=== PATIENT | male | born 1985 | race African-American/Black ===

== ENCOUNTER 2018-03-09 16:08 | Inpatient (IN) ==
--- NOTE | 2018-03-09 18:15 | PROVIDER DOCUMENTATION ---
This chart was entered by Lilliana Che Scribe, acting as scribe for Vamsi Felix MD. HPI-Respiratory General - General Source: patient - History of Present Illness-Resp Quality of Pain: reports: none Severity in ED: reports: mild Onset/Duration: reports: 3 days ago Timing: reports: still present Context: reports: other (hc COPD/CHF) Exposure: reports: unknown cause (hx COPD/CHF) Cough Quality/Degree: reports: dry cough Episode Frequency: chronic episodes (hc COPD/CHF) Current Respiratory Medication Therapy: Initiated see nurses note Modifying Factors: improves with: nothing Associated Symptoms: reports: cough (dry), fever/chills, nasal congestion Similar Symptoms Previously?: No Recently seen or treated by another doctor?: No <Vamsi Felix - Last Filed: 03/09/18 19:16> <Vamsi Villasenor - Last Filed: 03/09/18 22:11> - General Chief Complaint: Cough Stated Complaint: CHF COPD Time Seen by Provider: 03/09/18 17:12 Allergies/Adverse Reactions: Patient Allergies Allergy/AdvReac Type Severity Reaction Status Date / Time No Known Allergies Allergy Verified 03/09/18 16:56 Home Medications: Home Medication List Medication Instructions Recorded Confirmed Last Taken Type Albuterol Sulfate [Proair Hfa] 2 puff IH Q4H PRN PRN #1 hfa.aer.ad 01/22/1301/26/18 Rx Aspirin [Aspirin EC] 81 mg PO DAILY 01/22/13 01/26/18 01/25/18 History Carvedilol [Coreg] 25 mg PO BID 01/22/13 01/26/18 01/25/18 History Mometasone/Formoterol [Dulera 100 2 puff INH BID 02/04/16 01/26/18 01/15/18 07: 00 History Mcg/5 Mcg Inhaler] Psyllium Husk [Daily Fiber] 0.52 gm PO DAILY 02/04/16 01/26/18 01/15/18 07:00 History Hydrocodone/APAP 7.5 mg/325 mg 1 each PO Q6H PRN PRN #20 tablet 02/08/16 Unknown Rx [[place]-7.5] Amlodipine [Norvasc] 5 mg PO DAILY #30 tab 02/02/18 Unknown Rx Guaifenesin E.r. [Mucinex] 600 mg PO BID tablet 02/02/18 Unknown Rx Pantoprazole [Protonix] 40 mg PO DAILY@0700 #30 tab 02/02/18 Unknown Rx Polyethylene Glycol 3350 [Miralax] 17 gm PO DAILY #30 powder, packet 02/02/18 Unknown Rx Sacubitril/Valsartan [Entresto 24 1 ea PO BID #120 tab 02/02/18 Unknown Rx mg-26 mg Tablet] Torsemide [Demadex] 10 mg PO BID #60 tab 02/02/18 Unknown Rx - History of Present Illness-Resp Nature of Presenting Problem: 33 y/o male presents to ED with dry cough, fever, orthopnea, SOB, poor appetite , and congestion onset 3 days ago. Pt reports hx CHF and COPD. O2 sat in the 70s upon arrival on room air. Pt wears nasal cannula at home. Pt is alert and oriented. (Lilliana Che) 33 y/o male presents to ED with dry cough, fever, orthopnea, SOB, poor appetite , and congestion onset 3 days ago. Pt reports hx CHF and COPD. O2 sat in the 70s upon arrival on room air. Pt wears nasal cannula at home. Pt is alert and oriented. (Vamsi Felix) Review of Systems - Adult - REVIEW OF SYSTEMS - ADULT Constitutional: reports: fever. denies: chills Eyes: reports: no symptoms reported Ears, Nose, Mouth & Throat: reports: sinus problem. denies: epistaxis Cardiovascular: reports: orthopnea. denies: chest pain, palpitations Respiratory: reports: cough (dry), shortness of breath Gastrointestinal: reports: poor appetite. denies: abdominal pain, diarrhea, nausea, vomiting Genitourinary: reports: no symptoms reported Musculoskeletal: denies: back pain, joint pain Integumentary: reports: no symptoms reported Neurological: denies: dizziness/vertigo, seizure Psychiatric: reports: no symptoms reported Endocrine: reports: no symptoms reported Hematologic/Lymphatic: reports: no symptoms reported Allergic/Immunologic: reports: no symptoms reported All Other Systems: Reviewed and Negative <Vamsi Felix - Last Filed: 03/09/18 19:16> Past History - Adult - PAST MEDICAL HISTORY-ADULT Review of Records: reports: Old Records Reviewed, Nursing Assessment Review, Medications Reviewed Major Childhood Illnesses: reports: denies history Cardiovascular: reports: CHF, HTN Respiratory: reports: asthma, COPD, pneumonia, sleep apnea Gastrointestinal: reports: GERD, ulcer Obstetrical/Gynecological: reports: denies history Genitourinary: reports: denies history Musculoskeletal: reports: denies history Neurological: reports: denies history Psychiatric: reports: denies history Endocrine/Immune: reports: Diabetes Other Conditions: reports: denies history - PRIOR SURGERIES/PROCEDURES Surgical/Procedure History: reports: EGD, colonoscopy, other (sinus ) - IMMUNIZATION STATUS Childhood Immunizations: See Nurse Assessment Flu Vaccine: See Nurse Assessment - FAMILY HISTORY Family History: reviewed, not pertinent - SOCIAL HISTORY Smoking: non-smoker Substance Use: none/never Alcohol Use Frequency: rarely Living Situation: family <Vamsi Felix - Last Filed: 03/09/18 19:16> Physical Exam-General - PHYSICAL EXAM-ADULT Initial Vital Signs Reviewed: Yes - CONSTITUTIONAL General Appearance: appears well, alert, no apparent distress, obese - EYES Eyes: PERRL/EOMI, pink conjunctivae - HEAD, EARS, NOSE, MOUTH & THROAT HENMT: normocephalic/atraumatic, moist mucous membranes, normal ENT inspection - NECK Neck: non-tender, full range of motion - RESPIRATORY Respiratory: chest non-tender, increased rate, other (difficult to hear breath sounds) - CARDIOVASCULAR Cardiovascular: normal peripheral pulses, regular rate, rhythm, other (distant heart sounds) - GASTROINTESTINAL (ABDOMEN) Abdominal Exam: non tender, soft, other (morbidly obese) - MUSCULOSKELETAL Back Exam: normal inspection, no CVA tenderness Extremity: normal range of motion, non-tender, normal gait - SKIN Integumentary: normal color, warm/dry - NEUROLOGIC Neurologic: grossly normal - PSYCHIATRIC Psych/Mental Status: normal mood/affect, normal thought content, normal thought process <Vamsi Felix - Last Filed: 03/09/18 19:16> Progress - CHANGE OF SHIFT REPORT (ED Provider) Report Given and Care Transferred to:: Dr villasenor Items Pending: Labs, XRAY Results <Vamsi Felix - Last Filed: 03/09/18 19:16> - PLAN OF CARE/RESULTS Result Diagrams: 03/09/18 19:57 03/09/18 19:57 - XRAY 1 XRAY Study: Chest Impression: See EMR Report (EXAM: CHEST-2 VIEWS INDICATION: sob TECHNIQUE: 2 views COMPARISON: 02/02/2018 FINDINGS: There is evidence of pulmonary venous congestion and interstitial edema. There is no large pleural fluid collection identified and no pneumothorax. There is stable cardiomegaly. IMPRESSION: Pulmonary edema and pulmonary venous congestion as described. Electronically signed by Dirk Jasso 03/09/2018 7:27 PM 03/09/181926 Interpreting Physician: Dirk Jasso MD Dictated Date/Time: 03/09/181925 cc: Vamsi Felix MD; Aleks Machado MD) - CONSULTS/PCP/HOSPITALIST Notification #1 *Consult/PCP/Hospitalist*: Dr. Tolentino Time Discussed: 22:05 Reason/Comments: consulted with Dr. Tolentino about patient. Consult Disposition: Admit <Vamsi Villasenor - Last Filed: 03/09/18 22:11> - PLAN OF CARE/RESULTS Progress/Plan/Lab Results: Vital Signs - 8 hr 03/09/18 16:31 03/09/18 16:55 03/09/18 19:00 Temperature 102.9 F H 99.1 F Pulse Rate 103 H 101 H 109 H Respiratory Rate 24 31 H 13 Blood Pressure 141/91 127/102 O2 Sat by Pulse Oximetry 95 89 L 89 L Laboratory Results - last 24 hr 03/09/18 03/09/18 03/09/18 19:57 19:57 19:57 WBC 9.83 RBC 4.89 Hgb 12.6 L Hct 40.5 L MCV 82.8 MCH 25.8 L MCHC 31.1 L RDW Std Deviation 14.9 H Plt Count 177 MPV 11.1 H Immature Gran % (Auto) 0.2 Neut % (Auto) 74.1 Lymph % (Auto) 16.2 L [place] % (Auto) 8.9 Eos % (Auto) 0.4 Baso % (Auto) 0.2 Immature Gran # (Auto) 0.02 Neut # (Auto) 7.29 H Lymph # (Auto) 1.59 [place] # (Auto) 0.87 H Eos # (Auto) 0.04 Baso # (Auto) 0.02 Specimen Type Sample Site pH pCO2 pO2 HCO3 Base Excess Oxyhemoglobin ABG O2 Sat (Calculated) ABG O2 Saturation ABG Carboxyhemoglobin ABG Methemoglobin Larry Test A-a O2 Difference Total Hemoglobin Lactate Liter Flow Blood Gas Modality FiO2 % Sodium 141 Potassium 4.0 Chloride 97 L Carbon Dioxide 30 Anion Gap 14 BUN 15 Creatinine 1.1 Estimated GFR/1.73 m2 > 60 BUN/Creatinine Ratio 14 Glucose 80 Calculated Osmolality 281 Calcium 9.2 Total Bilirubin 2.22 H AST 16 ALT 12 Alkaline Phosphatase 88 Troponin T Zda-A-Bcsvnixtofj Pept 1477 H Total Protein 8.6 H Albumin 3.9 Globulin 4.7 Albumin/Globulin Ratio 0.8 Plasma Lactate 03/09/18 03/09/18 03/09/18 19:57 21:12 21:16 WBC RBC Hgb Hct MCV MCH MCHC RDW Std Deviation Plt Count MPV Immature Gran % (Auto) Neut % (Auto) Lymph % (Auto) [place] % (Auto) Eos % (Auto) Baso % (Auto) Immature Gran # (Auto) Neut # (Auto) Lymph # (Auto) [place] # (Auto) Eos # (Auto) Baso # (Auto) Specimen Type ARTERIAL Sample Site R RADIAL pH 7.46 H pCO2 46 H pO2 58 L HCO3 30.9 H Base Excess 7.8 H Oxyhemoglobin 91.0 L ABG O2 Sat (Calculated) 16.2 ABG O2 Saturation 94.1 L ABG Carboxyhemoglobin 2.40 ABG Methemoglobin 0.9 Larry Test YES A-a O2 Difference 98.0 Total Hemoglobin 12.7 Lactate 1.30 Liter Flow 2.5 Blood Gas Modality CANNULA FiO2 % 30.0 Sodium Potassium Chloride Carbon Dioxide Anion Gap BUN Creatinine Estimated GFR/1.73 m2 BUN/Creatinine Ratio Glucose Calculated Osmolality Calcium Total Bilirubin AST ALT Alkaline Phosphatase Troponin T 0.013 Hyw-B-Ubqlncxvwgm Pept Total Protein Albumin Globulin Albumin/Globulin Ratio Plasma Lactate 1.1 Orders Category Date Time Status Saline Loc NOW Care 03/09/18 20:37 Active CHEST-2 VIEWS [RAD] Stat Exams 03/09/18 17:45 Completed ABG [RESP] Routine Lab 03/09/18 21:12 Completed BC [BLOOD CULTURE] [BLDCUL] Stat Lab 03/09/18 21:16 Received CBC WITH ELECTRONIC DIFF [HEME] Stat Lab 03/09/18 19:57 Completed CMP [COMPREHENSIVE METABOLIC PANEL] [CHEM] Stat Lab 03/09/18 19:57 Completed INFLUENZA SCREEN A/B Stat Lab 03/09/18 20:38 Uncollected LACTATE, PLASMA [CHEM] Stat Lab 03/09/18 21:16 Completed PRO B-NATRIURETIC PEPTIDE Stat Lab 03/09/18 19:57 Completed TROPONIN T Stat Lab 03/09/18 19:57 Completed Albuterol 2.5MG/Ipratrop 0.5MG [Duoneb (A & A)] Med 03/09/18 22:02 Discontinued 3 ml INH NOW ONE Azithromycin 500 mg/Ns [Zithromax 500 mg/Ns] Med 03/09/18 20:38 Discontinued 500 mg in 250 ml IV NOW CefTRIAXONE [Rocephin] 1 gm Med 03/09/18 20:38 Discontinued 0.9% Sodium Chloride Inj [Ns] 50 ml IV NOW Furosemide [Lasix] Med 03/09/18 20:38 Discontinued 40 mg IV NOW ONE Furosemide [Lasix] Med 03/09/18 22:00 Discontinued 60 mg IM NOW ONE Aerosol Treatments Routine Oth 03/09/18 22:02 Active Aerosol Treatments Stat Oth 03/09/18 22:02 Active Departure <Vamsi Felix - Last Filed: 03/09/18 19:16> - Departure Date of Disposition Decision: 03/09/18 Time of Disposition Decision: 22:06 Certified Medical Emergency: Emergent - Critical Care Note This patient required my direct & personal management of CC.: No <Vamsi Villasenor - Last Filed: 03/09/18 22:11> - Departure DIAGNOSIS: SOB (shortness of breath), Cardiomegaly, CHF exacerbation Fluid overload Qualifiers: Hypervolemia type: unspecified Qualified Code(s): E87.70 - Fluid overload, unspecified Fever Qualifiers: Encounter type: initial encounter Disposition: ADMITTED INPATIENT 09 Condition: Fair Referrals and Follow-Ups: Aleks Machado MD [Primary Care Provider] - Attestation - Physician/ KRISTAN Attestation Patient care was provided by Advanced Practice Provider:: No The physician spent face to face time with patient:: Yes Advanced Practice Provider documentation review:: Supervising physician onsite and consulted in the evaluation and care of this patient. The physician did have a face to face encounter with the patient. <Vamsi Felix - Last Filed: 03/09/18 19:16> - Physician/ KRISTAN Attestation Patient care was provided by Advanced Practice Provider:: No The physician spent face to face time with patient:: Yes Advanced Practice Provider documentation review:: Supervising physician onsite and consulted in the evaluation and care of this patient. The physician did have a face to face encounter with the patient. <Vamsi Villasenor - Last Filed: 03/09/18 22:11> This chart was documented by the indicated scribe, (Lilliana Che, Scribe) and accurately reflects the services I performed and decisions made by me, Vamsi Felix MD, as attested by the provider's signature.
--- NOTE | 2018-03-09 19:29 | Diag Imaging Result Doc PS360 ---
EXAM: CHEST-2 VIEWS INDICATION: sob TECHNIQUE: 2 views COMPARISON: 02/02/2018 FINDINGS: There is evidence of pulmonary venous congestion and interstitial edema. There is no large pleural fluid collection identified and no pneumothorax. There is stable cardiomegaly. IMPRESSION: Pulmonary edema and pulmonary venous congestion as described. Electronically signed by Dirk Jasso 03/09/2018 7:27 PM
[2018-03-09 20:25] LABS: BASO# 0.02 X1000 (0.0-0.2); BASO% 0.2 % (0.0-0.8); EOS# 0.04 X1000 (0.0-0.7); EOS% 0.4 % (0.0-10.0); HEMATOCRIT 40.5 % (42.0-52.0); HEMOGLOBIN 12.6 g/dL (14.0-18.0); IMM GRAN# 0.02 X1000 (0.0-0.04); IMM GRAN% 0.2 % (0.0-0.5); LYMPH# 1.59 X1000 (1.2-3.4); LYMPH% 16.2 % (20.5-51.1); MCH 25.8 PG (27-31); MCHC 31.1 g/dL (33-37); MCV 82.8 FL (81-99); MONO# 0.87 X1000 (0.11-0.59); MONO% 8.9 % (1.7-9.3); MPV 11.1 FL (7.4-10.4); NEUT# 7.29 X1000 (1.4-6.5); NEUT% 74.1 % (42.2-75.2); PLT 177 X1000 (130-400); RBC 4.89 XMIL (4.7-6.1); RDW 14.9 % (11.5-14.5); WBC 9.83 X1000 (4.8-10.8)
[2018-03-09 20:35] LABS: AGAP 14; ALB/GLOB RATIO 0.8; ALBUMIN 3.9 g/dL (3.5-5.0); ALKALINE PHOSPHATASE 88 U/L (32-122); BUN 15 mg/dL (8-22); CALCIUM 9.2 mg/dL (8.8-10.2); CHLORIDE 97 mmol/L (98-107); COSMO 281; CREATININE 1.1 mg/dL (0.7-1.2); ESTIMATED GFR > 60; GLUCOSE 80 mg/dL (70-104); GOT 16 U/L (10-34); GPT 12 U/L (10-44); SODIUM 141 mmol/L (136-145); TCO2 30 mmol/L (25-35); TOTAL BILIRUBIN 2.22 mg/dL (0.20-1.00); TOTAL PROTEIN 8.6 g/dL (6.3-8.3)
[2018-03-09] MEDS ORDERED: LASIX IV ONE (20:38)
[2018-03-09] MEDS ORDERED: ROCEPHIN 1 GM in NS 50 ML IV ONE (20:38)
[2018-03-09] MEDS ORDERED: ZITHROMAX 500 MG/NS 500 MG/250 ML IVPB IV ONE (20:38)
[2018-03-09 21:21] LABS: ALLEN TEST YES; BE 7.8 mmoll (-3.0-3.0); BLOOD TYPE ARTERIAL; HCO3-(ACT) 30.9 mmoll (20.0-26.0); METHB 0.9 % (0.0-1.5); O2(CT) 16.2 mL/dL (15.0-23.0); PCO2(98.6) 46 mmHg (35-45); PO2(98.6) 58 mmHg (60-100); SAMPLE BLOOD; SAO2 94.1 % (95.0-100.0); THB 12.7 g/dL (11.5-17.4); pH(98.6) 7.46 (7.35-7.45)
[2018-03-09 21:22] LABS: MODALITY CANNULA
[2018-03-09] MEDS ORDERED: LASIX IM ONE (22:00)
[2018-03-09] MEDS ORDERED: DUONEB (A & A) INH ONE (22:02)
[2018-03-09] MEDS ORDERED: ZOFRAN IV PRN (23:31)
[2018-03-09] MEDS ORDERED: TYLENOL PO PRN (23:33)
[2018-03-10] MEDS: ROCEPHIN 1 GM in NS 50 ML IV SCH (01:25)
[2018-03-10] MEDS: LASIX IV SCH ×2 (01:25→10:45)
[2018-03-10] MEDS: LOVENOX SUBQ SCH (01:25)
--- NOTE | 2018-03-10 01:57 | HISTORY AND PHYSICAL ---
CHIEF COMPLAINT: Shortness of breath. HISTORY OF PRESENT ILLNESS: The patient is a 33-year-old morbidly obese male who has a known history of congestive heart failure, sleeps at night with a BiPAP. She presented to the ER with increased cough, congestion, shortness of breath. He currently is on 4 L of oxygen at home. He notes that for the past 2-1/2 days he has not been able to breathe, he has been much more fatigued and short of breath with any activity. He actually had a fever at 102 earlier today when he arrived to the ER. He states he has not had any fever prior to this. He states that he has had a recent increase in his Demadex over the past 2 weeks to 20 mg twice a day. He does not check his weight on any regular basis as he states he is unable to weigh at home. PAST MEDICAL HISTORY: Congestive heart failure, hypertension, morbid obesity, COPD, recurrent pneumonia, sleep apnea, chronic reflux with history of peptic ulcers, diabetes, chronic edema in his lower extremities with brawny edematous changes. He has had a colonoscopy in the past. ALLERGIES: No known drug allergies. MEDICATIONS: ProAir, aspirin, Coreg 25 twice a day, Dulera 2 puffs twice a day , hydrocodone p.r.n., Norvasc 5 daily, Protonix. He has recently been placed on Entresto approximately 2 weeks ago, he has had an increase to 24/ twice daily and he takes 20 mg of Demadex twice daily. FAMILY HISTORY: Noncontributory. SOCIAL HISTORY: The patient does not smoke or drink. 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 REVIEW OF SYSTEMS: The patient denies any fevers prior to today, denies any production to his cough. States that he has had increased swelling in his lower extremities but has not increased his Lasix at home, he does not check his pressure on any regular basis. He does have orthopnea, he sleeps every night with BiPAP. Denies any headaches, blurred vision, change in vision. Denies any focalized numbness, tingling, weakness in his extremities. Denies any dysuria or urinary hesitancy. Denies any constipation or melena. PHYSICAL EXAMINATION: VITAL SIGNS: Temperature is 102.9 degrees T-max in the ER, T-current 99.1, pulse 109 respiratory 13-24, BP 127/102-141/91, sat 89% on 3 L. Patient is very pleasant, Alert and Oriented x3. Currently in mild respiratory distress. HEENT: Normocephalic, atraumatic. PERRL, EOMI Neck: Supple, no appreciable JVD but he is morbidly obese CV: regular rate, no murmur Chest: Decreased bilateral but very distant due to body habitus. No appreciable wheezing or crackles. Abdomen: soft, obese, non tender Extremities: 3+ edema to above knee with brawny edematous changes. ASSESSMENT: 1. Congestive heart failure, systolic with exacerbation. The patient had an echocardiogram in January with an ejection fraction of approximately 20% with global hypokinesis. 2. Febrile illness. His recent chest x-ray demonstrated pulmonary edema and vascular congestion, but no true infiltrate. 3. Obstructive sleep apnea. 4. Morbid obesity. 5. Hypertension. 6. Diabetes. PLAN: We will admit the patient to the hospital, place him on IV Lasix, restart his BiPAP in the hospital. He was given Rocephin and azithromycin in the ER due to his fever, we will continue this. Continue his home medications when doses are made available and we will follow. cc: Jose Tolentino MD MTDD
[2018-03-10 04:40] LABS: HEMATOCRIT 39.7 % (42.0-52.0); HEMOGLOBIN 12.1 g/dL (14.0-18.0); MCH 25.2 PG (27-31); MCHC 30.5 g/dL (33-37); MCV 82.5 FL (81-99); MPV 10.7 FL (7.4-10.4); RBC 4.81 XMIL (4.7-6.1); RDW 14.9 % (11.5-14.5); WBC 11.07 X1000 (4.8-10.8)
[2018-03-10 05:03] LABS: AGAP 13; ALB/GLOB RATIO 1.1; ALBUMIN 3.8 g/dL (3.5-5.0); ALKALINE PHOSPHATASE 81 U/L (32-122); BUN 15 mg/dL (8-22); CALCIUM 8.8 mg/dL (8.8-10.2); CHLORIDE 98 mmol/L (98-107); COSMO 290; ESTIMATED GFR > 60; GLUCOSE 134 mg/dL (70-104); GOT 14 U/L (10-34); GPT 12 U/L (10-44); POTASSIUM 3.4 mmol/L (3.5-5.1); SODIUM 144 mmol/L (136-145); TCO2 33 mmol/L (25-35); TOTAL BILIRUBIN 2.09 mg/dL (0.20-1.00); TOTAL PROTEIN 7.3 g/dL (6.3-8.3)
[2018-03-10] MEDS: HUMALOG SUBQ SCH ×4 (07:00→21:09)
[2018-03-10] MEDS: ZITHROMAX PO SCH (08:28)
[2018-03-10] MEDS: TYLENOL PO PRN ×2 (12:09→21:07)
--- NOTE | 2018-03-10 13:44 | CARDIOLOGY CONSULTATION ---
DATE: 03/10/2018 CHIEF COMPLAINT ON PRESENTATION: Shortness of breath. HISTORY OF PRESENT ILLNESS: Mr. Lopez is a 33-year-old, morbidly obese, black male with a history of systolic heart failure, who presented for shortness of breath that has been ongoing for the last 2 to 3 days. In addition, he reports a productive cough and fever of up to 102. This was documented on presentation. His temperature on presentation was 102.9. He denies any overt orthopnea. He has not had any increase in his lower extremity edema. He reports compliance with his medications, including his Entresto, carvedilol and torsemide. Patient has not had any sick contacts that he recalls. PAST MEDICAL HISTORY: 1. Significant for systolic heart failure presumed to be nonischemic. The patient is unfortunately too obese to undergo really any cardiac testing modalities. His last echocardiogram was in January of 2018 demonstrating an EF of 25% with global hypokinesis. 2. Pulmonary hypertension. 3. Morbid obesity with obstructive sleep apnea. 4. Reflux disease. 5. Diabetes. 6. Hypertension. 7. COPD. SOCIAL HISTORY: Significant for no current tobacco use or alcohol use. FAMILY HISTORY: Significant for hypertension. REVIEW OF SYSTEMS: A 10 system review of systems is negative, except for those things mentioned in HPI. PHYSICAL EXAMINATION: Vital Signs: The patient's T-max was 102.9 degrees. Heart rates have been in the 80s to low 100s. His blood pressure is 118/83. General: He is in no acute distress. He is a morbidly obese black male, pleasant. HEENT: Oropharynx is moist. Poor dentition. Eye examination has pink conjunctivae, white sclerae. Neck: His neck examination shows no obvious thyromegaly or thyroid tenderness. Cardiovascular: He sounds to be in a regular rate and rhythm. He has very distant heart sounds due to his body habitus. He has 1+ bilateral lower extremity edema, warm and well perfused lower extremities with chronic venous stasis changes to the bilateral lower extremities. Chest: Exam has minimal bilateral expiratory wheezes, but is quite a compromised exam secondary to his weight. Abdomen: Soft, nontender. No obvious organomegaly, but again a compromised exam. Skin Exam: Warm and dry throughout. No obvious rashes. He does have evidence for chronic venous stasis changes. Neuro and psych exams: Unremarkable. He has no lateralizing deficits. He is alert, oriented and pleasant. PERTINENT DATA: His chest x-ray suggests pulmonary venous congestion with edema, marked cardiomegaly. This is a very difficult examination due to the patient's weight. His laboratory data shows white count of 11, hematocrit of 39, platelet count is 197. His sodium is 144, potassium 3.4. His BUN is 15, creatinine is 1. His cardiac enzymes are negative. His proBNP yesterday was 1477 with a lactate of 1.1. ASSESSMENT: Mr. Lopez is a 33-year-old, black male with morbid obesity and nonischemic cardiomyopathy. PLAN: Patient has been afebrile. I will check a CRP, as well as a proBNP in the morning. I agree with trying some light diuresis in among the current Lasix. We will restart his Entresto. He is already on antibiotics. Perhaps his most prominent symptomatology is secondary to his infectious process, which is likely pulmonary in origin. cc: Tex Gong MD
--- NOTE | 2018-03-10 17:37 | PROGRESS NOTE ---
DATE: 03/10/2018 SUBJECTIVE: Patient awake. He is dyspneic. OBJECTIVE: Vital signs: Temperature 98 degrees, pulse 103, respirations [*], blood pressure is 118/83, oxygen is 93%. HEENT: Atraumatic, normocephalic. Cardiovascular: Distant heart sounds. Respiratory: No rales or rhonchi noted. Abdomen: Obese. Extremities: Edema. Central nervous system: No obvious focal deficits noted. LABS: WBC 7.07, hematocrit 39.7, with a platelet count of 197,000. Sodium is 144, potassium 3.4, chloride 98, bicarb 30, BUN is 15, creatinine 1.0. ASSESSMENT AND PLAN: 1. Acute systolic congestive heart failure. Monitor intake and output and daily weights. Continue diuretics. Cardiology following. 2. Acute respiratory failure. Related to volume overload. The patient does have sleep apnea. Maintain patient on BiPAP. Follow up on arterial blood gases. 3. Hypertension. Optimize blood pressure control. 4. Diabetes mellitus. Monitor blood sugar levels and also optimize blood sugar control. 5. Deep vein thrombosis prophylaxis. Lovenox. 6. Gastrointestinal prophylaxis. Proton pump inhibitor. cc: Ramon Coates MD
[2018-03-10 17:40] LABS: AGAP 12; ALBUMIN 3.6 g/dL (3.5-5.0); ALKALINE PHOSPHATASE 79 U/L (32-122); BUN 15 mg/dL (8-22); CALCIUM 8.6 mg/dL (8.8-10.2); CHLORIDE 99 mmol/L (98-107); COSMO 285; ESTIMATED GFR > 60; GLUCOSE 122 mg/dL (70-104); GOT 14 U/L (10-34); GPT 12 U/L (10-44); POTASSIUM 4.1 mmol/L (3.5-5.1); SODIUM 142 mmol/L (136-145); TCO2 31 mmol/L (25-35); TOTAL BILIRUBIN 2.03 mg/dL (0.20-1.00); TOTAL PROTEIN 7.1 g/dL (6.3-8.3)
[2018-03-10 17:40] LABS: ALLEN TEST YES; BE 8.6 mmoll (-3.0-3.0); BLOOD TYPE ARTERIAL; HCO3-(ACT) 31.6 mmoll (20.0-26.0); METHB 0.8 % (0.0-1.5); O2(CT) 16.8 mL/dL (15.0-23.0); O2HB 96.5 % (95.0-99.0); PO2(98.6) 184 mmHg (60-100); SAMPLE BLOOD; SAO2 99.3 % (95.0-100.0); THB 12.1 g/dL (11.5-17.4); pH(98.6) 7.34 (7.35-7.45)
[2018-03-10 17:42] LABS: MODALITY BI PAP; PCO2(98.6) 68 mmHg (35-45)
[2018-03-10] MEDS: ENTRESTO 24 MG-26 MG TABLET PO SCH (21:07)
[2018-03-11] MEDS: LASIX IV SCH ×2 (00:13→16:03)
[2018-03-11] MEDS: LOVENOX SUBQ SCH ×2 (00:14→23:02)
[2018-03-11] MEDS: ROCEPHIN 1 GM in NS 50 ML IV SCH ×2 (00:14→23:02)
[2018-03-11] MEDS: HUMALOG SUBQ SCH ×4 (06:22→20:48)
[2018-03-11 06:49] LABS: BASO# 0.01 X1000 (0.0-0.2); BASO% 0.1 % (0.0-0.8); EOS# 0.09 X1000 (0.0-0.7); HEMATOCRIT 40.2 % (42.0-52.0); HEMOGLOBIN 11.9 g/dL (14.0-18.0); IMM GRAN# 0.05 X1000 (0.0-0.04); IMM GRAN% 0.5 % (0.0-0.5); LYMPH# 1.26 X1000 (1.2-3.4); LYMPH% 13.5 % (20.5-51.1); MCH 25.3 PG (27-31); MCHC 29.6 g/dL (33-37); MCV 85.4 FL (81-99); MONO# 1.21 X1000 (0.11-0.59); MPV 10.6 FL (7.4-10.4); NEUT% 71.9 % (42.2-75.2); PLT 199 X1000 (130-400); RBC 4.71 XMIL (4.7-6.1); RDW 14.9 % (11.5-14.5); WBC 9.32 X1000 (4.8-10.8)
[2018-03-11 07:03] LABS: AGAP 13; BUN 12 mg/dL (8-22); C REACTIVE PROT QUANT 83.37 mg/L (0.00-5.00); CALCIUM 8.4 mg/dL (8.8-10.2); CHLORIDE 97 mmol/L (98-107); COSMO 280; CREATININE 0.9 mg/dL (0.7-1.2); ESTIMATED GFR > 60; GLUCOSE 107 mg/dL (70-104); MAGNESIUM 1.4 mg/dL (1.5-2.7); POTASSIUM 4.3 mmol/L (3.5-5.1); SODIUM 140 mmol/L (136-145); TCO2 30 mmol/L (25-35)
--- NOTE | 2018-03-11 07:26 | Diag Imaging Result Doc PS360 ---
EXAM: CHEST-1 VIEW 03/11/2018 HISTORY: chf TECHNIQUE: AP portable at 0626 COMMENT: There is cardiomegaly. There is interstitial pulmonary edema. The inspiration is less optimal than on 03/09/2018. IMPRESSION: Cardiomegaly and pulmonary edema. Electronically signed by Rob Mccain 03/11/2018 7:24 AM
[2018-03-11] MEDS: TYLENOL PO PRN ×4 (08:06→23:23)
[2018-03-11] MEDS: ENTRESTO 24 MG-26 MG TABLET PO SCH ×2 (10:31→20:47)
[2018-03-11] MEDS: ZITHROMAX PO SCH (10:31)
[2018-03-11] MEDS ORDERED: MAGNESIUM SULFATE 2 GM/S.W.I. 2 GM/50 ML IVPB IV ONE (12:47)
[2018-03-11] MEDS: ALBUTEROL NEB INH PRN ×3 (13:20→23:15)
--- NOTE | 2018-03-11 13:44 | CARDIOLOGY PROGRESS NOTE ---
DATE: 03/11/2018 SUBJECTIVE: Mr. Lopez reports some issues with shortness of breath. He has requested a breathing treatment today. He is having some mild cough. No fevers that he is aware of. PHYSICAL EXAMINATION: He is afebrile. His heart rate is around 103. His blood pressure is 133/72. Generally, he is in no acute distress. Cardiovascular: He sounds to be in a regular rate and rhythm. He has extremely distant heart sounds and really unable to get an accurate or a good auscultation. He has no lower extremity edema. He has warm and well-perfused lower extremities. His chest exam is very distant breath sounds. He has minimal and expiatory wheezes that were auscultated. His abdomen is soft, nontender, nondistended. He has no obvious organomegaly although exam is extremely limited. DATA: His chest x-ray is essentially almost unreadable secondary to under penetration. I am unclear if he actually has any significant pulmonary edema on this examination as it is an extremely difficult study. His laboratory data shows a white count of 9.3, hematocrit of 40. His platelet count is 199,000. His sodium is 140, potassium 4.3. His BUN is 12. Creatinine 0.9. His magnesium level is 1.4. His proBNP is 1012 with a CRP of 83.37. ASSESSMENT: Mr. Lopez is a 33-year-old, morbidly obese male with a history of systolic heart failure. PLAN: The patient is extremely difficult patient for any sort of physical examination or x-rays. It is very difficult to tell if he is volume overloaded. His proBNP elevation is very minimal and, considering his massive obesity and obstructive sleep apnea, he likely runs extremely high PA pressures which would likely drive a proBNP level of 1000 which he currently is running. In addition, he likely has a pulmonic infectious process that could cause this elevation and proBNP as well. In short, I am not sure if the patient is actually in acute heart failure exacerbation. Regardless, it would be reasonable to continue to try to diurese him as long as his renal function allows. I will try to re-add back in a little bit of his carvedilol. I have no further acute recommendations at this time. cc: Tex Gong MD
--- NOTE | 2018-03-11 15:19 | PROGRESS NOTE ---
DATE: 03/11/2018 SUBJECTIVE: The patient is doing much better today. OBJECTIVE: Vital signs are as follows: Temperature is 97.9, pulse [*]respiratory rate 20, blood pressure is 103/69, O2 saturation is 100%. HEENT: Atraumatic, normocephalic. Cardiovascular System: Distant heart sounds. Respiratory System: No rales or rhonchi noted. Abdomen obese. No masses felt. Extremities: Edema present. Central Nervous System: No obvious focal deficits noted. LABORATORY DATA: WBC is 9.8, hematocrit is 40.2 with a platelet count of 199,000. Sodium is 143, potassium 4.2, chloride 97, bicarb 30. BUN is 12, creatinine 0.9. ASSESSMENT AND PLAN: 1. Acute systolic congestive heart failure. Continue diuretics. Monitor intakes and outputs, as well as daily weights. Cardiology following. 2. Acute hypercapnic respiratory failure. Related to volume overload as well as sleep apnea. Continue BiPAP. Follow up on blood gases. 3. Hypertension. Optimize blood pressure control. 4. Diabetes mellitus. Monitor blood sugar levels and optimize her blood sugar control. 5. Deep vein thrombosis prophylaxis; Lovenox. 6. Gastrointestinal prophylaxis; proton pump inhibitor. cc: Ramon Coates MD
[2018-03-11 16:51] LABS: AGAP 8; ALB/GLOB RATIO 0.8; ALBUMIN 3.5 g/dL (3.5-5.0); ALKALINE PHOSPHATASE 69 U/L (32-122); BUN 13 mg/dL (8-22); CALCIUM 8.3 mg/dL (8.8-10.2); CHLORIDE 95 mmol/L (98-107); COSMO 272; ESTIMATED GFR > 60; GLUCOSE 105 mg/dL (70-104); GOT 17 U/L (10-34); GPT 14 U/L (10-44); POTASSIUM 4.3 mmol/L (3.5-5.1); SODIUM 136 mmol/L (136-145); TCO2 33 mmol/L (25-35); TOTAL BILIRUBIN 1.54 mg/dL (0.20-1.00); TOTAL PROTEIN 7.7 g/dL (6.3-8.3)
[2018-03-11] MEDS: COREG PO SCH (20:47)
[2018-03-12] MEDS: LASIX IV SCH ×2 (03:28→14:19)
[2018-03-12] MEDS: ALBUTEROL NEB INH PRN ×5 (03:45→23:07)
[2018-03-12] MEDS: TYLENOL PO PRN ×2 (05:06→18:35)
[2018-03-12] MEDS: HUMALOG SUBQ SCH ×4 (06:47→21:06)
--- NOTE | 2018-03-12 06:51 | Diag Imaging Result Doc PS360 ---
EXAM: CHEST-1 VIEW HISTORY: chf TECHNIQUE: Portable chest, single view COMPARISON: 03/11/2018 FINDINGS: Suboptimal exam due to the patient's body habitus which obscures detail. The heart remains enlarged. There is pulmonary edema. There may be underlying small pleural effusions. IMPRESSION: Cardiomegaly with pulmonary edema. Electronically signed by Jeremy Kim 03/12/2018 6:48 AM
[2018-03-12 06:54] LABS: BASO# 0.01 X1000 (0.0-0.2); BASO% 0.1 % (0.0-0.8); EOS# 0.09 X1000 (0.0-0.7); EOS% 1.1 % (0.0-10.0); HEMOGLOBIN 11.4 g/dL (14.0-18.0); IMM GRAN# 0.04 X1000 (0.0-0.04); IMM GRAN% 0.5 % (0.0-0.5); LYMPH# 1.05 X1000 (1.2-3.4); LYMPH% 12.3 % (20.5-51.1); MCH 25.1 PG (27-31); MCHC 29.2 g/dL (33-37); MCV 85.9 FL (81-99); MONO# 0.92 X1000 (0.11-0.59); MONO% 10.8 % (1.7-9.3); MPV 10.6 FL (7.4-10.4); NEUT# 6.44 X1000 (1.4-6.5); NEUT% 75.2 % (42.2-75.2); PLT 213 X1000 (130-400); RBC 4.54 XMIL (4.7-6.1); RDW 14.8 % (11.5-14.5); WBC 8.55 X1000 (4.8-10.8)
[2018-03-12] MEDS: ENTRESTO 24 MG-26 MG TABLET PO SCH ×2 (09:43→21:06)
[2018-03-12] MEDS: COREG PO SCH ×2 (09:43→21:06)
[2018-03-12] MEDS: ZITHROMAX PO SCH (09:43)
--- NOTE | 2018-03-12 15:08 | PROGRESS NOTE ---
DATE: 03/12/2018 SUBJECTIVE: Patient resting in bed. He is dyspneic, stable, even at rest. OBJECTIVE: Vital Signs: As follows: Temperature 98.2, pulse 82, respiratory rate 16, blood pressure is 127/46, oxygen 96%. HEENT: Atraumatic normocephalic. Cardiovascular: Distant heart sounds. Respiratory: Occasional rhonchi noted. Abdomen: Obese, nontender. No masses felt. Extremities: Patient does have edema in the lower extremities. Central Nervous System: No obvious focal deficits noted. LABS: WBC is 8.5, hematocrit 39.0, with a platelet count of [*]. X-ray of the chest shows evidence of cardiomegaly with pulmonary edema. ASSESSMENT AND PLAN: 1. Acute systolic congestive heart failure. Continue diuretics. Monitor intakes and outputs, as well as daily weights. Cardiology following. 2. Acute hypercapnic respiratory failure. Maintain patient on BiPAP. Continue diuretics to address the issue of volume overload. Follow up on chest x-ray as well as [*] blood gases. 3. Hypertension. Optimize blood pressure control. 4. Diabetes mellitus. Monitor blood sugar level as well as optimize blood sugar control as well. 5. DVT prophylaxis. Lovenox. 6. GI prophylaxis. PPI. cc: Ramon Coates MD
[2018-03-12] MEDS: SOLU-MEDROL IV SCH (15:18)
[2018-03-12] MEDS: MYLICON PO PRN ×3 (15:18→21:19)
--- NOTE | 2018-03-12 22:55 | CARDIOLOGY PROGRESS NOTE ---
DATE: 03/12/2018 SUBJECTIVE: Mr. Lopez continues to complain of some cough. No orthopnea. PHYSICAL EXAMINATION: Vital signs: He is afebrile, heart rate is 92, his blood pressure is 127/46. General: He is in no acute distress. Cardiovascular: He sounds to be in a regular rate and rhythm. He has no obvious murmurs. He has very distant heart sounds. He has 1+ bilateral lower extremity edema and warm and well-perfused lower extremities. Chest: His chest exam sounds relatively clear but extremely distant and difficult examination secondary to his body habitus. He has no increased work of breathing. Abdomen: Soft and nontender. PERTINENT DATA: White count is 8.5, hematocrit is 39, platelet count is 213,000. He has no chemistry data from today. His proBNP yesterday was 1012. ASSESSMENT: Mr. Lopez is a 33-year-old, morbidly obese male who presented with a fever and shortness of breath. PLAN: I do not have any acute recommendations from a cardiovascular standpoint. I have escalated his dose of Coreg. Certainly I think the elevation in his BNP could be secondary to his morbid obesity, obstructive sleep apnea, as well as his likely pulmonary infectious process. He may continue receiving diuretics here while he requires inpatient admission for his pulmonary and infectious process. I do not think he needs acute inpatient care from a heart failure standpoint. Unfortunately, his physical examination and x-rays are not helpful to assess his volume, given his massive morbid obesity. cc: Tex Gong MD
[2018-03-13] MEDS: LOVENOX SUBQ SCH ×2 (01:06→23:04)
[2018-03-13] MEDS: ROCEPHIN 1 GM in NS 50 ML IV SCH ×2 (01:07→23:04)
[2018-03-13] MEDS: ALBUTEROL NEB INH PRN ×4 (03:24→19:30)
[2018-03-13] MEDS: LASIX IV SCH ×2 (03:30→14:11)
[2018-03-13] MEDS: SOLU-MEDROL IV SCH ×2 (03:30→14:11)
[2018-03-13 04:52] LABS: ALLEN TEST YES; BE 11.2 mmoll (-3.0-3.0); BLOOD TYPE ARTERIAL; HCO3-(ACT) 33.5 mmoll (20.0-26.0); O2(CT) 15.7 mL/dL (15.0-23.0); PO2(98.6) 59 mmHg (60-100); SAMPLE BLOOD; SAO2 94.9 % (95.0-100.0); THB 12.1 g/dL (11.5-17.4); pH(98.6) 7.41 (7.35-7.45)
[2018-03-13 04:53] LABS: MODALITY BI PAP
[2018-03-13 04:54] LABS: PCO2(98.6) 60 mmHg (35-45)
--- NOTE | 2018-03-13 05:05 | CONSULTATION ---
DATE OF CONSULTATION: 03/12/2017 REQUESTING PROVIDER: Dr. Ramon Coates REASON FOR CONSULTATION: Respiratory failure. HISTORY OF PRESENT ILLNESS: This is a 33-year-old male with a medical history of congestive heart failure, pulmonary hypertension, hypertension, asthma, COPD, morbid obesity, obstructive sleep apnea, reflux disease, and diabetes. He presented to the ER on 03/09/2018 with a dry cough, fever, orthopnea, shortness of breath, poor appetite and congestion for 3 days. Upon arrival, his oxygen saturation was 70s at room air. Chest x-ray revealed pulmonary edema and pulmonary venous congestion. Labs revealed pCO2 46, PO2 58, and ProBNP 1477. The patient has been admitted with congestive heart failure exacerbation and febrile illness. She was put on BiPAP since 03/10/2018. ABG on that day revealed pCO2 68. At the time of my exam, he is sitting on the bed with his mother at bedside. He reports he is feeling a little bit better. He still has dry cough, congestion and shortness of breath with activities. He reports his pedal edema is getting better, but he feels his abdomen is a little bit tight with bloating and he already took some medicine for gas. He is waiting to see whether he will feel better. He denies fever, chills, nausea, vomiting, constipation, diarrhea, chest pain or palpitations. PAST MEDICAL HISTORY: 1. Congestive heart failure systolic with ejection fraction of 25% on 01/2018. 2. Pulmonary hypertension. 3. Hypertension. 4. Asthma. 5. COPD on home oxygen at 4 L. 6. Morbid obesity. 7. Obstructive sleep apnea. 8. Reflux disease. 9. Diabetes mellitus type 2. PAST SURGICAL HISTORY: Sinus surgery. SOCIAL HISTORY: The patient lives at home with his mother. He reports no history of alcohol, tobacco, or illicit drug use. FAMILY HISTORY: Positive for diabetes and heart disease. ALLERGIES: No known drug allergies. REVIEW OF SYSTEMS: A 10 point review of systems was conducted, and the pertinent is listed within the HPI. Otherwise noncontributory. PHYSICAL EXAMINATION: Vital Signs: Temperature 98.2 degrees, pulse 92, blood pressure 127/46, respiratory rate 16, and oxygen saturation 96% on nasal cannula at 4 L. General : Morbidly obese in mild respiratory distress. HEENT: Atraumatic. Trachea midline. Mucosa pink and moist. Respiratory: Diminished breathing sounds with expiratory wheezing bilaterally. No crackles noted. Cardiovascular: Regular rate and rhythm without murmur or gallop. Gastrointestinal: Soft, nontender, and distended/obese. Normal active bowel sounds in all 4 quadrants. Extremities: Pedal edema 1+. No cyanosis. No clubbing. Bilateral lower extremities severe dryness and discoloration. Neurologic: Alert and oriented x3. Generalized weakness. LABORATORY DATA: White blood cell 8.55, hemoglobin 11.4, hematocrit 39, platelet 21s,000. IMAGING DATA: Chest x-ray reveals cardiomegaly, pulmonary edema and possible underlying small pleural effusion. ASSESSMENT: This is a 33-year-old male with a medical history of congestive heart failure, pulmonary hypertension, hypertension, asthma, COPD, morbid obesity, obstructive sleep apnea, reflux disease, and diabetes. He has been admitted with congestive heart failure exacerbation and febrile illness. 1. Acute hypercapnic respiratory failure. 2. Congestive heart failure exacerbation. 3. Obstructive sleep apnea. PLAN: 1. Continue diuretics, antibiotics, steroid and bronchodilators as prescribed. 2. Continue supplemental oxygen. 3. BiPAP at bedtime and as needed. 4. Routine ABG and chest x-ray if indicated. 5. Dr. Gong the boot trimmer is consulted. 6. Continue GI and DVT prophylaxis. Thank you for the courtesy of this consult. Dictated by ERIK Magallanes for Celsa Tidwell MD cc: ERIK Magallanes MD [facility]
[2018-03-13] MEDS: HUMALOG SUBQ SCH ×4 (06:20→22:13)
--- NOTE | 2018-03-13 06:44 | Diag Imaging Result Doc PS360 ---
EXAM: CHEST-1 VIEW HISTORY: chf TECHNIQUE: Portable chest COMPARISON: 03/12/2018 FINDINGS: Poor inspiratory effort. Heart remains markedly enlarged. There is pulmonary edema. It is difficult to tell if there has been a significant change due to the patient's body is in technique. IMPRESSION: No definite improvement. Electronically signed by Jeremy Kim 03/13/2018 6:41 AM
[2018-03-13 07:18] LABS: BASO# 0.01 X1000 (0.0-0.2); BASO% 0.1 % (0.0-0.8); HEMATOCRIT 40.4 % (42.0-52.0); IMM GRAN# 0.02 X1000 (0.0-0.04); IMM GRAN% 0.2 % (0.0-0.5); LYMPH# 0.68 X1000 (1.2-3.4); LYMPH% 6.3 % (20.5-51.1); MCH 25.1 PG (27-31); MCHC 29.7 g/dL (33-37); MCV 84.5 FL (81-99); MONO# 0.48 X1000 (0.11-0.59); MONO% 4.5 % (1.7-9.3); MPV 10.8 FL (7.4-10.4); NEUT# 9.52 X1000 (1.4-6.5); NEUT% 88.9 % (42.2-75.2); PLT 234 X1000 (130-400); RBC 4.78 XMIL (4.7-6.1); RDW 14.4 % (11.5-14.5); WBC 10.71 X1000 (4.8-10.8)
[2018-03-13 07:41] LABS: BANDS 4 % (0-1); LYMPHS 6 % (21-51); MONO 8 % (1-9); SEGS 82 % (42-75)
[2018-03-13 07:55] LABS: AGAP 12; ALB/GLOB RATIO 0.9; ALBUMIN 3.3 g/dL (3.5-5.0); ALKALINE PHOSPHATASE 81 U/L (32-122); BUN 12 mg/dL (8-22); CALCIUM 9.1 mg/dL (8.8-10.2); CHLORIDE 94 mmol/L (98-107); COSMO 279; CREATININE 0.7 mg/dL (0.7-1.2); ESTIMATED GFR > 60; GLUCOSE 132 mg/dL (70-104); GOT 15 U/L (10-34); GPT 16 U/L (10-44); POTASSIUM 4.6 mmol/L (3.5-5.1); SODIUM 139 mmol/L (136-145); TCO2 33 mmol/L (25-35)
[2018-03-13] MEDS: ZITHROMAX PO SCH (09:00)
[2018-03-13] MEDS: COREG PO SCH ×2 (09:00→22:13)
[2018-03-13] MEDS: MYLICON PO PRN ×2 (09:05→22:18)
[2018-03-13] MEDS: ENTRESTO 24 MG-26 MG TABLET PO SCH ×2 (09:05→22:13)
--- NOTE | 2018-03-13 15:14 | PROGRESS NOTE ---
DATE: 03/13/2018 SUBJECTIVE: Patient awake. Seems to be doing better today. Not dyspneic at rest. OBJECTIVE: Vital Signs: Temperature 97.6, pulse 80, respiratory rate is 20, blood pressure 101/56, oxygen saturation is 100%. HEENT: He is atraumatic, normocephalic. Cardiovascular: The patient does have distant heart sounds. Respiratory System. No rales or rhonchi noted. Abdomen is obese. No masses felt. Extremities: Has edema in the lower extremities. Central nervous system awake, alert, well oriented. No focal deficits noted. LABORATORY DATA: WBC is 10.71, hematocrit is 40.4 with a platelet count of 234,000. ABG 7.41/60/59/94.9. Sodium is 139, potassium 4.6, chloride is 94, bicarb 23. BUN is 12, creatinine 0.7. ASSESSMENT AND PLAN: 1. Acute systolic congestive heart failure. We will continue diuretics and continue to monitor intakes and outputs, as well as daily weights. Cardiology is following. 2. Hypercapnic respiratory failure. Maintain patient on BiPAP. Use diuretics to address the issue of volume overload. Follow up on the patient's chest x-ray as well as lateral blood gas. 3. Hypertension. Optimize blood pressure control. 4. Diabetes mellitus. Monitor blood sugar levels as well as optimize blood sugar control as well. 5. Deep vein thrombosis prophylaxis; Lovenox. 6. Gastrointestinal prophylaxis; proton pump inhibitor. cc: Ramon Coates MD
[2018-03-14] MEDS: SOLU-MEDROL IV SCH ×2 (02:47→17:12)
[2018-03-14] MEDS: LASIX IV SCH ×3 (02:47→23:22)
[2018-03-14 05:28] LABS: ALLEN TEST YES; BE 11.9 mmoll (-3.0-3.0); BLOOD TYPE ARTERIAL; HCO3-(ACT) 34.2 mmoll (20.0-26.0); METHB 0.6 % (0.0-1.5); O2(CT) 16.6 mL/dL (15.0-23.0); O2HB 98.1 % (95.0-99.0); PO2(98.6) 192 mmHg (60-100); SAMPLE BLOOD; SAO2 100.8 % (95.0-100.0); THB 11.7 g/dL (11.5-17.4); pH(98.6) 7.44 (7.35-7.45)
[2018-03-14 05:30] LABS: MODALITY BI PAP
[2018-03-14 05:31] LABS: PCO2(98.6) 56 mmHg (35-45)
[2018-03-14] MEDS: HUMALOG SUBQ SCH ×4 (06:08→22:10)
[2018-03-14] MEDS: ALBUTEROL NEB INH PRN ×3 (07:44→15:26)
[2018-03-14 07:57] LABS: EOS# 0.01 X1000 (0.0-0.7); EOS% 0.1 % (0.0-10.0); HEMATOCRIT 40.2 % (42.0-52.0); HEMOGLOBIN 11.9 g/dL (14.0-18.0); IMM GRAN# 0.03 X1000 (0.0-0.04); IMM GRAN% 0.2 % (0.0-0.5); LYMPH# 0.62 X1000 (1.2-3.4); LYMPH% 4.7 % (20.5-51.1); MCHC 29.6 g/dL (33-37); MCV 84.5 FL (81-99); MONO# 0.79 X1000 (0.11-0.59); MPV 10.4 FL (7.4-10.4); PLT 270 X1000 (130-400); RBC 4.76 XMIL (4.7-6.1); RDW 14.7 % (11.5-14.5); WBC 13.15 X1000 (4.8-10.8)
[2018-03-14 08:18] LABS: BANDS 2 % (0-1); LYMPHS 4 % (21-51); MONO 2 % (1-9); SEGS 92 % (42-75)
[2018-03-14 08:27] LABS: AGAP 10; ALB/GLOB RATIO 0.9; ALBUMIN 3.2 g/dL (3.5-5.0); ALKALINE PHOSPHATASE 74 U/L (32-122); BUN 16 mg/dL (8-22); CALCIUM 9.5 mg/dL (8.8-10.2); CHLORIDE 98 mmol/L (98-107); COSMO 288; CREATININE 0.7 mg/dL (0.7-1.2); ESTIMATED GFR > 60; GLUCOSE 133 mg/dL (70-104); GOT 14 U/L (10-34); GPT 14 U/L (10-44); POTASSIUM 4.5 mmol/L (3.5-5.1); SODIUM 143 mmol/L (136-145); TCO2 35 mmol/L (25-35); TOTAL BILIRUBIN 0.71 mg/dL (0.20-1.00); TOTAL PROTEIN 6.7 g/dL (6.3-8.3)
--- NOTE | 2018-03-14 09:11 | Diag Imaging Result Doc PS360 ---
EXAM: CHEST-2 VIEWS 03/14/2018 HISTORY: respiratory failure TECHNIQUE: AP and lateral chest COMMENT: The cardiomediastinal silhouette is markedly enlarged as it was on 03/13/2018. Visualization of the lung patel is suboptimal due to the patient's large body habitus and the large cardiomediastinal silhouette. There is no apparent pleural fluid. The possibility of pulmonary edema or pneumonia cannot be excluded. IMPRESSION: Cardiomegaly and/or pericardial effusion. Pulmonary edema versus pneumonia. Electronically signed by Rob Mccain 03/14/2018 9:09 AM
[2018-03-14] MEDS: TYLENOL PO PRN (09:21)
[2018-03-14] MEDS: ZITHROMAX PO SCH (09:21)
[2018-03-14] MEDS: COREG PO SCH ×2 (09:21→22:08)
[2018-03-14] MEDS: ENTRESTO 24 MG-26 MG TABLET PO SCH ×2 (09:21→22:08)
--- NOTE | 2018-03-14 14:07 | PROGRESS NOTE ---
DATE: 03/14/2018 SUBJECTIVE: Patient notes he is feeling better. He is breathing better. States that he desperately has to get discharged over the weekend, so he can go to work on Friday. Denies any current chest pains, palpitations. States that he is feeling better than he has in several weeks. OBJECTIVE: Vitals: Temperature 99.9, pulse 79, respiratory 20, BP 94/53. General: Patient is a morbidly obese male who is sitting up on the side of the bed. He is currently in no respiratory distress. Overall he is feeling better. HEENT: Normocephalic. Neck: Supple. CARDIOVASCULAR: Regular rate. Chest: Greatly decreased breath sounds bilaterally, likely secondary to his body habitus. He has no current crackles or wheezing appreciable. Abdomen: Soft, morbidly obese, nontender. Extremities: Moves all extremities. No focal changes. Skin: No rashes. He still has edema in his lower extremities but he has chronic brawny edematous changes and has wrinkles in his skin, which he states has not been there until just recently. ASSESSMENT: 1. Acute systolic congestive heart failure on chronic. Patient is negative approximately 10 L since admission. 2. Morbid obesity. 3. Hypercapnic respiratory failure. 4. Hypertension. 5. Diabetes. PLAN: His hypercapnia has continued to improve. His pCO2 is down to 56. We will continue to follow. Continue Lasix although will decrease him from 60 to 40 IV q. 12 and will follow. cc: Jose Tolentino MD
[2018-03-14] MEDS: MYLICON PO PRN (22:08)
[2018-03-14] MEDS: ROCEPHIN 1 GM in NS 50 ML IV SCH (23:22)
[2018-03-14] MEDS: LOVENOX SUBQ SCH (23:22)
[2018-03-15] MEDS: SOLU-MEDROL IV SCH ×2 (03:03→13:45)
[2018-03-15] MEDS: HUMALOG SUBQ SCH ×2 (06:09→12:14)
[2018-03-15] MEDS: ALBUTEROL NEB INH PRN ×3 (08:16→16:35)
[2018-03-15] MEDS: ZITHROMAX PO SCH (10:46)
[2018-03-15] MEDS: ENTRESTO 24 MG-26 MG TABLET PO SCH (10:46)
[2018-03-15] MEDS: COREG PO SCH (10:47)
[2018-03-15] MEDS: MYLICON PO PRN (10:51)
[2018-03-15] MEDS: LASIX IV SCH (13:34)
[2018-03-15 15:04] VITALS: BP 111/56
--- NOTE | 2018-03-16 14:18 | ECHO REPORT ---
ORDER DATE: 03/15/2018 SUMMARY: 1. Limited 2-dimensional and very limited Doppler study performed. Acoustic windows are very difficult. Intravenous echo contrast agent Definity was utilized to enhance endocardial definition. 2. Aortic valve is without evidence of structural abnormality and appears to open adequately on 2- dimensional images. Mitral valves without gross structural abnormality with mild mitral regurgitation. Aortic root is normal in size. Tricuspid and pulmonic valves are not well demonstrated. 3. [id number] left ventricular enlargement with severe global hypokinesis demonstrated. Estimated left ventricular ejection fraction is approximately 20%. Left atrial enlargement is evident. Right atrium and right ventricle are grossly normal size. 4. No pericardial effusion. 5. Inferior vena cava not well demonstrated. cc: Brandon Miller MD
--- NOTE | 2018-03-16 14:48 | DISCHARGE SUMMARY ---
ADMISSION DATE: 03/09/2018 DISCHARGE DATE: 03/15/2018 CONSULTS: Cardiology. IMAGING: Initial chest x-ray with pulmonary venous congestion, interstitial edema consistent with pulmonary edema and pulmonary venous congestion without effusion. Unchanged cardiomegaly. LABS: White count within normal limits. Hemoglobin and hematocrit minimally decreased and remained stable. Hemoglobin 11.9 on admission and just before discharge. ABG showing compensated hypercapnia with pCO2 of 56 to 16, normal pH. Creatinine 1.0 on admission, 0.7 on discharge. BNP ranged from 1000 to 1500. DISCHARGE DIAGNOSES: 1. Acute on chronic systolic congestive heart failure. 2. Chronic hypercapnic respiratory failure. 3. Acute on chronic hypoxic respiratory failure. 4. Morbid obesity with alveolar hypoventilation/Pickwickian syndrome. 5. Pneumonia. 6. Steroid-induced hyperglycemia. 7. Anemia of chronic disease. HOSPITAL COURSE: The patient is a 34-year-old male with history of systolic congestive heart failure, sleep apnea, morbid obesity and associated Pickwickian syndrome/ chronic hypercapnic respiratory failure. He uses 4 L of oxygen most of the time at home. He presented with increased dyspnea. He reported fever at home and did have one fever on presentation in the ED up to 102.9, but none thereafter. Did not really have any leukocytosis, but did have elevated BNP. Chest x- ray was more consistent with pulmonary edema, but given fever he was also treated for presumed community-acquired pneumonia. He was treated with BiPAP, high-dose Bumex twice a day, IV steroids and breathing treatments. Patient improved slowly back to baseline oxygen requirement of 4 L. He still had significant dyspnea on exertion, but stated this was essentially his baseline. He had been off BiPAP for approximately 2 days at the time of discharge. Cardiology was consulted, but did not think that any major adjustments to his home medicines needed to be done. He did have some mild hyperglycemia, but his last A1c was 6.2, suggesting prediabetes with steroid-induced hyperglycemia. He was discharged home on his own medicines and a short course of doxycycline and a Medrol Dosepak. DISCHARGE VITALS: Temperature 97.7 degrees, pulse 96, respirations 20, blood pressure 111/56, O2 sat 99% on 4 L by nasal cannula. PHYSICAL EXAMINATION: General: A morbidly obese male extremities: chronic venous stasis changes, unchanged. Lungs: Difficult to auscultate given body habitus, but no clear rales, rhonchi or wheezing noted. Heart: Regular rate and rhythm. HEENT: Normocephalic, atraumatic. Moist mucous membranes. DISCHARGE DIET: Low salt, low calorie. DISCHARGE MEDICATIONS: 1. Aspirin 81 mg. p.o. daily. 2. Coreg 25 mg p.o. b.i.d. 3. Mometasone nasal spray 1 spray daily as needed. 4. Singulair 5 mg p.o. daily. 5. Entresto 24-26 mg b.i.d. 6. Torsemide 20 mg p.o. b.i.d. 7. Albuterol inhaler as needed. 8. Doxycycline 100 mg p.o. b.i.d. for an additional 5 days. Medrol Dosepak as directed. FOLLOWUP AND PLAN: Patient discharged home to continue home oxygen. Continue home medications for heart failure. Short course of doxycycline to finish treatment for community-acquired pneumonia. Medrol Dosepak for possible COPD, although we favor morbid obesity related hypoventilation rather than true COPD given patient's lack of smoking history. Follow up with PCP and regular junior technical writer. Patient instructed on daily weights and advised that if his weight seems to be trending up, then he needs to speak with either his PCP or regular junior technical writer about increasing his torsemide. TIME SPENT: Greater than 30 minutes spent during discharge and counseling patient. [facility] SYSTEMJessica
== END 2018-03-15 17:54 | disposition home or self-care (01) | DRG 291 ==
LOC: ED 16:08 → SUATTDRO 16:09 → EDIPHOLD 03-10 00:39 → 3N 03-10 13:39
PROVIDERS: ATTEND Internal Medicine
CPT/HCPCS: 71010; 71020; 71045; 71046; 80048; 80053; 82550; 82805; 82948; 83605; 83735; 83880; 84484; 85025; 85027; 86140; 87040; 87088; 87275; 87276; 87804; 93306; 94640; 94660; 94761; 94762; 96365; 96366; 96367; 96368; 96372; 96375; 96376; 99285; A9270; C8924; J0456; J0696; J1650; J1815; J1940; J2405; J2930; J3475; Q9957; XXXXX

== ENCOUNTER 2018-05-29 15:10 | Inpatient (IN) ==
[2018-05-29] MEDS ORDERED: LASIX IV ONE (15:53)
[2018-05-29] MEDS ORDERED: NITROGLYCERIN TOP ONE (15:54)
--- NOTE | 2018-05-29 16:24 | Diag Imaging Result Doc PS360 ---
EXAM: CHEST-PORTABLE INDICATION: cough TECHNIQUE: 2 views COMPARISON: 03/14/2018 FINDINGS: Lung volumes are very low. Overlying soft tissue attenuation somewhat limits the study. However, the lungs appear to be grossly clear. There is no discrete pleural fluid collection or pneumothorax. There is stable marked cardiomegaly. IMPRESSION: 1.Limited study due to body habitus. 2.Low lung volumes and marked cardiomegaly. No definite acute pathology, otherwise. Electronically signed by Dirk Jasso 05/29/2018 4:22 PM
[2018-05-29 16:28] LABS: ALLEN TEST YES; BE 8.6 mmoll (-3.0-3.0); BLOOD TYPE ARTERIAL; HCO3-(ACT) 31.5 mmoll (20.0-26.0); O2(CT) 18.1 mL/dL (15.0-23.0); O2HB 93.9 % (95.0-99.0); PO2(98.6) 80 mmHg (60-100); SAMPLE BLOOD; SAO2 97.6 % (95.0-100.0); THB 13.7 g/dL (11.5-17.4); pH(98.6) 7.39 (7.35-7.45)
[2018-05-29 16:34] LABS: MODALITY CANNULA
[2018-05-29 16:35] LABS: PCO2(98.6) 59 mmHg (35-45)
--- NOTE | 2018-05-29 16:43 | PROVIDER DOCUMENTATION ---
This chart was entered by Jemima Vásquez Scribe, acting as scribe for Priyank Gore MD. HPI-Respiratory General - General Chief Complaint: Shortness of Breath Stated Complaint: CHF/ SOB/ Time Seen by Provider: 05/29/18 15:49 Source: patient Allergies/Adverse Reactions: Patient Allergies Allergy/AdvReac Type Severity Reaction Status Date / Time No Known Allergies Allergy Verified 05/29/18 19:38 Home Medications: Home Medication List Medication Instructions Recorded Confirmed Last Taken Type Albuterol Sulfate [Proair Hfa] 2 puff IH Q4H PRN PRN #1 [email or web address] 01/22/13 05/29/18 01/26/18 Rx Aspirin [Aspirin EC] 81 mg PO DAILY 01/22/13 05/29/18 01/25/18 History Carvedilol [Coreg] 25 mg PO BID 01/22/13 05/29/18 01/25/18 History Guaifenesin E.r. [Mucinex] 600 mg PO PRN PRN 03/10/18 05/29/18 Unknown History Mometasone Nasal [employer] [Nasonex 1 spray TEZ DAILY 03/10/18 05/29/18 Unknown History Nasal [employer]] Montelukast Chew [Singulair] 5 mg PO DAILY 03/10/18 05/29/18 Unknown History Sacubitril/Valsartan [Entresto 24 56 mg PO BID 03/10/18 05/29/18 Unknown History mg-26 mg Tablet] Torsemide [Demadex] 20 mg PO BID 03/10/18 05/29/18 Unknown History Fluconazole [Diflucan] 1 tab PO BID 05/29/18 05/29/18 Unknown History Fluticasone/Vilanterol [Breo 1 puff INH DAILY 05/29/18 05/29/18 Unknown History Ellipta 200-25 Mcg INH] Omeprazole 40 mg PO DAILY 05/29/18 05/29/18 Unknown History Roflumilast [Daliresp] 1 tab PO DAILY 05/29/18 05/29/18 Unknown History - History of Present Illness-Resp Nature of Presenting Problem: 33 yobm presents to the ed with c/o worsening sob. pt sts he has noted increasing edema to abdomen, groin, BLE. pt has chronic skin changes on exam and is morbidly obese. Quality of Pain: reports: fullness, pressure Severity in ED: reports: moderate Onset/Duration: reports: gradual, other (chronic but worse last 1.5 weeks) Timing: reports: still present, getting worse Exposure: reports: unknown cause Cough Quality/Degree: reports: mild, productive cough (clear thickl sputum) Episode Frequency: chronic episodes Current Respiratory Medication Therapy: Initiated see nurses note Modifying Factors: improves with: oxygen, sitting upright. worse with: exertion, coughing, lying down Associated Symptoms: reports: cough, shortness of breath, other (edema). denies: headache, muscle/bodyaches, wheezing Similar Symptoms Previously?: Yes Recently seen or treated by another doctor?: No Review of Systems - Adult - REVIEW OF SYSTEMS - ADULT Constitutional: reports: see HPI, fatique. denies: chills, fever Eyes: reports: no symptoms reported Ears, Nose, Mouth & Throat: reports: no symptoms reported Cardiovascular: reports: see HPI, edema, orthopnea, poor circulation. denies: chest pain, palpitations, syncope Respiratory: reports: see HPI, chronic cough, dyspnea on exertion, shortness of breath. denies: wheezing Gastrointestinal: denies: abdominal pain, diarrhea, nausea, vomiting Genitourinary: reports: no symptoms reported Musculoskeletal: reports: no symptoms reported Integumentary: reports: no symptoms reported Neurological: denies: dizziness/vertigo, headache/migraines Psychiatric: reports: no symptoms reported Endocrine: reports: no symptoms reported Hematologic/Lymphatic: reports: no symptoms reported Allergic/Immunologic: reports: no symptoms reported All Other Systems: Reviewed and Negative Past History - Adult - PAST MEDICAL HISTORY-ADULT Review of Records: reports: Old Records Reviewed, Nursing Assessment Review, Medications Reviewed, Social history reviewed & non-contributory. Major Childhood Illnesses: reports: denies history Cardiovascular: reports: CHF, HTN Respiratory: reports: asthma, COPD, pneumonia, sleep apnea Gastrointestinal: reports: GERD, ulcer Genitourinary: reports: denies history Musculoskeletal: reports: denies history Neurological: reports: denies history Psychiatric: reports: denies history Endocrine/Immune: reports: Diabetes Diabetes Type: Type 2 Other Conditions: reports: denies history - PRIOR SURGERIES/PROCEDURES Surgical/Procedure History: reports: EGD, colonoscopy, other (sinus ) - IMMUNIZATION STATUS Childhood Immunizations: See Nurse Assessment Flu Vaccine: See Nurse Assessment - FAMILY HISTORY Family History: reviewed, not pertinent - SOCIAL HISTORY Smoking: denies Substance Use: denies Alcohol Use Frequency: never Living Situation: family Physical Exam-General - PHYSICAL EXAM-ADULT Initial Vital Signs Reviewed: Yes - CONSTITUTIONAL General Appearance: appears well, alert, no apparent distress, obese - EYES Eyes: PERRL/EOMI, pink conjunctivae - HEAD, EARS, NOSE, MOUTH & THROAT HENMT: moist mucous membranes, normal ENT inspection - NECK Neck: non-tender, supple, normal inspection - RESPIRATORY Respiratory: chest non-tender, lungs clear, normal breath sounds, other (pt is on o2 at home at 4LPM on exam is on o2 but speaking in complete sentences). negative: crackles, rales, rhonchi, wheezing - CARDIOVASCULAR Cardiovascular: normal peripheral pulses, tachycardia (107) - GASTROINTESTINAL (ABDOMEN) Abdominal Exam: normal bowel sounds, soft, tenderness (in skin folds of lower abdomen and groin area skin fold is red and tender with yeast) - GENITOURINARY Male Genitalia: other (edema noted to groin area and unable to see the penis due to obesity). negative: normal genitalia, normal prostate Rectal Exam: deferred Hemoccult Exam: deferred - LYMPHATIC Lymphatic: no adenopathy - MUSCULOSKELETAL Back Exam: normal inspection Extremity: no pedal edema, no calf tenderness, normal capillary refill, pelvis stable, other (skin changes chronic) - SKIN Integumentary: warm/dry, tenderness (in skin folds with redness and pain) - NEUROLOGIC Neurologic: grossly normal - PSYCHIATRIC Psych/Mental Status: normal mood/affect, normal thought content, normal thought process, oriented x 3 Progress - PLAN OF CARE/RESULTS Result Diagrams: 05/31/18 05:07 05/31/18 05:07 - REASSESSMENT Reassessment #1 Time Reassessed: 16:26 (pt is resting in bed on O2) Status: unchanged - XRAY 1 XRAY: Bilateral XRAY Study: Chest Impression: See EMR Report (EXAM: CHEST-PORTABLE INDICATION: cough TECHNIQUE: 2 views COMPARISON: 03/14/2018 FINDINGS: Lung volumes are very low. Overlying soft tissue attenuation somewhat limits the study. However, the lungs appear to be grossly clear. There is no discrete pleural fluid collection or pneumothorax. There is stable marked cardiomegaly. IMPRESSION: 1.Limited study due to body habitus. 2.Low lung volumes and marked cardiomegaly. No definite acute pathology, otherwise. Electronically signed by Dirk Jasso 05/29/2018 4:22 PM 05/29/18 1622 Interpreting Physician: Dirk Jasso MD Dictated Date/Time: 05/29/18 1620 cc: Priyank Gore MD; Aleks Machado MD) - CONSULTS/PCP/HOSPITALIST Notification #1 *Consult/PCP/Hospitalist*: MAURICIO JACK for hospitalist service Time Discussed: 18:15 Reason/Comments: admit to Dr. Krause Consult Disposition: Admit Departure - Departure Date of Disposition Decision: 05/29/18 Time of Disposition Decision: 20:16 DIAGNOSIS: Intertrigo Respiratory failure with hypoxia and hypercapnia Qualifiers: Chronicity: acute on chronic Qualified Code(s): J96.21 - Acute and chronic respiratory failure with hypoxia CHF exacerbation Qualifiers: Heart failure type: unspecified Qualified Code(s): I50.9 - Heart failure, unspecified Disposition: ADMITTED INPATIENT 09 Certified Medical Emergency: Emergent Condition: Stable - Critical Care Note This patient required my direct & personal management of CC.: No Attestation - Physician/ KRISTAN Attestation Patient care was provided by Advanced Practice Provider:: No The physician spent face to face time with patient:: Yes Advanced Practice Provider documentation review:: Supervising physician onsite and consulted in the evaluation and care of this patient. The physician did have a face to face encounter with the patient. This chart was documented by the indicated scribe, (Jemima Vásquez Scribe) and accurately reflects the services I performed and decisions made by me, Priyank Gore MD, as attested by the provider's signature.
[2018-05-29 17:09] LABS: BASO# 0.02 X1000 (0.0-0.2); BASO% 0.3 % (0.0-0.8); EOS# 0.16 X1000 (0.0-0.7); EOS% 2.8 % (0.0-10.0); HEMATOCRIT 43.9 % (42.0-52.0); IMM GRAN# 0.03 X1000 (0.0-0.04); IMM GRAN% 0.5 % (0.0-0.5); LYMPH# 1.13 X1000 (1.2-3.4); LYMPH% 19.6 % (20.5-51.1); MCH 24.5 PG (27-31); MCHC 29.6 g/dL (33-37); MCV 82.7 FL (81-99); MONO# 0.59 X1000 (0.11-0.59); MONO% 10.2 % (1.7-9.3); MPV 12.2 FL (7.4-10.4); NEUT# 3.84 X1000 (1.4-6.5); NEUT% 66.6 % (42.2-75.2); PLT 236 X1000 (130-400); RBC 5.31 XMIL (4.7-6.1); RDW 16.7 % (11.5-14.5); WBC 5.77 X1000 (4.8-10.8)
[2018-05-29 17:15] LABS: AGAP 13; ALB/GLOB RATIO 0.9; ALBUMIN 3.1 g/dL (3.5-5.0); ALKALINE PHOSPHATASE 89 U/L (32-122); BUN 21 mg/dL (8-22); CALCIUM 8.7 mg/dL (8.8-10.2); CHLORIDE 99 mmol/L (98-107); COSMO 283; CREATININE 1.3 mg/dL (0.7-1.2); ESTIMATED GFR > 60; GLUCOSE 116 mg/dL (70-104); POTASSIUM 4.9 mmol/L (3.5-5.1); SODIUM 140 mmol/L (136-145); TCO2 28 mmol/L (25-35); TOTAL BILIRUBIN 1.35 mg/dL (0.20-1.00); TOTAL PROTEIN 6.5 g/dL (6.3-8.3)
[2018-05-29 17:16] LABS: GOT 24 U/L (10-34); GPT 14 U/L (10-44)
[2018-05-29] MEDS ORDERED: DUONEB (A & A) INH ONE (18:06)
[2018-05-29] MEDS ORDERED: ENTRESTO 24 MG-26 MG TABLET PO SCH (21:00)
[2018-05-29] MEDS ORDERED: FLUCONAZOLE PO SCH (21:00)
[2018-05-29] MEDS: XOPENEX NEB INH SCH (22:00)
[2018-05-29] MEDS: HEPARIN SUBQ SCH (22:21)
[2018-05-29] MEDS: ENTRESTO 24 MG-26 MG TABLET PO SCH (22:21)
[2018-05-29] MEDS: COREG PO SCH (22:21)
--- NOTE | 2018-05-29 22:37 | HISTORY AND PHYSICAL ---
PRIMARY CARE PHYSICIAN: Aleks Machado MD GUEST SERVICES ASSOCIATE: Brandon Miller MD. CHIEF COMPLAINT: Increasing shortness of breath over the last 1-1/2 weeks with poor appetite and a swelling in my abdomen. HISTORY OF PRESENT ILLNESS: Mr. Lopez is a 33-year-old male with a history of morbid obesity, nonischemic cardiomyopathy with an ejection fraction of 20%, hypertension, and obstructive sleep apnea, who presented to the ER today with a chief complaint of increasing shortness of breath and increasing abdominal swelling. The patient reports that over the last 1- 1/2 weeks he has been feeling more short of breath. He also reports that his weight has increased in the last week despite being on diuretic therapy. The patient reports that he has been having some pain underneath his pannus and has currently been using an antifungal cream and Diflucan. The patient reports that he has been coughing, and his appetite has been very poor. The patient reports that he has been seen by Dr. Obrien in consultation for consideration to undergo bariatric surgery. He states that he has not met the weight loss goal yet so he has not had the surgery yet. In the ER, a chest x-ray was done that revealed marked cardiomegaly. Also, the patient was noted to be hypoxic on room air with an O2 saturation of 76%. The patient states that he uses BiPAP at night due to his sleep apnea. PAST MEDICAL HISTORY: 1. Pulmonary hypertension. 2. Morbid obesity. 3. Obstructive sleep apnea. 4. Nonischemic cardiomyopathy with an ejection fraction of 25%. 5. GERD. 6. Hypertension. 7. COPD. 8. Chronic systolic congestive heart failure. PAST SURGICAL HISTORY: None. SOCIAL HISTORY: The patient denies any tobacco, alcohol or illicit drug use. FAMILY HISTORY: Positive for hypertension. ALLERGIES: No known drug allergies. HOME MEDICATIONS: 1. Aspirin 81 mg p.o. daily. 2. Coreg 25 mg p.o. twice a day. 3. Diflucan 50 mg p.o. twice a day. 4. Breo 1 puff inhaled daily. 5. Nasonex 1 spray nasal daily. 6. Singulair 5 mg p.o. daily. 7. Omeprazole 40 mg p.o. daily. 8. Entresto 1 tab oral twice a day. 9. Demadex 20 mg p.o. twice a day. REVIEW OF SYSTEMS: A 12-point review of systems has been performed. Please refer to the history of present illness for pertinent positives and negatives. PHYSICAL EXAMINATION: VITAL SIGNS: Temperature 97.9 degrees, blood pressure 123/100, respiratory rate 28, heart rate 90, O2 saturation 94% on 4 L nasal cannula. GENERAL: This is a morbidly obese male lying in bed in no acute distress. SKIN: The patient has chronic priscila stasis in his lower extremities HEAD: Normocephalic, atraumatic. EYES: PERRLA, EOMI. No scleral icterus HEART: S1, S2 normal, tachycardic. LUNGS: Diminished breath sounds bilaterally. No wheezing. No rales. No rhonchi. ABDOMEN: Positive bowel sounds. Soft, obese. No erythema noted underneath the pannus. EXTREMITIES: 2+ edema with chronic venous stasis. Lymphedema is present. NEUROLOGIC: The patient is alert and oriented x4. No focal neurologic deficits noted. Cranial nerves 2 through 12 intact. LABORATORY DATA: White blood cell count 5.7, hemoglobin 13, hematocrit 43, platelets 239,000. ABG: pH of 7.39, pCO2 59, pO2 80, bicarb 31, sodium 140, potassium 4.9, chloride 99, CO2 23, BUN 29, creatinine 1.3, glucose 116, calcium 8.7, AST 24, ALT 14, alkaline phosphatase 89, proBNP 1594, albumin 3.1. IMAGING: Chest x-ray shows cardiomegaly. ASSESSMENT AND PLAN: 1. Acute on chronic systolic congestive heart failure exacerbation. We will start the patient on IV diuretic therapy. We will monitor the patient's salt and fluid intake closely. We will restart her Entresto and Coreg. We will await further recommendations from the manager produce. 2. Acute kidney injury. This is likely secondary to the patient's congestive heart failure plus diuretic therapy. We will check urine studies. 3. Morbid obesity. Aware. The patient is being followed by Dr. Obrien for possible bariatric surgery. 4. Hypertension. Continue on Coreg and Entresto. The patient may need some adjustment on his antihypertensives. We will defer to the manager produce. 5. Obstructive sleep apnea. Continue with BiPAP at bedtime. 6. Gastroesophageal reflux disease. We will start the patient on Protonix. 7. Deep vein thrombosis prophylaxis. We will start the patient on heparin. cc: Maryjane Krause MD [facility]
[2018-05-29 23:29] LABS: URINE SOURCE CLEAN CATCH
[2018-05-29 23:37] LABS: BILIRUBIN URINE NEGATIVE (NEGATIVE); BLOOD URINE NEGATIVE (NEGATIVE); COLOR YELLOW; GLUCOSE URINE NEGATIVE (NEGATIVE); KETONE URINE NEGATIVE (NEGATIVE); LEUKOCYTES URINE NEGATIVE (NEGATIVE); NITRITE URINE NEGATIVE (NEGATIVE); PROTEIN URINE 200 mg/dL (NEGATIVE); SP GRAVITY URINE < 1.001; TURBIDITY URINE CLEAR (CLEAR); UR EPITHELIAL CELLS <10 /HPF (<10); URINE BACTERIA NEGATIVE /HPF; URINE RBC <10 /HPF (<10); URINE WBC <10 /HPF (<10); UROBILINOGEN URINE NORMAL (NORMAL)
[2018-05-29 23:47] LABS: UR CREAT RANDOM 64.6 mg/dL (14-26); UR PROT RANDOM 185.2 mg/dL
[2018-05-30] MEDS: XOPENEX NEB INH SCH ×4 (03:55→21:36)
[2018-05-30 04:46] LABS: BASO# 0.02 X1000 (0.0-0.2); BASO% 0.3 % (0.0-0.8); EOS# 0.15 X1000 (0.0-0.7); EOS% 2.4 % (0.0-10.0); HEMATOCRIT 44.1 % (42.0-52.0); LYMPH# 1.37 X1000 (1.2-3.4); LYMPH% 22.2 % (20.5-51.1); MCH 24.5 PG (27-31); MCHC 29.5 g/dL (33-37); MCV 83.1 FL (81-99); MONO# 0.66 X1000 (0.11-0.59); MONO% 10.7 % (1.7-9.3); MPV 11.1 FL (7.4-10.4); NEUT# 3.98 X1000 (1.4-6.5); NEUT% 64.4 % (42.2-75.2); PLT 231 X1000 (130-400); RBC 5.31 XMIL (4.7-6.1); RDW 16.6 % (11.5-14.5); WBC 6.18 X1000 (4.8-10.8)
[2018-05-30 04:52] LABS: HEMOGLOBIN A1C 5.5 % (4.8-6.0)
[2018-05-30 04:59] LABS: AGAP 10; ALBUMIN 3.1 g/dL (3.5-5.0); ALKALINE PHOSPHATASE 92 U/L (32-122); BUN 20 mg/dL (8-22); CALCIUM 9.1 mg/dL (8.8-10.2); CHLORIDE 99 mmol/L (98-107); COSMO 286; CREATININE 1.4 mg/dL (0.7-1.2); ESTIMATED GFR > 60; GLUCOSE 107 mg/dL (70-104); GOT 14 U/L (10-34); GPT 12 U/L (10-44); MAGNESIUM 1.5 mg/dL (1.5-2.7); POTASSIUM 3.9 mmol/L (3.5-5.1); SODIUM 142 mmol/L (136-145); TCO2 33 mmol/L (25-35); TOTAL PROTEIN 6.3 g/dL (6.3-8.3)
[2018-05-30] MEDS: PROTONIX PO SCH (06:38)
[2018-05-30] MEDS: BREO ELLIPTA 200/25 MCG INH INH SCH (07:41)
--- NOTE | 2018-05-30 08:26 | Diag Imaging Result Doc PS360 ---
EXAM: CHEST-PORTABLE INDICATION: pulmonary edema TECHNIQUE: One view COMPARISON: 05/29/2018 FINDINGS: There is a better inspiratory effort on the current study. The lungs are better expanded. The lungs appear to be grossly clear. There is no discrete pleural fluid collection or pneumothorax. There is stable marked cardiomegaly. Central vasculature is grossly unremarkable. IMPRESSION: Better inspiration as compared to the previous study. Stable chest, otherwise. Electronically signed by Dirk Jasso 05/30/2018 8:24 AM
[2018-05-30] MEDS: MYCOSTATIN POWDER TOP SCH (09:38)
[2018-05-30] MEDS: LOTRIMIN 1% CREAM TOP SCH (09:38)
[2018-05-30] MEDS: DIFLUCAN PO SCH (09:39)
[2018-05-30] MEDS: COREG PO SCH ×2 (09:39→22:09)
[2018-05-30] MEDS: LASIX IV SCH ×2 (09:40→22:09)
[2018-05-30] MEDS: HEPARIN SUBQ SCH ×2 (09:40→22:09)
[2018-05-30] MEDS: ASPIRIN EC PO SCH (09:40)
[2018-05-30] MEDS: ENTRESTO 24 MG-26 MG TABLET PO SCH ×2 (09:40→22:09)
[2018-05-30] MEDS: SINGULAIR PO SCH (09:40)
[2018-05-30 11:54] LABS: ALLEN TEST YES; BE 8.3 mmoll (-3.0-3.0); BLOOD TYPE ARTERIAL; HCO3-(ACT) 31.4 mmoll (20.0-26.0); METHB 0.4 % (0.0-1.5); O2(CT) 17.5 mL/dL (15.0-23.0); O2HB 95.4 % (95.0-99.0); PO2(98.6) 86 mmHg (60-100); SAMPLE BLOOD; SAO2 100.1 % (95.0-100.0); pH(98.6) 7.38 (7.35-7.45)
[2018-05-30 11:56] LABS: MODALITY CANNULA; PCO2(98.6) 60 mmHg (35-45)
[2018-05-30] MEDS ORDERED: MAGNESIUM SULFATE 2 GM/S.W.I. 2 GM/50 ML IVPB IV ONE (12:37)
--- NOTE | 2018-05-30 13:46 | PROGRESS NOTE ---
DATE: 05/30/2018 SUBJECTIVE: The patient is sitting at the edge of the bed eating breakfast. He states that he has been having a lot of pain underneath his pannus. Otherwise he states that his breathing has improved since yesterday. OBJECTIVE: Vital Signs: Temperature 98.2 degrees, blood pressure 123/77, heart rate 87, respirations 18, O2 saturation is 100% on 4 L nasal cannula. Urine output 1 L. General: This is a morbidly obese male sitting in bed in no acute distress. Head: Normocephalic, atraumatic. Heart: S1, S2 normal. Regular rate and rhythm. Lungs: Equal air entry bilaterally. Mild expiratory wheezes. No crackles. Abdomen: Obese, nontender, mildly distended. Extremities: The patient has lymphedema with chronic venous stasis. Neuro: The patient is alert and oriented x4. LABS: White blood cell count 6.1, hemoglobin 13, hematocrit 44, platelets 231,000. ABG pH 7.38, pCO2 60, PO2 86, bicarb 31. Sodium 142, potassium 3.9, chloride 99, CO2 33, BUN 20, creatinine 1.4, glucose 107, magnesium 1.5. Chest x-ray unchanged. ASSESSMENT AND PLAN: 1. Acute hypoxemic and hypercapnic respiratory failure. Multifactorial. The patient has Pickwickian syndrome plus element of volume overload. Will continue to monitor for improvement. 2. Acute on chronic systolic congestive heart failure exacerbation. Continue with diuretic therapy and the current cardiac medications. We will await further recommendations from the atv mechanic. 3. Morbid obesity. Aware. The patient states that he is trying to lose weight and he is being followed by Dr. Obrien in [place]. 4. Hypomagnesemia. Will replace the patient's magnesium. 5. Acute kidney injury. This is likely secondary to diuretic therapy. Will monitor the patient's renal function closely and avoid nephrotoxic agents. 6. Deep vein thrombosis prophylaxis. Continue on heparin. cc: MD МАРИЯ Rbuin
--- NOTE | 2018-05-30 15:03 | CARDIOLOGY CONSULTATION ---
DATE: 05/30/2018 CONSULTATION REQUESTED BY: Hospitalist Service reason is congestive heart failure. CHIEF COMPLAINT: Dyspnea swelling. HISTORY: Mr. Lopez is extremely pleasant 33-year-old, black gentleman, who presents to the emergency room after seeing his primary physician Dr. Machado at his office yesterday and reported having increasing dyspnea and increasing swelling of his abdomen especially abdominal wall and the groin area. Upon presentation to the emergency room. They did a chest x-ray that shows marked cardiomegaly low lung volumes. They did BUN creatinine they were slightly elevated. Creatinine 1.3. Troponins have been checked. They are 0.03 8.04 7.36. ProBNP was elevated at 1590 4 mcg/mL. His blood gases showed on 4 L of nasal cannula. PO2 was 80 pCO2 59, pH 7.39. The patient has been given Lasix oxygen a BiPAP system. Overnight and this morning. He is sitting upright. He is feeling somewhat better. The patient has been in the hospital several times since. January 2018. He was admitted between January 15 through January 19 with "asthma exacerbation." Then between January 26 and February 02 with CHF and possible pneumonia. Then between March 09 on March 15 with CHF and possible pneumonia. He has seen Dr. Brandon Miller at the office about 6 weeks ago and he appeared to be stable at that time. Apparently he was switch over from Lasix to torsemide however he does not feel like torsemide acts as briskly or as effectively as Lasix. Denies having any chest pain. He is just concerned about the swelling of his abdomen. PAST HISTORY: Positive for a diagnosis of congestive heart failure was made way back in 2012. At that time. An echocardiogram revealed enlarged left ventricle with significantly decreased ejection fraction. He was seen then by Dr. Amrita Carlisle and subsequently his care was transferred to Dr. Brandon Miller. The patient has been obese for many years. He says that when he finished high school, his weight was 240 pounds and then he gradually increased. The patient continues to work and he is still active. He has gained weight progressively over the years. His weight has reached 554 pounds. He has been evaluated for possible bariatric surgery by Dr. Kyaw Obrien; however there is a requirement that his weight needs to be below 500 pounds before he is considered a candidate for the surgery. He has a history of hypertension. There is a definite diagnosis of sleep apnea syndrome and he has been followed with Dr. Tidwell. Over the course of the past 6 months, there is an echocardiogram that showed that his ejection fraction was anywhere from 25 to 33 percent. SURGICAL HISTORY: Negative. SOCIAL HISTORY: He lives with his mother and sister. 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 He is not a smoker or drinker. Does not use any drugs. HOME MEDICATION: Listed, included: 1. Coreg 25 twice a day. 2. Albuterol as needed. 3. Aspirin 81 daily. 4. Diflucan 1 tablet twice a day. 5. Guaifenesin 600 mg as needed. 6. Montelukast. 7. Omeprazole. 8. Daliresp. 9. Entresto 24-26 twice a day. 10. Torsemide 20 mg twice a day. FAMILY HISTORY: Father of a heart attack and had congestive heart failure in his 50s. REVIEW OF SYSTEMS: Basically revolves around the fluctuation in weight , exertional dyspnea,recurrent swelling. No other major system involvement. PHYSICAL EXAMINATION: Vital signs: Blood pressure 137/86, temperature 97.6 degrees, pulse 75, respirations 18. General: Patient is awake, alert, sitting upright, morbidly obese. Skin: Shows evidence of acanthosis nigricans in the chest, especially on the back. Chest: Expands with some limitation. His chest is basically clear to auscultation and percussion. Heart: Sounds are regular rhythmic. I cannot tell for sure if there is a gallop. I do not hear any murmur. Abdomen: Quite obese. Tremendous amount of pannus. There is abdominal wall edema. Extremities: Showed dryness of the skin of the legs with some diffuse brawny edema. Neurological: He is alert oriented x3. Speech is fluent. Mentation is normal. Moves 4 extremities. IMPRESSION: 1. Patient presenting with what appears to be exacerbation of congestive heart failure. The patient has dilated nonischemic cardiomyopathy. 2. Morbid obesity. He is super obese, body mass index is 86. 3. Chronic CO2 retention/sleep apnea syndrome, chronic hypercarbic respiratory failure. 4. History of hypertension. 5. Insulin resistance. RECOMMENDATION: At this point in time, we will continue with current management. I will suggest to weigh him daily to make sure that we are moving in the right direction with fluid removal. I had a lengthy conversation with Mr. Lopez and from my specialty viewpoint, I believe that he has an increased risk for perioperative complications. However, if he does not accomplish any meaningful weight loss, he will be more than likely to succumb to his morbid obesity. I am afraid that he may reach the point where he will end up developing cardiac arrhythmias due to the extreme cardiomegaly ,like atrial fibrillation, and that will probably further complicate his course and make his situation essentially unmanageable. He is going to discuss with all of the physicians that are familiar with his case to make a decision. We will follow him. cc: Sander Johnson MD MTDD
--- NOTE | 2018-05-30 19:25 | PULMONOLOGY CONSULTATION ---
DATE: 05/30/2018 REASON FOR CONSULTATION: Respiratory failure. HISTORY OF PRESENT ILLNESS: Mr. Lopez is a 33-year-old black male with super morbid obesity and a BMI greater than 86; nonischemic cardiomyopathy with an ejection fraction of 30%; severe sleep apnea with recent recommendations to increase his BiPAP to as high as 29. He reports he was in his physician's office and was having increasing shortness of breath and a low oxygen saturation. The patient presented to the emergency room and his oxygen saturation was 76% upon arrival. He has had some improvement since admission. PAST MEDICAL HISTORY: Problem list: 1. Morbid obesity as outlined above. The patient has been evaluated by Dr. Obrien for possible bariatric surgery. He last saw him in 09/2017 and has a monthly followup with Dr. Aleks Machado. By his report, he has to get his weight below 500 pounds. He continues to make poor dietary choices, including frequent fast-food restaurant stops. 2. Chronic hypoxemic respiratory failure, on chronic oxygen therapy. 3. Obstructive sleep apnea. 4. Nonischemic cardiomyopathy. 5. Hypertension. 6. Gastroesophageal reflux disease. 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 No tobacco use. No alcohol use. FAMILY HISTORY: Notable for hypertension. PHYSICAL EXAMINATION: A morbidly obese white male who is resting comfortably on the side of his bed. He has no increased work of breathing. Blood pressure 123/77, heart rate 87, respiratory rate 18, oxygen saturation 100% on 4 L per nasal cannula. HEENT: Pupils are equal and reactive. Oropharynx is clear. Neck is supple. Chest reveals shallow breath sounds bilaterally. Cardiac exam: S1, S2. Distant heart sounds. Abdomen is obese and soft. Extremities reveal chronic edema. DIAGNOSTIC DATA: Chest x-ray reveals massive cardiomegaly. LABORATORY DATA: White blood count 6.18, hemoglobin 13.0, platelet count 231,000. Sodium 142, potassium 3.9, chloride 99, bicarbonate 33, BUN 20, creatinine 1.4. Arterial blood gas reveals a pH of 7.38, pCO2 of 60, pO2 of 86. IMPRESSION: A 33-year-old with super morbid obesity, pickwickian syndrome, chronic hypoxemic respiratory failure, chronic hypercapnic respiratory failure. The patient's current arterial blood gases suggest that this is his baseline. The patient has obstructive sleep apnea. RECOMMENDATIONS: 1. Encourage patient to pursue weight loss and bypass surgery. He is unlikely to make it to the age of 39 with his continued increase in weight and decline in performance status. 2. Continue BiPAP as ordered by Dr. Tidwell. 3. Continue oxygen for hypoxemic respiratory failure. No additional recommendations. cc: Ta Hawthorne MD
[2018-05-31] MEDS: LOTRIMIN 1% CREAM TOP SCH ×3 (00:01→22:39)
[2018-05-31] MEDS: MYCOSTATIN POWDER TOP SCH ×3 (00:01→22:39)
[2018-05-31] MEDS: XOPENEX NEB INH SCH ×4 (03:20→21:55)
[2018-05-31 05:12] LABS: ALLEN TEST YES; BE 8.8 mmoll (-3.0-3.0); BLOOD TYPE ARTERIAL; HCO3-(ACT) 31.7 mmoll (20.0-26.0); METHB 0.9 % (0.0-1.5); O2(CT) 17.5 mL/dL (15.0-23.0); O2HB 95.5 % (95.0-99.0); PO2(98.6) 107 mmHg (60-100); SAMPLE BLOOD; SAO2 99.1 % (95.0-100.0); THB 12.9 g/dL (11.5-17.4); pH(98.6) 7.38 (7.35-7.45)
[2018-05-31 05:13] LABS: PCO2(98.6) 61 mmHg (35-45)
[2018-05-31 05:14] LABS: MODALITY BI PAP
[2018-05-31 05:59] LABS: BASO# 0.01 X1000 (0.0-0.2); BASO% 0.2 % (0.0-0.8); EOS# 0.13 X1000 (0.0-0.7); EOS% 2.3 % (0.0-10.0); HEMATOCRIT 41.7 % (42.0-52.0); HEMOGLOBIN 12.2 g/dL (14.0-18.0); IMM GRAN# 0.02 X1000 (0.0-0.04); IMM GRAN% 0.4 % (0.0-0.5); LYMPH# 1.02 X1000 (1.2-3.4); LYMPH% 18.1 % (20.5-51.1); MCH 24.5 PG (27-31); MCHC 29.3 g/dL (33-37); MCV 83.9 FL (81-99); MONO# 0.66 X1000 (0.11-0.59); MONO% 11.7 % (1.7-9.3); MPV 11.5 FL (7.4-10.4); NEUT# 3.78 X1000 (1.4-6.5); NEUT% 67.3 % (42.2-75.2); PLT 228 X1000 (130-400); RBC 4.97 XMIL (4.7-6.1); RDW 16.6 % (11.5-14.5); WBC 5.62 X1000 (4.8-10.8)
[2018-05-31] MEDS: PROTONIX PO SCH (06:06)
[2018-05-31 06:30] LABS: AGAP 7; ALB/GLOB RATIO 0.9; ALBUMIN 2.8 g/dL (3.5-5.0); ALKALINE PHOSPHATASE 87 U/L (32-122); BUN 19 mg/dL (8-22); CALCIUM 8.9 mg/dL (8.8-10.2); CHLORIDE 99 mmol/L (98-107); COSMO 282; CREATININE 1.4 mg/dL (0.7-1.2); ESTIMATED GFR > 60; GLUCOSE 100 mg/dL (70-104); GOT 14 U/L (10-34); GPT 10 U/L (10-44); MAGNESIUM 1.6 mg/dL (1.5-2.7); POTASSIUM 4.1 mmol/L (3.5-5.1); SODIUM 140 mmol/L (136-145); TCO2 34 mmol/L (25-35); TOTAL BILIRUBIN 1.67 mg/dL (0.20-1.00); TOTAL PROTEIN 5.9 g/dL (6.3-8.3)
[2018-05-31] MEDS: HEPARIN SUBQ SCH ×2 (09:44→21:07)
[2018-05-31] MEDS: ENTRESTO 24 MG-26 MG TABLET PO SCH ×2 (09:45→21:07)
[2018-05-31] MEDS: DIFLUCAN PO SCH ×2 (09:45→15:59)
[2018-05-31] MEDS: COREG PO SCH ×2 (09:45→21:07)
[2018-05-31] MEDS: SINGULAIR PO SCH (09:45)
[2018-05-31] MEDS: LASIX IV SCH ×2 (09:45→21:07)
[2018-05-31] MEDS: ASPIRIN EC PO SCH (09:45)
--- NOTE | 2018-05-31 09:52 | CARDIOLOGY PROGRESS NOTE ---
DATE: 05/31/2018 CHIEF COMPLAINT: Dyspnea, swelling. SUBJECTIVE: Mr. Lopez is still feeling dyspneic. He heard himself wheezing this morning. He said that whenever he eats, he feels like he cannot breathe, and he actually can breathe better after having a bowel movement. His weight has gone up from 554 to 560 this morning. They are using the same scale. Body mass index is 87.7. His telemetry shows sinus rhythm. OBJECTIVE: Blood pressure is 100/64. They are checking blood pressure in the left forearm. Temperature is 97.6, pulse 89, respirations 20. He is awake, in no distress, lying on his right side. Chest shows symmetrical breath sounds without wheezes. Heart sounds are very distant, regular. No gallop or murmur. His abdomen shows tremendous pannus with some skin edema. I cannot palpate any hepatomegaly on him. Extremities showed some lymphedema in the legs. Neurologic: Follows commands. Moves all extremities. DIAGNOSTIC DATA: Blood work today showed blood gases with pH of 7.38, pCO2 is 61, pO2 is 107 on a BiPAP system. Sodium is 140, potassium 4.1, BUN is 19, creatinine 1.4. Albumin is 2.8. His white cell count is 5620, hemoglobin 12.2. IMPRESSION: 1. The patient is with congestive heart failure, systolic, chronic. Nonischemic cardiomyopathy. 2. Morbid obesity, super obese. 3. Sleep apnea syndrome, chronic hypercarbic respiratory failure related to massive obesity. 4. Hypoalbuminemia. 5. Probably some degree of renal dysfunction. RECOMMENDATIONS: At this point in time, I will proceed to double up on his furosemide to 80 mg twice a day. We will see how he does with that change. His prognosis is still quite guarded. I believe the patient should pursue bariatric surgery probably at a place where they can handle the challenge that would be operating on him. cc: Sander Johnson MD
[2018-05-31] MEDS: NS NEB INH SCH ×2 (10:17→16:20)
[2018-05-31] MEDS: BREO ELLIPTA 200/25 MCG INH INH SCH (10:21)
--- NOTE | 2018-05-31 10:21 | INFECTIOUS DISEASE CONSULT REP ---
DATE: 05/31/2018 DISCUSSION: The patient has morbid obesity. He has an infection in his pannus that has been present now for 2 to 3 months. He has not been having any fever or chills. RECOMMENDATION: I obtained a culture from the pannus and groin. I increased the dose of fluconazole to 400mg daily. IMAGING AND LABORATORY DATA: Laboratory studies thus far show a CBC with a white count of 5620, hemoglobin 12.2, and platelet count 228,000. Blood gases show a pH of 7.38, a PO2 of 107, and a pCO2 of 61. Creatinine is 1.4. GFR is greater than 60. Liver function studies are normal, except for a bilirubin of 1.67. Blood cultures are negative. Chest x-ray shows cardiomegaly with clear lung patel. PAST MEDICAL HISTORY/REVIEW OF SYSTEMS: Eyes and Ears: He does not have any problem seeing or hearing. Neck: No stiffness. Respiratory: The patient has dyspnea, especially on exertion. Cardiac: No chest pain or palpitations. GI: No nausea, vomiting, or diarrhea. : No dysuria or flank pain. Neurologic: The patient does not have seizures. He has not lost any motor or sensory function recently. Integument: The patient has, because of his obesity, pannus', and they appear to be infected now. They are painful, as well as the groin area infection. PREVIOUS HOSPITALIZATIONS AND OPERATIONS: He has had admissions for sinus surgery, congestive heart failure, pneumonia. MEDICAL DISEASES: Positive for morbid obesity, hypertension, congestive heart failure, gastroesophageal reflux disease, cardiomyopathy, and obstructive sleep apnea. INFECTIOUS DISEASE HISTORY: Positive for pneumonia and UTI. FAMILY HISTORY: Positive for diabetes mellitus, hypertension, myocardial infarction, stroke, and cancer. SOCIAL HISTORY: [place] He is single. He lives with his mother. He does not have any drug allergies. He does not smoke cigarettes or use illicit drugs. He did tell me that rarely, he will have an alcoholic drink. 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 ALLERGIES: The patient does not have any drug allergies. MEDICATIONS: The patient is taking albuterol inhaler, aspirin, Coreg, Diflucan, fluticasone, Mucinex, Nasonex, montelukast, which is Singulair, omeprazole, Daliresp, Entresto, and Demadex. PHYSICAL EXAMINATION: Vital Signs: Temperature is 97.6 degrees, pulse 89, respirations 20, blood pressure 100/64. The patient weighs 560 pounds. General: This is a morbidly obese, young male. He is in no acute distress, just sitting up in his bed. HEENT: He can hear my spoken words and see near objects. He does not have any white patches in his mouth. Neck: No pain with movement. Lungs: Breath sounds were distant because of the patient's morbid obesity. They also too were very difficult to hear because of the patient's morbid obesity. Abdomen: Soft. The areas of the pannus did show some reddish tinge, and there were some white powders from where Lotrimin has been entered there. Neurologic: The patient is awake. He can move his extremities. There is no tremor. His sensation is intact to touch. His memory, as regarding his medical history, was intact. CONCLUSION: Dr. Krause has asked me to manage the patient's pannus infection. The patient has a similar infection in both groin areas also. RECOMMENDATIONS: I agree with treating the patient with fluconazole. I have increased the dose of fluconazole to 400 mg daily. Also, I have taken a culture from the pannus. Thank you for the consult. cc: MD МАРИЯ Burnette
--- NOTE | 2018-05-31 14:33 | PULMONOLOGY PROGRESS NOTE ---
DATE: 05/31/2018 SUBJECTIVE: The patient is awake, alert, and conversant. The patient reports his dyspnea has diminished. He did wear the BiPAP last evening. OBJECTIVE: Fluid balance was negative overnight. BP 122/81, heart rate 87, respiratory rate 18, oxygen saturation 932% on nasal cannula.HEENT: Pupils are equal and reactive. Oropharynx is clear. Neck: Supple. Chest: Reveals diminished breath sounds bilaterally. Cardiac: S1, S2. Abdomen: Obese and soft. Extremities: Reveal chronic lower extremity edema. LABORATORIES: Arterial blood gas on BiPAP revealed pH of 7.38, pCO2 of 61, PO2 of 107. IMPRESSION: 33-year-old with super morbid obesity, Pickwickian syndrome, chronic hypoxemic respiratory failure, chronic hypercapnic respiratory failure with nonischemic cardiomyopathy. Clinically he appears to be stable to improved. RECOMMENDATION: 1. Continue oxygen and BiPAP. 2. Diuretics as tolerated under the direction of Cardiology. 3. Continue to pursue weight loss and gastric bypass surgery. If the patient does not lose weight, his prognosis is extremely poor. cc: Ta Hawthorne MD
[2018-05-31] MEDS ORDERED: MAGNESIUM SULFATE 2 GM/S.W.I. 2 GM/50 ML IVPB IV ONE (15:30)
--- NOTE | 2018-05-31 16:27 | PROGRESS NOTE ---
DATE: 05/31/2018 SUBJECTIVE: The patient is sitting up at the edge of the bed. He states that he feels a little bit better today. No acute events noted overnight. OBJECTIVE: Vital Signs: Temperature 97.8 degrees, blood pressure 122/81, heart rate 87, respirations 18, O2 saturations 92% on 4 L nasal cannula. General: This is a morbidly obese male sitting at the edge of the bed in no acute distress. Heart: S1, S2 normal. Regular rate and rhythm. Lungs: Clear to auscultation bilaterally. No wheezing. No rales. No rhonchi. Abdomen: Positive bowel sounds. Soft, obese, nontender, nondistended. Extremities: There is 3+ edema. Neurologic: The patient is alert and oriented x4. Labs: White blood cell count 5.6, hemoglobin 12, hematocrit 41, platelets 228,000. ABG: PH of 7.38, pCO2 61, PO2 107. Sodium 140, potassium 4.1, BUN 19, creatinine 1.4, glucose 100, magnesium 1.6. ASSESSMENT AND PLAN: 1. Acute on chronic systolic congestive heart failure exacerbation. The patient's Lasix dose has been adjusted by the faro dealer. Continue on a low-sodium diet. 2. Chronic hypoxemic respiratory failure with pickwickian syndrome. Continue with BiPAP usage at bedtime. 3. Morbid obesity. Will consult the dietitian. The patient is followed by Dr. Obrien as an outpatient. 4. Hypomagnesemia. We will replace the patient's magnesium. 5. Acute kidney injury. This is likely diuretic-induced. Continue to monitor closely while on diuretic therapy. 6. Deep vein thrombosis prophylaxis. Continue on heparin. cc: Maryjane Krause MD [facility]
[2018-06-01] MEDS: XOPENEX NEB INH SCH ×4 (03:25→19:36)
[2018-06-01 03:59] LABS: ALLEN TEST YES; BE 11.4 mmoll (-3.0-3.0); BLOOD TYPE ARTERIAL; HCO3-(ACT) 33.8 mmoll (20.0-26.0); METHB 0.7 % (0.0-1.5); O2(CT) 16.5 mL/dL (15.0-23.0); O2HB 95.1 % (95.0-99.0); PO2(98.6) 91 mmHg (60-100); SAMPLE BLOOD; SAO2 98.8 % (95.0-100.0); SRATE 12 BPM; THB 12.3 g/dL (11.5-17.4); pH(98.6) 7.37 (7.35-7.45)
[2018-06-01 04:02] LABS: MODALITY BI PAP; PCO2(98.6) 68 mmHg (35-45)
[2018-06-01 05:43] LABS: BASO# 0.01 X1000 (0.0-0.2); BASO% 0.2 % (0.0-0.8); EOS# 0.14 X1000 (0.0-0.7); EOS% 2.5 % (0.0-10.0); HEMATOCRIT 42.2 % (42.0-52.0); HEMOGLOBIN 12.2 g/dL (14.0-18.0); LYMPH# 1.07 X1000 (1.2-3.4); LYMPH% 19.2 % (20.5-51.1); MCH 24.2 PG (27-31); MCHC 28.9 g/dL (33-37); MCV 83.7 FL (81-99); MONO# 0.68 X1000 (0.11-0.59); MONO% 12.2 % (1.7-9.3); MPV 11.1 FL (7.4-10.4); NEUT# 3.67 X1000 (1.4-6.5); NEUT% 65.9 % (42.2-75.2); PLT 210 X1000 (130-400); RBC 5.04 XMIL (4.7-6.1); RDW 16.6 % (11.5-14.5); WBC 5.57 X1000 (4.8-10.8)
[2018-06-01 05:50] LABS: AGAP 9; ALKALINE PHOSPHATASE 90 U/L (32-122); BUN 17 mg/dL (8-22); CHLORIDE 98 mmol/L (98-107); COSMO 283; CREATININE 1.4 mg/dL (0.7-1.2); ESTIMATED GFR > 60; GLUCOSE 95 mg/dL (70-104); GOT 13 U/L (10-34); GPT 11 U/L (10-44); MAGNESIUM 1.8 mg/dL (1.5-2.7); SODIUM 141 mmol/L (136-145); TCO2 34 mmol/L (25-35); TOTAL BILIRUBIN 1.77 mg/dL (0.20-1.00); TOTAL PROTEIN 6.1 g/dL (6.3-8.3)
[2018-06-01] MEDS: PROTONIX PO SCH (06:31)
[2018-06-01] MEDS: BREO ELLIPTA 200/25 MCG INH INH SCH (07:51)
--- NOTE | 2018-06-01 08:10 | EKG Report ---
Test Performed on : 05/30/2018 06:43:46 AM Test Reason : tachycardia Blood Pressure : / mmHG Vent. Rate : 079 BPM Atrial Rate : 079 BPM P-R Int : 176 ms QRS Dur : 088 ms QT Int : 414 ms P-R-T Axes : 069 006 086 degrees QTc Int : 474 ms Normal sinus rhythm. Low voltage QRS Nonspecific T wave abnormality Abnormal ECG When compared with ECG of 29-MAY-2018 22:19, (Unconfirmed) No significant change was found Unconfirmed Result
--- NOTE | 2018-06-01 08:45 | EKG Report ---
Test Performed on : 05/29/2018 10:19:04 PM Test Reason : pain Blood Pressure : / mmHG Vent. Rate : 088 BPM Atrial Rate : 088 BPM P-R Int : 118 ms QRS Dur : 098 ms QT Int : 390 ms P-R-T Axes : 059 -21 088 degrees QTc Int : 471 ms Normal sinus rhythm. Normal ECG When compared with ECG of 16-JAN-2018 13:07, No significant change was found Unconfirmed Result
--- NOTE | 2018-06-01 08:53 | INFECTIOUS DISEASE PROGRESS NO ---
DATE: 06/01/2018 PRESENT ILLNESS: I am seeing the patient for infection in his pannus and also in the groin area. MEDICATIONS: The patient is on fluconazole orally and topically, has clotrimazole ointment and nystatin powder. PHYSICAL EXAMINATION: Vital Signs: Temperature is 98.6 degrees, pulse 71, respirations 21, blood pressure 104/60. General: This is a morbidly obese young male. He is somewhat lethargic. Head/eyes/ears/nose/throat: No drainage noted from the nose or the ears. Neck: No pain with movement of his head. Lungs: Diminished breath sounds. Cardiovascular: Heart tones were diminished but appeared regular. Abdomen: It is very difficult for me to see all the way to the pannus and likewise in the groin area. I did not see any skin that had purulent drainage and I did not see any areas that were erythematous. Neurologic: The patient is lethargic. He did move his extremities to request. There was no tremor. LAB AND X-RAY: There is no new radiographic study today. CBC shows a white count of 5570, hemoglobin 12.2, and platelet count 210,000. Blood gases show a pH of 7.37, a PO2 of 91, a pCO2 68 creatinine is 1.4. GFR is greater than 60. Bilirubin is 1.77. Urinalysis showed no white cells or bacteria. Blood cultures are negative. Skin cultures are pending. ASSESSMENT AND PLAN: Patient has infection in the pannus and also has it in the groin. My plan is to continue with the current antimicrobial regimen, pending culture results. COMORBIDITIES: The patient is morbidly obese. He also has congestive heart failure, gastroesophageal reflux disease, and obstructive sleep apnea. cc: Chris Gomez MD
[2018-06-01] MEDS: LASIX IV SCH ×2 (09:53→20:14)
[2018-06-01] MEDS: ENTRESTO 24 MG-26 MG TABLET PO SCH ×2 (09:53→20:15)
[2018-06-01] MEDS: ASPIRIN EC PO SCH (09:53)
[2018-06-01] MEDS: DIFLUCAN PO SCH (09:53)
[2018-06-01] MEDS: LOTRIMIN 1% CREAM TOP SCH ×2 (09:54→20:15)
[2018-06-01] MEDS: SINGULAIR PO SCH (09:54)
[2018-06-01] MEDS: MYCOSTATIN POWDER TOP SCH ×2 (09:54→20:15)
[2018-06-01] MEDS: COREG PO SCH ×2 (09:54→20:15)
[2018-06-01] MEDS: HEPARIN SUBQ SCH ×2 (09:54→20:15)
--- NOTE | 2018-06-01 15:50 | CARDIOLOGY PROGRESS NOTE ---
DATE: 06/01/2018 CHIEF COMPLAINT: Swelling, shortness of breath. SUBJECTIVE: Mr. Lopez is somewhat better today, sitting upright. He has lost 6 pounds. He is thirsty. He has no pains. OBJECTIVE: Blood pressure is 120/73, temperature 98.3, pulse 86, respirations 19. Awake, alert, obese, in no distress. HEENT is unremarkable. Chest is clear to auscultation and percussion. Heart sounds are regular and rhythmic. No gallop or murmur. Extremities showed 1 to 2+ edema, unchanged. Abdomen is massively enlarged due to huge pannus. Neurologic: Awake, alert and oriented x3. Speech is clear. Moves all 4 extremities. DIAGNOSTIC DATA: Sodium is 141, potassium 4.0, BUN is 17, creatinine 1.4. Blood gases show pCO2 of 68, pO2 of 91, pH of 7.37. Hemoglobin is 12.2, hematocrit 42.2. IMPRESSION: 1. The patient has congestive heart failure, systolic, chronic with exacerbation due to nonischemic dilated cardiomyopathy. 2. Morbid obesity. 3. Hypercarbic respiratory failure. 4. Sleep apnea syndrome. RECOMMENDATIONS: At this time, I would suggest to continue present course of action. I do not believe that we need to do anything different other than keeping him on current doses of Lasix at 80 mg twice a day, and he may be converted to the same dose by mouth 80 twice a day when he is ready to go home. At this time, we will observe his course. Again, I am suggesting to him to seek evaluation in [place] for bariatric surgery even though he is high risk. cc: Sander Johnson MD [facility]
[2018-06-01] MEDS: NS NEB INH SCH (16:07)
--- NOTE | 2018-06-01 19:03 | PROGRESS NOTE ---
DATE: 06/01/2018 SUBJECTIVE: The patient is sitting at the edge of the bed. He states that he feels better today. His shortness of breath has improved. OBJECTIVE: Vital Signs: Temperature 98.3 degrees, blood pressure 107/92, heart rate 88, respirations 19, O2 saturation 96% on 6 L nasal cannula. Urine output 4.2 L. General: This is a morbidly obese male sitting at the edge of the bed in no acute distress. Head: Normocephalic, atraumatic. Heart: S1, S2 normal. Regular rate and rhythm. Lungs: Equal air entry bilaterally. No wheezing. No rales. No rhonchi. Abdomen: Positive bowel sounds. Soft, obese, nontender, nondistended. Extremities: 2+ edema bilaterally. Neurologic: The patient is alert and oriented x4. LABORATORY DATA: White blood cell count 5.5, hemoglobin 12, hematocrit 42, platelets 210,000. ABG: pH 7.37, pCO2 68, pO2 91, bicarb 33 sodium 141, potassium 4, chloride 98, CO2 34, BUN 17, creatinine 1.4, glucose 95, magnesium 1.8, total bilirubin 1.7. ASSESSMENT AND PLAN: 1. Acute on chronic hypoxemic and hypercapnic respiratory failure. Multifactorial. Continue on supplemental oxygen. 2. Acute on chronic systolic congestive heart failure exacerbation. Continue on the current diuretic dosage. The patient is also on salt and fluid restriction. 3. Morbid obesity. The patient has been seen by the dietitian. He is being followed by Dr. Obrien in [place]. 4. Acute kidney injury. Stable. Continue to monitor closely while on diuretic therapy. 5. Obstructive sleep apnea. Continue with BiPAP at night. 6. Hypertension. Continue on Coreg. 7. Deep vein thrombosis prophylaxis. Continue on heparin. cc: Maryjane Krause MD [facility]
[2018-06-02] MEDS: XOPENEX NEB INH SCH ×4 (04:42→21:16)
[2018-06-02 04:44] LABS: ALLEN TEST YES; BE 12.3 mmoll (-3.0-3.0); BLOOD TYPE ARTERIAL; HCO3-(ACT) 34.5 mmoll (20.0-26.0); O2(CT) 16.7 mL/dL (15.0-23.0); O2HB 94.3 % (95.0-99.0); PO2(98.6) 85 mmHg (60-100); SAMPLE BLOOD; SRATE 12 BPM; THB 12.5 g/dL (11.5-17.4); pH(98.6) 7.38 (7.35-7.45)
[2018-06-02 04:45] LABS: MODALITY BI PAP
[2018-06-02 04:47] LABS: PCO2(98.6) 68 mmHg (35-45)
[2018-06-02] MEDS: PROTONIX PO SCH (06:04)
[2018-06-02 06:09] LABS: HEMATOCRIT 42.4 % (42.0-52.0); HEMOGLOBIN 12.4 g/dL (14.0-18.0); MCH 24.9 PG (27-31); MCHC 29.2 g/dL (33-37); MCV 85.1 FL (81-99); MPV 11.1 FL (7.4-10.4); RBC 4.98 XMIL (4.7-6.1); WBC 5.36 X1000 (4.8-10.8)
[2018-06-02 06:26] LABS: AGAP 10; BUN 18 mg/dL (8-22); CALCIUM 9.5 mg/dL (8.8-10.2); CHLORIDE 99 mmol/L (98-107); COSMO 286; CREATININE 1.3 mg/dL (0.7-1.2); ESTIMATED GFR > 60; GLUCOSE 86 mg/dL (70-104); POTASSIUM 3.5 mmol/L (3.5-5.1); SODIUM 143 mmol/L (136-145); TCO2 34 mmol/L (25-35)
--- NOTE | 2018-06-02 06:41 | Diag Imaging Result Doc PS360 ---
EXAM: CHEST-PORTABLE HISTORY: pulmonary edema TECHNIQUE: Portable chest single view COMPARISON: 05/30/2018 FINDINGS: Poor inspiratory effort. The heart remains markedly enlarged. There is slight vascular distention on the current study and there may be small pleural effusions. IMPRESSION: Interval worsening. Electronically signed by Jeremy Kim 06/02/2018 6:39 AM
[2018-06-02] MEDS: HEPARIN SUBQ SCH ×2 (09:27→20:46)
[2018-06-02] MEDS: SINGULAIR PO SCH (09:27)
[2018-06-02] MEDS: DIFLUCAN PO SCH (09:27)
[2018-06-02] MEDS: ENTRESTO 24 MG-26 MG TABLET PO SCH ×2 (09:27→20:46)
[2018-06-02] MEDS: COREG PO SCH ×2 (09:27→20:46)
[2018-06-02] MEDS: ASPIRIN EC PO SCH (09:27)
[2018-06-02] MEDS: LASIX IV SCH ×2 (09:27→20:46)
[2018-06-02] MEDS: LOTRIMIN 1% CREAM TOP SCH ×2 (09:28→20:48)
[2018-06-02] MEDS: MYCOSTATIN POWDER TOP SCH ×2 (09:28→20:48)
--- NOTE | 2018-06-02 09:29 | PROGRESS NOTE ---
DATE: 06/02/2018 SUBJECTIVE: Mr. Lopez was admitted on 05/29/[address] Aleks Machado. A 33-year-old male with history of morbid obesity, nonischemic cardiomyopathy, ejection fraction 20%, hypertension, and obstructive sleep apnea presented to the emergency room with a chief complaint of increasing shortness of breath and increasing abdominal swelling. Patient reports that over the last 1-1/2 weeks he has been feeling more short of breath. Also, he reports the weight has increased for the last week despite diuretic therapy. The patient reports that he has been having some pain underneath his abdominal pannus and currently using antifungal cream and Diflucan. He has been having more coughing. Appetite has been poor. Reports he has seen Dr. Obrien in consultation for undergoing bariatric surgery. He has not met the weight goal yet. He has not had any surgery yet. PAST MEDICAL HISTORY: 1. Pulmonary hypertension. 2. Morbid obesity. 3. Obstructive sleep apnea. 4. Nonischemic cardiomyopathy with ejection fraction 25%. 5. Gastroesophageal reflux. 6. Hypertension. 7. COPD. 8. Chronic systolic congestive heart failure. They are apparently trying to work on trilogy. He does have BiPAP at home by his report. His breathing is maybe a little better. OBJECTIVE: Temperature is 97.7 degrees, pulse 76, respirations 20, and blood pressure 117/71. Pupils are equal and round. No distended neck veins. Lungs are clear anterolateral. Abdomen is soft and nontender. His skin folds with some irritation. He has some packing and some powder in there underneath his pannus. His urine output was 7 L. ASSESSMENT AND PLAN: 1. Acute on chronic hypoxemic hypercapnic respiratory failure, multifactorial, hypoventilation syndrome, and morbid obesity. 2. Acute on chronic systolic congestive heart failure. Continue to diurese. He is also on salt and fluid restriction. 3. Morbid obesity. Seeing a dietitian. Followed by Dr. Obrien in [place]. 4. Acute kidney injury. His creatinine is down to 1.3. It has hovered between 1.3 and 1.4. 5. Hypertension. Blood pressures appear to be well controlled. REVIEW OF CURRENT ORDERS: He is getting heparin 5000 units subcu q.12 hours for DVT prophylaxis, aspirin 81 mg a day, Coreg 25 mg b.i.d., using clotrimazole cream underneath his skin folds. He is on fluconazole 400 mg a day. Fluticasone inhaler 1 puff daily, Lasix 80 mg IV q.12h, Xopenex inhaler q.6 hours. He is on Singulair 5 mg a day. Nystatin Powder also using underneath his skin folds. Protonix 40 mg a day. He is on valsartan twice a day. He is taking 24-26. cc: Larry Magallanes MD [facility]
[2018-06-02] MEDS: BREO ELLIPTA 200/25 MCG INH INH SCH (10:02)
--- NOTE | 2018-06-02 15:14 | INFECTIOUS DISEASE PROGRESS NO ---
DATE: 06/02/2018 PRESENT ILLNESS: The patient has panniculitis and also cellulitis in the groin areas where his skin rubs together. The culture from the panniculitis grew Proteus, but no fungal agent was isolated. MEDICATIONS: Currently, he is on clotrimazole cream, fluconazole p.o., and nystatin powder. PHYSICAL EXAMINATION: Vital Signs: Temperature is 98.1 degrees, pulse 86, respirations 18, blood pressure 109/75. General: This is a morbidly obese, young male. He is in no acute distress. He did tell me that the areas where his skin rubs against each other is feeling better. Head, eyes, ears, nose, throat: He can hear my spoken words and see near objects. There is no white coating to his tongue. Neck: No pain with movement. Lungs: Distant breath sounds there were bibasilar rales. Cardiovascular: Heart rate is regular. Abdomen: Soft. It is not tender. It is very difficult for me to get all the way deep into the patient's skin folds, but what I did see was that there was a lot of white powder in all the folds and also in the groin area. Neurologic: The patient is awake. He can move his extremities. There is no tremor. LAB AND X-RAY: CBC shows a white count of 5,360, hemoglobin 12.4, platelet count 202,000. Creatinine is 1.3. GFR is greater than 60. The patient's culture from his infected pannus grew Proteus mirabilis. Chest x-ray shows cardiomegaly and vascular distention, as well as small pleural effusions. ASSESSMENT AND PLAN: The plan is I am going to start the patient on p.o. amoxicillin. Hopefully tomorrow we will be able to send him home on that and also nystatin powder. The nystatin powder is to be placed in intertriginous areas every 12 hours and the amoxicillin will be given every 8 hours for 14 days. I have requested a follow-up appointment for the patient in my office in 2 weeks. However, I told him that if he is doing really well, he can cancel the appointment. COMORBIDITIES: His main one is that he is morbidly obese. He does have congestive heart failure, gastroesophageal reflux disease, and obstructive sleep apnea also. cc: Chris Gomez MD
[2018-06-02] MEDS: NS NEB INH SCH (15:40)
[2018-06-02] MEDS: ALDACTONE PO SCH (16:35)
[2018-06-02] MEDS: AMOXIL PO SCH (20:47)
--- NOTE | 2018-06-02 21:20 | PULMONOLOGY PROGRESS NOTE ---
DATE: 06/02/2018 SUBJECTIVE: The patient is awake, alert, and conversant. He continues to diurese. He reports his breathing has improved. OBJECTIVE: Vital Signs: The patient's weight today is 547 pounds, down from 561 pounds on admission. BP 106/69, heart rate 77, respiratory rate 14, oxygen saturation 100%. HEENT: Pupils are equal and reactive. Oropharynx is clear. Neck: Supple. Chest: Reveals diminished breath sounds bilaterally. Cardiac exam: Distant heart sounds. Normal S1, normal S2. Abdomen: Obese and soft. Extremities: Reveal generalized edema. LABORATORIES: Chest x-ray reveals marked cardiomegaly with small effusions and vascular congestion. Arterial blood gas on BiPAP reveals a pH of 7.38, pCO2 of 68, pO2 of 85. Sodium 143, potassium 3.5, chloride 99, bicarbonate 34, BUN 18, creatinine 1.3. IMPRESSION: A 33-year-old with: 1. Super morbid obesity. 2. Nonischemic cardiomyopathy. 3. Pickwickian syndrome with chronic hypoxemic and chronic hypercapnic respiratory failure. The patient continues to improve. RECOMMENDATIONS: 1. Continue diuretics as recommended by Cardiology in their note, with plans for 80 mg b.i.d. at the time of discharge. 2. Continue oxygen and BiPAP. 3. I agree with Dr. Johnson's recommendation that the patient be referred to [facility] for gastric bypass surgery, even if it is high risk, given the patient's ongoing clinical decline. 4. Overall prognosis is guarded to poor. cc: Ta Hawthorne MD
[2018-06-03] MEDS: XOPENEX NEB INH SCH ×2 (03:08→10:44)
[2018-06-03] MEDS: AMOXIL PO SCH (06:07)
[2018-06-03] MEDS: PROTONIX PO SCH (06:07)
[2018-06-03 07:43] VITALS: BP 97/54
[2018-06-03] MEDS: ENTRESTO 24 MG-26 MG TABLET PO SCH (09:04)
[2018-06-03] MEDS: HEPARIN SUBQ SCH (09:04)
[2018-06-03] MEDS: COREG PO SCH (09:04)
[2018-06-03] MEDS: LASIX IV SCH (09:04)
[2018-06-03] MEDS: SINGULAIR PO SCH (09:04)
[2018-06-03] MEDS: ALDACTONE PO SCH (09:04)
[2018-06-03] MEDS: LOTRIMIN 1% CREAM TOP SCH (09:05)
[2018-06-03] MEDS: DIFLUCAN PO SCH (09:05)
[2018-06-03] MEDS: MYCOSTATIN POWDER TOP SCH (09:05)
[2018-06-03] MEDS: ASPIRIN EC PO SCH (09:05)
--- NOTE | 2018-06-03 09:32 | DISCHARGE SUMMARY ---
ADMISSION DATE: 05/29/2018 DISCHARGE DATE: 06/03/2018 This is a patient of Dr. Aleks Machado presented on 05/29/2018 with increased shortness of breath over 1 to 1-1/2 week time period, poor appetite, swelling in his abdomen. Mr. Lopez is a 33-year- old male with history of morbid obesity and nonischemic cardiomyopathy with ejection fraction of 20%, hypertension, and obstructive sleep apnea presented to the emergency room complaining of increased shortness of breath, increased abdominal swelling. Patient reports that over the last 1-1/2 weeks he has been feeling more short of breath. He also reports that his weight has increased in the last week despite diuretic therapy. The patient had been experiencing some pain underneath his pannus and currently has been using antifungal cream and Diflucan. He has been coughing, appetite has been poor. The patient reports he saw Dr. Obrien in consultation for consideration to undergo bariatric surgery. He has not met any of the weight loss goals yet, though and has not had any surgery. In the emergency room, chest x-ray was done and revealed marked cardiomegaly. Also patient was noted to be hypoxic on room air, O2 saturation 76%. The patient uses a BiPAP at night, has that at home. PAST MEDICAL HISTORY: 1. Pulmonary hypertension. 2. Morbid obesity. 3. Obstructive sleep apnea. 4. Nonischemic cardiomyopathy with ejection fraction of less than 25%. 5. Gastroesophageal reflux disease. 6. Hypertension. 7. COPD. 8. Chronic systolic heart failure. MEDICATIONS AT HOME: He is on aspirin 81 mg a day, Coreg 25 mg twice a day, Diflucan 50 mg p.o. twice a day, Breo inhaler 1 puff a day, Nasonex 1 spray daily, Singulair 5 mg a day, omeprazole 40 mg a day, Entresto he was taking 1 twice a day and Demadex 20 mg twice a day. ASSESSMENT AND PLAN: 1. So admission diagnosis was acute chronic systolic congestive heart failure with exacerbation. The patient was put on IV Lasix and diuresed and seemed to make some improvement. They restarted the Entresto and the Coreg. Cardiology was following along. 2. Acute kidney injury, probably felt this was secondary to his systolic congestive heart failure decompensation. So, follow his electrolytes and renal function. 3. Morbid obesity. Continue his pursuit of bariatric surgery, and following under Dr. Kyaw Obrien' direction. 4. Hypertension. Continue his Coreg and Entresto. 5. Obstructive sleep apnea. He has BiPAP. We continued that. He is to use BiPAP as needed and especially through the night. 6. Gastroesophageal reflux disease. Note because of morbid obesity he has hypoventilation syndrome and he understands that the main emphasis is to try and get significant weight reduction. Chest x-ray on 05/30 better inspiration compared to previous study, stable chest. Cardiology involved. Dr. Johnson evaluated. So felt to continue to keep controlled his afterload, keep him on Entresto so felt to be moving in the right direction with fluid diuresis. It was emphasized that if he cannot get some weight reduction prognosis is poor. Pulmonary was also involved and Dr. Hawthorne encouraged patient to pursue weight loss bypass surgery and continue his weight decline. Infectious Disease was asked to see especially about the infection. 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 He was put on a powder and it has been present for 2-3 months and felt he was making progress. I encouraged him to put some cotton absorbent material in between the folds and use nystatin powder. The patient had a panniculitis and also cellulitis in the groin area where his skin rubs together. Culture from the panniculitis grew Proteus, but no fungal agent was isolated. So, continue to the clotrimazole cream, fluconazole and nystatin powder and felt like he was ready to be discharged on 06/03/2017. DISCHARGE MEDICATIONS: 1. Aspirin 81 mg a day. 2. Coreg 25 mg b.i.d. 3. Clotrimazole cream to apply b.i.d. and underneath his pannus and skin folds. 4. Diflucan 400 mg a day for a couple weeks. 5. Breo Ellipta 200/25 one puff daily. 6. Lasix we will change to 80 mg by mouth twice a day. 7. Singulair 5 mg p.o. daily. 8. Nystatin powder to apply twice a day in between the pannus. 9. Protonix 40 mg a day. 10. Entresto , 1 tablet b.i.d. 11. Aldactone 25 mg daily. Continue his BiPAP. Follow up with his primary care, Pulmonology and Cardiology. cc: Larry Magallanes MD
[2018-06-03] MEDS: NS NEB INH SCH (10:44)
[2018-06-03] MEDS: BREO ELLIPTA 200/25 MCG INH INH SCH (10:45)
== END 2018-06-03 12:00 | disposition home health service (06) | DRG 291 ==
LOC: ED 15:10 → 3S 15:11 → SUATTDRO 15:11 → 3S 05-30 11:39
PROVIDERS: ATTEND Emergency Medicine
CPT/HCPCS: 71010; 71045; 80048; 80053; 81001; 82550; 82570; 82805; 83036; 83735; 83880; 83935; 84156; 84300; 84484; 84540; 85025; 85027; 87040; 87070; 87077; 87186; 87205; 93005; 93010; 94640; 94660; 94761; 94799; 96374; 99285; A9270; J1644; J1940; J3475

== ENCOUNTER 2018-06-12 17:16 | Inpatient (IN) ==
[2018-06-12] MEDS ORDERED: NITROGLYCERIN TOP ONE (18:17)
[2018-06-12] MEDS ORDERED: LASIX IV ONE (18:20)
[2018-06-12] MEDS ORDERED: ZAROXOLYN PO ONE (18:20)
--- NOTE | 2018-06-12 18:30 | PROVIDER DOCUMENTATION ---
HPI-Respiratory General - General Chief Complaint: Shortness of Breath Stated Complaint: HEART FAILURE/FLUID OVER LOAD PER PT..... Time Seen by Provider: 06/12/18 17:53 Source: patient Allergies/Adverse Reactions: Patient Allergies Allergy/AdvReac Type Severity Reaction Status Date / Time No Known Allergies Allergy Verified 06/12/18 17:50 Home Medications: Home Medication List Medication Instructions Recorded Confirmed Last Taken Type Albuterol Sulfate [Proair Hfa] 2 puff IH Q4H PRN PRN #1 hfa.aer.ad 01/22/13 05/29/18 01/26/18 Rx Aspirin [Aspirin EC] 81 mg PO DAILY 01/22/13 05/29/18 01/25/18 History Carvedilol [Coreg] 25 mg PO BID 01/22/13 05/29/18 01/25/18 History Guaifenesin E.r. [Mucinex] 600 mg PO PRN PRN 03/10/18 05/29/18 Unknown History Mometasone Nasal [place] [Nasonex 1 spray TEZ DAILY 03/10/18 05/29/18 Unknown History Nasal [place]] Montelukast Chew [Singulair] 5 mg PO DAILY 03/10/18 05/29/18 Unknown History Sacubitril/Valsartan [Entresto 24 56 mg PO BID 03/10/18 05/29/18 Unknown History mg-26 mg Tablet] Torsemide [Demadex] 20 mg PO BID 03/10/18 05/29/18 Unknown History Fluticasone/Vilanterol [Breo 1 puff INH DAILY 05/29/18 05/29/18 Unknown History Ellipta 200-25 Mcg INH] Omeprazole 40 mg PO DAILY 05/29/18 05/29/18 Unknown History Roflumilast [Daliresp] 1 tab PO DAILY 05/29/18 05/29/18 Unknown History Amoxicillin 500 mg PO Q8H 14 Days #40 cap 06/02/18 Unknown Rx Nystatin Powder [Mycostatin Powder] 1 applicatn TOP BID 14 Days #1 06/02/18 Unknown Rx bottle Amoxicillin [Amoxil] 500 mg PO Q8HR cap 06/03/18 Unknown Rx Furosemide [Lasix] 80 mg PO BID 30 Days #60 tab 06/03/18 Unknown Rx - History of Present Illness-Resp Nature of Presenting Problem: He presents with increasing SOB, MCCOY, LE swelling, retaining fluid for 2 days. He admits to chest tighness, but only with cough. No PND or orthopnea. He has a hx of CHF, cardiomegaly, COPD, morbid obesity. Electronic Plotting System Operator is Dr Pepe. He was admitted 05/29-06/03, was seen by Dr Johnson @ that time. LAsix was increased, was placed on fluid restriction. He admits to trying extra lasix, to no avail. Was hypoxic on arrival, but he is on home O2 @ 4 L, was not on that @ time Timing: reports: constant, getting worse Similar Symptoms Previously?: Yes Recently seen or treated by another doctor?: Yes Review of Systems - Adult - REVIEW OF SYSTEMS - ADULT Constitutional: reports: no symptoms reported Eyes: reports: no symptoms reported Ears, Nose, Mouth & Throat: reports: no symptoms reported Cardiovascular: reports: see HPI Respiratory: reports: see HPI Gastrointestinal: reports: no symptoms reported Genitourinary: reports: no symptoms reported Musculoskeletal: reports: no symptoms reported Integumentary: reports: no symptoms reported Neurological: reports: no symptoms reported Psychiatric: reports: no symptoms reported Endocrine: reports: no symptoms reported Hematologic/Lymphatic: reports: no symptoms reported Allergic/Immunologic: reports: no symptoms reported Past History - Adult - PAST MEDICAL HISTORY-ADULT Review of Records: reports: Old Records Reviewed, Nursing Assessment Review, Medications Reviewed, Social history reviewed & non-contributory. Major Childhood Illnesses: reports: denies history Cardiovascular: reports: CHF, HTN Respiratory: reports: asthma, COPD, pneumonia, sleep apnea Gastrointestinal: reports: GERD, ulcer Obstetrical/Gynecological: reports: denies history Genitourinary: reports: denies history Musculoskeletal: reports: denies history Neurological: reports: denies history Psychiatric: reports: denies history Endocrine/Immune: reports: Diabetes Other Conditions: reports: denies history - PRIOR SURGERIES/PROCEDURES Surgical/Procedure History: reports: EGD, colonoscopy, other (sinus ) - IMMUNIZATION STATUS Childhood Immunizations: See Nurse Assessment Flu Vaccine: See Nurse Assessment - FAMILY HISTORY Family History: reviewed, not pertinent Physical Exam-General - PHYSICAL EXAM-ADULT Initial Vital Signs Reviewed: Yes - CONSTITUTIONAL General Appearance: appears well, alert, mild distress - EYES Eyes: PERRL/EOMI, pink conjunctivae - HEAD, EARS, NOSE, MOUTH & THROAT HENMT: normocephalic/atraumatic, moist mucous membranes, normal ENT inspection, pharynx normal - NECK Neck: full range of motion, supple, normal inspection - RESPIRATORY Respiratory: lungs clear, normal breath sounds, no respiratory distress, no accessory muscle use - CARDIOVASCULAR Cardiovascular: regular rate, rhythm, no gallop - GASTROINTESTINAL (ABDOMEN) Abdominal Exam: non tender, soft - MUSCULOSKELETAL Back Exam: normal inspection, no CVA tenderness, no vertebral tenderness Extremity: normal range of motion, non-tender, pedal edema (chronic) - SKIN Integumentary: normal color, normal turgor, warm/dry - NEUROLOGIC Neurologic: leather case finisher II-XII nml as tested, grossly normal, no motor/sensory deficits - PSYCHIATRIC Psych/Mental Status: normal mood/affect, normal thought content, normal thought process, oriented x 3 - HEART Score HEART Score: History: Slightly Suspicious HEART Score: ECG: Non-Specific Repolarization Disturbance/LBBB/PM HEART Score: Age: < or = 45 Years HEART Score: Risk Factors for Atherosclerotic Disease: > or = 3 Risk Factors or History of Atherosclerotic Disease Progress - PLAN OF CARE/RESULTS Progress/Plan/Lab Results: Vital Signs - 8 hr 06/12/18 17:29 06/12/18 17:30 06/12/18 17:33 Temperature Pulse Rate 91 H 95 H 97 H Respiratory Rate 16 20 23 Blood Pressure 137/89 137/89 O2 Sat by Pulse Oximetry 90 L 79 L 89 L 06/12/18 17:34 06/12/18 17:40 06/12/18 17:50 Temperature 97.9 F Pulse Rate 97 H 90 87 Respiratory Rate 16 29 H 43 H Blood Pressure 137/89 O2 Sat by Pulse Oximetry 79 L 93 L 92 L Laboratory Results - last 24 hr 06/12/18 06/12/18 06/12/18 17:48 17:48 17:48 WBC 6.54 RBC 5.17 Hgb 12.7 L Hct 42.5 MCV 82.2 MCH 24.6 L MCHC 29.9 L RDW Std Deviation 17.4 H Plt Count 217 MPV 11.2 H Immature Gran % (Auto) 0.3 Neut % (Auto) 70.7 Lymph % (Auto) 16.8 L [place] % (Auto) 6.6 Eos % (Auto) 5.4 Baso % (Auto) 0.2 Immature Gran # (Auto) 0.02 Neut # (Auto) 4.63 Lymph # (Auto) 1.10 L [place] # (Auto) 0.43 Eos # (Auto) 0.35 Baso # (Auto) 0.01 Sodium 142 Potassium 4.1 Chloride 98 Carbon Dioxide 30 Anion Gap 14 BUN 26 H Creatinine 1.7 H Estimated GFR/1.73 m2 56 BUN/Creatinine Ratio 15 Glucose 150 H Calculated Osmolality 291 Calcium 8.9 Total Bilirubin 0.94 AST 20 ALT 13 Alkaline Phosphatase 102 Brb-L-Pdnrghtqgau Pept 2166 H Total Protein 6.8 Albumin 3.3 L Globulin 3.5 Albumin/Globulin Ratio 0.9 Orders Category Date Time Status CHEST-2 VIEWS [RAD] Stat Exams 06/12/18 18:20 Taken CBC WITH DIFF [HEME] Stat Lab 06/12/18 17:48 Completed COMPREHENSIVE METABOLIC PANEL [CHEM] Stat Lab 06/12/18 17:48 Completed PRO B-NATRIURETIC PEPTIDE Stat Lab 06/12/18 17:48 Completed Furosemide [Lasix] Med 06/12/18 18:20 Discontinued 100 mg IV NOW ONE Metolazone [Zaroxolyn] Med 06/12/18 18:20 Discontinued 5 mg PO NOW ONE Nitroglycerin Med 06/12/18 18:17 Discontinued 1 inch TOP NOW ONE EKG [EKG] Stat Ther 06/12/18 18:20 Ordered Result Diagrams: 06/12/18 17:48 06/12/18 17:48 - CHANGE OF SHIFT REPORT (ED Provider) 1 Report Given and Care Transferred to:: [facility] Time of Transfer: 19:12 Items Pending: Physician Consult/Arrival Departure - Departure Date of Disposition Decision: 06/12/18 Time of Disposition Decision: 20:27 DIAGNOSIS: CHF exacerbation Qualifiers: Heart failure type: unspecified Qualified Code(s): I50.9 - Heart failure, unspecified Disposition: ADMITTED INPATIENT 09 Certified Medical Emergency: Emergent Condition: Stable Referrals and Follow-Ups: Aleks Machado MD [Primary Care Provider] - - Critical Care Note This patient required my direct & personal management of CC.: No Attestation - Physician/ KRISTAN Attestation Patient care was provided by Advanced Practice Provider:: No The physician spent face to face time with patient:: Yes Advanced Practice Provider documentation review:: Supervising physician onsite and consulted in the evaluation and care of this patient. The physician did have a face to face encounter with the patient.
[2018-06-12 18:36] LABS: BASO# 0.01 X1000 (0.0-0.2); BASO% 0.2 % (0.0-0.8); EOS# 0.35 X1000 (0.0-0.7); EOS% 5.4 % (0.0-10.0); HEMATOCRIT 42.5 % (42.0-52.0); HEMOGLOBIN 12.7 g/dL (14.0-18.0); IMM GRAN# 0.02 X1000 (0.0-0.04); IMM GRAN% 0.3 % (0.0-0.5); LYMPH% 16.8 % (20.5-51.1); MCH 24.6 PG (27-31); MCHC 29.9 g/dL (33-37); MCV 82.2 FL (81-99); MONO# 0.43 X1000 (0.11-0.59); MONO% 6.6 % (1.7-9.3); MPV 11.2 FL (7.4-10.4); NEUT# 4.63 X1000 (1.4-6.5); NEUT% 70.7 % (42.2-75.2); PLT 217 X1000 (130-400); RBC 5.17 XMIL (4.7-6.1); RDW 17.4 % (11.5-14.5); WBC 6.54 X1000 (4.8-10.8)
--- NOTE | 2018-06-12 18:39 | ED EKG INTERP ---
This chart was entered by Bernadette Jasso Scribe, acting as scribe for Kenneth Arceo MD. EKG Interpretation - EKG Time of EKG reading by physician:: 17:35 EKG Read and Signed by:: Kenneth Arceo EKG Interpretation (*Must complete 3 of following elements*): Abnormal Rate: 95 (Anterolateral infarct, age undetermined ) Rhythm: NSR [place]: normal MA Interval: normal Attestation - Physician/ KRISTAN Attestation Patient care was provided by Advanced Practice Provider:: No The physician spent face to face time with patient:: Yes Advanced Practice Provider documentation review:: Supervising physician onsite and consulted in the evaluation and care of this patient. The physician did have a face to face encounter with the patient. This chart was documented by the indicated scribe, (Bernadette Jasso Scribe) and accurately reflects the services I performed and decisions made by me, Kenneth Arceo MD, as attested by the provider's signature.
[2018-06-12 18:48] LABS: ALB/GLOB RATIO 0.9; ALBUMIN 3.3 g/dL (3.5-5.0); CALCIUM 8.9 mg/dL (8.8-10.2); CREATININE 1.7 mg/dL (0.7-1.2); POTASSIUM 4.1 mmol/L (3.5-5.1); TOTAL BILIRUBIN 0.94 mg/dL (0.20-1.00); TOTAL PROTEIN 6.8 g/dL (6.3-8.3)
--- NOTE | 2018-06-12 19:16 | Diag Imaging Result Doc PS360 ---
EXAM: CHEST-2 VIEWS - 06/12/2018 HISTORY: SOB, hx CHF TECHNIQUE: Chest two views COMPARISON: 06/02/2018 portable chest FINDINGS: There is substantial cardiomegaly similar to prior. The lungs appear grossly clear. There is no pleural effusion or pneumothorax identified. IMPRESSION: Cardiomegaly. No other discrete evidence of acute disease. Electronically signed by Flakito Rodriguez 06/12/2018 7:14 PM
[2018-06-12] MEDS ORDERED: DUONEB (A & A) INH ONE (23:02)
[2018-06-12 23:52] LABS: URINE SOURCE CLEAN CATCH
[2018-06-12 23:56] LABS: BILIRUBIN URINE NEGATIVE (NEGATIVE); BLOOD URINE NEGATIVE (NEGATIVE); COLOR YELLOW; GLUCOSE URINE NEGATIVE (NEGATIVE); KETONE URINE NEGATIVE (NEGATIVE); LEUKOCYTES URINE NEGATIVE (NEGATIVE); NITRITE URINE NEGATIVE (NEGATIVE); PROTEIN URINE 200 mg/dL (NEGATIVE); SP GRAVITY URINE < 1.001; TURBIDITY URINE CLEAR (CLEAR); UR EPITHELIAL CELLS <10 /HPF (<10); URINE BACTERIA NEGATIVE /HPF; URINE RBC <10 /HPF (<10); URINE WBC <10 /HPF (<10); UROBILINOGEN URINE NORMAL (NORMAL)
[2018-06-12] MEDS: LASIX IV SCH (23:58)
[2018-06-13] MEDS: HEPARIN SUBQ SCH ×3 (00:01→23:35)
--- NOTE | 2018-06-13 00:33 | HISTORY AND PHYSICAL ---
PRIMARY CARE PHYSICIAN: Dr. Aleks Machado. CHIEF COMPLAINT: Shortness of breath x3 days. HISTORY OF PRESENTING ILLNESS: A 33-year-old super morbidly obese male with a history of CHF with EF of 30 to 40 percent, hypertension, sleep apnea, chronic hypoxemic respiratory failure on home O2, who had presented to emergency department with 3 days history of worsening shortness of breath. The patient states that even with his oxygen he was having trouble breathing. He states that his lower extremities were getting more edema despite taking his diuretic. He states that he was not feeling well and subsequently had come to the emergency department. In the ED, he was evaluated. He was dyspneic. He was put on supplemental oxygen and due to his overall presenting symptoms it was thought that he would need admission for further management. At the time of my examination, he denied any headache, fever, chills, nausea, vomiting, diarrhea, chest pain, hemoptysis, but complained of shortness of breath and not feeling well. PAST MEDICAL HISTORY: Includes CHF, EF of 30 to 40 percent, hypertension, sleep apnea, chronic hypoxemic respiratory failure on home O2. PAST SURGICAL HISTORY: None. ALLERGIES: No known drug allergies. CURRENT MEDICATIONS: Include ProAir 2 puffs inhalation q.4 hours, aspirin 81 mg p.o. daily, Coreg 25 mg p.o. b.i.d., Lasix 80 mg p.o. b.i.d., omeprazole 40 mg p.o. daily, Demadex 20 mg p.o. b.i.d. SOCIAL HISTORY: No history of smoking, alcohol or illicit drug use. FAMILY HISTORY: No history of coronary disease. REVIEW OF SYSTEMS: Fourteen point review of systems as listed as in HPI. Other systems all negative. PHYSICAL EXAMINATION: GENERAL: A super morbidly obese male. He is in mild to moderate respiratory distress. On supplemental oxygen. VITAL SIGNS: Temperature 97.9 degrees, pulse 97, respirations 16, O2 saturation 79% on room air. HEENT: Atraumatic, normocephalic. Extraocular movements intact. PERRLA. NECK: No masses. CHEST: Bibasilar rales. CARDIOVASCULAR: Regular rate and rhythm. ABDOMEN: Soft, obese. Positive bowel sounds. EXTREMITIES: +4 edema. NEUROLOGIC: He is awake, alert, oriented x3. GENITOURINARY: No bladder distention. SKIN: Warm. LABORATORIES AND STUDIES: WBC 6.54, hemoglobin 12.7, hematocrit 42.5, platelets 217,000. Sodium 142, potassium 4.1, chloride 98, CO2 is 30, BUN is 26, creatinine is 1.7, glucose 150. ProBNP 2166. ASSESSMENT: This is a 33-year-old super morbidly obese male with a history of congestive heart failure, hypertension, sleep apnea, chronic hypoxemic respiratory failure, who had presented to emergency department with 3 days history of worsening shortness of breath. He was evaluated in the emergency department. He was found to be in heart failure and due to his presenting symptoms he will need admission for further management. 1. Acute on chronic congestive heart failure. 2. Super morbid obesity. 3. Chronic hypoxemic respiratory failure. 4. Hypertension. 5. Hyperglycemia. PLAN: 1. We will admit patient to [facility]. 2. Continue with gentle diuresis with Lasix. 3. We will consult Cardiology. 4. We will consult Social Service to assist with finding a physician who can monitor his diet. 5. Continue with supplemental oxygen. 6. Monitor blood pressure closely. 7. Monitor Blood glucose- check HBA1c 8. We will put patient on DVT prophylaxis with heparin. 9. We will continue to follow, and reassess and make further recommendation based on patient's clinical course. cc: Scooter Chappell MD MTDJessica
[2018-06-13 10:19] LABS: BASO# 0.02 X1000 (0.0-0.2); BASO% 0.3 % (0.0-0.8); EOS# 0.43 X1000 (0.0-0.7); EOS% 5.7 % (0.0-10.0); HEMATOCRIT 44.6 % (42.0-52.0); HEMOGLOBIN 13.2 g/dL (14.0-18.0); LYMPH# 1.12 X1000 (1.2-3.4); LYMPH% 14.8 % (20.5-51.1); MCH 24.6 PG (27-31); MCHC 29.6 g/dL (33-37); MCV 83.1 FL (81-99); MONO% 9.2 % (1.7-9.3); MPV 11.1 FL (7.4-10.4); NEUT# 5.31 X1000 (1.4-6.5); PLT 213 X1000 (130-400); RBC 5.37 XMIL (4.7-6.1); RDW 17.4 % (11.5-14.5); WBC 7.58 X1000 (4.8-10.8)
[2018-06-13 10:33] LABS: HEMOGLOBIN A1C 5.7 % (4.8-6.0)
[2018-06-13 10:39] LABS: CALCIUM 9.3 mg/dL (8.8-10.2); CREATININE 1.6 mg/dL (0.7-1.2)
[2018-06-13] MEDS: LASIX IV SCH ×2 (11:58→23:35)
--- NOTE | 2018-06-13 13:56 | CARDIOLOGY CONSULTATION ---
DATE: 06/13/2018 REASON FOR CONSULTATION: Cardiology was consulted for heart failure. HISTORY OF PRESENT ILLNESS: A 33-year-old Af[place] gentleman with morbid obesity, history of congestive heart failure with reduced systolic function, has history of hypertension, sleep apnea, comes in with complaints of worsening shortness of breath and increasing pedal edema. He says he has not been feeling well. Denies chest pain suggestive of angina. Patient became more orthopneic, came to the emergency room and was admitted. Chest x-ray revealed cardiomegaly. There is no evidence of acute disease. The patient states that he has been taking his home medications as prescribed regularly. REVIEW OF SYSTEM: General: A 14-point review of systems was done GI system: There is no history of nausea, vomiting, diarrhea. There is no history of hematemesis or melena. Central nervous system: No focal weakness to suggest a CVA or TIA. Genitourinary: There is no dysuria or hematuria. PAST MEDICAL HISTORY: 1. Systolic heart failure. 2. Hypertension. 3. Sleep apnea. 4. Chronic hypoxemic respiratory failure on home oxygen. 5. Morbid obesity. 6. LV dysfunction. Last echocardiogram revealed ejection fraction of 25%. Severe global hypokinesis. Ejection fraction of 25% with pulmonary artery systolic pressure of 70 to 75 mmHg. HOME MEDICATIONS: Coreg 25 mg p.o. b.i.d., aspirin 81 mg a day, Nasonex spray, Singulair 5, Guaifenesin, Entresto / one tablet p.o. b.i.d., torsemide 20 b.i.d., omeprazole 40, amoxicillin he had been taking, and he has also been on Lasix. On questioning him, he says that he has not been taking torsemide, he takes Lasix. SURGICAL HISTORY: Negative. SOCIAL HISTORY: He lives with his family. 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 Does not smoke. Does not drink. PHYSICAL EXAMINATION: Vital Signs: Blood pressure 109/75. Cardiovascular System: Jugular venous pressure could not be assessed. First and second heart sounds were heard. There was no S3 gallop. Respiratory System: Distant breath sounds. Inspiratory crepitations were noted. ABDOMEN: Obese, soft, nontender. There was no guarding or rigidity. Bowel sounds were heard.Extremities: Examination of his extremities revealed pitting edema. LABORATORY EXAMINATION: Revealed sodium 143, potassium 4.0. BUN 27, creatinine 1.6. ProBNP abnormal at 2166. A1c 5.7. ASSESSMENT AND PLAN: 1. Mr. Jorgito Lopez is a 33-year-old Afro[place] gentleman with history of chronic respiratory failure, morbid obesity, pickwickian syndrome. 2. Systolic heart failure. Left ventricular dysfunction. Ejection fraction of 25%. 3. Has history of hypertension, is admitted with increasing shortness of breath. He is currently on Lasix intravenously; a dosage of metolazone was given. The patient symptomatically is slightly better. RECOMMENDATIONS: 1. Restart his home medications of Sacubitril and Coreg for severe nonischemic cardiomyopathy. 2. Continue with Lasix currently. 3. Gastroesophageal reflux disease. Continue with omeprazole. 4. He also has sleep apnea and respiratory failure. He is on inhalers p.r.n. Would recommend continue same. 5. He is on aspirin 81 mg a day. I have not made any changes. 6. He has renal insufficiency, which is stable. I have not made any other changes to his medications. cc: Jesse Nichole MD
--- NOTE | 2018-06-13 15:58 | PROGRESS NOTE ---
DATE: 06/13/2018 SUBJECTIVE: The moment of my physical exam, this patient was sitting up on the bed. He is still complaining of some shortness of breath, cardiology department already evaluated this patient. He has a history of dilated nonischemic cardiomyopathy with a recent echocardiogram from 01/16/2018 that showed a pulmonary arterial pressure around 70 to 75 percent suggesting pulmonary hypertension, and ejection fraction of 25% in the setting of global hypokinesis. He is morbidly obese, he sleeps with a BiPAP machine but he is working on finding a Trilogy machine at this moment. OBJECTIVE: Vital Signs: Temperature 98.3 degrees, pulse 82, respiratory rate 14, blood pressure 109/75, oxygen saturation 95% on the BiPAP machine. HEENT: Head normocephalic. No trauma. PERRLA. Neck: Supple. I cannot see JVD because of his neck size. Central trachea. Chest: Decreased breath sounds globally. He does have a lot of fat tissue, not quite sure if he has some rales or crackles Cardiovascular: Regular rate and rhythm. Abdomen: Soft, obese, protuberant. Extremities: 3+ lower extremity edema. Dry skin. No clubbing, no cyanosis. Neurological: The patient is alert and oriented x3. No focal deficits. LABORATORY DATA: WBC 7.5, hemoglobin 13.2, hematocrit 44.6, platelets 213,000. Sodium 143, potassium 4, chloride 97, bicarbonate 33, BUN 27, creatinine 1.6, glucose 111, calcium 9.3. ASSESSMENT AND PLAN: 1. Acute on chronic congestive heart failure, systolic. This patient has a history of dilated nonischemic cardiomyopathy with an ejection fraction of 25% and also severe pulmonary hypertension. We will continue with the same management. Cardiology Department following this patient. Continue with diuresis. 2. Morbid obesity with a body mass index of 83.3. 3. Hypertension. Continue with same management. 4. Hyperglycemia. This patient has a hemoglobin A1c 5.7. He does not have a history of diabetes. 5. Chronic hypoxemic respiratory failure and obstructive sleep apnea. This patient uses a BiPAP machine during the night but he is working on finding a Trilogy machine since he is getting worse. 6. Cardiology Department already evaluated this patient. I have placed this patient back on his home medications as suggested by Cardiology. cc: Velasquez Joe MD
[2018-06-13] MEDS: MIRALAX PO SCH (21:00)
[2018-06-13] MEDS ORDERED: ENTRESTO 24 MG-26 MG TABLET PO SCH (21:00)
[2018-06-13] MEDS: COREG PO SCH (21:06)
[2018-06-14] MEDS: PRILOSEC PO SCH (07:35)
[2018-06-14 07:52] LABS: BASO# 0.04 X1000 (0.0-0.2); BASO% 0.7 % (0.0-0.8); EOS# 0.35 X1000 (0.0-0.7); EOS% 5.9 % (0.0-10.0); HEMATOCRIT 46.3 % (42.0-52.0); HEMOGLOBIN 13.8 g/dL (14.0-18.0); LYMPH# 1.06 X1000 (1.2-3.4); LYMPH% 17.8 % (20.5-51.1); MCH 24.8 PG (27-31); MCHC 29.8 g/dL (33-37); MCV 83.3 FL (81-99); MONO# 0.49 X1000 (0.11-0.59); MONO% 8.2 % (1.7-9.3); MPV 10.8 FL (7.4-10.4); NEUT% 67.4 % (42.2-75.2); PLT 205 X1000 (130-400); RBC 5.56 XMIL (4.7-6.1); WBC 5.94 X1000 (4.8-10.8)
[2018-06-14 08:17] LABS: ALB/GLOB RATIO 1.1; ALBUMIN 3.5 g/dL (3.5-5.0); CALCIUM 9.4 mg/dL (8.8-10.2); CREATININE 1.6 mg/dL (0.7-1.2); MAGNESIUM 1.7 mg/dL (1.5-2.7); POTASSIUM 4.6 mmol/L (3.5-5.1); TOTAL BILIRUBIN 1.43 mg/dL (0.20-1.00); TOTAL PROTEIN 6.7 g/dL (6.3-8.3)
[2018-06-14] MEDS: ASPIRIN EC PO SCH (12:05)
[2018-06-14] MEDS: COREG PO SCH ×2 (12:05→22:31)
[2018-06-14] MEDS: BREO ELLIPTA 200/25 MCG INH INH SCH (12:05)
[2018-06-14] MEDS: HEPARIN SUBQ SCH ×2 (12:06→22:31)
[2018-06-14] MEDS: LASIX IV SCH ×2 (12:08→22:31)
[2018-06-14] MEDS: MIRALAX PO SCH ×2 (12:09→22:31)
[2018-06-14] MEDS: DALIRESP PO SCH (12:40)
--- NOTE | 2018-06-14 17:31 | PROGRESS NOTE ---
DATE: 06/14/2018 SUBJECTIVE: No acute events overnight, this patient seems to be breathing a little bit better, so far we have a negative balance of 2.4 L. Will continue with the same management for now, I will increase the frequency of the stool softener. OBJECTIVE: Vital Signs: Temperature 97.6 degrees, pulse 82, respiratory rate 18, blood pressure 136/94, oxygen saturation 93 on 5 L of nasal cannula. HEENT: Head normocephalic. No trauma. PERRLA. Neck: Supple. I cannot see JVD because of his neck size. Central trachea. Chest: Decreased breath sounds globally. Some crackles at the bases. Cardiovascular: RRR. Abdomen: Soft, obese, protuberant. Extremities: 3+ lower extremity edema. His skin is dry. No clubbing, no cyanosis. Neurological: The patient is alert and oriented x3. No focal deficits. LABORATORY: WBC 5.9, hemoglobin 13.8, hematocrit 46.3, platelets 205,000. Sodium 141, potassium 4.6, chloride 97, bicarbonate 33, BUN 28, creatinine 1.6, glucose 96, calcium 9.4, albumin 3.5. ASSESSMENT AND PLAN: 1. Acute on chronic congestive heart failure, systolic. This patient has a history of dilated nonischemic cardiomyopathy with an ejection fraction of 25%. Also severe pulmonary hypertension. Cardiology Department on board. Continue with diuresis. He feels a little bit better but still short of breath. 2. Morbid obesity with a body mass index of 83.3. 3. Hypertension. Continue with same management. 4. Hyperglycemia. This patient has a hemoglobin A1c 5.7 and he does not have a history of diabetes. 5. Chronic hypoxemic respiratory failure and obstructive sleep apnea. It looks like this patient is using a BiPAP machine during the night but he is working on finding a Trilogy machine since he is getting worse apparently. 6. Constipation, I have increased the frequency of the MiraLAX from once a day to twice a day. cc: Velasquez Joe MD
[2018-06-14] MEDS: DUONEB (A & A) INH PRN ×2 (20:00→23:28)
[2018-06-15] MEDS: DUONEB (A & A) INH PRN ×5 (03:20→23:10)
[2018-06-15 06:27] LABS: CALCIUM 9.2 mg/dL (8.8-10.2); CREATININE 1.6 mg/dL (0.7-1.2); POTASSIUM 3.9 mmol/L (3.5-5.1)
[2018-06-15] MEDS: PRILOSEC PO SCH (06:36)
--- NOTE | 2018-06-15 07:43 | EKG Report ---
Test Performed on : 06/12/2018 5:30:41 PM Test Reason : chf Blood Pressure : / mmHG Vent. Rate : 095 BPM Atrial Rate : 095 BPM P-R Int : 176 ms QRS Dur : 082 ms QT Int : 336 ms P-R-T Axes : 066 -11 084 degrees QTc Int : 422 ms Normal sinus rhythm. Anterolateral infarct , age undetermined Abnormal ECG When compared with ECG of 30-MAY-2018 06:43, QT has shortened Unconfirmed Result
[2018-06-15] MEDS: BREO ELLIPTA 200/25 MCG INH INH SCH (07:44)
--- NOTE | 2018-06-15 08:12 | PROGRESS NOTE ---
DATE: 06/15/2018 SUBJECTIVE: No acute events overnight. This patient, at this moment, is sleepy but arousable and using the BiPAP machine which he has been using also at home. We have, so far, a negative balance of around 4 L. The kidney function has been stable. No big changes compared with admission but compared with his previous hospitalization, it is a little bit elevated. I will continue with the same management. I will follow the recommendations of cardiology department. I believe this patient can be discharged in the next 24 to 48 hours. I requested physical therapy and occupational therapy to evaluate this patient. OBJECTIVE: Vital Signs: Temperature 98 degrees, pulse 87, respiratory rate 11, blood pressure 91/52, oxygen saturation 100% on the BiPAP machine. HEENT: Head normocephalic. No trauma. PERRLA. Neck: Supple. I cannot see JVD because of his neck size. Central trachea. Chest: Decreased breath sounds globally with some crackles at the bases. Cardiovascular: RRR. Abdomen: Soft, obese, protuberant. Extremities: There is 2+ to 3+ lower extremity edema. His skin is dry. No clubbing. No cyanosis. Neurological Examination: This patient is sleepy but arousable. He is following commands. No focal deficits. Laboratory: Sodium 139, potassium 3.9, chloride 95, bicarbonate 36, BUN 27, creatinine 1.6, glucose 97, calcium 9.2. ASSESSMENT AND PLAN: 1. Acute on chronic congestive heart failure, systolic. This patient has a history of dilated cardiomyopathy with an ejection fraction of 25%. Also, he has severe pulmonary hypertension. Cardiology department is following this patient. We will continue with diuresis. I think he is feeling a little bit better. So far, we have removed around 4 L of fluid and the kidney function is about the same compared with admission. 2. Morbid obesity with a body mass index of 33.3. Aware. Diet and exercise have been discussed. 3. Hypertension. Continue with the same management. 4. Hyperglycemia. This patient's hemoglobin A1c is 5.7. He does not have a history of diabetes. We will just monitor. 5. Chronic hypoxemic respiratory failure with obstructive sleep apnea. He has been using the BiPAP machine during the night but it looks like he is working on finding a Trilogy machine. 6. Constipation. I had increased the frequency of the MiraLAX from once a day to twice a day yesterday. We will see how he does. 7. I believe this patient is doing better. We will follow cardiology recommendations. I believe this patient can be discharged in the next 24 to 48 hours. cc: Velasquez Joe MD
[2018-06-15] MEDS: LASIX IV SCH ×2 (09:18→21:21)
[2018-06-15] MEDS: DALIRESP PO SCH (09:18)
[2018-06-15] MEDS: ASPIRIN EC PO SCH (09:18)
[2018-06-15] MEDS: COREG PO SCH ×2 (09:18→21:19)
[2018-06-15] MEDS: MIRALAX PO SCH ×2 (09:18→21:21)
[2018-06-15] MEDS: HEPARIN SUBQ SCH ×2 (09:18→21:21)
[2018-06-15] MEDS: ENTRESTO 24 MG-26 MG TABLET PO SCH (21:21)
[2018-06-16] MEDS: DUONEB (A & A) INH PRN ×6 (03:13→23:15)
[2018-06-16 06:04] LABS: CALCIUM 8.9 mg/dL (8.8-10.2); CREATININE 1.6 mg/dL (0.7-1.2); POTASSIUM 3.9 mmol/L (3.5-5.1)
[2018-06-16] MEDS: PRILOSEC PO SCH (06:08)
[2018-06-16] MEDS: BREO ELLIPTA 200/25 MCG INH INH SCH (07:53)
--- NOTE | 2018-06-16 08:11 | PROGRESS NOTE ---
DATE: 06/16/2018 SUBJECTIVE: Patient is sleepy but easily arousable upon my examination this morning. Denies any shortness of breath at this time. Denies any other complaints. As per nursing staff, the patient has been stable and no acute issues noted. OBJECTIVE: Vital Signs: Temperature 97.9 degrees, heart rate 80, respiratory rate 23, blood pressure 140/81 and O2 saturation 100% on 4 L nasal cannula. The patient has been using BiPAP last night. General: This is an extremely morbidly obese 33-year-old male lying in bed in no acute distress. Cardiovascular: S1, S2 heard. Heart tones at this time most likely because of his body habitus. Respiratory: Decreased breath sounds globally with minimal crackles noted in both pulmonary bases. Patient is not using any accessory muscles or having work of breathing. Abdomen: Soft. Obese. Protuberant. Nondistended and nontender to palpation. Bowel sounds present. No organomegaly. Extremities: 2+ pitting edema in both lower extremities. Peripheral pulses present in both legs. Neurological: Patient is sleepy to my examination but easily arousable. I respond to verbal stimuli. Patient moves 4 extremities. No focal deficits noted. LABORATORY DATA: Remarkable for creatinine 1.6, chloride 95 ASSESSMENT AND PLAN: 1. Acute on chronic systolic congestive heart failure. The patient has known history of dilated cardiomyopathy with ejection fraction noted of 25%. At this point, patient is on Lasix oral. In this case, it is 80 mg p.o. b.i.d. We will continue with the same management. So far, during the last 24 hours, he has made 2 L of urine. Cardiology is following this patient for recommendations. 2. Chronic kidney disease stage 1. His renal function is stable with GFR almost close to normal. At this point, we will continue monitoring BMP. 3. Chronic hypoxemic respiratory failure with obstructive sleep apnea. The patient has been using BiPAP machine last night and during the previous night while in the hospital. As per previous note, we are working on finding a trilogy machine that will be more beneficial for him. 4. Extreme morbid obesity with body mass index of 83.3. With all of his comorbidities, the patient may be a candidate for bariatric surgery but that can be done as an outpatient. 5. Hypertension. Blood pressure is under control. We will continue with same management. 6. Hyperglycemia. Hemoglobin is okay in the last 3 days and hemoglobin A1c is 5.7. 7. Constipation. Patient is on MiraLAX. We will continue with same management. 8. Disposition. At this point, I think patient is stable. We are going to transfer this patient out to the [facility] unit today, and will check an ABG today. We have not checked it yet. If for tomorrow, we can get a trilogy machine for him and CO2 are in an acceptable range, the patient can be discharged tomorrow. cc: Adams Willard MD MTDD
[2018-06-16] MEDS: HEPARIN SUBQ SCH ×2 (09:08→20:17)
[2018-06-16] MEDS: MIRALAX PO SCH ×2 (09:08→20:18)
[2018-06-16] MEDS: DALIRESP PO SCH (09:08)
[2018-06-16] MEDS: TYLENOL PO PRN ×2 (09:08→20:42)
[2018-06-16] MEDS: SINGULAIR PO SCH (09:08)
[2018-06-16] MEDS: COREG PO SCH ×2 (09:09→20:18)
[2018-06-16] MEDS: ENTRESTO 24 MG-26 MG TABLET PO SCH ×2 (09:09→20:18)
[2018-06-16] MEDS: LASIX PO SCH ×2 (09:09→20:18)
[2018-06-16] MEDS: ASPIRIN EC PO SCH (09:09)
[2018-06-16] MEDS: NASONEX NASAL SPRAY NAS SCH (09:09)
[2018-06-16 09:10] LABS: ALLEN TEST YES; BE 13.1 mmoll (-3.0-3.0); BLOOD TYPE ARTERIAL; HCO3-(ACT) 34.8 mmoll (20.0-26.0); METHB 1.2 % (0.0-1.5); O2(CT) 15.9 mL/dL (15.0-23.0); PO2(98.6) 54 mmHg (60-100); SAMPLE BLOOD; SAO2 89.3 % (95.0-100.0); THB 13.2 g/dL (11.5-17.4)
[2018-06-16 09:12] LABS: MODALITY CANNULA; O2HB 85.8 % (95.0-99.0); PCO2(98.6) 66 mmHg (35-45)
[2018-06-17] MEDS: DUONEB (A & A) INH PRN ×5 (03:20→23:35)
[2018-06-17 06:28] LABS: ALLEN TEST YES; BE 14.3 mmoll (-3.0-3.0); BLOOD TYPE ARTERIAL; HCO3-(ACT) 36.1 mmoll (20.0-26.0); METHB 0.9 % (0.0-1.5); O2(CT) 17.4 mL/dL (15.0-23.0); O2HB 97.1 % (95.0-99.0); PO2(98.6) 213 mmHg (60-100); SAMPLE BLOOD; SAO2 100.2 % (95.0-100.0); THB 12.4 g/dL (11.5-17.4); pH(98.6) 7.39 (7.35-7.45)
[2018-06-17 06:29] LABS: MODALITY BI PAP; PCO2(98.6) 70 mmHg (35-45)
[2018-06-17 06:47] LABS: BASO# 0.01 X1000 (0.0-0.2); BASO% 0.2 % (0.0-0.8); EOS# 0.27 X1000 (0.0-0.7); EOS% 5.1 % (0.0-10.0); HEMATOCRIT 41.7 % (42.0-52.0); HEMOGLOBIN 12.2 g/dL (14.0-18.0); LYMPH# 0.98 X1000 (1.2-3.4); LYMPH% 18.4 % (20.5-51.1); MCH 24.5 PG (27-31); MCHC 29.3 g/dL (33-37); MCV 83.7 FL (81-99); MONO# 0.51 X1000 (0.11-0.59); MONO% 9.6 % (1.7-9.3); MPV 10.8 FL (7.4-10.4); NEUT# 3.56 X1000 (1.4-6.5); NEUT% 66.7 % (42.2-75.2); PLT 232 X1000 (130-400); RBC 4.98 XMIL (4.7-6.1); RDW 17.4 % (11.5-14.5); WBC 5.33 X1000 (4.8-10.8)
[2018-06-17] MEDS: PRILOSEC PO SCH (07:02)
--- NOTE | 2018-06-17 07:24 | EKG Report ---
Test Performed on : 06/17/2018 06:42:23 AM Test Reason : Run of Torsades per telemetry Blood Pressure : / mmHG Vent. Rate : 082 BPM Atrial Rate : 082 BPM P-R Int : 178 ms QRS Dur : 092 ms QT Int : 390 ms P-R-T Axes : 065 014 094 degrees QTc Int : 455 ms Normal sinus rhythm. Low voltage QRS Cannot rule out Anterior infarct (cited on or before 12-JUN-2018) Abnormal ECG When compared with ECG of 12-JUN-2018 17:30, (Unconfirmed) T wave inversion now evident in Anterior leads Confirmed by Summer VELÁZQUEZ, Jac ([id number]) on 06/17/2018 8:58:47 AM
[2018-06-17 08:52] LABS: ALB/GLOB RATIO 1.1; ALBUMIN 3.2 g/dL (3.5-5.0); CALCIUM 9.2 mg/dL (8.8-10.2); CREATININE 1.6 mg/dL (0.7-1.2); MAGNESIUM 1.7 mg/dL (1.5-2.7); POTASSIUM 4.5 mmol/L (3.5-5.1); TOTAL BILIRUBIN 1.08 mg/dL (0.20-1.00); TOTAL PROTEIN 6.2 g/dL (6.3-8.3)
[2018-06-17] MEDS: DALIRESP PO SCH (09:46)
[2018-06-17] MEDS: MIRALAX PO SCH ×2 (09:46→22:22)
[2018-06-17] MEDS: NASONEX NASAL SPRAY NAS SCH (09:46)
[2018-06-17] MEDS: COREG PO SCH ×3 (09:48→22:23)
[2018-06-17] MEDS: ASPIRIN EC PO SCH (09:48)
[2018-06-17] MEDS: LASIX PO SCH ×2 (09:48→22:23)
[2018-06-17] MEDS: ENTRESTO 24 MG-26 MG TABLET PO SCH ×2 (09:48→22:23)
[2018-06-17] MEDS: SINGULAIR PO SCH (09:48)
[2018-06-17] MEDS: HEPARIN SUBQ SCH ×2 (09:49→22:23)
[2018-06-17] MEDS: BREO ELLIPTA 200/25 MCG INH INH SCH (16:10)
--- NOTE | 2018-06-17 17:51 | PROGRESS NOTE ---
DATE: 06/17/2018 INTERVAL HISTORY: The patient is still with some dyspnea on exertion, but comfortable at rest. Questionable episode of torsades on telemetry earlier this morning, but patient was asymptomatic and stable. This was repeated and was not shown on EKG performed to attempt to clarify. Suspect this was artifactual. Afebrile overnight. No other acute events overnight. No new complaints. REVIEW OF SYSTEMS: Twelve-point review of systems negative except as per clinical history. LABORATORY DATA: WBC 5.3, hemoglobin 12.2, hematocrit 41.7, platelets 232,000. ABG with pH 7.39, pCO2 of 70, PO2 of 213, O2 saturations 97% on BiPAP with 50% FiO2. Sodium 137, potassium 4.5, chloride 93, BUN 24, creatinine 1.6, glucose 111, and total bilirubin 1.08. BNP 1907. Albumin 3.2, total protein 6.2. PHYSICAL EXAMINATION: Vitals: T-max 98.8 degrees, pulse 82, respirations 24, blood pressure 113/77, O2 saturations 100% on 50% BiPAP. General: No acute distress. Morbidly obese. HEENT: Normocephalic, atraumatic. Moist mucous membranes. Neck: No cervical adenopathy. Cardiovascular: Regular rate and rhythm. No murmurs noted within the limits of body habitus. Pulmonary: Moderately decreased breath sounds globally, but largely clear to auscultation bilaterally within the limits of body habitus. No increased work of breathing or accessory muscle use. Abdomen: Soft, nontender. Bowel sounds positive. Extremities: Peripheral pulses decreased but intact. Trace to 1+ edema of bilateral lower extremities. Neurologic: Cranial nerves grossly intact. No focal deficits identified. Psychiatric: Normal mood and affect. Awake, alert, and oriented x3. Skin: No new rashes or lesions identified. ASSESSMENT AND PLAN: 1. Hbdkr-bu-jkuiuml systolic congestive heart failure. Last known EF 25%. Patient with dilated cardiomyopathy. Continuing high-dose oral Lasix. It does appear to be improving somewhat. Continue to monitor. 2. Wtojd-ek-dyrppor hypoxemic respiratory failure, multifactorial with xreid-lq-lyzzfxw heart failure as above. 3. Pickwickian syndrome, chronic obstructive pulmonary disease. Has been using BiPAP at night and intermittently during the day. Will likely need some ventilator support indefinitely. Attempting to arrange home Trilogy for patient. May be approaching maximum benefit of hospitalization, but will continue to diurese as above and monitor. 4. Chronic kidney disease 3. Renal function stable and likely at baseline. 5. Super morbid obesity. BMI 83.3. Importance of weight loss stressed to patient. 6. Hypertension, reasonable control with current regimen. Continue to monitor. 7. Constipation. Continue bowel regimen. 8. Pickwickian syndrome. Patient with chronic hypercapnic respiratory failure related to his morbid obesity. Hypercapnia appears to be at or near baseline at this point. Continue to monitor. 9. Questionable torsades. Patient appears to be possible torsades on telemetry earlier this morning, but the patient was stable and asymptomatic. Has not been repeated. An EKG showed no issues. Suspect this was artifactual, but will see what Cardiology says they are following. 10. Disposition. Continue diuresis but once home Trilogy is arranged if no other acute events occur, then can likely be discharged home. МАРИЯ
[2018-06-18] MEDS: DUONEB (A & A) INH PRN ×6 (03:50→23:45)
[2018-06-18] MEDS: TYLENOL PO PRN (05:23)
[2018-06-18] MEDS: PRILOSEC PO SCH ×2 (05:24→06:00)
[2018-06-18 07:38] LABS: BASO# 0.02 X1000 (0.0-0.2); BASO% 0.4 % (0.0-0.8); EOS# 0.25 X1000 (0.0-0.7); EOS% 4.8 % (0.0-10.0); HEMATOCRIT 40.6 % (42.0-52.0); LYMPH# 0.93 X1000 (1.2-3.4); MCH 24.8 PG (27-31); MCHC 29.6 g/dL (33-37); MCV 83.9 FL (81-99); MONO# 0.55 X1000 (0.11-0.59); MONO% 10.6 % (1.7-9.3); MPV 11.2 FL (7.4-10.4); NEUT# 3.42 X1000 (1.4-6.5); NEUT% 66.2 % (42.2-75.2); PLT 226 X1000 (130-400); RBC 4.84 XMIL (4.7-6.1); RDW 17.3 % (11.5-14.5); WBC 5.17 X1000 (4.8-10.8)
[2018-06-18] MEDS: BREO ELLIPTA 200/25 MCG INH INH SCH (08:05)
[2018-06-18] MEDS: LASIX PO SCH ×2 (10:34→22:16)
[2018-06-18] MEDS: NASONEX NASAL SPRAY NAS SCH (10:35)
[2018-06-18] MEDS: COREG PO SCH ×2 (10:36→22:17)
[2018-06-18] MEDS: ENTRESTO 24 MG-26 MG TABLET PO SCH ×2 (10:36→22:16)
[2018-06-18] MEDS: DALIRESP PO SCH (10:36)
[2018-06-18] MEDS: ASPIRIN EC PO SCH (10:36)
[2018-06-18] MEDS: SINGULAIR PO SCH (10:36)
[2018-06-18] MEDS: HEPARIN SUBQ SCH ×2 (10:37→22:17)
[2018-06-18] MEDS: MIRALAX PO SCH ×2 (10:39→22:17)
--- NOTE | 2018-06-18 16:07 | PROGRESS NOTE ---
DATE: 06/18/2018 INTERVAL HISTORY: Patient's dyspnea remains largely baseline. No further arrhythmias. Discussed with Cardiology and they both believe his previous episode of possible torsade is likely artifactual. Afebrile overnight. No other acute events. Respiratory walked the patient and despite 6 L of oxygen, he desatted down into the low 80s. No new complaints. REVIEW OF SYSTEMS: Twelve point review of systems negative except as per interval history. LABS: CBC stable. VITAL SIGNS: T-max 98.8 degrees, pulse 78, respirations 18, blood pressure 113/69, O2 saturation 92% on 6 L by nasal cannula at rest, 80% on 6 L by nasal cannula with exertion. PHYSICAL EXAMINATION: General: No acute distress. Vital signs: As above. HEENT: Normocephalic, atraumatic. Moist mucous membranes. No cervical adenopathy. Cardiovascular: Regular rate and rhythm. No murmurs noted. Pulmonary: Moderately decreased breath sounds throughout remain but otherwise, clear to auscultation bilaterally within the limits of body habitus. No increased work of breathing or accessory muscle use, but does become dyspneic with minimal exertion. Abdomen: Soft, nontender. Bowel sounds positive. Extremities: Peripheral pulses decreased but intact. Trace bilateral lower extremity edema, unchanged. Neurologic: Cranial nerves grossly intact. No focal deficits identified. Psychiatric: Normal mood and affect. Awake, alert, oriented x3. Skin: No new rashes or lesions identified. ASSESSMENT AND PLAN: 1. Acute on chronic systolic congestive heart failure. Last known EF 25%. Patient with dilated cardiomyopathy. Continuing high-dose Lasix. Appears to be tolerating well. Likely approaching baseline. 2. Acute on chronic hypoxemic and hypercapnic respiratory failure. Multifactorial with acute on chronic heart failure, Pickwickian syndrome, COPD. Good saturations off BiPAP at rest, but desatted significantly with minimal exertion. Efforts to get patient set up with a trilogy machine that he can use outside of the hospital ongoing. Continue diuresis, DuoNeb as needed. 3. Chronic kidney disease 3. Renal function stable and likely baseline. 4. Super morbid obesity, body mass index 83.3. Importance of weight loss stressed to the patient. Discussed possible bariatric surgery with the patient, although he is quite high risk for any surgical procedure. 5. Hypertension. Reasonable control on current regimen. Continue to monitor. 6. Constipation. Continue bowel regimen. 7. Pickwickian syndrome. Patient with chronic hypercapnic respiratory failure related to his morbid obesity and possibly COPD. Hypercapnia appears to be at or near baseline at this point. 8. Disposition. Continuing diuresis but likely approaching maximum benefit of hospitalization. Once home trilogy is arranged, we will plan on discharge. It likely needs to be arranged prior to discharge given his significant desaturation on maximum outpatient O2 with minimal exertion.
[2018-06-19] MEDS: DUONEB (A & A) INH PRN ×5 (03:55→20:03)
[2018-06-19] MEDS: TYLENOL PO PRN (06:04)
[2018-06-19] MEDS: PRILOSEC PO SCH (06:04)
[2018-06-19] MEDS: BREO ELLIPTA 200/25 MCG INH INH SCH (08:25)
[2018-06-19] MEDS: DALIRESP PO SCH (09:02)
[2018-06-19] MEDS: SINGULAIR PO SCH (09:03)
[2018-06-19] MEDS: MIRALAX PO SCH ×2 (09:03→20:44)
[2018-06-19] MEDS: HEPARIN SUBQ SCH ×2 (09:04→20:44)
[2018-06-19] MEDS: COREG PO SCH ×2 (09:04→20:43)
[2018-06-19] MEDS: ENTRESTO 24 MG-26 MG TABLET PO SCH ×2 (09:04→20:44)
[2018-06-19] MEDS: LASIX PO SCH ×2 (09:04→20:44)
[2018-06-19] MEDS: ASPIRIN EC PO SCH (09:04)
[2018-06-19] MEDS: NASONEX NASAL SPRAY NAS SCH (09:05)
--- NOTE | 2018-06-19 17:29 | PROGRESS NOTE ---
DATE: 06/19/2018 INTERVAL HISTORY: The patient with continued dyspnea on exertion but pretty stable at this point. No acute events overnight. No new complaints. REVIEW OF SYSTEMS: A 12-point review of systems negative except as per interval history. VITAL SIGNS: T-max 98.9 degrees, pulse 73, respirations 18, blood pressure 127/74, O2 saturation 94% on 6 L by nasal cannula. PHYSICAL EXAMINATION: General: No acute distress. Morbidly obese. Vital Signs: As above. HEENT: Normocephalic, atraumatic. Moist mucous membranes. No cervical adenopathy. Cardiovascular: Regular rate and rhythm. No murmurs noted. Pulmonary: Moderately decreased breath sounds throughout, unchanged, but otherwise clear to auscultation within the limits of body habitus. No increased work of breathing or accessory muscle use at the time of my exam. Abdomen: Soft, nontender. Bowel sounds positive. Extremities: Peripheral pulses decreased but intact. Trace bilateral lower extremity edema, stable. Neurologic: Cranial nerves grossly intact. No focal deficits identified. Psychiatric: Normal mood and affect. Awake, alert, oriented x3. Skin: No new rashes or lesions identified. ASSESSMENT AND PLAN: 1. Acute on chronic systolic congestive heart failure. Last known ejection fraction 25%. The patient with dilated cardiomyopathy. Continue high-dose Lasix which his kidneys appear to be tolerating well. Likely at or near baseline at this point. waiting on him being set up with a Trilogy machine at home for discharge. As patient desaturated down into the low 80s with ambulation despite 6 L of oxygen. 2. Acute on chronic hypoxemic and hypercapnic respiratory failure. Multifactorial with acute on chronic heart failure as above, Pickwickian syndrome, chronic obstructive pulmonary disease. Good saturations off BiPAP at rest but desaturated significantly with minimal exertion. Efforts to set up Trilogy for home on going. Hopeful for tomorrow. Continue diuresis and nebulizers as needed. 3. Chronic kidney disease stage III. Renal function stable and likely baseline at this point. 4. Super morbid obesity, body mass index 83.3. Bariatric surgery has been discussed, although he is quite high risk for any procedure. 5. Hypertension. Reasonable control on current regimen. Continue to monitor. 6. Constipation. Continue bowel regimen. 7. Pickwickian syndrome. The patient with chronic hypercapnic respiratory failure related to morbid obesity and possibly chronic obstructive pulmonary disease. Hypercapnia appears to be at or near baseline at this point. 8. Disposition. Continue diuresis, but unlikely to improve further in the near future. Arranging home Trilogy. Once this is arranged, we will plan on discharge. Overall outlook guarded. МАРИЯ
[2018-06-20] MEDS: PRILOSEC PO SCH (06:26)
[2018-06-20] MEDS: BREO ELLIPTA 200/25 MCG INH INH SCH (08:06)
[2018-06-20] MEDS: DUONEB (A & A) INH PRN ×2 (08:06→11:34)
[2018-06-20] MEDS: LASIX PO SCH (11:40)
[2018-06-20] MEDS: ENTRESTO 24 MG-26 MG TABLET PO SCH (11:40)
[2018-06-20] MEDS: ASPIRIN EC PO SCH (11:40)
[2018-06-20] MEDS: SINGULAIR PO SCH (11:40)
[2018-06-20] MEDS: COREG PO SCH (11:41)
[2018-06-20] MEDS: DALIRESP PO SCH (11:41)
[2018-06-20] MEDS: NASONEX NASAL SPRAY NAS SCH (11:42)
[2018-06-20] MEDS: HEPARIN SUBQ SCH (11:42)
[2018-06-20] MEDS: MIRALAX PO SCH (11:42)
[2018-06-20 12:27] VITALS: BP 128/95
--- NOTE | 2018-06-20 21:10 | DISCHARGE SUMMARY ---
ADMISSION DATE: 06/12/2018 DISCHARGE DATE: 06/20/2018 CONSULTS: Cardiology, Dr. Nichole. DISCHARGE DIAGNOSES: 1. Oowfj-jm-jrqzcmk systolic congestive heart failure. 2. Egqgj-oj-dbeppmw hypoxemic and hypercapnic respiratory failure. 3. Chronic kidney disease stage 3. 4. Super morbid obesity. 5. Pickwickian syndrome. 6. Hypertension. 7. Constipation. HOSPITAL COURSE: The patient is a 33-year-old male with history of super morbid obesity, systolic congestive heart failure with EF approximately 25%, sleep apnea, pickwickian syndrome and chronic hypoxemic respiratory failure, on home O2. He presented to the ER with worsening shortness of breath. He was found to have exacerbation of his congestive heart failure. He underwent aggressive diuresis with improvement in his dyspnea and oxygen requirements, but never got back to what was thought to be his previous baseline. Eventually it was decided that he likely had worsening of his underlying disease and that he was likely to continue to require high oxygen for the foreseeable future. Eventually a Trilogy machine was arranged. This was set up prior to discharge, and on overnight trial he appeared to do very well on it with saturations up to 100% on 6 L of oxygen. Just prior to setup of the Trilogy machine when the patient was ambulated, he had saturations decrease down into the 80s despite 6 L of oxygen. His kidney disease and blood pressure were stable. He did have significant hypercapnia on ABG. This was largely stable and thought to be related to his baseline pickwickian syndrome. He was discharged on continued high-dose Lasix with chronic oxygen and Trilogy machine. He was strongly counseled on weight loss and the possibility of bariatric surgery was discussed, although the patient is quite high risk for any procedure. DISCHARGE VITAL SIGNS: Temperature 98 degrees, pulse 93, respirations 20, blood pressure 120/95, O2 saturation 93% on 6 L by nasal cannula. DISCHARGE DIET: Cardiac. DISCHARGE MEDICATIONS: Aspirin 81 mg p.o. daily; Breo Ellipta inhaler 1 puff inhaled daily; Coreg 25 mg p.o. b.i.d.; Daliresp 250 mcg 1 tablet daily; Entresto 24/26 one tablet p.o. b.i.d.; Mucinex 600 mg as needed; omeprazole 40 mg p.o. daily; Singulair 5 mg p.o. daily; Lasix 80 mg p.o. b.i.d.; albuterol inhaler q.4 hours as needed. FOLLOWUP AND PLAN: The patient is discharging home on home oxygen and Trilogy machine. Continue high-dose Lasix. I strongly recommended weight loss including possible bariatric surgery. Overall prognosis is guarded. Greater than 30 minutes spent arranging discharge and counseling the patient.
== END 2018-06-20 15:12 | disposition home or self-care (01) | DRG 291 ==
LOC: ED 17:16 → SUATTDRO 17:17 → EDIPHOLD 17:17 → 3S 06-14 14:10 → 4N 06-16 14:03
PROVIDERS: ATTEND Internal Medicine
CPT/HCPCS: 71020; 71046; 80048; 80053; 81001; 82550; 82805; 83036; 83735; 83880; 84484; 85025; 93005; 93010; 94640; 94660; 94760; 94761; 96374; 96376; 97116; 97162; 97530; 99285; A9270; J1644; J1940

== ENCOUNTER 2018-10-01 15:52 | Inpatient (IN) ==
[2018-10-01] MEDS ORDERED: ASPIRIN PR ONE (16:15)
[2018-10-01] MEDS ORDERED: ASPIRIN PO ONE (16:15)
--- NOTE | 2018-10-01 16:21 | EKG Report ---
Test Performed on : 10/01/2018 4:05:48 PM Test Reason : SOB Blood Pressure : / mmHG Vent. Rate : 101 BPM Atrial Rate : 101 BPM P-R Int : 138 ms QRS Dur : 086 ms QT Int : 358 ms P-R-T Axes : 063 -58 061 degrees QTc Int : 464 ms Sinus tachycardia. with occasional premature ventricular complexes. Low voltage QRS Left anterior fascicular block Possible Lateral infarct , age undetermined Abnormal ECG When compared with ECG of 23-AUG-2018 09:18, (Unconfirmed) premature ventricular complexes. are now present premature atrial complexes. are no longer present Non-specific change in ST segment in Inferior leads Unconfirmed Result
[2018-10-01 16:48] LABS: BASO# 0.02 X1000 (0.0-0.2); BASO% 0.2 % (0.0-0.8); HEMOGLOBIN 13.9 g/dL (14.0-18.0); IMM GRAN# 0.03 X1000 (0.0-0.04); IMM GRAN% 0.3 % (0.0-0.5); LYMPH# 1.51 X1000 (1.2-3.4); LYMPH% 14.8 % (20.5-51.1); MCH 24.1 PG (27-31); MCHC 30.9 g/dL (33-37); MONO# 1.02 X1000 (0.11-0.59); MPV 10.6 FL (7.4-10.4); NEUT# 7.49 X1000 (1.4-6.5); NEUT% 73.7 % (42.2-75.2); PLT 291 X1000 (130-400); RBC 5.77 XMIL (4.7-6.1); RDW 18.6 % (11.5-14.5); WBC 10.17 X1000 (4.8-10.8)
--- NOTE | 2018-10-01 16:53 | Diag Imaging Result Doc PS360 ---
EXAM: CHEST-2 VIEWS INDICATION: SOB TECHNIQUE: 3 views COMPARISON: 08/23/2018 FINDINGS: The lungs are grossly clear. There is no discrete pleural fluid collection or pneumothorax. There is stable marked cardiomegaly. The central vasculature is grossly unremarkable. IMPRESSION: Stable marked cardiomegaly. No definite acute pathology by plain radiograph. Electronically signed by Dirk Jasso 10/01/2018 4:50 PM
[2018-10-01 17:08] LABS: INR 1.05; PROTIME 14.6 Seconds (11.0-16.0)
[2018-10-01 17:10] LABS: PTT 30.4 Seconds (22.3-41.8)
[2018-10-01 17:13] LABS: ALB/GLOB RATIO 1.2; ALBUMIN 3.6 g/dL (3.5-5.0); CALCIUM 9.3 mg/dL (8.8-10.2); CREATININE 1.7 mg/dL (0.7-1.2); POTASSIUM 4.8 mmol/L (3.5-5.1); TOTAL BILIRUBIN 1.11 mg/dL (0.20-1.00); TOTAL PROTEIN 6.6 g/dL (6.3-8.3)
[2018-10-01] MEDS ORDERED: NS 1,000 ML IV ONE (17:15)
[2018-10-01] MEDS ORDERED: LASIX IV ONE (17:37)
[2018-10-01] MEDS ORDERED: DUONEB (A & A) INH ONE (17:38)
--- NOTE | 2018-10-01 17:56 | PROVIDER DOCUMENTATION ---
This chart was entered by Lucia Buitrago Scribe, acting as scribe for Allie Hutchison MD. HPI-Respiratory General - General Chief Complaint: Chest Pain Stated Complaint: CHEST TIGHTNESS,SOB,COUGHING X 2 WKS Time Seen by Provider: 10/01/18 17:14 Source: patient Allergies/Adverse Reactions: Patient Allergies Allergy/AdvReac Type Severity Reaction Status Date / Time No Known Allergies Allergy Verified 06/12/18 17:50 Home Medications: Home Medication List Medication Instructions Recorded Confirmed Last Taken Type Albuterol Sulfate [Proair Hfa] 2 puff IH Q4H PRN PRN #1 hfa.aer.[email or web address] 01/22/13 06/13/18 01/26/18 Rx Aspirin [Aspirin EC] 81 mg PO DAILY 01/22/13 06/13/18 01/25/18 History Carvedilol [Coreg] 25 mg PO BID 01/22/13 06/13/18 01/25/18 History Guaifenesin E.r. [Mucinex] 600 mg PO PRN PRN 03/10/18 06/13/18 Unknown History Mometasone Nasal [place] [Nasonex 1 spray TEZ DAILY 03/10/18 06/13/18 Unknown History Nasal [place]] Montelukast Chew [Singulair] 5 mg PO DAILY 03/10/18 06/13/18 Unknown History Sacubitril/Valsartan [Entresto 24 1 each PO BID 03/10/18 06/15/18 Unknown History mg-26 mg Tablet] Fluticasone/Vilanterol [Breo 1 puff INH DAILY 05/29/18 06/13/18 Unknown History Ellipta 200-25 Mcg INH] Omeprazole 40 mg PO DAILY 05/29/18 06/13/18 Unknown History Roflumilast [Daliresp] 1 tab PO DAILY 05/29/18 06/13/18 Unknown History Furosemide [Lasix] 80 mg PO BID #60 tab 06/20/18 Unknown Rx - History of Present Illness-Resp Nature of Presenting Problem: Patient is a 33 year old male who presents with shortness of breath, cough and chest tightness. States symptoms have been present for 2 weeks. Reports recently taking a round of antibiotics. Denies fever and chills. History of CHF. Quality of Pain: reports: tightness Severity in ED: reports: mild Onset/Duration: reports: other (2 weeks) Timing: reports: still present Cough Quality/Degree: reports: moderate Current Respiratory Medication Therapy: Initiated see nurses note Modifying Factors: improves with: nothing Associated Symptoms: reports: chest pain/soreness, cough, shortness of breath Similar Symptoms Previously?: Yes Recently seen or treated by another doctor?: Yes Review of Systems - Adult - REVIEW OF SYSTEMS - ADULT Constitutional: reports: no symptoms reported. denies: chills, fever, fatique Eyes: reports: no symptoms reported Ears, Nose, Mouth & Throat: reports: no symptoms reported Cardiovascular: reports: see HPI, chest pain. denies: irregular heart rate, palpitations Respiratory: reports: see HPI, cough, shortness of breath. denies: wheezing Gastrointestinal: reports: no symptoms reported Genitourinary: reports: no symptoms reported Musculoskeletal: reports: no symptoms reported Integumentary: reports: no symptoms reported Neurological: reports: no symptoms reported Psychiatric: reports: no symptoms reported Endocrine: reports: no symptoms reported Hematologic/Lymphatic: reports: no symptoms reported Allergic/Immunologic: reports: no symptoms reported All Other Systems: Reviewed and Negative Past History - Adult - PAST MEDICAL HISTORY-ADULT Review of Records: reports: Old Records Reviewed, Nursing Assessment Review, Medications Reviewed, Social history reviewed & non-contributory. Major Childhood Illnesses: reports: denies history Cardiovascular: reports: CHF, HTN Respiratory: reports: asthma, COPD, pneumonia, sleep apnea Gastrointestinal: reports: GERD, ulcer Obstetrical/Gynecological: reports: denies history Genitourinary: reports: denies history Musculoskeletal: reports: denies history Neurological: reports: denies history Psychiatric: reports: denies history Endocrine/Immune: reports: Diabetes Other Conditions: reports: denies history - PRIOR SURGERIES/PROCEDURES Surgical/Procedure History: reports: EGD, colonoscopy, other (sinus ) - IMMUNIZATION STATUS Childhood Immunizations: See Nurse Assessment Flu Vaccine: See Nurse Assessment - FAMILY HISTORY Family History: reviewed, not pertinent - SOCIAL HISTORY Smoking: denies Substance Use: alcohol Alcohol Use Frequency: rarely Physical Exam-General - PHYSICAL EXAM-ADULT Initial Vital Signs Reviewed: Yes - CONSTITUTIONAL General Appearance: alert, mild distress, obese. negative: lethargic - HEAD, EARS, NOSE, MOUTH & THROAT HENMT: normocephalic/atraumatic, moist mucous membranes. negative: angioedema - RESPIRATORY Respiratory: chest non-tender, crackles (bilateral). negative: respiratory distress - CARDIOVASCULAR Cardiovascular: normal peripheral pulses, regular rate, rhythm. negative: tachycardia - GASTROINTESTINAL (ABDOMEN) Abdominal Exam: normal bowel sounds, non tender, soft. negative: guarding - MUSCULOSKELETAL Extremity: non-tender, normal inspection. negative: deformity - SKIN Integumentary: normal color, normal turgor, warm/dry. negative: cyanosis, jaundice, rash - NEUROLOGIC Neurologic: grossly normal. negative: aphasia, facial droop - PSYCHIATRIC Psych/Mental Status: normal mood/affect, oriented x 3. negative: anxious Progress - PLAN OF CARE/RESULTS Progress/Plan/Lab Results: Vital Signs - 8 hr 10/01/18 15:55 10/01/18 18:06 Temperature 98.7 F Pulse Rate 107 H 93 H Respiratory Rate 20 22 Blood Pressure 127/87 O2 Sat by Pulse Oximetry 83 L 92 L Laboratory Results - last 24 hr 10/01/18 10/01/18 10/01/18 16:24 16:24 16:24 WBC 10.17 RBC 5.77 Hgb 13.9 L Hct 45.0 MCV 78.0 L MCH 24.1 L MCHC 30.9 L RDW Std Deviation 18.6 H Plt Count 291 MPV 10.6 H Immature Gran % (Auto) 0.3 Neut % (Auto) 73.7 Lymph % (Auto) 14.8 L [place] % (Auto) 10.0 H Eos % (Auto) 1.0 Baso % (Auto) 0.2 Immature Gran # (Auto) 0.03 Neut # (Auto) 7.49 H Lymph # (Auto) 1.51 [place] # (Auto) 1.02 H Eos # (Auto) 0.10 Baso # (Auto) 0.02 PT INR PTT (Actin FS) D-Dimer, Quantitative Specimen Type Sample Site pH pCO2 pO2 HCO3 Base Excess Oxyhemoglobin ABG O2 Sat (Calculated) ABG O2 Saturation ABG Carboxyhemoglobin ABG Methemoglobin Larry Test A-a O2 Difference Total Hemoglobin Lactate Liter Flow Blood Gas Modality FiO2 % Sodium 135 L Potassium 4.8 Chloride 99 Carbon Dioxide 26 Anion Gap 10 BUN 35 H Creatinine 1.7 H Estimated GFR/1.73 m2 56 BUN/Creatinine Ratio 21 Glucose 100 Calculated Osmolality 278 Calcium 9.3 Total Bilirubin 1.11 H AST 14 ALT 14 Alkaline Phosphatase 107 Creatine Kinase 49 Troponin T Sxf-C-[id number] Pept 2229 H Total Protein 6.6 Albumin 3.6 Globulin 3.0 Albumin/Globulin Ratio 1.2 TSH 10/01/18 10/01/18 10/01/18 16:24 16:24 16:24 WBC RBC Hgb Hct MCV MCH MCHC RDW Std Deviation Plt Count MPV Immature Gran % (Auto) Neut % (Auto) Lymph % (Auto) [place] % (Auto) Eos % (Auto) Baso % (Auto) Immature Gran # (Auto) Neut # (Auto) Lymph # (Auto) [place] # (Auto) Eos # (Auto) Baso # (Auto) PT 14.6 INR 1.05 PTT (Actin FS) 30.4 D-Dimer, Quantitative Specimen Type Sample Site pH pCO2 pO2 HCO3 Base Excess Oxyhemoglobin ABG O2 Sat (Calculated) ABG O2 Saturation ABG Carboxyhemoglobin ABG Methemoglobin Larry Test A-a O2 Difference Total Hemoglobin Lactate Liter Flow Blood Gas Modality FiO2 % Sodium Potassium Chloride Carbon Dioxide Anion Gap BUN Creatinine Estimated GFR/1.73 m2 BUN/Creatinine Ratio Glucose Calculated Osmolality Calcium Total Bilirubin AST ALT Alkaline Phosphatase Creatine Kinase Troponin T < 0.010 Qfy-I-Oynxnijzdvj Pept Total Protein Albumin Globulin Albumin/Globulin Ratio TSH 1.83 10/01/18 10/01/18 16:24 19:08 WBC RBC Hgb Hct MCV MCH MCHC RDW Std Deviation Plt Count MPV Immature Gran % (Auto) Neut % (Auto) Lymph % (Auto) [place] % (Auto) Eos % (Auto) Baso % (Auto) Immature Gran # (Auto) Neut # (Auto) Lymph # (Auto) [place] # (Auto) Eos # (Auto) Baso # (Auto) PT INR PTT (Actin FS) D-Dimer, Quantitative 0.45 Specimen Type ARTERIAL Sample Site R RADIAL pH 7.37 pCO2 50 H pO2 100 HCO3 26.9 H Base Excess 2.6 Oxyhemoglobin 95.5 ABG O2 Sat (Calculated) 19.4 ABG O2 Saturation 98.9 ABG Carboxyhemoglobin 2.20 ABG Methemoglobin 1.1 Larry Test YES A-a O2 Difference 94.0 Total Hemoglobin 14.4 Lactate 1.10 Liter Flow 4.0 Blood Gas Modality CANNULA FiO2 % 36.0 Sodium Potassium Chloride Carbon Dioxide Anion Gap BUN Creatinine Estimated GFR/1.73 m2 BUN/Creatinine Ratio Glucose Calculated Osmolality Calcium Total Bilirubin AST ALT Alkaline Phosphatase Creatine Kinase Troponin T Qsl-W-Dvqwvkkumnk Pept Total Protein Albumin Globulin Albumin/Globulin Ratio TSH Orders Category Date Time Status Cardiac Monitoring DIRECTED Care 10/01/18 16:16 Active Oxygen Therapy- ED Nursing DIRECTED Care 10/01/18 16:16 Active Saline Loc NOW Care 10/01/18 16:16 Active CHEST-2 VIEWS [RAD] Stat Exams 10/01/18 16:16 Completed CTA [CT ANGIOGRAM THORAX] [CT] Stat Exams 10/01/18 17:39 Ordered ABG [RESP] Routine Lab 10/01/18 19:08 Completed CBC WITH ELECTRONIC DIFF [HEME] Stat Lab 10/01/18 16:24 Completed CK PROFILE [SP CHEM] Stat Lab 10/01/18 16:24 Completed CK PROFILE [SP CHEM] Stat Lab 10/01/18 20:17 Received COMPREHENSIVE METABOLIC PANEL [CHEM] Stat Lab 10/01/18 16:24 Completed D-DIMER [COAG] Stat Lab 10/01/18 16:24 Completed PRO B-NATRIURETIC PEPTIDE Stat Lab 10/01/18 16:24 Completed PROTIME WITH INR [COAG] Stat Lab 10/01/18 16:24 Completed PTT [COAG] Stat Lab 10/01/18 16:24 Completed TROPONIN T Stat Lab 10/01/18 16:24 Completed TROPONIN T Stat Lab 10/01/18 20:17 Received TSH Stat Lab 10/01/18 16:24 Completed 0.9% Sodium Chloride Inj [Ns] 1,000 ml Med 10/01/18 17:15 Discontinued IV 999 mls/hr Albuterol 2.5MG/Ipratrop 0.5MG [Duoneb (A & A)] Med 10/01/18 17:38 Discontinued 3 ml INH NOW ONE Aspirin Med 10/01/18 16:15 Discontinued 300 mg KS NOW ONE Aspirin Med 10/01/18 16:15 Discontinued 325 mg PO NOW ONE Furosemide [Lasix] Med 10/01/18 17:37 Discontinued 80 mg IV NOW ONE Aerosol Treatments Routine Oth 10/01/18 17:38 Completed Aerosol Treatments Stat Oth 10/01/18 17:38 Completed CP/SOB/Palp >45 yrs of Age Stat Oth 10/01/18 16:15 Ordered EKG [EKG] Stat Ther 10/01/18 16:16 Draft EKG [EKG] Stat Ther 10/01/18 18:28 Ordered Result Diagrams: 10/01/18 16:24 10/01/18 16:24 - EKG 1 Time of EKG reading by physician:: 16:05 EKG Read and Signed by:: Eliana Matthews EKG Interpretation (*Must complete 3 of following elements*): Abnormal Rate: 101 Rhythm: sinus tachycardia with occasional premature ventricular complexes Holly: normal QRS: other (low voltage) [place] Interval: normal Comments: left anterior fascicular block; possible lateral infarct, age undetermined - XRAY 1 XRAY Study: Chest Impression: See EMR Report (EXAM: CHEST-2 VIEWS INDICATION: SOB TECHNIQUE: 3 views COMPARISON: 08/23/2018 FINDINGS: The lungs are grossly clear. There is no discrete pleural fluid collection or pneumothorax. There is stable marked cardiomegaly. The central vasculature is grossly unremarkable. IMPRESSION: Stable marked cardiomegaly. No definite acute pathology by plain radiograph. Electronically signed by Dirk Jasso 10/01/2018 4:50 PM 10/01/18 1650 Interpreting Physician: Dirk Jasso MD Dictated Date/Time: 10/01/18 1647 cc: Eliana Matthews MD; Aleks Machado MD) - CONSULTS/PCP/HOSPITALIST Notification #1 *Consult/PCP/Hospitalist*: Dr. Chappell Time Discussed: 20:22 Consult Disposition: Admit (CHF exac, bronchitis) Departure - Departure Date of Disposition Decision: 10/01/18 Time of Disposition Decision: 20:23 DIAGNOSIS: CHF exacerbation, Bronchitis Disposition: ADMITTED INPATIENT 09 Certified Medical Emergency: Emergent Condition: Stable Referrals and Follow-Ups: Aleks Machado MD [Primary Care Provider] - - Critical Care Note This patient required my direct & personal management of CC.: No Attestation - Physician/ KRISTAN Attestation The physician spent face to face time with patient:: Yes Advanced Practice Provider documentation review:: Supervising physician onsite and consulted in the evaluation and care of this patient. The physician did have a face to face encounter with the patient. This chart was documented by the indicated scribe, (Lucia Buitrago Scribe) and accurately reflects the services I performed and decisions made by me, Allie Hutchison MD, as attested by the provider's signature.
[2018-10-01 19:19] LABS: ALLEN TEST YES; BE 2.6 mmoll (-3.0-3.0); BLOOD TYPE ARTERIAL; HCO3-(ACT) 26.9 mmoll (20.0-26.0); METHB 1.1 % (0.0-1.5); MODALITY CANNULA; O2(CT) 19.4 mL/dL (15.0-23.0); O2HB 95.5 % (95.0-99.0); PCO2(98.6) 50 mmHg (35-45); PO2(98.6) 100 mmHg (60-100); SAMPLE BLOOD; SAO2 98.9 % (95.0-100.0); THB 14.4 g/dL (11.5-17.4); pH(98.6) 7.37 (7.35-7.45)
--- NOTE | 2018-10-01 21:55 | HISTORY AND PHYSICAL ---
PRIMARY CARE PHYSICIAN: Dr. Aleks Machado. CHIEF COMPLAINT: Shortness of breath and chest discomfort x2 weeks. HISTORY OF PRESENTING ILLNESS: This is a 33-year-old, super morbidly obese male, with a history of CHF, systolic dysfunction with EF of 25%, hypertension, chronic hypoxemic respiratory failure, sleep apnea, who had presented to emergency department with 2 week's history of progressively worsening shortness of breath. The patient states that he was having difficulty breathing despite having his home oxygen. He states that he was also doing nebulizer treatment, but he did not have any improvement. The patient had seen his outpatient physician twice and was given antibiotics. However, he had no improvement. He was seen in the ER and clinically it seemed he was in heart failure, and due to his presenting symptoms, it was thought that he would need admission for further management. At the time of my examination, patient had denied any headache, fever, chills, hemoptysis, or any weight changes, but complained of cough, shortness of breath, and chest discomfort. PAST MEDICAL HISTORY: Includes CHF, systolic dysfunction, hypertension, sleep apnea, chronic hypoxemic respiratory failure. PAST SURGICAL HISTORY: None. ALLERGIES: No known drug allergies. CURRENT MEDICATIONS: Albuterol nebulizer q.4 hours, aspirin 81 mg p.o. daily, Coreg 25 mg p.o. b.i.d., Lasix 80 mg p.o. b.i.d., Singulair 5 mg p.o. daily, omeprazole 40 mg p.o. daily, Daliresp 1 tablet p.o. daily, Entresto 24/26 mg 1 p.o. b.i.d. SOCIAL HISTORY: No history of smoking, alcohol, or illicit drug use. FAMILY HISTORY: No history of coronary disease. REVIEW OF SYSTEMS: A 14-point review of systems is as in HPI. Otherwise, systems negative. PHYSICAL EXAMINATION: GENERAL: Cooperative, friendly, super obese male. He is resting more comfortably now. VITAL SIGNS: Temperature 98.7, pulse 107, respirations 20, blood pressure 127/87. HEENT: Atraumatic, normocephalic. Extraocular movements intact. PERRLA. NECK: No masses. CHEST: Bibasilar rales. CARDIOVASCULAR: Regular rate and rhythm. ABDOMEN: Soft, obese. Positive bowel sounds. EXTREMITIES: Edema 2+. NEUROLOGIC: He is awake, alert, oriented x3. GENITOURINARY: No bladder distention. SKIN: Warm. LABORATORIES AND STUDIES: WBCs 10.17, hemoglobin 13.9, hematocrit 45.0, platelets 291,000. ProBNP is 2229. Troponin 0.010. Sodium 135, potassium 4.8, chloride 99, CO2 is 26, BUN is 35, creatinine is 1.7, glucose 100. Chest x-ray shows cardiomegaly. ASSESSMENT: A 33-year-old, super morbidly obese male with a history of congestive heart failure, hypertension, sleep apnea, chronic hypoxemic respiratory failure, who presented to the emergency department with 2 week's history of progressively worsening shortness of breath. He was evaluated in the emergency department and he was found to be in heart failure. Subsequently, he will require admission for further management. 1. Acute congestive heart failure exacerbation, systolic dysfunction. 2. Chronic obstructive pulmonary disease with acute bronchitis. 3. Chronic hypoxemic respiratory failure, on home oxygen. 4. Hypertension. 5. Sleep apnea, on Trilogy machine. PLAN: 1. We will admit patient to medical floor with telemetry. 2. Continue with gentle diuresis with Lasix. 3. We will consult Cardiology. 4. Continue with DuoNeb. 5. Will have patient on his home O2. 6. We will continue with his Trilogy machine for sleep apnea. 7. We will monitor blood pressure closely. 8. We will put patient on DVT prophylaxis with SCDs. 9. Continue to follow, reassess, and make further recommendations based on patient's clinical course. cc: Scooter Chappell MD
[2018-10-02] MEDS ORDERED: LASIX IV SCH (01:18)
[2018-10-02] MEDS: DUONEB (A & A) INH PRN ×6 (02:25→23:08)
[2018-10-02 05:30] LABS: AGAP 10; BUN 34 mg/dL (8-22); CALCIUM 9.1 mg/dL (8.8-10.2); CHLORIDE 100 mmol/L (98-107); COSMO 286; CREATININE 1.4 mg/dL (0.7-1.2); ESTIMATED GFR > 60; GLUCOSE 108 mg/dL (70-104); SODIUM 139 mmol/L (136-145); TCO2 29 mmol/L (25-35)
--- NOTE | 2018-10-02 12:05 | CARDIOLOGY CONSULTATION ---
DATE: 10/02/2018 CHIEF COMPLAINT: Shortness of breath. HISTORY OF PRESENT ILLNESS: Mr. Lopez is a 33-year-old, black male with morbid obesity. BMI is in the 75 to 80 range. He presents with shortness of breath, cough that has been persisting for around 2 weeks. He took some antibiotics in the initial course of this thinking that he had some sort respiratory infection, and really was not improving. Subsequently presented to the ER last night with steady worsening of this cough. He feels congested in the chest and cannot get this up. He has not had any fevers. He denies any overt orthopnea. He does use a Trilogy System at home. He reports compliance with all his medications. PAST MEDICAL HISTORY: 1. Significant for systolic heart failure. It was felt to be nonischemic; however, the patient has not been able to have any sort of ischemic testing performed secondary to his weight which exceeds the capacity of the testing tables. His ejection fractions have been consistently in the 20 to 30 percent range. 2. Pulmonary hypertension secondary to morbid obesity, COPD, obstructive sleep apnea. 3. Morbid obesity. 4. Reflux disease. 5. Diabetes. 6. Hypertension. SOCIAL HISTORY: No current alcohol or tobacco use. FAMILY HISTORY: Significant for hypertension. REVIEW OF SYSTEMS: A 10 system review of systems is negative, except for those things mentioned in the HPI. PHYSICAL EXAM: Vital Signs: He is afebrile. His heart rate most recently is 90 with a blood pressure of 108/65. Generally: No acute distress. HEENT: Oropharynx is moist. Poor dentition. Eye examination is pink conjunctivae, white sclerae. Neck: Examination shows no obvious thyromegaly or thyroid tenderness. Cardiovascular: He sounds to be in a regular rate and rhythm. Very distant heart sounds. No obvious murmurs. He has no S3. Extremities: He has trace bilateral lower extremity edema. His legs are slightly cool to the touch, as are his arms. Chest: Exam sounds relatively clear, but again distant breath sounds. He has no increased work of breathing. Abdomen: Soft, nontender. No obvious organomegaly, but a very compromised exam. Skin: Exam is warm and dry throughout. He has skin thickening consistent with chronic edema in his bilateral lower extremities. Neurological: He seems to be moving all extremities well. He is alert and oriented. PERTINENT DATA: His EKG demonstrates sinus tach rate of 101. PVC identified, low voltage, poor R- wave progression. He had a chest x-ray showing marked cardiomegaly, otherwise unremarkable. His lab data shows a white count of 10.1 yesterday, hematocrit of 45, platelet count 291. His sodium is 139, potassium 4, BUN 34, creatinine 1.4 which is relatively stable. His proBNP is 20 to 29, negative cardiac enzymes. ASSESSMENT: Mr. Lopez is a 33-year-old gentleman with a history of morbid obesity, systolic heart failure. PLAN: I agree with diuresis for the time being. We will resume his medications in the form of Coreg and Entresto that he had been taking up until admission. No further acute recommendations. I would not recommend repeating an echocardiogram during this stay for the time being, as I do not think will alter his clinical care. cc: Tex Gong MD
[2018-10-02] MEDS: LASIX IV SCH (13:50)
[2018-10-02] MEDS: ENTRESTO 24 MG-26 MG TABLET PO SCH (20:16)
[2018-10-02] MEDS ORDERED: COREG PO SCH (21:00)
[2018-10-02] MEDS ORDERED: ZYRTEC PO SCH (21:00)
[2018-10-02] MEDS: MIRALAX PO SCH (21:40)
--- NOTE | 2018-10-02 22:16 | CONSULTATION ---
DATE OF CONSULTATION: 10/02/2018 REQUESTING PROVIDER: Dr. Adams Loya. REASON FOR CONSULTATION: Acute on chronic hypoxic respiratory failure. HISTORY OF PRESENT ILLNESS: This is a 33-year-old male with a medical history of systolic congestive heart failure, pulmonary hypertension, hypertension, asthma, COPD, morbid obesity, obstructive sleep apnea, gastroesophageal reflux disease, and diabetes. He presented to the ER yesterday afternoon with worsening shortness of breath, cough, and chest tightness for 2 weeks. Initial workup in the ER revealed acute congestive heart failure exacerbation and COPD with acute bronchitis. He has been admitted to the medical floor for further evaluation and management. The patient currently is sitting on the on the edge of the bed. He is breathing through a BiPAP facial mask. He reports he has a dry cough at the beginning and later he coughs up with some dark yellow phlegm. He reports a sore throat, chest congestion, and runny nose with profound postnasal drip. He has been on home oxygen and nebulizer treatments daily. He also has been taking a round of antibiotic from his outpatient physician. Apparently, all these are not working. He still have worsening shortness of breath. He can't lie flat. He is not sure about his weight change. He had been taking diuretics at home per his manager staffing. He reports no fever, chills, hemoptysis, palpitations, chest pain, or bowel habit change. PAST MEDICAL HISTORY: 1. Systolic congestive heart failure with ejection fraction in the 20% to 30% range. 2. Pulmonary hypertension secondary to morbid obesity, COPD, obstructive sleep apnea. 3. Hypertension. 4. Asthma. 5. Chronic obstructive pulmonary disease with chronic hypoxic respiratory failure on home oxygen at 2 L/min most of the time. 6. Morbid obesity. Current BMI is 78.9. He has been evaluated for possible bariatric surgery. 7. Obstructive sleep apnea with chronic hypercapnic respiratory failure. He uses a Trilogy system at home. 8. Gastroesophageal reflux disease. 9. Diabetes mellitus type 2. PAST SURGICAL HISTORY: Sinus surgery. SOCIAL HISTORY: The patient lives at home with his mother. He has no history of alcohol, tobacco, or illicit drug use. FAMILY HISTORY: Positive for diabetes and heart disease. ALLERGIES: No known drug allergies. REVIEW OF SYSTEMS: A 10-point review of systems was conducted and the pertinent is listed within the HPI, otherwise noncontributory. PHYSICAL EXAMINATION: Vital Signs: Temperature 97.4 degrees, blood pressure 108/65, pulse 90, respiratory rate 25, oxygen saturation 92% on nasal cannula at 4. General: Significantly morbidly obese, very cooperative, sitting on the age of the bed with no acute distress noted. HEENT: Atraumatic. Trachea midline. Mucosa pink and moist. Respiratory: Breathing even and unlabored with no increased work of breathing. Auscultation reveals diminished breathing sounds bilaterally. Otherwise clear. Cardiovascular: Regular rate and rhythm. Distant heart sounds. Gastrointestinal: Soft, nontender, obese. Normoactive bowel sounds in all 4 quadrants. Extremities: Pitting edema 2+. No cyanosis. No cyanosis. No clubbing. Bilateral lower extremities severely dry and with discoloration. Neurologic: Alert oriented x3. Generalized weakness. Speech fluent. Follows commands. LAB DATA: Sodium 139, potassium 4.0, chloride 100, carbon dioxide 29, BUN 34, creatinine 1.4, glucose 108. ABG: pH of 7.37, pCO2 of 50, PO2 of 100, HC03 of 26.9, base excess 2.6, and oxyhemoglobin 95.5. IMAGING DATA: Chest x-ray on 10/01/2018 showed the lungs are grossly clear. No discrete pleural fluid collection or pneumothorax. Stable marked cardiomegaly. ASSESSMENT: This is a 33-year-old, male with a medical history of systolic congestive heart failure, pulmonary hypertension, hypertension, asthma, COPD with chronic hypoxic respiratory failure, morbid obesity, obstructive sleep apnea with chronic hypercapnic respiratory failure, gastroesophageal reflux disease, and diabetes. He has been admitted to the medical floor with acute congestive heart failure exacerbation and chronic obstructive pulmonary disease with acute bronchitis. 1. Acute on chronic hypoxic and hypercapnic respiratory failure. 2. Congestive heart failure exacerbation. 3. COPD. No exacerbation at this time. 4. Morbid obesity. 5. Obstructive sleep apnea. PLAN: 1. Continue supplemental oxygen and BiPAP at bedtime as needed., 2. Continue diuretics and bronchodilators. Resume Singulair and deliresp; start antihistamine. 3. Follow up with BMP. Check ABG and chest x-ray if indicated. 4. Dr. Gong is on board. Thank you for the courtesy of this consult. Dictated by ERIK Magallanes for Celsa Tidwell MD cc: ERIK Magallanes MD [facility]
[2018-10-03] MEDS: SINGULAIR PO SCH ×2 (01:00→21:59)
[2018-10-03] MEDS: LASIX IV SCH ×2 (02:12→13:09)
[2018-10-03 07:28] LABS: AGAP 9; BUN 33 mg/dL (8-22); CHLORIDE 99 mmol/L (98-107); GLUCOSE 99 mg/dL (70-104); POTASSIUM 4.1 mmol/L (3.5-5.1); SODIUM 139 mmol/L (136-145); TCO2 31 mmol/L (25-35)
[2018-10-03 07:29] LABS: CALCIUM 8.8 mg/dL (8.8-10.2); COSMO 285; CREATININE 1.4 mg/dL (0.7-1.2); ESTIMATED GFR > 60; MAGNESIUM 1.5 mg/dL (1.5-2.7)
[2018-10-03] MEDS: DUONEB (A & A) INH PRN ×2 (08:06→11:37)
[2018-10-03] MEDS: MIRALAX PO SCH ×2 (09:25→21:59)
[2018-10-03] MEDS: DALIRESP PO SCH (09:26)
[2018-10-03] MEDS: PRILOSEC PO SCH (09:27)
[2018-10-03] MEDS: ZYRTEC PO SCH (11:19)
[2018-10-03] MEDS: MUCINEX PO SCH ×2 (11:19→21:59)
[2018-10-03] MEDS: ENTRESTO 24 MG-26 MG TABLET PO SCH ×2 (15:43→22:46)
--- NOTE | 2018-10-03 15:44 | PROGRESS NOTE ---
DATE: 10/03/2018 SUBJECTIVE: Patient has no major complaints. OBJECTIVE: Blood pressure is 101/64, heart rate of 87, respiratory rate 22, temperature 97.7 degrees, 99% on room air.Cardiovascular: Regular rate and rhythm. Pulmonary: Bilateral breath sounds clear to auscultation. GI: Was soft, nontender, nondistended. Bowel sounds are positive. Extremities: No clubbing or cyanosis. Lymphatic: Trace pulmonary edema. LAB: Creatinine is 1.4. PROBLEM LIST: 1. Acute congestive heart failure exacerbation. Clinically seems to be doing okay. We will continue his current medications and follow. 2. Chronic obstructive pulmonary disease with bronchitis. We will continue nebulizer treatments, Trelegy and follow closely. He does have some aspect of bronchitis but we do not have him on any other treatments so we will continue to follow closely. I have downgraded his Coreg and he is on a fairly high dose of Lasix which I think I am going to decrease a little bit too. He is a very large gentleman 555 pounds so I am not entirely sure how accurate his blood pressure readings are but he is on the hypotensive side so we will need to follow accordingly. His breathing treatments should also probably be scheduled so we are going to continue that. 3. Morbid obesity. This is distinctly an issue contributing to his other multiple issues but we will continue to follow closely. cc: Juan Carlos Cruz MD
[2018-10-03] MEDS ORDERED: LACTULOSE PO ONE (16:30)
[2018-10-03] MEDS: DUONEB (A & A) INH SCH ×3 (17:35→23:39)
[2018-10-03] MEDS: BREO ELLIPTA 200/25 MCG INH INH SCH ×2 (19:39→23:39)
[2018-10-03] MEDS: LACTULOSE PO SCH (22:00)
[2018-10-03] MEDS: COREG PO SCH (22:00)
[2018-10-04] MEDS: LASIX IV SCH ×2 (05:22→18:00)
--- NOTE | 2018-10-04 07:13 | Diag Imaging Result Doc PS360 ---
EXAM: CHEST-PORTABLE 10/04/2018 HISTORY: CHF TECHNIQUE: AP portable at 0546 COMMENT: There is marked enlargement of the cardiomediastinal silhouette. Given the difference in projection compared to the previous PA radiograph, this has probably not changed significantly. The inspiration is also slightly less optimal than on 10/01/2018. IMPRESSION: Cardiomegaly and/or pericardial effusion. Electronically signed by Rob Mccain 10/04/2018 7:11 AM
[2018-10-04 07:41] LABS: BASO# 0.01 X1000 (0.0-0.2); BASO% 0.2 % (0.0-0.8); EOS# 0.15 X1000 (0.0-0.7); EOS% 2.3 % (0.0-10.0); HEMATOCRIT 42.7 % (42.0-52.0); HEMOGLOBIN 13.2 g/dL (14.0-18.0); IMM GRAN# 0.02 X1000 (0.0-0.04); IMM GRAN% 0.3 % (0.0-0.5); LYMPH# 1.09 X1000 (1.2-3.4); LYMPH% 16.7 % (20.5-51.1); MCH 24.4 PG (27-31); MCHC 30.9 g/dL (33-37); MCV 78.8 FL (81-99); MONO# 0.65 X1000 (0.11-0.59); MPV 11.2 FL (7.4-10.4); NEUT% 70.5 % (42.2-75.2); PLT 205 X1000 (130-400); RBC 5.42 XMIL (4.7-6.1); RDW 18.6 % (11.5-14.5); WBC 6.52 X1000 (4.8-10.8)
[2018-10-04 08:13] LABS: AGAP 15; BUN 28 mg/dL (8-22); CHLORIDE 96 mmol/L (98-107); COSMO 278; CREATININE 1.4 mg/dL (0.7-1.2); ESTIMATED GFR > 60; GLUCOSE 83 mg/dL (70-104); MAGNESIUM 1.7 mg/dL (1.5-2.7); POTASSIUM 4.1 mmol/L (3.5-5.1); SODIUM 137 mmol/L (136-145); TCO2 26 mmol/L (25-35)
[2018-10-04] MEDS: DUONEB (A & A) INH SCH ×5 (08:40→23:36)
[2018-10-04] MEDS: DALIRESP PO SCH (09:50)
[2018-10-04] MEDS: LACTULOSE PO SCH ×2 (09:50→21:57)
[2018-10-04] MEDS: MIRALAX PO SCH ×2 (09:50→21:57)
[2018-10-04] MEDS: MUCINEX PO SCH ×2 (09:51→21:57)
[2018-10-04] MEDS: ZYRTEC PO SCH (09:51)
[2018-10-04] MEDS: ASPIRIN EC PO SCH (09:51)
[2018-10-04] MEDS: COREG PO SCH ×2 (09:52→21:57)
[2018-10-04] MEDS: ENTRESTO 24 MG-26 MG TABLET PO SCH ×2 (09:52→21:57)
[2018-10-04] MEDS: PRILOSEC PO SCH (09:54)
[2018-10-04] MEDS: BREO ELLIPTA 200/25 MCG INH INH SCH (11:03)
--- NOTE | 2018-10-04 19:32 | PROGRESS NOTE ---
DATE: 10/04/2018 SUBJECTIVE: Patient has no major complaints except for cough. He has coughing when he is drinking sometimes or eating. OBJECTIVE: Blood pressure 98/52, heart rate of 87, respiratory rate of 20, temperature was 97.6 degrees. His blood pressure has improved since yesterday. We did adjust his medicines a bit. White count 6, hemoglobin and hematocrit 13 and 42, platelets 205,000. Creatinine 1.4 which is steady. PROBLEM LIST: 1. Congestive heart failure exacerbation. Seems to be doing okay. We will continue diuresis and monitor his kidney function. 2. Question of pericardial effusion so I have ordered a repeat echocardiogram just to evaluate his effusion. I do not have the information back yet today. We will continue to follow closely. 3. Acute on chronic renal failure. He seems to be stable. We will continue diuretics and follow. cc: Juan Carlos Cruz MD
[2018-10-04] MEDS: SINGULAIR PO SCH (21:57)
[2018-10-05 05:05] LABS: BLOOD TYPE ARTERIAL; SAMPLE BLOOD
[2018-10-05 05:06] LABS: ALLEN TEST YES; BE 6.7 mmoll (-3.0-3.0); HCO3-(ACT) 30.1 mmoll (20.0-26.0); METHB 0.9 % (0.0-1.5); O2(CT) 17.6 mL/dL (15.0-23.0); PO2(98.6) 145 mmHg (60-100); SAO2 99.9 % (95.0-100.0); THB 12.7 g/dL (11.5-17.4); pH(98.6) 7.35 (7.35-7.45)
[2018-10-05 05:07] LABS: MODALITY BI PAP
[2018-10-05 05:12] LABS: PCO2(98.6) 62 mmHg (35-45)
[2018-10-05] MEDS: LASIX IV SCH ×2 (06:05→18:00)
[2018-10-05 07:25] LABS: BASO# 0.01 X1000 (0.0-0.2); BASO% 0.2 % (0.0-0.8); EOS# 0.12 X1000 (0.0-0.7); EOS% 1.8 % (0.0-10.0); HEMATOCRIT 41.8 % (42.0-52.0); HEMOGLOBIN 12.7 g/dL (14.0-18.0); LYMPH% 16.8 % (20.5-51.1); MCH 24.4 PG (27-31); MCHC 30.4 g/dL (33-37); MCV 80.2 FL (81-99); MONO% 10.7 % (1.7-9.3); MPV 10.5 FL (7.4-10.4); NEUT# 4.62 X1000 (1.4-6.5); NEUT% 70.5 % (42.2-75.2); PLT 220 X1000 (130-400); RBC 5.21 XMIL (4.7-6.1); RDW 18.1 % (11.5-14.5); WBC 6.55 X1000 (4.8-10.8)
[2018-10-05 07:38] LABS: AGAP 8; BUN 22 mg/dL (8-22); CALCIUM 8.8 mg/dL (8.8-10.2); CHLORIDE 99 mmol/L (98-107); COSMO 285; CREATININE 1.1 mg/dL (0.7-1.2); ESTIMATED GFR > 60; GLUCOSE 98 mg/dL (70-104); MAGNESIUM 1.7 mg/dL (1.5-2.7); PHOSPHORUS 3.4 mg/dL (2.7-4.5); SODIUM 141 mmol/L (136-145); TCO2 34 mmol/L (25-35)
--- NOTE | 2018-10-05 08:47 | ECHO REPORT ---
ORDER DATE: 10/04/2018 INTERPRETING PHYSICIAN: Dr. Jesse Nichole. ECHOCARDIOGRAPHIC MEASUREMENTS: 1. Interventricular septum: 1.1 cm. 2. Left ventricular posterior wall: 1.0 cm. 3. Left ventricular diastolic diameter: 9.0 cm. 4. Aorta: 3.5 cm. SUMMARY OF THE 2-DIMENSIONAL IMAGIN. Pulmonic valve was normal. 2. Aortic valve leaflets were trileaflet. 3. Tricuspid valve was normal. 4. There is mild mitral regurgitation. 5. Peak velocity across the aortic valve less than 2 m/sec. There is no aortic stenosis or regurgitation. 6. There is mild tricuspid regurgitation. Peak velocity across the tricuspid valve was 3 m/sec. 7. Pulmonary artery systolic pressure of 50 mmHg. 8. Left ventricle is severely dilated. Estimated ejection fraction of 15 to 20 percent. There is trace anterior echo-free space suggestive of pericardial fat pad. 9. There is no pericardial effusion or obvious intracardiac mass or thrombus seen. This is a limited echocardiogram. cc: MD Juan Carlos De León MD
[2018-10-05] MEDS: DUONEB (A & A) INH SCH ×5 (08:51→23:15)
[2018-10-05] MEDS: BREO ELLIPTA 200/25 MCG INH INH SCH (08:51)
[2018-10-05] MEDS: PRILOSEC PO SCH (10:27)
[2018-10-05] MEDS: DALIRESP PO SCH (10:27)
[2018-10-05] MEDS: LACTULOSE PO SCH ×2 (10:28→21:18)
[2018-10-05] MEDS: MIRALAX PO SCH ×2 (10:28→21:18)
[2018-10-05] MEDS: ZYRTEC PO SCH (10:28)
[2018-10-05] MEDS: MUCINEX PO SCH ×2 (10:28→21:18)
[2018-10-05] MEDS: COREG PO SCH ×2 (10:28→21:17)
[2018-10-05] MEDS: ENTRESTO 24 MG-26 MG TABLET PO SCH ×2 (10:28→21:16)
[2018-10-05] MEDS: ASPIRIN EC PO SCH (10:28)
--- NOTE | 2018-10-05 10:32 | Diag Imaging Result Doc PS360 ---
EXAM: CHEST-PORTABLE INDICATION: dyspnea TECHNIQUE: One view COMPARISON: 10/04/2018 FINDINGS: Inspiration is suboptimal. The lungs remain grossly clear. No new consolidation is identified. There is stable marked cardiomegaly. IMPRESSION: Stable chest. Electronically signed by Dirk Jasso 10/05/2018 10:30 AM
[2018-10-05] MEDS ORDERED: MUCOMYST 20% INH ONE (15:58)
--- NOTE | 2018-10-05 17:56 | PROGRESS NOTE ---
DATE: 10/05/2018 SUBJECTIVE: Patient has no major complaints except he still has some cough and congestion. OBJECTIVE: Vital Signs: Blood pressure is 117/80, heart rate 99, respiratory rate 19, temperature 98.8 degrees, 97% on 5 L. Cardiovascular: Regular rate and rhythm. Pulmonary: Bilateral breath sounds clear to auscultation. GI: Soft, nontender, nondistended. Bowel sounds are positive. Extremities: No clubbing or cyanosis. Lymphatic: No peripheral edema. Neurological: Nonfocal. PROBLEM LIST: 1. Congestive heart failure exacerbation, acute, systolic. He seems to be improving. We have decreased his diuretics. I am going to continue them for another 24 hours. He has put out about close to 9 L in urine output. His weight has come down a little bit. His weights are very erratic to the point of I am not entirely sure how accurate because he has gone from 450 to 504 to 555, back down to 508. Creatinine is better at 1.1. Chest x-ray is negative. 2. Bronchitis. We will add doxycycline and continue to follow. 3. Pericardial effusion. There is no effusion per his echo. 4. Dysphagia. We will get a speech therapy consult and upper GI series. If things look good, then I anticipate discharge tomorrow. cc: Juan Carlos Cruz MD
[2018-10-05] MEDS: MUCOMYST 20% INH SCH (19:24)
[2018-10-05] MEDS: SINGULAIR PO SCH (21:18)
[2018-10-05] MEDS: DOXYCYCLINE PO SCH (21:18)
[2018-10-06] MEDS: LASIX IV SCH (06:00)
[2018-10-06 07:04] LABS: BASO# 0.01 X1000 (0.0-0.2); BASO% 0.2 % (0.0-0.8); EOS# 0.13 X1000 (0.0-0.7); HEMATOCRIT 43.4 % (42.0-52.0); LYMPH# 1.06 X1000 (1.2-3.4); LYMPH% 16.1 % (20.5-51.1); MCH 24.2 PG (27-31); MCV 80.8 FL (81-99); MONO# 0.66 X1000 (0.11-0.59); MPV 10.6 FL (7.4-10.4); NEUT# 4.74 X1000 (1.4-6.5); NEUT% 71.7 % (42.2-75.2); PLT 236 X1000 (130-400); RBC 5.37 XMIL (4.7-6.1); RDW 18.3 % (11.5-14.5)
[2018-10-06 07:16] LABS: AGAP 9; BUN 22 mg/dL (8-22); CALCIUM 9.1 mg/dL (8.8-10.2); CHLORIDE 96 mmol/L (98-107); COSMO 281; CREATININE 1.3 mg/dL (0.7-1.2); ESTIMATED GFR > 60; GLUCOSE 104 mg/dL (70-104); POTASSIUM 4.2 mmol/L (3.5-5.1); SODIUM 139 mmol/L (136-145); TCO2 34 mmol/L (25-35)
[2018-10-06] MEDS: MUCOMYST 20% INH SCH (07:41)
[2018-10-06] MEDS: DUONEB (A & A) INH SCH (07:41)
[2018-10-06] MEDS: BREO ELLIPTA 200/25 MCG INH INH SCH (07:42)
--- NOTE | 2018-10-06 09:06 | Diag Imaging Result Doc PS360 ---
GI SERIES WITH BA SWALLOW - 10/06/2018 INDICATION: Coughing after swallowing TECHNIQUE: Upper GI exam with air contrast. Total fluoroscopy time was one minute 12 seconds. 52 images were obtained. COMPARISON: None FINDINGS: There is a normal primary swallowing mechanism. No aspiration or penetration. There is moderate tertiary wave formation throughout the esophagus with some delay in clearance of some of the liquid material. This indicates moderate presbyesophagus. The stomach appears normal. Gastroesophageal junction is normal. No visible reflux. IMPRESSION: Moderate presbyesophagus causing mild delay in clearance of the esophagus. Electronically signed by Richard Serrato 10/06/2018 9:03 AM
[2018-10-06 09:37] VITALS: BP 122/71
[2018-10-06] MEDS: LACTULOSE PO SCH (09:38)
[2018-10-06] MEDS: MIRALAX PO SCH (09:39)
[2018-10-06] MEDS: ENTRESTO 24 MG-26 MG TABLET PO SCH (09:41)
[2018-10-06] MEDS: PRILOSEC PO SCH (09:41)
[2018-10-06] MEDS: COREG PO SCH (09:41)
[2018-10-06] MEDS: MUCINEX PO SCH (09:41)
[2018-10-06] MEDS: DOXYCYCLINE PO SCH (09:41)
[2018-10-06] MEDS: ZYRTEC PO SCH (09:41)
[2018-10-06] MEDS: DALIRESP PO SCH (09:41)
[2018-10-06] MEDS: ASPIRIN EC PO SCH (09:41)
--- NOTE | 2018-10-06 23:51 | DISCHARGE SUMMARY ---
ADMISSION DATE: 10/01/2018 DISCHARGE DATE: 10/06/2018 DISCHARGE DIAGNOSES: 1. Acute systolic heart failure exacerbation. 2. Dysphagia. 3. Bronchitis. 4. Morbid obesity. CONSULTATIONS: Cardiology, Dr. Tex Gong. PROCEDURES: None. HOSPITAL COURSE: Briefly, this is a 33-year-old male with history of systolic heart failure and obstructive sleep apnea, presenting with shortness of breath. He was admitted for treatment and placed on IV diuretics. He is already on a Trilogy machine at home, so he was maintained on that. Cardiology was consulted and he had been placed on Coreg and Entresto. Did not feel he needed a repeat echocardiogram. Dr. Tidwell was also consulted, Pulmonary, who recommended treatment. He was felt to have some degree of bronchitis, although his chest x-ray did not show any infiltrates. There was a question of a pericardial effusion, so I did repeat a limited echocardiogram. EF 15% to 20%, but there was no pericardial effusion noted. The patient stabilized, discharged at 1.3. His proBNP was still elevated at 2125, but it was down from 2200, and he was breathing at baseline. He kept on complaining of difficulty swallowing, cough and things of that nature, but he was found to be stabilized. I did an upper GI series, which showed some moderate presbyesophagus even though he is 33 years old, with a mild delay in the clearance of the esophagus. Recommended GI followup and increasing his Prilosec to twice a day, and we will go from there. DISCHARGE MEDICATIONS: As follows: Aspirin 81 daily; Breo Ellipta daily; Daliresp 250 mcg daily; Entresto 1 b.i.d.; Prilosec 40 daily and then b.i.d.; Coreg was decreased to 6.25 q.12; Lasix 80 b.i.d.; Prilosec 40 b.i.d.; albuterol q.4; Reglan 10 b.i.d., which is a new medication; Z-Kai; Zyrtec 10 daily. DISCHARGE CONDITION: Stable. FOLLOWUP: Follow up with PCP, Aleks Machado, in 1-[address] Rolle in 1-2 weeks for outpatient evaluation for possible endoscopy and other issues to do with his presbyesophagus. cc: Juan Carlos Cruz MD
== END 2018-10-06 14:51 | disposition home or self-care (01) | DRG 291 ==
LOC: ED 15:52 → 3N 10-02 00:03 → SUATTDRO 10-02 00:03
PROVIDERS: ATTEND Internal Medicine
CPT/HCPCS: 71010; 71020; 71045; 71046; 74246; 80048; 80053; 82550; 82805; 83735; 83880; 84100; 84443; 84484; 85025; 85379; 85610; 85730; 93005; 93308; 94640; 94660; 94761; 94762; 96374; 99285; A9270; J1940; J7030

== ENCOUNTER 2018-11-08 01:28 | Inpatient (IN) ==
--- NOTE | 2018-11-08 02:05 | EKG Report ---
Test Performed on : 11/08/2018 01:44:32 AM Test Reason : chest tightness Blood Pressure : / mmHG Vent. Rate : 102 BPM Atrial Rate : 102 BPM P-R Int : 160 ms QRS Dur : 090 ms QT Int : 356 ms P-R-T Axes : 074 -50 056 degrees QTc Int : 463 ms Sinus tachycardia. with fusion complexes Left axis deviation Possible Anterolateral infarct , age undetermined Abnormal ECG When compared with ECG of 08-NOV-2018 01:44, (Unconfirmed) Previous ECG has undetermined rhythm, needs review Unconfirmed Result
[2018-11-08 03:08] LABS: BASO# 0.02 X1000 (0.0-0.2); BASO% 0.2 % (0.0-0.8); EOS# 0.06 X1000 (0.0-0.7); EOS% 0.6 % (0.0-10.0); HEMATOCRIT 42.1 % (42.0-52.0); HEMOGLOBIN 13.4 g/dL (14.0-18.0); IMM GRAN# 0.02 X1000 (0.0-0.04); IMM GRAN% 0.2 % (0.0-0.5); LYMPH# 1.44 X1000 (1.2-3.4); LYMPH% 15.1 % (20.5-51.1); MCH 25.1 PG (27-31); MCHC 31.8 g/dL (33-37); MCV 78.8 FL (81-99); MONO# 0.92 X1000 (0.11-0.59); MONO% 9.7 % (1.7-9.3); MPV 10.2 FL (7.4-10.4); NEUT# 7.06 X1000 (1.4-6.5); NEUT% 74.2 % (42.2-75.2); PLT 234 X1000 (130-400); RBC 5.34 XMIL (4.7-6.1); WBC 9.52 X1000 (4.8-10.8)
[2018-11-08 03:09] LABS: URINE SOURCE CLEAN CATCH
[2018-11-08 03:28] LABS: UR AMPHETAMINES QUAL NONE DETECTED (NONE DETECT); UR BARBITUATES QUAL NONE DETECTED (NONE DETECT); UR BENZODIAZEPIN QUAL NONE DETECTED (NONE DETECT); UR CANNABINOIDS QUAL NONE DETECTED (NONE DETECT); UR COCAINE QUAL NONE DETECTED (NONE DETECT); UR METHADONE QUAL NONE DETECTED (NONE DETECT); UR OPIATES QUAL NONE DETECTED (NONE DETECT); UR OXYCODONE QUAL NONE DETECTED (NONE DETECT); UR PCP QUAL NONE DETECTED (NONE DETECT)
[2018-11-08 03:33] LABS: BILIRUBIN URINE NEGATIVE (NEGATIVE); BLOOD URINE NEGATIVE (NEGATIVE); COLOR YELLOW; GLUCOSE URINE NEGATIVE (NEGATIVE); KETONE URINE NEGATIVE (NEGATIVE); LEUKOCYTES URINE NEGATIVE (NEGATIVE); NITRITE URINE NEGATIVE (NEGATIVE); PROTEIN URINE 200 mg/dL (NEGATIVE); SP GRAVITY URINE 1.009; TURBIDITY URINE CLEAR (CLEAR); UROBILINOGEN URINE NORMAL (NORMAL)
[2018-11-08 03:35] LABS: UR EPITHELIAL CELLS <10 /HPF (<10); URINE BACTERIA NEGATIVE /HPF; URINE RBC <10 /HPF (<10); URINE WBC <10 /HPF (<10)
[2018-11-08] MEDS ORDERED: LASIX IV ONE (03:37)
[2018-11-08] MEDS ORDERED: SOLU-MEDROL IV ONE (03:37)
[2018-11-08] MEDS ORDERED: DUONEB (A & A) INH ONE (03:37)
--- NOTE | 2018-11-08 03:39 | PROVIDER DOCUMENTATION ---
HPI-Chest Pain - General Chief Complaint: Shortness of Breath Stated Complaint: TIGHTNESS IN CHEST, CHF Time Seen by Provider: 11/08/18 01:56 Source: patient Allergies/Adverse Reactions: Patient Allergies Allergy/AdvReac Type Severity Reaction Status Date / Time No Known Allergies Allergy Verified 11/08/18 02:14 Home Medications: Home Medication List Medication Instructions Recorded Confirmed Last Taken Type Albuterol Sulfate [Proair Hfa] 2 puff IH Q4H PRN PRN #1 hfa.[email or web address].[email or web address] 01/22/13 11/08/18 01/26/18 Rx Aspirin [Aspirin EC] 81 mg PO DAILY 01/22/13 11/08/18 01/25/18 History Mometasone Nasal [place] [Nasonex 1 spray TEZ DAILY 03/10/18 11/08/18 Unknown History Nasal Tippo] Montelukast Chew [Singulair] 5 mg PO DAILY 03/10/18 11/08/18 Unknown History Fluticasone/Vilanterol [Breo 1 puff INH DAILY 05/29/18 11/08/18 Unknown History Ellipta 200-25 Mcg INH] Roflumilast [Daliresp] 1 tab PO DAILY 05/29/18 11/08/18 Unknown History Furosemide [Lasix] 80 mg PO BID #60 tab 06/20/18 11/08/18 Unknown Rx Carvedilol [Coreg] 6.25 mg PO Q12HR #60 tab 10/06/18 11/08/18 Unknown Rx Metoclopramide [Reglan] 10 mg PO BID #60 tab 10/06/18 11/08/18 Unknown Rx Omeprazole [Prilosec] 40 mg PO BID #60 cap 10/06/18 11/08/18 Unknown Rx Albuterol 2.5MG/Ipratrop 0.5MG 1 dose PO TID 11/08/18 11/08/18 Unknown History [Duoneb (A & A)] Dicyclomine HCl 20 mg PO Q6H PRN PRN 11/08/18 11/08/18 Unknown History Sacubitril/Valsartan [Entresto 49 1 tab PO QAM 11/08/18 11/08/18 Unknown History mg-51 mg Tablet] - History of Present Illness-CP Nature of Presenting Problem: Presents to the with complaints of chest tightness and CHF exacerbation. He states that he has an EF of 31% and that he is supposed to be taking 80mg of Lasix BID but he has not been taking it BID since he goes to work in the morning and does not want to be urinating that much at work. He states that he has been told by his Dr to add metolazone and an extra Lasix when this happens and he feels like his fluid is building up and he tried doing that but it did not help. He states that he has been kept up at night and has not been able to sleep due to dyspnea. He normally take NC @5L all the time but cannot do that at work because he cannot walk around with a tank that will give him 5 L and he has to be mobile. He does use a trilogy machine at night which he endorses compliance with. He endorses a cough with clear sputum. He is supposed to have bariatric surgery in Feb. He states that he cannot complete any of his ADLs any more without difficulty. Review of Systems - Adult - REVIEW OF SYSTEMS - ADULT Constitutional: reports: see HPI Eyes: reports: no symptoms reported Ears, Nose, Mouth & Throat: reports: no symptoms reported Cardiovascular: reports: see HPI, chest pain Respiratory: reports: see HPI, chronic cough, cough, dyspnea on exertion, shortness of breath Gastrointestinal: reports: see HPI, nausea Genitourinary: reports: no symptoms reported Musculoskeletal: reports: no symptoms reported Integumentary: reports: no symptoms reported Neurological: reports: no symptoms reported Psychiatric: reports: no symptoms reported Endocrine: reports: no symptoms reported Hematologic/Lymphatic: reports: no symptoms reported Allergic/Immunologic: reports: no symptoms reported All Other Systems: Reviewed and Negative Past History - Adult - PAST MEDICAL HISTORY-ADULT Review of Records: reports: Old Records Reviewed Major Childhood Illnesses: reports: denies history Cardiovascular: reports: CHF, HTN Respiratory: reports: asthma, COPD, pneumonia, sleep apnea Gastrointestinal: reports: GERD, ulcer Obstetrical/Gynecological: reports: denies history Genitourinary: reports: denies history Musculoskeletal: reports: denies history Neurological: reports: denies history Psychiatric: reports: denies history Endocrine/Immune: reports: Diabetes Other Conditions: reports: denies history - PRIOR SURGERIES/PROCEDURES Surgical/Procedure History: reports: EGD, colonoscopy, other (sinus ) - IMMUNIZATION STATUS Childhood Immunizations: See Nurse Assessment Flu Vaccine: See Nurse Assessment - FAMILY HISTORY Family History: reviewed, not pertinent Physical Exam-General - PHYSICAL EXAM-ADULT Exam Limited by: body habitus Initial Vital Signs Reviewed: Yes - CONSTITUTIONAL General Appearance: alert, mild distress, obese - EYES Eyes: PERRL/EOMI - HEAD, EARS, NOSE, MOUTH & THROAT HENMT: normocephalic/atraumatic - NECK Neck: non-tender, full range of motion, supple, normal inspection - RESPIRATORY Respiratory: chest non-tender, decreased breath sounds (diffusely), accessory muscle use, increased rate - CARDIOVASCULAR Cardiovascular: normal peripheral pulses, regular rate, rhythm, no murmur - GASTROINTESTINAL (ABDOMEN) Abdominal Exam: normal bowel sounds, non tender, soft - MUSCULOSKELETAL Back Exam: normal inspection Extremity: normal range of motion, non-tender, normal gait, pedal edema - SKIN Integumentary: normal color, normal turgor, warm/dry - NEUROLOGIC Neurologic: grossly normal - PSYCHIATRIC Psych/Mental Status: normal mood/affect, oriented x 3 - HEART Score HEART Score: History: Slightly Suspicious HEART Score: ECG: Normal HEART Score: Age: < or = 45 Years HEART Score: Risk Factors for Atherosclerotic Disease: > or = 3 Risk Factors or History of Atherosclerotic Disease HEART Score: Troponin: < or = Normal Limit Total HEART Score:: 2 Progress - PLAN OF CARE/RESULTS Progress/Plan/Lab Results: Patient with BNP to 2400 and frequent admission for CHF exacberation. Spoke to patient about DC with Lasix and he stated because he cannot complete his ADLs this concerns him. Spoke to Dr Chappell who is well known to him and he accepted patient for admission. Further orders to be placed by their team. Result Diagrams: 11/08/18 02:57 11/08/18 02:57 - EKG 1 Time of EKG reading by physician:: 01:48 EKG Read and Signed by:: Kym Palmer EKG Interpretation (*Must complete 3 of following elements*): Abnormal Rate: 102 Rhythm: Tachycardia [place]: left QRS: normal NH Interval: normal ST Wave: non-specific ST changes - XRAY 1 XRAY Study: Chest XRAY Interpretation: interstitial pulm edema - CONSULTS/PCP/HOSPITALIST Notification #1 *Consult/PCP/Hospitalist*: Dr Chappell Time Discussed: 04:30 Consult Disposition: Admit Departure - Departure Date of Disposition Decision: 11/08/18 Time of Disposition Decision: 04:30 DIAGNOSIS: CHF exacerbation, Chronic kidney disease, Morbid obesity, Chronic respiratory failure Disposition: ADMITTED INPATIENT 09 Certified Medical Emergency: Emergent Condition: Fair - Critical Care Note This patient required my direct & personal management of CC.: No Attestation - Physician/ KRISTAN Attestation Patient care was provided by Advanced Practice Provider:: No The physician spent face to face time with patient:: Yes Advanced Practice Provider documentation review:: Supervising physician onsite and consulted in the evaluation and care of this patient. The physician did have a face to face encounter with the patient.
[2018-11-08 03:44] LABS: ALB/GLOB RATIO 1.4; ALBUMIN 3.8 g/dL (3.5-5.0); CALCIUM 9.4 mg/dL (8.8-10.2); CREATININE 1.8 mg/dL (0.7-1.2); POTASSIUM 4.4 mmol/L (3.5-5.1); TOTAL BILIRUBIN 1.14 mg/dL (0.20-1.00); TOTAL PROTEIN 6.5 g/dL (6.3-8.3)
[2018-11-08] MEDS ORDERED: ZOFRAN IV ONE (04:09)
[2018-11-08 04:32] LABS: INR 1.11; PROTIME 14.5 Seconds (11.0-16.0); PTT 31.4 Seconds (22.3-41.8)
--- NOTE | 2018-11-08 06:54 | HISTORY AND PHYSICAL ---
PRIMARY CARE PHYSICIAN: Dr. Aleks Machado. CHIEF COMPLAINT: Shortness of breath. HISTORY OF PRESENTING ILLNESS: A 33-year-old male with a history of CHF with EF of 30 to 40 percent, COPD, sleep apnea, hypertension, chronic hypoxic respiratory failure, who had presented to emergency department with a several days history of having progressive worsening shortness of breath. The patient states that he was coughing, was having difficulty breathing, and subsequently had come to the emergency department. In the ED, he was evaluated and he was found to be in heart failure and due to his presenting symptoms, he will require admission for further management. The patient, apparently, has been admitted multiple times throughout the course of this year for similar complaints. At time of my examination, patient denied any headache, fever, chills, chest pain, hemoptysis, but complained of shortness of breath and cough. PAST MEDICAL HISTORY: Includes CHF with EF of 30 to 40 percent, COPD, sleep apnea, chronic hypoxemic respiratory failure, GERD. PAST SURGICAL HISTORY: Sinus surgery. ALLERGIES: No known drug allergies. CURRENT MEDICATIONS: Include albuterol inhaler q.4 hours, aspirin 81 mg p.o. daily, carvedilol 6.25 mg p.o. q.12 hours, Ellipta 1 puff ventilation daily, Lasix 80 mg p.o. b.i.d., omeprazole 40 mg p.o. daily, Entresto 24 mg-26 mg, 1 p.o. b.i.d. SOCIAL HISTORY: No history of smoking, alcohol, or illicit drug use. FAMILY HISTORY: No history of coronary disease. REVIEW OF SYSTEMS: Fourteen-point review of system as listed in HPI. Other systems negative. PHYSICAL EXAMINATION: GENERAL: Cooperative, friendly, obese male. He is resting more comfortably now. VITAL SIGNS: Temperature 98.1 degrees, pulse 100, respirations 25, blood pressure 128/80. HEENT: Atraumatic, normocephalic. Extraocular movements intact. PERRLA. NECK: No masses. CHEST: Bibasilar rales. CARDIOVASCULAR: Regular rate and rhythm. ABDOMEN: Soft, obese. Positive bowel sounds. EXTREMITIES: +2 edema. NEUROLOGIC: He is awake, alert, oriented x3. GENITOURINARY: No bladder distention. SKIN: Warm. LABORATORIES AND STUDIES: WBCs 9.52, hemoglobin 13.4, hematocrit 42.1, platelets 234,000. Sodium 137, potassium 4.4, chloride 97, CO2 is 25, BUN is 47, creatinine is 1.8. Glucose is 108. ProBNP is 2393, troponin 0.074. ASSESSMENT: This is a 33-year-old super morbidly obese male with a history of congestive heart failure, chronic obstructive pulmonary disease, sleep apnea, chronic hypoxic respiratory failure, who had presented to the emergency department with several days history of having progressive worsening shortness of breath. He was evaluated in the emergency department, it was suspected he was in heart failure, again; subsequently, he will require admission for further management. 1. Acute on chronic congestive heart failure. 2. Chronic respiratory hypoxemic failure. 3. Chronic obstructive pulmonary disease. 4. Sleep apnea. 5. Super morbid obesity. PLAN: 1. We will admit patient to medical floor with telemetry. 2. We will continue with gentle diuresis. 3. Consult his telemetry monitor. 4. Continue on supplemental oxygen. 5. We will continue with duo nebs. 6. We will obtain CPAP machine for patient. 7. Will monitor blood pressure closely. Resume antihypertensive agent. 8. We will put patient on DVT prophylaxis with heparin. 9. We will continue to follow and reassess, make further recommendation based on patient's clinical course. cc: Scooter Chappell MD
[2018-11-08] MEDS ORDERED: ZOFRAN IV PRN (07:05)
[2018-11-08] MEDS: HEPARIN SUBQ SCH ×2 (08:16→19:45)
[2018-11-08] MEDS: LASIX IV SCH ×2 (08:16→19:45)
[2018-11-08] MEDS: DUONEB (A & A) INH SCH ×5 (08:25→22:44)
--- NOTE | 2018-11-08 08:26 | Diag Imaging Result Doc PS360 ---
EXAM: CHEST-PORTABLE INDICATION: sob, chf TECHNIQUE: One view COMPARISON: 10/05/2018 FINDINGS: The lungs remain grossly clear. There appears to be mild pulmonary venous congestion. It is very similar to the previous study. No discrete pleural fluid collection or pneumothorax is identified by plain radiograph. There is stable marked cardiomegaly. IMPRESSION: Stable marked cardiomegaly and suggestion of at least mild pulmonary venous congestion. Electronically signed by Dirk Jasso 11/08/2018 8:23 AM
[2018-11-08] MEDS: ENTRESTO 49 MG-51 MG TABLET PO SCH (11:36)
[2018-11-08] MEDS: DALIRESP PO SCH (11:36)
[2018-11-08] MEDS: ASPIRIN EC PO SCH (11:36)
[2018-11-08] MEDS: MIRALAX PO SCH (11:36)
[2018-11-08] MEDS: BREO ELLIPTA 200/25 MCG INH INH SCH (11:45)
[2018-11-08] MEDS: METAMUCIL POWDER PACKET PO SCH (11:48)
--- NOTE | 2018-11-08 14:15 | CARDIOLOGY CONSULTATION ---
DATE: 11/08/2018 CHIEF COMPLAINT ON PRESENTATION: Shortness of breath. HISTORY OF PRESENT ILLNESS: Mr. Lopez is a 33-year-old, excessively obese, black male, who presents with complaints of shortness of breath that have been ongoing for the last several days. He reports compliance with his medications. However, it seems like he has frequent issues with noncompliance with sodium. He reports occasional bouts of fast food in the interim. He reports increasing cough, dyspnea with his usual daily activities. He attempted metolazone at home, but apparently had no increase in his urine output with those medications. He subsequently presented for further evaluation. PAST MEDICAL HISTORY: Significant for: 1. Systolic heart failure. Most recent ejection fraction was in the 15% to 20% range by echocardiogram in September. 2. Extreme morbid obesity. 3. Pulmonary hypertension, likely secondary to obesity hypoventilation, COPD, obstructive sleep apnea. 4. Morbid obesity. 5. Reflux. 6. Diabetes. 7. Hypertension. SOCIAL HISTORY: No current alcohol or tobacco use. FAMILY HISTORY: Significant for hypertension. REVIEW OF SYSTEMS: A 10-system review of systems is negative, except for those things mentioned in the HPI. PHYSICAL EXAMINATION: Vital Signs: He is afebrile, heart rate 89, his blood pressure most recently is 82/56. During this hospitalization, his blood pressures have been anywhere from predominantly the 100s to 120s. General: He is in no acute distress. HEENT: Oropharynx is moist. Poor dentition. His eye examination shows pink conjunctivae. White sclerae. Neck: No obvious thyromegaly or thyroid tenderness. Cardiovascular: He sounds to be in a regular rate and rhythm. He has no obvious murmurs. He has extremely distant heart sounds. He has warm and well- perfused extremities. He has no obvious edema on examination. Chest: Sounds clear. However, it is extremely difficult to auscultate his breath sounds. He has no increased work of breathing. Abdomen: Soft, nontender. Unable to assess for organomegaly given his extreme morbid obesity. Neurological: He is moving all extremities well. He has no lateralizing deficits. Psychiatric: He is alert, oriented, pleasant. Normal mood and affect. PERTINENT DATA: His I's and O's have been negative this hospitalization. His lab data shows a white count of 9.5, hematocrit of 42, his platelet count is 234,000. Sodium is 137, potassium 4.4, BUN 47, creatinine is 1.8. His proBNP is 2393. His urine drug screen was negative. ASSESSMENT: Mr. Lopez is a 33-year-old gentleman who presents with complaints of shortness of breath. PLAN: At this point, I would continue with the current medications. Unfortunately, secondary to this patient's extreme morbid obesity, he is very likely to continue to have recurrent bouts of heart failure. In addition, the patient does not comply with his dietary restrictions. I would continue him on the Entresto, the carvedilol, and the IV Lasix. cc: Tex Gong MD
[2018-11-08] MEDS: REGLAN PO SCH (20:49)
[2018-11-08] MEDS: COREG PO SCH (20:49)
[2018-11-08] MEDS: PRILOSEC PO SCH (20:50)
[2018-11-09] MEDS: DUONEB (A & A) INH SCH ×6 (03:31→22:46)
[2018-11-09 08:09] LABS: HEMATOCRIT 41.5 % (42.0-52.0); HEMOGLOBIN 12.7 g/dL (14.0-18.0); IMM GRAN# 0.03 X1000 (0.0-0.04); IMM GRAN% 0.3 % (0.0-0.5); LYMPH# 0.73 X1000 (1.2-3.4); LYMPH% 6.8 % (20.5-51.1); MCHC 30.6 g/dL (33-37); MCV 81.5 FL (81-99); MONO# 0.69 X1000 (0.11-0.59); MONO% 6.4 % (1.7-9.3); MPV 10.4 FL (7.4-10.4); NEUT# 9.31 X1000 (1.4-6.5); NEUT% 86.5 % (42.2-75.2); PLT 209 X1000 (130-400); RBC 5.09 XMIL (4.7-6.1); WBC 10.76 X1000 (4.8-10.8)
[2018-11-09 08:23] LABS: LYMPHS 10 % (21-51); MONO 6 % (1-9); SEGS 82 % (42-75)
[2018-11-09 08:41] LABS: CALCIUM 8.8 mg/dL (8.8-10.2); CREATININE 2.1 mg/dL (0.7-1.2); POTASSIUM 5.2 mmol/L (3.5-5.1)
--- NOTE | 2018-11-09 09:54 | PROGRESS NOTE ---
DATE: 11/09/2018 SUBJECTIVE: This patient is lying comfortably in bed. He is using the BiPAP machine. So far we have removed around 2.5 L. His BUN and creatinine are increasing, so I will hold the Lasix today and I will restart the Lasix tomorrow. He feels a little bit better. OBJECTIVE: Vital Signs: Temperature 95.6 degrees, pulse 83, respiratory rate 19, blood pressure 101/66, oxygen saturation 97% on the BiPAP machine. HEENT: Head normocephalic. No trauma. PERRLA. Neck: Supple. No JVD. No masses. Central trachea. Chest: Decreased breath sounds globally with some crepitus at the bases and rales. Abdomen: Soft, obese, protuberant. Extremities: I do not see too much edema, no clubbing, no cyanosis. Neurological: The patient is sleepy, but arousable oriented x3. LABORATORY: WBC 10.7, hemoglobin 12.7, hematocrit 41.5, platelets 209,000. Sodium 131, potassium 5.2, chloride 93, bicarbonate 28, BUN 53, creatinine 2.1, glucose 123, calcium 8.8. ASSESSMENT AND PLAN: 1. Congestive heart failure exacerbation with his most recent ejection fraction around 15 to 20 percent range by echocardiogram in September 2018, I will hold the diuretics today due to acute on chronic kidney disease. I will monitor this patient closely. So far, we have a negative balance of 2.5 L. Cardiology department on board. I will continue with the rest of the rest of the medications. 2. Morbid obesity with a body mass index of 75.2. We will monitor for now. Diet and exercise has been discussed. 3. Pulmonary hypertension secondary to a sleep apnea, severe obesity, chronic hypoxemia, chronic obstructive pulmonary disease. Continue any continue with same management. He has been getting diuretics which I have stopped. 4. Chronic kidney disease, will monitor, actually he has an acute on chronic kidney disease. I will hold the diuretics today and I will restart diuresing this patient tomorrow. 5. Gastroesophageal reflux disease. 6. Diabetes, controlled. Continue with the same management. 7. Sleep apnea, this patient has been using the BiPAP machine. 8. Chronic obstructive pulmonary disease, not in exacerbation. 9. Chronic respiratory failure, hypoxemic, aware. Continue with same treatment. cc: Velasquez Joe MD
[2018-11-09] MEDS: METAMUCIL POWDER PACKET PO SCH (10:08)
[2018-11-09] MEDS: MIRALAX PO SCH (10:09)
[2018-11-09] MEDS: SINGULAIR PO SCH (10:10)
[2018-11-09] MEDS: ENTRESTO 49 MG-51 MG TABLET PO SCH (10:10)
[2018-11-09] MEDS: DALIRESP PO SCH (10:10)
[2018-11-09] MEDS: REGLAN PO SCH ×2 (10:11→21:15)
[2018-11-09] MEDS: HEPARIN SUBQ SCH ×2 (10:11→21:15)
[2018-11-09] MEDS: COREG PO SCH ×2 (10:11→21:14)
[2018-11-09] MEDS: ASPIRIN EC PO SCH (10:11)
[2018-11-09] MEDS: PRILOSEC PO SCH ×2 (10:11→21:15)
[2018-11-09] MEDS: BREO ELLIPTA 200/25 MCG INH INH SCH (11:37)
--- NOTE | 2018-11-09 14:17 | CARDIOLOGY PROGRESS NOTE ---
DATE: 11/09/2018 SUBJECTIVE: The patient reports he feels a little bit better. He still reports some edema. OBJECTIVE: Vital Signs: Febrile. Heart rate 89, blood pressure 92/46. I Os negative on the order of 2600 mL. Generally: No acute distress. Cardiovascular: He is in a regular rate and rhythm. He has no obvious murmurs. No S3. He has 1+ bilateral lower extremity edema. Warm and well-perfused extremities. Chest: Clear to auscultation. Very distant breath sounds. PERTINENT DATA: White count 10, hematocrit 41, platelet count is 209,000. Sodium 131, potassium 5.2, BUN 53, creatinine 2.1 which is an escalation for him. ASSESSMENT: Mr. Lopez is a 33-year-old gentleman with nonischemic cardiomyopathy, obesity hypoventilation, pulmonary hypertension. PLAN: At this point, I believe the patient has been dried out. His BUN and creatinine are rising. He has had a negative fluid balance. Unfortunately, due to this patient's weight and lung disease, he likely has a significant degree of right heart failure which I suspect is the primary issue at this point. Drying him out further would likely result in hypotension and worsening renal function. His Lasix has been decreased accordingly. At this point, I do not have any further recommendations. He needs to pursue whatever weight loss reducing strategies he can as this seems to be the primary issue with his heart at this point. Please contact us if we can be of further assistance. cc: Tex Gong MD
[2018-11-10] MEDS: DUONEB (A & A) INH SCH ×7 (03:42→23:35)
--- NOTE | 2018-11-10 08:18 | PROGRESS NOTE ---
DATE: 11/10/2018 SUBJECTIVE: This patient is lying comfortably in bed. He is using the BiPAP machine. He started having diarrhea since yesterday. As per the patient, he has spent most of the night in the bathroom, at least 6 episodes. I will hold his Lasix today. I do not have the new BMP results. Cardiology on board. OBJECTIVE: Vital Signs: Temperature 97.8 degrees, pulse 91, respiratory rate 16, blood pressure 94/56, oxygen saturation 100% on the BiPAP machine. HEENT: Head normocephalic, no trauma. PERRLA. Neck: Supple. No JVD. No masses. Central trachea. Chest: Decreased breath sounds globally with some crepitus at the bases and rales. Abdomen: Soft, obese, protuberant. Extremities: I do not see too much edema. No clubbing, no cyanosis. Neurological examination: The patient is still sleepy, but arousable. Oriented x3. LABORATORY: Pending lab work at this moment. ASSESSMENT AND PLAN: 1. Congestive heart failure exacerbation with his most recent ejection fraction around 15% to 20% range by echocardiogram in September 2018. I am holding his diuretics because of diarrhea and acute on chronic kidney disease. I will monitor this patient closely. So far we have a negative balance of 2.3 L. Cardiology on board. 2. Acute diarrhea. Apparently he has been having at least 6 bowel movements during the night, watery. Like I mentioned before, I will hold the Lasix to avoid dehydration. He is not eating too much either. I will wait for the new lab work. 3. Pulmonary hypertension secondary to sleep apnea, severe obesity, chronic obstructive pulmonary disease. Continue with same management. He has been using the BiPAP machine. 4. Acute on chronic kidney disease. I have been holding the Lasix a little bit. I will need to see the new lab work resolved. I will monitor this closely. 5. Gastroesophageal reflux disease. 6. Diabetes, controlled. Continue with same management. 7. Sleep apnea. This patient has been using the BiPAP machine. 8. Chronic obstructive pulmonary disease, not in exacerbation. 9. Chronic hypoxemic respiratory failure. Continue with same management. 10. Morbid obesity with a body mass index of 75.2. Diet and exercise has been discussed. cc: Velasquez Joe MD
[2018-11-10] MEDS ORDERED: LASIX IV SCH (09:00)
[2018-11-10] MEDS: COREG PO SCH ×3 (09:29→21:01)
[2018-11-10] MEDS: SINGULAIR PO SCH (09:29)
[2018-11-10] MEDS: ENTRESTO 49 MG-51 MG TABLET PO SCH (09:29)
[2018-11-10] MEDS: DALIRESP PO SCH (09:29)
[2018-11-10] MEDS: PRILOSEC PO SCH ×2 (09:29→21:04)
[2018-11-10] MEDS: REGLAN PO SCH ×2 (09:29→21:05)
[2018-11-10] MEDS: HEPARIN SUBQ SCH ×2 (09:30→21:02)
[2018-11-10] MEDS: IMODIUM PO PRN (09:30)
[2018-11-10] MEDS: ASPIRIN EC PO SCH (09:33)
[2018-11-10] MEDS: METAMUCIL POWDER PACKET PO SCH (09:34)
[2018-11-10] MEDS: MIRALAX PO SCH (09:34)
[2018-11-10] MEDS: BREO ELLIPTA 200/25 MCG INH INH SCH ×2 (09:47→16:05)
[2018-11-10 09:56] LABS: CALCIUM 9.4 mg/dL (8.8-10.2); CREATININE 2.3 mg/dL (0.7-1.2); POTASSIUM 4.5 mmol/L (3.5-5.1)
[2018-11-10] MEDS: PREPARATION H OINT TOP SCH ×2 (10:49→21:05)
[2018-11-11] MEDS: IMODIUM PO PRN (02:35)
[2018-11-11] MEDS: DUONEB (A & A) INH SCH ×6 (03:22→22:53)
[2018-11-11 07:06] LABS: CALCIUM 8.6 mg/dL (8.8-10.2); CREATININE 1.9 mg/dL (0.7-1.2)
[2018-11-11] MEDS: DALIRESP PO SCH (09:08)
[2018-11-11] MEDS: HEPARIN SUBQ SCH ×2 (09:08→20:17)
[2018-11-11] MEDS: ASPIRIN EC PO SCH (09:08)
[2018-11-11] MEDS: PRILOSEC PO SCH ×2 (09:08→20:17)
[2018-11-11] MEDS: ENTRESTO 49 MG-51 MG TABLET PO SCH (09:09)
[2018-11-11] MEDS: REGLAN PO SCH ×2 (09:09→20:17)
[2018-11-11] MEDS: COREG PO SCH ×3 (09:09→20:24)
[2018-11-11] MEDS: SINGULAIR PO SCH (09:09)
[2018-11-11] MEDS: PREPARATION H OINT TOP SCH (09:09)
[2018-11-11] MEDS ORDERED: MAGNESIUM SULFATE 2 GM/S.W.I. 2 GM/50 ML IVPB IV ONE (10:25)
[2018-11-11] MEDS: MIRALAX PO SCH (10:58)
[2018-11-11] MEDS: METAMUCIL POWDER PACKET PO SCH (10:58)
[2018-11-11] MEDS: BREO ELLIPTA 200/25 MCG INH INH SCH (11:44)
[2018-11-11] MEDS ORDERED: NS 500 ML IV ONE (13:11)
[2018-11-11] MEDS ORDERED: IMODIUM PO PRN (13:13)
--- NOTE | 2018-11-11 13:54 | PROGRESS NOTE ---
DATE: 11/11/2018 SUBJECTIVE: This patient is feeling generalized weakness today. He is still having diarrhea. Yesterday, he had more than 10 bowel movements, and today as per the patient, at least a couple which are completely watery. His kidney function is getting better, I have been holding his Lasix. He has electrolyte abnormality including hyponatremia, hypochloremia, and hypomagnesemia. As he is having too much diarrhea, probably I will need to give him a little bit of fluids at least between 250 to 500 mL x1 to avoid dehydration. I will replace the magnesium. OBJECTIVE: Vital Signs: Temperature 97.7 degrees, pulse 104, respiratory rate 21, blood pressure 88/61. Oxygen saturation 95% on the BiPAP machine 5 L of oxygen flow. HEENT: Head normocephalic. No trauma. PERRLA. Neck: Supple. No JVD. No masses. Central trachea. Chest: Decreased breath sounds globally with some crepitus at the bases. Abdomen: Soft. Obese. Protuberant. Extremities: I do not see too much edema. No clubbing and no cyanosis. Neurological: The patient is awake and alert. He is following commands. LABORATORY: Sodium 132, potassium 4, chloride 95, bicarbonate 25, BUN 66, creatinine 1.9, glucose 107, calcium 8.6, and magnesium 1.4. ASSESSMENT AND PLAN: 1. Congestive heart failure exacerbation. It looks like he is better. He has had a recent ejection fraction of around 15 to 20 percent range by echocardiogram in September of 2018. I am still holding his diuretics. He has a significant diarrhea and acute on chronic kidney disease. Kidney function is getting better. So far, we have a negative balance of 2.9 L. His blood pressure has been dropping a little bit, probably because of mild dehydration so I will give him 500 mL of fluid. 2. Acute diarrhea as above. He is still having multiple bowel movements per day, yesterday at least more than 10 times. Stool studies did not show any pathogen so far or white blood cells. I will give him a little bit of fluids. 3. Pulmonary hypertension secondary to sleep apnea, obesity, and COPD, aware. 4. Acute on chronic kidney disease. This is getting better. I will continue holding his Lasix. 5. Gastroesophageal reflux disease. Continue with proton pump inhibitors. 6. Diabetes, controlled. Continue with same management. 7. Sleep apnea. This patient has been using the BiPAP machine. 8. Chronic obstructive pulmonary disease, not in exacerbation. 9. Chronic hypoxemic respiratory failure. Continue with same management. 10. Morbid obesity with a body mass index of 75.2. Diet and exercise has been discussed. Apparently, this patient has been evaluated by bariatric surgery and hopefully he will have an intervention in February. 11. Electrolyte imbalance especially hyponatremia, hypochloremia, and hypomagnesemia. I will give him some fluids, and I will replace the magnesium. cc: Velasquez Joe MD
[2018-11-12] MEDS: DUONEB (A & A) INH SCH ×6 (03:50→23:07)
[2018-11-12] MEDS: PREPARATION H OINT TOP SCH ×3 (04:15→21:00)
[2018-11-12 07:06] LABS: HEMATOCRIT 40.6 % (42.0-52.0); HEMOGLOBIN 12.4 g/dL (14.0-18.0); MCH 25.4 PG (27-31); MCHC 30.5 g/dL (33-37); MPV 11.3 FL (7.4-10.4); RBC 4.89 XMIL (4.7-6.1); RDW 18.3 % (11.5-14.5); WBC 5.43 X1000 (4.8-10.8)
[2018-11-12 07:44] LABS: CALCIUM 8.5 mg/dL (8.8-10.2); CREATININE 2.2 mg/dL (0.7-1.2); POTASSIUM 4.3 mmol/L (3.5-5.1)
[2018-11-12] MEDS: COREG PO SCH ×2 (09:33→21:00)
[2018-11-12] MEDS: ASPIRIN EC PO SCH (09:33)
[2018-11-12] MEDS: HEPARIN SUBQ SCH ×2 (09:33→21:01)
[2018-11-12] MEDS: REGLAN PO SCH ×2 (09:33→20:59)
[2018-11-12] MEDS: PRILOSEC PO SCH ×2 (09:33→21:00)
[2018-11-12] MEDS: DALIRESP PO SCH (09:33)
[2018-11-12] MEDS: ENTRESTO 49 MG-51 MG TABLET PO SCH (09:33)
[2018-11-12] MEDS: SINGULAIR PO SCH (09:33)
[2018-11-12] MEDS: BREO ELLIPTA 200/25 MCG INH INH SCH (11:25)
[2018-11-12] MEDS ORDERED: NS 500 ML IV SCH ×2 (13:30→16:00)
--- NOTE | 2018-11-12 18:53 | PROGRESS NOTE ---
DATE: 11/12/2018 SUBJECTIVE: I believe this patient is doing a little bit better today. Creatinine increased from 1.9 to 2.2. He seems to be a little bit dry today, again. He received a bolus yesterday of normal saline but for the past 2 days he had more than 11 large, watery bowel movements. I will give him an extra bolus of 500 mL of normal saline today. He is eating a little bit better, so probably his kidney function also will recover or at least the creatinine will decrease a little bit. I do not want to be aggressive because of his low ejection fraction between 15 to 20%. Today so far it looks like he had just 1 bowel movement that was loose, not that watery. I believe it is improving. Depending on how he does today, probably I will discharge this patient home in the afternoon if he is feeling better or tomorrow morning. Like I said, I will bolus him with 500 more of normal saline because his blood pressure also has been dropping. In the morning it was 83/40. As per the patient, normally it is around 110 to 130s at home. OBJECTIVE: Vital Signs: Temperature 97.6 degrees, pulse 81, respiratory rate 25, blood pressure 83/40, oxygen saturation 100% on the BiPAP machine. HEENT: Head normocephalic. No trauma. PERRLA. Neck: Supple. No JVD. No masses. Central trachea. Chest: Decreased breath sounds globally with some crepitus at the bases. Abdomen: Soft, obese, protuberant. Extremities: I do not see too much edema but he is a little bit edematous on the left lower extremity. No clubbing. No cyanosis. Neurological: This patient is awake, alert. He is following commands. LABORATORY: WBC 5.4, hemoglobin 12.4, hematocrit 40.6, and platelets 160,000. Sodium 135, potassium 4.3, chloride 98, bicarbonate 25, BUN 64, creatinine 2.2, glucose 85, calcium 8.5. ASSESSMENT AND PLAN: 1. Congestive heart failure exacerbation. This is better. He has an ejection fraction of 15 to 20% by echocardiogram on September 2018. I am still holding his diuretics due to his significant diarrhea that he had for the past couple of days. He has an acute on chronic kidney disease. I will bolus him again with 500 mL of fluid. He seems to be a little bit dry today again and his blood pressure has been low. 2. Acute diarrhea. As above, he had at least more than 11 large, watery bowel movements for the past couple days. Only 1 today so far and it has been loose, but not that watery. 3. Pulmonary hypertension secondary to sleep apnea, obesity, and chronic obstructive pulmonary disease. Aware. Continue with the BiPAP machine and we will restart his Lasix soon. 4. Acute on chronic kidney disease. This increased a little bit compared with yesterday. BUN is trending down a little bit and creatinine up from 1.9 to 2.1. 5. Gastroesophageal reflux disease. Continue with PPIs. 6. Diabetes, controlled. Continue with the same management. 7. Sleep apnea. This patient has been using the BiPAP machine. 8. Chronic obstructive pulmonary disease, not in exacerbation. 9. Chronic hypoxemic respiratory failure. Continue with the same management. This is multifactorial. 10. Morbid obesity with a body mass index of 75.2. Diet and exercise has been discussed. Apparently this patient has been evaluated by bariatric surgery and hopefully he will have a procedure done this year. 11. Electrolyte imbalance, especially hyponatremia, hypochloremia, and hypomagnesemia. This looks better but I will re-evaluate the magnesium level tomorrow again. Sodium and chloride are better. cc: Velasquez Joe MD
[2018-11-12] MEDS ORDERED: MYLICON PO ONE (20:02)
[2018-11-13] MEDS: DUONEB (A & A) INH SCH ×4 (03:25→15:49)
[2018-11-13 07:26] LABS: CALCIUM 9.3 mg/dL (8.8-10.2)
[2018-11-13] MEDS: BREO ELLIPTA 200/25 MCG INH INH SCH (07:57)
[2018-11-13] MEDS: REGLAN PO SCH (09:14)
[2018-11-13] MEDS: SINGULAIR PO SCH (09:14)
[2018-11-13] MEDS: HEPARIN SUBQ SCH (09:14)
[2018-11-13] MEDS: PRILOSEC PO SCH (09:14)
[2018-11-13] MEDS: DALIRESP PO SCH (09:15)
[2018-11-13] MEDS: ENTRESTO 49 MG-51 MG TABLET PO SCH (09:15)
[2018-11-13] MEDS: COREG PO SCH (09:15)
[2018-11-13] MEDS: ASPIRIN EC PO SCH (09:15)
--- NOTE | 2018-11-13 13:18 | Diag Imaging Result Doc PS360 ---
ABDOMEN FLAT/UPRIGHT - 11/13/2018 INDICATION: Abdominal pain/distention COMPARISON: 03/14/2013 FINDINGS: There is a nonobstructive bowel gas pattern. No free air or abdominal calcifications. IMPRESSION: No acute disease. Electronically signed by Richard Serrato 11/13/2018 1:16 PM
[2018-11-13 13:55] VITALS: BP 105/69
--- NOTE | 2018-11-14 14:24 | DISCHARGE SUMMARY ---
ADMISSION DATE: 11/08/2018 DISCHARGE DATE: 11/13/2018 DISCHARGE DIAGNOSES: 1. Congestive heart failure exacerbation, ejection fraction around 15 to 20 percent by echocardiogram on September 2018. 2. Diarrhea, better. 3. Pulmonary hypertension secondary to sleep apnea, obesity, chronic obstructive pulmonary disease. 4. Acute on chronic kidney disease. 5. Gastroesophageal reflux disease. 6. Diabetes. 7. Sleep apnea. 8. Chronic obstructive pulmonary disease, not in exacerbation. 9. Chronic hypoxemic respiratory failure. 10. Morbid obesity with a body mass index of 75.2. 11. Electrolyte imbalance. PROCEDURES PERFORMED: Chest x-ray dated 11/08/2018, impression: Stable marked cardiomegaly and suggestion of at least mild pulmonary venous congestion. Abdomen x-ray dated 11/10/2018, impression: There is a nonobstructive bowel gas pattern, no free air or abdominal calcifications. CONSULT: Cardiology Department, Dr. Tex Gong. HOSPITAL COURSE: 33-year-old male with a past medical history of congestive heart failure with an ejection fraction of 15 to 20 percent, COPD, sleep apnea, hypertension, chronic hypoxemic respiratory failure, presented to the emergency department and was admitted on 11/08/2018 with several days history of having progressive worsening shortness of breath. In the emergency department he was evaluated and he was found to be in heart failure and due to his persistent symptoms, he required admission for further management. The patient has been admitted multiple times throughout the course of this year for similar complaints and it looks like his ejection fraction has been dropping. At the time of the examination in the emergency department by the admitting doctor, the patient denied headache, fever, chills, chest pain, hemoptysis, he was only complaining of shortness of breath and cough. He was admitted to the medical floor with telemetry and he received some doses of Lasix IV. His creatinine increased so the Lasix has been held to protect the kidneys. Also he started having diarrhea during the course of his hospitalization at least more than 15 times of watery bowel movements he had to the point that he received some IV fluids, normal saline, due to intravascular fluid depletion. Also he was complaining of some abdominal discomfort and he was worried about some kind of a bowel obstruction but we did an x-ray that ruled it out. He was taking MiraLAX before coming to the hospital, which I have stopped and I will not continue. I will recommended though to continue with Metamucil, physical activity and home medications. Today, he is feeling a bit better. He will be discharged home and follow up with Dr. Miller, his message broker developer on 11/27/2018 at 9:15 a.m. During the course of his hospitalization he was evaluated by Cardiology Department. His BMI is really high at 75.2, and it looks like he is working with a bariatric surgery team. PHYSICAL EXAMINATION: Temperature 99.1 degrees, pulse 93, respiratory rate 18, blood pressure 105/69, oxygen saturation 99 on nasal cannula 5 L. HEENT: Head normocephalic, no trauma. PERRLA. Neck: Supple. No JVD. No masses. Central trachea. Chest: Decreased breath sounds globally with some crepitus at the bases. Abdomen: Soft, obese, protuberant, mild tenderness to palpation at the level of the right upper quadrant. Extremities: I do not see too much edema, but he is a bit edematous on the left lower extremity. No clubbing. No cyanosis. Neurological: Patient is awake. He is alert. He is following commands. LABORATORY: Sodium 134, potassium 4, chloride 99, bicarbonate 27, BUN 56, creatinine 2, glucose 88, calcium 9.3, magnesium 1.8. DISCHARGE MEDICATIONS: 1. Albuterol/ipratropium 1 dose p.o. t.i.d. 2. Albuterol sulfate 2 puff inhaler q.4 hours as needed. 3. Aspirin 81 mg p.o. daily. 4. Coreg 6.25 mg p.o. q.12 hours. 5. Dicyclomine 20 mg p.o. q.6 hours as needed. 6. Breo Ellipta 200/25 mcg inhaler 1 puff inhaler inhaled daily. 7. Furosemide 40 mg p.o. b.i.d. 8. Imodium 2 mg p.o. q.4 hours as needed for diarrhea. 9. Metoclopramide 10 mg p.o. b.i.d. 10. Nasonex 1 spray nasal daily. 11. Montelukast 5 mg p.o. daily. 12. Omeprazole 40 mg p.o. b.i.d. 13. Preparation H ointment 1 g on top twice a day. 14. Metamucil packet 1 dose p.o. daily. 15. Daliresp 1 tablet p.o. daily. 16. Entresto 49/51 mg tablet 1 tablet p.o. q.a.m. Time discharging this patient 35 minutes. cc: Velasquez Joe MD
== END 2018-11-13 16:27 | disposition home or self-care (01) | DRG 291 ==
LOC: ED 01:28 → SUATTDRO 01:29 → 3N 01:29
PROVIDERS: ATTEND Internal Medicine

== ENCOUNTER 2018-12-05 15:13 | Inpatient (IN) ==
--- NOTE | 2018-12-05 15:34 | ED EKG INTERP ---
This chart was entered by Lilliana Che Scribe, acting as scribe for Dickson Real MD. EKG Interpretation - EKG Time of EKG reading by physician:: 15:18 EKG Read and Signed by:: Dickson Real EKG Interpretation (*Must complete 3 of following elements*): Abnormal Rate: 106 Rhythm: Sinus tach with occasional/consecutive PVCs & fusion complexes Keller: left QRS: PVC's, other (possible L atrial enlargement; cannot rule out anterior infarct) OK Interval: normal ST Wave: normal Attestation - Physician/ KRISTAN Attestation Patient care was provided by Advanced Practice Provider:: No The physician spent face to face time with patient:: Yes Advanced Practice Provider documentation review:: Supervising physician onsite and consulted in the evaluation and care of this patient. The physician did have a face to face encounter with the patient. This chart was documented by the indicated scribe, (Lilliana Che Scribe) and accurately reflects the services I performed and decisions made by me, Dickson Real MD, as attested by the provider's signature.
--- NOTE | 2018-12-05 15:34 | PROVIDER DOCUMENTATION ---
HPI-Respiratory General - General Chief Complaint: Shortness of Breath Stated Complaint: SOB,CHF Time Seen by Provider: 12/05/18 15:24 Source: patient Allergies/Adverse Reactions: Patient Allergies Allergy/AdvReac Type Severity Reaction Status Date / Time No Known Allergies Allergy Verified 12/05/18 18:15 Home Medications: Home Medication List Medication Instructions Recorded Confirmed Last Taken Type Aspirin [Aspirin EC] 81 mg PO DAILY 01/22/13 12/05/18 1 Day Ago History ~12/04/18 Montelukast Chew [Singulair] 5 mg PO DAILY 03/10/18 12/05/18 12/04/18 History Roflumilast [Daliresp] 250 mcg PO DAILY 05/29/18 12/05/18 1 Day Ago History ~12/04/18 Carvedilol [Coreg] 6.25 mg PO Q12HR #60 tab 10/06/18 12/05/18 12/04/18 Rx Omeprazole [Prilosec] 40 mg PO BID #60 cap 10/06/18 12/05/18 1 Day Ago Rx ~12/04/18 Albuterol 2.5MG/Ipratrop 0.5MG 1 dose NEB PRN PRN 11/08/18 12/05/18 1 Day Ago History [Duoneb (A & A)] ~12/04/18 Sacubitril/Valsartan [Entresto 49 1 tab PO BID 11/08/18 12/05/18 1 Day Ago History mg-51 mg Tablet] ~12/04/18 Albuterol Sulfate [Proair Hfa] 1 puff INH PRN PRN 12/03/18 12/05/18 2 Days Ago History ~12/03/18 Dicyclomine [Bentyl] 20 mg PO QAM 12/05/18 12/05/18 1 Day Ago History ~12/04/18 Fluticasone/Vilanterol [Breo 1 ea INHALATION QAM 12/05/18 12/05/18 1 Day Ago History Ellipta 200-25 Mcg INH] ~12/04/18 Metoclopramide [Reglan] 10 mg PO BID 12/05/18 12/05/18 1 Day Ago History ~12/04/18 Metolazone 5 mg PO QAM 12/05/18 12/05/18 1 Day Ago History ~12/04/18 Torsemide 100 mg PO QAM 12/05/18 12/05/18 1 Day Ago History ~12/04/18 - History of Present Illness-Resp Nature of Presenting Problem: 33 yr old M, hx of obesity, HF, presents with complaints of worsening SOB, and lower extremity edema, left greater than right. The pt reports being diagnosed with gout a few weeks ago. He also reports being told he had an elevated Bun/Cr. He notes that shortly after that, he began to notice that he was having more retained fluid than normal. He was seen by his banker mason on Friday, and advised to discontinue his Lasix 40 mg BID, and go on Torsemide 100 mg with metazolone 5 mg instead. Despite that medication change, he has not had any improvement in his fluid status. He also notes that he has begun to smell ammonia when he coughs, and per his research, thinks his kidney function could be worsening because of that. He denies chest pain, only notes worsening SOB and lower extremity edema, left vs right - he reports that when he initially presented to the ED a few weeks ago and was diagnosed with gout, it was because his left ankle had begun to pain him. Review of Systems - Adult - REVIEW OF SYSTEMS - ADULT Constitutional: reports: no symptoms reported Eyes: reports: no symptoms reported Ears, Nose, Mouth & Throat: reports: no symptoms reported Cardiovascular: reports: no symptoms reported Respiratory: reports: cough, dyspnea on exertion, shortness of breath, wheezing Gastrointestinal: reports: no symptoms reported Genitourinary: reports: no symptoms reported Musculoskeletal: reports: no symptoms reported Integumentary: reports: skin thickening Neurological: reports: no symptoms reported Psychiatric: reports: no symptoms reported Past History - Adult - PAST MEDICAL HISTORY-ADULT Review of Records: reports: Old Records Reviewed, Nursing Assessment Review Major Childhood Illnesses: reports: denies history Cardiovascular: reports: CHF, HTN Respiratory: reports: asthma, COPD, pneumonia, sleep apnea Gastrointestinal: reports: GERD, ulcer Obstetrical/Gynecological: reports: denies history Genitourinary: reports: denies history Musculoskeletal: reports: denies history Neurological: reports: denies history Psychiatric: reports: denies history Endocrine/Immune: reports: Diabetes Other Conditions: reports: denies history - PRIOR SURGERIES/PROCEDURES Surgical/Procedure History: reports: EGD, colonoscopy, other (sinus ) - IMMUNIZATION STATUS Childhood Immunizations: See Nurse Assessment Flu Vaccine: See Nurse Assessment - FAMILY HISTORY Family History: reviewed, not pertinent Physical Exam-General - PHYSICAL EXAM-ADULT Initial Vital Signs Reviewed: Yes - CONSTITUTIONAL General Appearance: alert, no apparent distress - EYES Eyes: PERRL/EOMI - HEAD, EARS, NOSE, MOUTH & THROAT HENMT: normocephalic/atraumatic, moist mucous membranes - RESPIRATORY Respiratory: wheezing (mild wheezing in the upper lobes). negative: pain on inspiration - CARDIOVASCULAR Cardiovascular: tachycardia - GASTROINTESTINAL (ABDOMEN) Abdominal Exam: normal bowel sounds - MUSCULOSKELETAL Extremity: pedal edema Progress - PLAN OF CARE/RESULTS Progress/Plan/Lab Results: Vital Signs - 8 hr 12/05/18 15:23 12/05/18 15:28 12/05/18 15:30 Temperature 98.2 F Pulse Rate 105 H 102 H 100 H Respiratory Rate 18 27 H 15 Blood Pressure 117/79 134/93 O2 Sat by Pulse Oximetry 86 L 92 L 94 L 12/05/18 15:33 12/05/18 15:45 12/05/18 16:30 Temperature Pulse Rate 98 H 105 H 97 H Respiratory Rate 17 17 20 Blood Pressure 129/79 O2 Sat by Pulse Oximetry 98 98 98 12/05/18 16:45 12/05/18 17:00 12/05/18 17:10 Temperature Pulse Rate 94 H 90 96 H Respiratory Rate 14 32 H 15 Blood Pressure 113/75 O2 Sat by Pulse Oximetry 98 97 98 12/05/18 17:15 12/05/18 17:30 Temperature Pulse Rate 99 H 80 Respiratory Rate 15 17 Blood Pressure O2 Sat by Pulse Oximetry 100 98 Laboratory Results - last 24 hr 12/05/18 12/05/18 12/05/18 15:58 15:58 15:58 WBC 8.23 RBC 5.33 Hgb 13.2 L Hct 42.4 MCV 79.5 L MCH 24.8 L MCHC 31.1 L RDW Std Deviation 18.0 H Plt Count 223 MPV 10.5 H Immature Gran % (Auto) 0.2 Neut % (Auto) 70.2 Lymph % (Auto) 18.5 L [place] % (Auto) 9.4 H Eos % (Auto) 1.6 Baso % (Auto) 0.1 Immature Gran # (Auto) 0.02 Neut # (Auto) 5.78 Lymph # (Auto) 1.52 [place] # (Auto) 0.77 H Eos # (Auto) 0.13 Baso # (Auto) 0.01 Sodium 136 Potassium 4.2 Chloride 95 L Carbon Dioxide 27 Anion Gap 14 BUN 54 H Creatinine 2.0 H Estimated GFR/1.73 m2 47 BUN/Creatinine Ratio 27 Glucose 104 Calculated Osmolality 287 Calcium 8.4 L Total Bilirubin 0.93 AST 15 ALT 15 Alkaline Phosphatase 104 [id number]-Klfyzigcxzu Pept 4588 H Total Protein 6.5 Albumin 4.0 Globulin 2.5 Albumin/Globulin Ratio 1.6 Orders Category Date Time Status Daily Weights 0500 Care 12/05/18 18:28 Active I&O [Intake and Output-Strict] ORDERED Care 12/05/18 18:28 Active CHEST-2 VIEWS [RAD] Stat Exams 12/05/18 15:32 Completed BMP [BASIC METABOLIC PANEL] [CHEM] Lab 12/06/18 06:00 Uncollected BMP [BASIC METABOLIC PANEL] [CHEM] Lab 12/07/18 06:00 Uncollected BMP [BASIC METABOLIC PANEL] [CHEM] Lab 12/08/18 06:00 Uncollected CBC WITH DIFF [HEME] Lab 12/07/18 06:00 Uncollected CBC WITH DIFF [HEME] Lab 12/09/18 06:00 Uncollected CBC WITH DIFF [HEME] Lab 12/11/18 06:00 Uncollected CBC WITH ELECTRONIC DIFF [HEME] Stat Lab 12/05/18 15:58 Completed COMPREHENSIVE METABOLIC PANEL [CHEM] Stat Lab 12/05/18 15:58 Completed MAGNESIUM [CHEM] Lab 12/06/18 06:00 Uncollected MAGNESIUM [CHEM] Lab 12/08/18 06:00 Uncollected MAGNESIUM [CHEM] Lab 12/10/18 06:00 Uncollected PRO B-NATRIURETIC PEPTIDE Routine Lab 12/08/18 06:00 Ordered PRO B-NATRIURETIC PEPTIDE Stat Lab 12/05/18 15:58 Completed Albuterol 2.5MG/Ipratrop 0.5MG [Duoneb (A & A)] Med 12/05/18 18:24 Active 3 ml INH Q6H PRN PRN Aspirin EC Med 12/06/18 09:00 Active 81 mg PO DAILY Carvedilol [Coreg] Med 12/05/18 21:00 Active 6.25 mg PO Q12HR Dicyclomine [Bentyl] Med 12/06/18 09:00 Active 20 mg PO QAM Fluticasone/Vilant 200/25 INH [Breo Ellipta 200/25 Mcg Med 12/06/18 09:00 Active INH] 1 puff INH QAM Furosemide [Lasix] Med 12/05/18 16:51 Discontinued 40 mg IV NOW ONE Furosemide [Lasix] Med 12/05/18 22:00 Active 60 mg IV Q6H Metoclopramide [Reglan] Med 12/05/18 18:24 Active 10 mg PO BID PRN PRN Metolazone [Zaroxolyn] Med 12/06/18 09:00 Pending 5 mg PO QAM Montelukast [Singulair] Med 12/06/18 09:00 Active 5 mg PO DAILY Omeprazole [Prilosec] Med 12/05/18 21:00 Active 40 mg PO BID Roflumilast [Daliresp] Med 12/06/18 09:00 Active 250 microgm PO DAILY Sacubitril/Valsartan [Entresto 49 mg-51 mg Tablet] Med 12/05/18 21:00 Active 1 each PO BID Aerosol Treatments Routine Oth 12/05/18 18:26 Active Aerosol Treatments Stat Oth 12/05/18 18:26 Active EKG [EKG] Stat Ther 12/05/18 16:22 Draft EKG [EKG] Stat Ther 12/05/18 18:29 Ordered SOB has only marginally improved; will speak to hospitalist. Pt made aware of findings and current plan. Result Diagrams: 12/05/18 15:58 12/05/18 15:58 - EKG 1 Time of EKG reading by physician:: 15:18 EKG Read and Signed by:: Dickson Real EKG Interpretation (*Must complete 3 of following elements*): Abnormal Rate: 106 Rhythm: sinus tachycardia with PBCs [place]: left DE Interval: normal - XRAY 1 XRAY Study: Chest Impression: See EMR Report XRAY Interpretation: cardiomegaly, no acute processes - CONSULTS/PCP/HOSPITALIST Notification #1 *Consult/PCP/Hospitalist*: Dr. Ramirez Time Discussed: 18:20 Consult Disposition: Admit Departure - Departure Date of Disposition Decision: 12/05/18 Time of Disposition Decision: 18:25 DIAGNOSIS: SOB (shortness of breath) Disposition: ADMITTED INPATIENT 09 Certified Medical Emergency: Emergent Condition: Fair Referrals and Follow-Ups: Aleks Machado MD [Primary Care Provider] - - Critical Care Note This patient required my direct & personal management of CC.: No Attestation - Physician/ KRISTAN Attestation Patient care was provided by Advanced Practice Provider:: No The physician spent face to face time with patient:: Yes Advanced Practice Provider documentation review:: Supervising physician onsite and consulted in the evaluation and care of this patient. The physician did have a face to face encounter with the patient.
[2018-12-05 16:14] LABS: BASO# 0.01 X1000 (0.0-0.2); BASO% 0.1 % (0.0-0.8); EOS# 0.13 X1000 (0.0-0.7); EOS% 1.6 % (0.0-10.0); HEMATOCRIT 42.4 % (42.0-52.0); HEMOGLOBIN 13.2 g/dL (14.0-18.0); IMM GRAN# 0.02 X1000 (0.0-0.04); IMM GRAN% 0.2 % (0.0-0.5); LYMPH# 1.52 X1000 (1.2-3.4); LYMPH% 18.5 % (20.5-51.1); MCH 24.8 PG (27-31); MCHC 31.1 g/dL (33-37); MCV 79.5 FL (81-99); MONO# 0.77 X1000 (0.11-0.59); MONO% 9.4 % (1.7-9.3); MPV 10.5 FL (7.4-10.4); NEUT# 5.78 X1000 (1.4-6.5); NEUT% 70.2 % (42.2-75.2); PLT 223 X1000 (130-400); RBC 5.33 XMIL (4.7-6.1); WBC 8.23 X1000 (4.8-10.8)
--- NOTE | 2018-12-05 16:42 | Diag Imaging Result Doc PS360 ---
EXAM: CHEST-2 VIEWS 12/05/2018 HISTORY: SOB TECHNIQUE: AP and lateral chest COMMENT: There is cardiomegaly. The appearance the chest has not changed significantly since 11/08/2018. IMPRESSION: Cardiomegaly. Electronically signed by Rob Mccain 12/05/2018 4:39 PM
[2018-12-05 16:45] LABS: ALB/GLOB RATIO 1.6; CALCIUM 8.4 mg/dL (8.8-10.2); POTASSIUM 4.2 mmol/L (3.5-5.1); TOTAL BILIRUBIN 0.93 mg/dL (0.20-1.00); TOTAL PROTEIN 6.5 g/dL (6.3-8.3)
[2018-12-05] MEDS ORDERED: LASIX IV ONE (16:51)
--- NOTE | 2018-12-05 17:28 | EKG Report ---
Test Performed on : 12/05/2018 3:18:16 PM Test Reason : SOB Blood Pressure : / mmHG Vent. Rate : 106 BPM Atrial Rate : 106 BPM P-R Int : 134 ms QRS Dur : 092 ms QT Int : 326 ms P-R-T Axes : 059 -48 043 degrees QTc Int : 433 ms Sinus tachycardia. with occasional and consecutive premature ventricular complexes. and fusion comple xes Possible Left atrial enlargement Left axis deviation Cannot rule out Anterior infarct (cited on or before 01-OCT-2018) Abnormal ECG When compared with ECG of 08-NOV-2018 01:44, (Unconfirmed) premature ventricular complexes. are now present Nonspecific T wave abnormality, improved in Lateral leads Unconfirmed Result
[2018-12-05] MEDS ORDERED: REGLAN PO PRN (18:24)
--- NOTE | 2018-12-05 20:12 | HISTORY AND PHYSICAL ---
CHIEF COMPLAINT: Generalized body edema, shortness of breath, worsening fatigue and ammonia odor in sputum . HISTORY OF PRESENT ILLNESS: Mr. Lopez is 33-year-old man with history of morbid obesity with BMI of 70, nonischemic cardiomyopathy and chronic systolic congestive heart failure with ejection fraction of 20% in 2015, obstructive sleep apnea and pulmonary hypertension among other who comes in with chief complaint of worsening generalized anasarca, worsening fatigue, increasing weight, not being able to make enough urine. Patient has history of chronic heart failure and he has been in the hospital multiple times in year 2019 latest in November 2018 for heart failure exacerbation symptoms. He was recently discharged on 11/13/2018 when he was admitted for heart failure exacerbation on oral Lasix however he had noticed worsening shortness of breath and worsening edema so he had contacted his community director Dr. Miller and his Lasix 40 mg b.i.d. was changed to torsemide 100 mg daily and metolazone 5 mg daily about 2 days prior to current presentation which did not help so he decided come to the emergency room. In emergency room he was found to have significantly elevated proBNP which is double than his previous proBNP and he is in mild shortness of breath so hospitalist team was consulted further management. The patient states that he has been compliant with his diet though he ate some biscuit and potato chips in the morning time and had a little bit of water. He denies any chest pain. He is complaining of shortness of breath. He denies any fever but he on and off making sputum which has ammonia taste to it. He is wondering if his chronic kidney disease contributing to it. He denies known history of heart attack. He states he is working hard on weight reduction and has an appointment scheduled with Dr. Rolle 5 days from now for EGD in preparation for weight reduction surgery in February . REVIEW OF SYSTEMS: Positive for mild shortness of breath, positive for generalized anasarca, positive for left foot pain, positive for poor appetite, positive for fatigue and negative for chest pain, negative for nausea, vomiting, negative for abdominal pain, negative for diarrhea or constipation or urinary symptoms . PAST MEDICAL HISTORY: 1. Nonischemic cardiomyopathy and chronic systolic congestive heart failure with ejection fraction of 20% in September 2018 . 2. Pulmonary hypertension with pulmonary artery systolic pressure of 50 mmHg. 3. Chronic GERD. 4. Obstructive sleep apnea . 5. Chronic hypoxic respiratory failure on home oxygen and home Trilogy machine. 6. Morbid obesity. PAST SURGICAL HISTORY: None . MEDICATION ALLERGY: No known allergy. FAMILY HISTORY: Positive for congestive heart failure in father and uncles. PAST SURGICAL HISTORY: Sinus surgery . SOCIAL HISTORY: No smoking, no drinking alcohol, no illicit drug use. He lives with his mother. HOME MEDICATION LIST: He is listed to be taking aspirin 81 mg daily, dicyclomine 20 mg in the morning time, Breo Ellipta 225 mcg 1 inhalation in the morning time, Roflumilast 250 mcg daily, albuterol ipratropium 3 mL nebulization as needed for shortness of breath, Entresto 49/51 one tab b.i.d., metolazone 5 mg in the morning time, albuterol sulfate 1 puff inhaled as needed shortness of breath, metoclopramide 10 mg b.i.d., montelukast 5 mg daily, torsemide 100 mg in the morning time, carvedilol 6.25 mg every 12 hours, omeprazole 40 mg b.i.d. VITALS: Temperature of 98.2 degrees, pulse 93, respiratory rate 14, blood pressure 110/75 saturating 98% 2 L nasal cannula. PHYSICAL EXAMINATION: Morbidly obese in mild distress because of shortness of breath. Oral cavity is moist. Air entry bilateral equal. No wheeze or rhonchi. Inspiratory crackles bilateral infrascapular region. S1, S2 normal, no S3 gallop is present, no murmur, rub . ABDOMEN: Obese, distended, soft, nontender. Bilateral lower extremity edema. He has generalized anasarca and morbid obesity. He is alert and oriented x3. LABS: Suggestive of normocytic anemia, normal platelet count, kidney dysfunction which now appears to be progressing from chronic kidney disease stage 2 to chronic kidney disease stage 3A, microbiology no data. IMAGING: Chest x-ray performed had cardiomegaly. ASSESSMENT AND PLAN: 1. Acute exacerbation of chronic systolic congestive heart failure likely due to dietary noncompliance, morbid obesity, progression of congestive heart failure and inadequate diuretic dosing with history of nonischemic dilated cardiomyopathy and ejection fraction of 20%. 2. Postnasal drip with ammonical odor to it without any fever or leukocytosis symptoms. 3. Morbid obesity, awaiting outpatient EGD next week and possibly bariatric surgery in February 2019. 4. Obstructive sleep apnea and chronic hypoxic respiratory failure on home oxygen and home Trilogy machine. 5. Chronic gastroesophageal reflux disease . PLAN: I will resume patient's home medication including carvedilol, aspirin, Entresto and the metolazone and I will start him on Lasix 60 mg IV every 6 hours. I extensively counseled him about importance of weight reduction, connection of kidney disease and heart disease, need for dietary and medication compliance. I will also keep him on nighttime BiPAP for his obstructive sleep apnea, in future will consult Cardiology team. I will admit patient in telemetry unit in medical floor. Plan of care discussed with him, all of his questions have been answered. I will keep strict input and output and follow up with repeat electrolytes and proBNP in future. cc: Rodo Ramirez MD MTDD
[2018-12-05] MEDS: ENTRESTO 49 MG-51 MG TABLET PO SCH (21:42)
[2018-12-05] MEDS: LASIX IV SCH (21:42)
[2018-12-05] MEDS: PRILOSEC PO SCH (21:42)
[2018-12-05] MEDS: COREG PO SCH (21:42)
[2018-12-05] MEDS: DUONEB (A & A) INH PRN (22:46)
[2018-12-06] MEDS: DUONEB (A & A) INH PRN ×2 (03:20→23:32)
[2018-12-06] MEDS: LASIX IV SCH ×4 (04:59→21:05)
[2018-12-06 07:21] LABS: CALCIUM 8.8 mg/dL (8.8-10.2); MAGNESIUM 1.4 mg/dL (1.5-2.7); POTASSIUM 3.9 mmol/L (3.5-5.1)
[2018-12-06] MEDS: DALIRESP PO SCH (08:25)
[2018-12-06] MEDS: ENTRESTO 49 MG-51 MG TABLET PO SCH ×2 (08:26→21:13)
[2018-12-06] MEDS: SINGULAIR PO SCH (08:26)
[2018-12-06] MEDS: BENTYL PO SCH (08:26)
[2018-12-06] MEDS: COREG PO SCH ×2 (08:26→21:14)
[2018-12-06] MEDS: ASPIRIN EC PO SCH (08:26)
[2018-12-06] MEDS: PRILOSEC PO SCH ×2 (08:26→21:18)
[2018-12-06] MEDS ORDERED: ZAROXOLYN PO SCH ×2 (09:00)
[2018-12-06] MEDS ORDERED: BENADRYL CREAM TOP PRN (09:26)
[2018-12-06] MEDS ORDERED: KLOR-CON PO ONE (09:30)
[2018-12-06] MEDS: BREO ELLIPTA 200/25 MCG INH INH SCH (11:01)
[2018-12-06] MEDS: MAGNESIUM SULFATE 2 GM/S.W.I. 2 GM/50 ML IVPB IV SCH ×2 (11:08→13:36)
--- NOTE | 2018-12-06 11:43 | PROGRESS NOTE ---
DATE: 12/06/2018 INTERVAL HISTORY: No acute events overnight. He has been started on intravenous Lasix. He has been wearing his BiPAP overnight. He was complaining of itching at the chest tube placement site for which Benadryl cream has been provided to him. His magnesium is low and he is getting intravenous magnesium. SUBJECTIVE: He is feeling fine. Denies any new complaints. He is sleeping at the moment. He still had complaints of feeling congested and having edema. VITALS: Temperature 97.5 degrees, pulse 79, respiratory rate 16, blood pressure 110/77, he is saturating 100% on BiPAP. His weight has not been measured today. Input and output suggests he had 1.5 L urine yesterday and today. LABS: No CBC today. BMP suggestive of what appears to be chronic kidney disease and hypomagnesemia which is currently being repleted. MICROBIOLOGY: No data. IMAGING: No new imaging. Cardiovascular, EKG yesterday had sinus tachycardia with occasional and consecutive premature ventricular complexes and fusion complexes, possible left atrial enlargement and left axis deviation. ASSESSMENT AND PLAN: 1. Nonischemic cardiomyopathy and chronic systolic congestive heart failure with acute exacerbation with ejection fraction of 20% in September 2018. His acute exacerbation is due to his morbid obesity, progression of his heart failure, as well as dietary indiscretion. Continue intravenous Lasix at 60 mg intravenous every 6 hours dose. Continue his home aspirin, Entresto, carvedilol, and metolazone. Continue close input and output monitoring, and daily weight. In the future, I may consider cardiology evaluation at the time of changing his intravenous to oral diuretics. 2. Pulmonary hypertension with pulmonary artery systolic pressure of 50 mmHg and obstructive sleep apnea. Continue nighttime BiPAP. I had extensively counseled him about weight reduction for his morbid obesity which could be a contributing factor. At home, he uses a Trilogy machine and he is in the process of outpatient evaluation for bariatric surgery in February 2019. 3. Others. Continue albuterol-ipratropium nebulization for asthma, metoclopramide for nausea and vomiting as needed, omeprazole for chronic gastroesophageal reflux disease, Roflumilast for asthma. 4. Disposition. I will continue to monitor patient inside the hospital for need for intravenous diuresis and in future, we will get followup proBNP. He has not been coughing to suggest any pneumonia at the moment. Sputum culture is not collected. Plan of care discussed with him. His questions have been answered. cc: Rodo Ramirez MD MTDD
[2018-12-07] MEDS: LASIX IV SCH ×2 (05:13→10:31)
[2018-12-07 07:19] LABS: BASO# 0.01 X1000 (0.0-0.2); BASO% 0.2 % (0.0-0.8); EOS# 0.15 X1000 (0.0-0.7); EOS% 2.3 % (0.0-10.0); HEMATOCRIT 40.3 % (42.0-52.0); HEMOGLOBIN 12.3 g/dL (14.0-18.0); LYMPH# 1.25 X1000 (1.2-3.4); LYMPH% 19.2 % (20.5-51.1); MCH 24.7 PG (27-31); MCHC 30.5 g/dL (33-37); MCV 80.9 FL (81-99); MONO# 0.62 X1000 (0.11-0.59); MONO% 9.5 % (1.7-9.3); MPV 10.8 FL (7.4-10.4); NEUT# 4.48 X1000 (1.4-6.5); NEUT% 68.8 % (42.2-75.2); PLT 160 X1000 (130-400); RBC 4.98 XMIL (4.7-6.1); RDW 17.7 % (11.5-14.5); WBC 6.51 X1000 (4.8-10.8)
[2018-12-07 07:34] LABS: CALCIUM 8.5 mg/dL (8.8-10.2); CREATININE 2.4 mg/dL (0.7-1.2); POTASSIUM 4.2 mmol/L (3.5-5.1)
[2018-12-07] MEDS: DUONEB (A & A) INH PRN ×3 (10:14→22:59)
[2018-12-07] MEDS: BREO ELLIPTA 200/25 MCG INH INH SCH (10:14)
[2018-12-07] MEDS: DALIRESP PO SCH (10:32)
[2018-12-07] MEDS: BENTYL PO SCH (10:33)
[2018-12-07] MEDS: ENTRESTO 49 MG-51 MG TABLET PO SCH (10:33)
[2018-12-07] MEDS: SINGULAIR PO SCH (10:33)
[2018-12-07] MEDS: COREG PO SCH ×2 (10:33→22:02)
[2018-12-07] MEDS: ASPIRIN EC PO SCH (10:33)
[2018-12-07] MEDS: PRILOSEC PO SCH ×2 (10:33→21:00)
--- NOTE | 2018-12-07 19:56 | PROGRESS NOTE ---
DATE: 12/07/2018 INTERVAL HISTORY: No acute events overnight. Unfortunately, he has not had much urine output considering his body weight and his kidney function started getting worse. We discussed about stopping his Lasix dose for tonight, stopping his antihypertensive medication dose and repeating kidney function tomorrow and probably consulting Cardiology team tomorrow. Currently vitals temperature 97.7 degrees, pulse 80, respiratory rate 18, blood pressure in 111/57. He does have episode of low blood pressure occasionally, but I assume that is related to inappropriate measurement. He is alert and oriented. Denies any new complaints. PHYSICAL EXAMINATION: General: Morbidly obese not in acute distress. Mouth: Oral cavity is moist. Lungs: Air entry bilaterally equal. No wheeze, rhonchi or crackles. Cardiovascular: S1, S2 normal. No murmur or gallop. Abdomen: Obese. Examination is significantly limited because of massive obesity. Extremities: He does appear to have bilateral lower extremity edema extending up to thigh level. However, obesity and fat deposition makes clinical examination difficult. He does complain of extreme swelling especially affecting left lower extremity. LABS: Suggestive of microcytic anemia normal platelet count, increasing BUN and increasing creatinine. His hypomagnesemia has resolved. No new microbiological data. No new imaging. EKG is pending. ASSESSMENT AND PLAN: 1. Nonischemic cardiomyopathy and chronic systolic congestive heart failure with acute exacerbation due to dietary indiscretion and probably inadequate Lasix dosing. His ejection fraction was 20% in September 2018. This exacerbation could also be due to his morbid obesity, progression of his heart failure. Continue home aspirin. I am holding his nighttime Entresto, carvedilol and diuretics. I will repeat his kidney function tomorrow. At home, he was supposed to take 100 mg of torsemide and 5 mg of metolazone, which I will resume tomorrow if his kidney function is stable. 2. Pulmonary hypertension with pulmonary artery systolic pressure of 50 mmHg and obstructive sleep apnea. Continue BiPAP whenever he is asleep. Extensively counseled him about weight reduction. At home he uses a Trilogy machine and he is in the process of outpatient evaluation for bariatric surgery in February 2019. 3. Others. Continue albuterol and ipratropium for asthma, metoclopramide as needed for nausea and vomiting. Omeprazole for chronic gastroesophageal reflux disease. Roflumilast for chronic shortness of breath. DISPOSITION: I will continue to monitor the patient inside the hospital for need for closer monitoring of his kidney function as well as his heart failure. I will also consult Cardiology team. If his kidney function worsens, he may need inotrope support. Plan of care discussed with him. His questions have been answered. cc: Rodo Ramirez MD
--- NOTE | 2018-12-07 20:20 | EKG Report ---
Test Performed on : 12/07/2018 6:52:32 PM Test Reason : Eval for heart rhuthm Blood Pressure : / mmHG Vent. Rate : 093 BPM Atrial Rate : 093 BPM P-R Int : 162 ms QRS Dur : 092 ms QT Int : 358 ms P-R-T Axes : 071 036 083 degrees QTc Int : 445 ms Normal sinus rhythm. Cannot rule out Anterior infarct (cited on or before 01-OCT-2018) Abnormal ECG When compared with ECG of 05-DEC-2018 15:18, (Unconfirmed) fusion complexes are no longer present premature ventricular complexes. are no longer present QRS axis shifted right Nonspecific T wave abnormality now evident in Inferior leads Nonspecific T wave abnormality, worse in Lateral leads Confirmed by César VELÁZQUEZ, Jb Magana ([id number]) on 12/08/2018 1:21:05 PM
[2018-12-08 04:41] LABS: ALLEN TEST YES; BE 2.9 mmoll (-3.0-3.0); BLOOD TYPE ARTERIAL; HCO3-(ACT) 27.2 mmoll (20.0-26.0); METHB 1.1 % (0.0-1.5); O2(CT) 17.2 mL/dL (15.0-23.0); O2HB 96.2 % (95.0-99.0); PO2(98.6) 113 mmHg (60-100); SAMPLE BLOOD; SAO2 99.1 % (95.0-100.0); THB 12.6 g/dL (11.5-17.4); pH(98.6) 7.32 (7.35-7.45)
[2018-12-08 04:43] LABS: MODALITY BI PAP
[2018-12-08 04:45] LABS: PCO2(98.6) 59 mmHg (35-45)
--- NOTE | 2018-12-08 07:07 | Diag Imaging Result Doc PS360 ---
EXAM: CHEST-PORTABLE 12/08/2018 HISTORY: pulmonary edema TECHNIQUE: AP portable at 0638 COMMENT: There is cardiomegaly. There is increased pulmonary vascularity. The possibility of mild pulmonary edema cannot be excluded. IMPRESSION: Cardiomegaly and pulmonary edema. Electronically signed by Rob Mccain 12/08/2018 7:04 AM
[2018-12-08 07:24] LABS: HEMATOCRIT 39.6 % (42.0-52.0); HEMOGLOBIN 12.1 g/dL (14.0-18.0); MCH 25.1 PG (27-31); MCHC 30.6 g/dL (33-37); RBC 4.83 XMIL (4.7-6.1); RDW 17.6 % (11.5-14.5); WBC 7.39 X1000 (4.8-10.8)
[2018-12-08 07:49] LABS: CALCIUM 8.2 mg/dL (8.8-10.2); CREATININE 2.3 mg/dL (0.7-1.2); POTASSIUM 4.4 mmol/L (3.5-5.1)
[2018-12-08] MEDS: DUONEB (A & A) INH PRN ×2 (09:21→21:30)
[2018-12-08] MEDS: BREO ELLIPTA 200/25 MCG INH INH SCH (09:21)
[2018-12-08] MEDS: ASPIRIN EC PO SCH (10:08)
[2018-12-08] MEDS: BENTYL PO SCH (10:08)
[2018-12-08] MEDS: PRILOSEC PO SCH ×2 (10:08→20:44)
[2018-12-08] MEDS: SINGULAIR PO SCH (10:09)
[2018-12-08] MEDS: DALIRESP PO SCH (10:10)
[2018-12-08] MEDS: COREG PO SCH (10:17)
[2018-12-08] MEDS: ZAROXOLYN PO SCH (10:18)
[2018-12-08] MEDS: DEMADEX PO SCH (10:18)
[2018-12-08] MEDS: NORCO-5 PO PRN (13:02)
--- NOTE | 2018-12-08 20:39 | PROGRESS NOTE ---
DATE: 12/08/2018 SUBJECTIVE: The patient complains of shortness of breath. He states that his legs do not feel as swollen as they did upon admission. OBJECTIVE: Vital signs: Temperature 98.5 degrees, blood pressure 131/59, heart rate 78, respirations 25, O2 saturation is 99% on 5 L nasal cannula. Urine output 1.2 L.General: This is a morbidly obese male lying in bed in no acute distress. Head normocephalic, atraumatic. Heart: S1, S2 normal. Regular rate rhythm. Lungs: Diminished breath sounds bilaterally. No wheezing. No rales. Abdomen: Positive bowel sounds. Soft, obese. Extremities: Edema 2+ in the lower extremities. Neurologic: The patient is alert and oriented x4. LABORATORY DATA: White blood cell count 7.3, hemoglobin 12, hematocrit 39, platelets 167,000. ABG pH of 7.32, pCO2 is 59, pO2 is 113. Sodium 134, potassium 4.4, chloride 94, CO2 is 28, BUN 63, creatinine 2.3, glucose 111, calcium 8.2. DIAGNOSTIC DATA: Chest x-ray shows pulmonary edema and cardiomegaly. ASSESSMENT AND PLAN: 1. Acute on chronic systolic congestive heart failure exacerbation. The patient is on diuretic therapy. Cardiology has been consulted for further treatment recommendations. We will monitor the patient's volume status closely. 2. Nonischemic cardiomyopathy. Aware. 3. Acute kidney injury on chronic kidney disease. This is likely secondary to diuretic therapy. We will monitor the patient's renal function and urine output closely. We will avoid nephrotoxic agents. 4. Morbid obesity. The patient reports that he is followed by Dr. Obrien and he is undergoing the evaluation for possible bariatric surgery. 5. Pulmonary hypertension. Aware. 6. Obstructive sleep apnea. Continue with bilevel positive airway pressure. Uses trilogy at home. 7. Deep vein thrombosis prophylaxis. We will start the patient on heparin. cc: Maryjane Krause MD [facility]
[2018-12-08] MEDS: HEPARIN SUBQ SCH (20:43)
[2018-12-09] MEDS: COREG PO SCH ×3 (04:49→21:16)
[2018-12-09] MEDS: HEPARIN SUBQ SCH ×3 (05:01→21:16)
[2018-12-09 06:25] LABS: HEMATOCRIT 39.4 % (42.0-52.0); MCH 25.1 PG (27-31); MCHC 30.5 g/dL (33-37); MCV 82.3 FL (81-99); MPV 10.8 FL (7.4-10.4); RBC 4.79 XMIL (4.7-6.1); RDW 17.6 % (11.5-14.5); WBC 5.57 X1000 (4.8-10.8)
[2018-12-09 07:15] LABS: CALCIUM 8.8 mg/dL (8.8-10.2); CREATININE 2.1 mg/dL (0.7-1.2); POTASSIUM 4.3 mmol/L (3.5-5.1)
[2018-12-09] MEDS: NORCO-5 PO PRN ×3 (07:26→23:40)
[2018-12-09] MEDS: BREO ELLIPTA 200/25 MCG INH INH SCH ×2 (07:50→08:56)
[2018-12-09] MEDS: PRILOSEC PO SCH ×2 (08:54→21:16)
[2018-12-09] MEDS: DALIRESP PO SCH (08:54)
[2018-12-09] MEDS: BENTYL PO SCH (08:54)
[2018-12-09] MEDS: ZAROXOLYN PO SCH (08:54)
[2018-12-09] MEDS: DEMADEX PO SCH (08:54)
[2018-12-09] MEDS: ASPIRIN EC PO SCH (08:55)
[2018-12-09] MEDS: SINGULAIR PO SCH (08:55)
[2018-12-09 14:03] LABS: UR CREAT RANDOM 54.6 mg/dL (14-26); UR PROT RANDOM 90.4 mg/dL
[2018-12-09] MEDS ORDERED: MILRINONE IV ONE (15:04)
[2018-12-09] MEDS: PRIMACOR 20 MG/D5W 100 ML 20 MG/100 ML IVPB IV SCH ×3 (15:46→23:43)
[2018-12-09] MEDS: LASIX IV SCH (17:19)
[2018-12-09] MEDS: DUONEB (A & A) INH PRN (21:27)
--- NOTE | 2018-12-09 21:55 | NEPHROLOGY CONSULTATION ---
DATE: 12/09/2018 REASON FOR ADMISSION: Generalized body edema/anasarca, shortness of breath, worsening fatigue. REASON FOR CONSULT: Acute kidney injury on CKD. CONSULTING PHYSICIAN: Dr. Maryjane Krause. HISTORY OF PRESENT ILLNESS: Mr. Jorgito Lopez is a 33-year-old white male who has a history of morbid obesity with a BMI greater than 70. He has known nonischemic cardiomyopathy with chronic systolic congestive heart failure, with an ejection fraction of 20% noted in 2014. He had a repeat echocardiogram on 10/01/2018 that continued to show an ejection fraction of 15 to 20 percent with mild tricuspid regurgitation, mild mitral regurgitation, and a low pulmonary artery systolic pressure. The patient states that he uses Trilogy at home for sleep apnea, pulmonary hypertension, among other complications, known chronic kidney disease. Baseline creatinine 1.1 to 1.3 earlier in 2019. The patient stated that he had worsening swelling, increased fatigue, increased work of breathing, felt like his urine output had decreased. His last hospitalization was November 2018 with heart failure with exacerbation. He was discharged on 11/13/2018. He was placed on oral Lasix. He felt that this had not improved after discharge. His jacquard loom carpet weaver is Dr. Miller, with whom he follows on a routine basis. The patient is normally on Lasix 40 mg b.i.d., which had been changed to torsemide 100 mg daily and metolazone 5 mg daily. The patient felt that this did not help. He does deny chest pain. Positive for increased work of breathing. Unable to get up and walk about without any shortness of breath with exertion. He denies nausea, vomiting, no diarrhea. Complains that his sputum smells like ammonia. The patient states that he is working on weight reduction. Had an appointment with Dr. Rolle in 5 days for EGD in preparation for bariatric surgery with Dr. Obrien in February. The patient had an admission creatinine of 2. It had elevated to 2.4 and 2.3 on consecutive days prior to consult, secondary to IV Lasix infusion. This has currently been held, now down to 2.1. The patient currently continues on torsemide 100 mg daily with metolazone 5 mg daily. IV Lasix has been held. The patient has been on Entresto from home. This is also currently held. Poor appetite. No nausea, vomiting, or diarrhea. PAST MEDICAL HISTORY: 1. Chronic kidney disease, stage 3A. Baseline creatinine 1.1 to 1.3 earlier in 2019. 2. Pulmonary hypertension, with pulmonary artery systolic pressure of 50 on his last echocardiogram. 3. Nonischemic cardiomyopathy, with chronic systolic congestive heart failure. Ejection fraction noted at 20% on 09/11/2018. 4. GERD. 5. Sleep apnea, currently using Trilogy. 6. Chronic hypoxic respiratory failure, on home oxygen. 7. Morbid obesity. PAST SURGICAL HISTORY: Sinus surgery. FAMILY HISTORY: Positive for heart failure, father and uncles. ALLERGIES: Listed as no known drug allergies. HOME MEDICATIONS: 1. Enteric-coated low dose aspirin. 2. Singulair. 3. Daliresp. 4. Prilosec. 5. Coreg. 6. DuoNeb. 7. Entresto. 8. ProAir. 9. Bentyl. 10. Breo Ellipta. 11. Reglan. 12. Torsemide. 13. Metolazone. SOCIAL HISTORY: He lives with his mother. Denies tobacco, alcohol or illicit drug use. REVIEW OF SYSTEMS: Times 10 with pertinent positives listed above in the HPI. MOST RECENT VITAL SIGNS: Temperature 98.1 degrees, blood pressure 104/63, heart rate 88, respirations He has had 250 in; he has had 3800 out to void. He is currently on 4 L nasal cannula. Otherwise, when he is resting, he is on 40% BiPAP.. LABS: Sodium 138, potassium 4.3, chloride 97, CO2 29, BUN 57, creatinine 2.1, glucose 90. His anion gap is 12. His calcium is 8.8. White count 5.57, hemoglobin 12, hematocrit 39.4, with a platelet count of 153,000. PHYSICAL EXAMINATION: General: This is a 33-year-old, morbidly obese male. He is currently resting in bed. He is on his side. Skin: Warm and dry. HEENT: Normocephalic, atraumatic. Conjunctiva is pale pink. Mucous membranes are dry. Neck: Supple. Trachea midline. Unable to determine JVD due to body habitus. Cardiovascular: Regular rate and rhythm. Unable to determine further heart sounds. S1, S2 noted. Diminished secondary to body habitus. Lungs: Clear anteriorly. Unable to determine any further lung sounds secondary to body habitus. Remains on O2 support. Abdomen: Large, obese, distended. Hypoactive bowel sounds. Genitourinary: Not inspected. Patient states he has been voiding. Extremities: The patient has 1+ edema to his ankles. Otherwise, just generalized edema up into the hip region, nonpitting. Neurological: Alert and oriented x3. ASSESSMENT: 1. Acute kidney injury on chronic kidney disease, stage 3. Baseline creatinine 1.1 to 1.3. In this context, it looks like patient may be hypovolemic secondary to intravenous Lasix along with torsemide and metolazone. His intravenous Lasix has currently been held. His Demadex has been decreased to 100 mg daily, followed by metolazone 5 mg. Adequate urine output is documented. Urine electrolytes are currently pending. We will evaluate to see if we can even do a renal ultrasound secondary to body mass. No indications for any acute intervention. 2. Electrolytes and acid-base balance. These are acceptable. 3. Anemia. This is in target. 4. Obstructive sleep apnea with chronic hypoxic respiratory failure. The patient does use home oxygen with a Trilogy machine. 5. Exacerbation of chronic systolic congestive heart failure. The patient has been on an outpatient regimen of a fluid restriction along with his diuretic therapy. Followed by Cardiology. Noted ejection fraction of 15 to 20 percent in September 2018. PLAN: Will continue to hold nephrotoxic medications. He is currently off his intravenous Lasix. He has had his Entresto held. He does continue with metolazone and Demadex. We are awaiting his urine electrolytes to determine if he needs a small light fluid bolus. He continues to use his BiPAP throughout the day and night. I would like to thank you for allowing us to follow with this patient. Dictated by ERIK Brewer for Jonas Tavares MD Face to face encounter, data reviewed, discussed with Aryan Smith on 12/09/18. I agree with the above assessment and plan of care. cc: ERIK Brewer MD [facility]
--- NOTE | 2018-12-09 23:42 | PROGRESS NOTE ---
DATE: 12/09/2018 SUBJECTIVE: The patient is resting comfortably in bed. He has no complaints at this time. OBJECTIVE: Vital Signs: Temperature 98.4 degrees, blood pressure 124/85, heart rate 108, respirations 11. O2 saturation 93% on CPAP. Intake 250, output 3.8 L. General: This is a morbidly obese male lying in bed, in no acute distress. Heart: S1, S2 normal. Regular rate and rhythm. Lungs: Equal air entry bilaterally. Diminished breath sounds bilaterally. Abdomen: Positive bowel sounds. Soft, nontender, nondistended. Extremities: 1+ edema bilaterally with chronic venous stasis and elephantiasis. Neurologic: The patient is alert and oriented x4. LABS: White blood cell count 5.5, hemoglobin 12, hematocrit 39, platelets 153,000. Sodium 138, potassium 4.3, chloride 97, CO2 of 29, BUN 57, creatinine 2.1. Glucose 90. ASSESSMENT AND PLAN: 1. Acute on chronic systolic congestive heart failure exacerbation. The patient is on Milrinone. Further management as per the carpet measurer. 2. Nonischemic cardiomyopathy. Aware. 3. Acute kidney injury on chronic kidney disease. The patient's BUN and creatinine are above his usual baseline. Nephrology has been consulted for further assistance. 4. Morbid obesity. Aware. The patient is being followed by Dr. Obrien in [place] for possible bariatric surgery. 5. Pulmonary hypertension. Aware. 6. Obstructive sleep apnea. Continue with CPAP at bedtime. 7. Deep venous thrombosis prophylaxis. Continue on heparin. cc: Maryjane Krause MD [facility]
--- NOTE | 2018-12-10 01:04 | CONSULTATION ---
DATE OF CONSULTATION: 12/09/2018 IMPRESSION: 1. Acute on chronic systolic heart failure, predominantly right-sided. 2. Severe cardiomyopathy with severely reduced left ventricular systolic function. 3. Morbid obesity. 4. Obstructive sleep apnea. 5. Hypertension. 6. Diabetes mellitus type 2. RECOMMENDATIONS: 1. Diurese with IV Lasix. 2. Add milrinone for inotropic support. 3. Continue to monitor renal function. He appears to have cardiorenal syndrome at present. HISTORY: This 33-year-old, massively obese, male with past history of chronic systolic heart failure, severe cardiomyopathy, hypertension, type 2 diabetes mellitus, and poor compliance with dietary restrictions was admitted with increasing swelling as well as exertional shortness of breath. He has had multiple hospitalizations for exacerbations of congestive heart failure. He is admittedly not very compliant with dietary restrictions with respect to calories and sodium intake. He was hospitalized early November this year with exacerbation of congestive heart failure. He improved with diuresis. Last week he reported to the office that he was having tendency for increased swelling. Diuretic therapy was augmented with switch to torsemide 100 mg daily, in addition to metolazone 5 mg p.o. several times a week. He relates he did have diuretic effect, but his swelling seemed to be progressing and prompted him to come to the hospital, after which he was admitted. He denies any orthopnea. He admits he is not completely compliant with respect to his dietary restrictions. He repeatedly expresses preference not to pursue disability application. In the past, he was felt to be a poor candidate for implantable defibrillator due to his massive obesity. PAST MEDICAL HISTORY: 1. Systolic heart failure. 2. Severe cardiomyopathy with left ventricular ejection fraction of 15 to 20 percent. 3. Massive/morbid obesity. 4. Pulmonary hypertension. 5. Obstructive sleep apnea. 6. Hypertension. 7. Type 2 diabetes mellitus. 8. Gastroesophageal reflux disease. 9. Inconsistent compliance with dietary restrictions repeatedly in the past. ALLERGIES: He has no known drug allergies. MEDICATIONS PRIOR TO ADMISSION: As listed. SOCIAL HISTORY: He works for [employer] the [employer] in [place]. He does not smoke nor use alcohol. FAMILY HISTORY: Negative for premature coronary artery disease. REVIEW OF SYSTEMS: Pulmonary: Noteworthy for exertional dyspnea. Gastrointestinal: Noncontributory. Constitutional: Noncontributory. Remainder of review of systems negative/noncontributory beyond history of present illness with 14 total systems reviewed. PHYSICAL EXAMINATION: General: This is a morbidly obese, male in no distress. Vital signs: Blood pressure 104/63, heart rate 88, oxygen saturation 100%. HEENT: Extraocular movements appear intact. Mucous membranes are moist. Neck: Supple. Jugular venous distention cannot be appreciated due to obese neck. There are no carotid bruits. Chest: Clear to auscultation bilaterally. Cardiac: Reveals a regular rate and rhythm without appreciable murmur, rub, or gallop. Abdomen: Soft. Bowel sounds are normal. Extremities: Demonstrate moderate edema with chronic stasis changes. Neurologic: Reveals him to be alert and fully oriented. Speech is fluent. Moves all 4 extremities equally well. Skin: Warm and dry. Psychiatric: Reveals his mood to be appropriate. ELECTROCARDIOGRAM: A 12-lead EKG demonstrates normal sinus rhythm, delayed precordial R-wave progression, and low voltage QRS. LABORATORY DATA: Include white blood cell count of 5.57, hematocrit 39.4, hemoglobin 12.0, platelet count 153,000. Sodium 138, potassium 4.3, chloride 97, carbon dioxide 29, BUN 57, creatinine 2.1. Glucose 90. cc: Brandon Miller MD
[2018-12-10] MEDS: DUONEB (A & A) INH PRN ×2 (03:55→21:44)
[2018-12-10] MEDS: PRIMACOR 20 MG/D5W 100 ML 20 MG/100 ML IVPB IV SCH ×5 (04:19→23:00)
[2018-12-10] MEDS: LASIX IV SCH ×2 (04:20→15:53)
[2018-12-10] MEDS: HEPARIN SUBQ SCH ×3 (04:20→20:26)
[2018-12-10 07:19] LABS: HEMATOCRIT 39.4 % (42.0-52.0); HEMOGLOBIN 12.6 g/dL (14.0-18.0); MCH 26.4 PG (27-31); MCV 82.6 FL (81-99); MPV 11.6 FL (7.4-10.4); RBC 4.77 XMIL (4.7-6.1); RDW 17.2 % (11.5-14.5); WBC 7.05 X1000 (4.8-10.8)
[2018-12-10 07:40] LABS: ALBUMIN 3.4 g/dL (3.5-5.0); CALCIUM 9.4 mg/dL (8.8-10.2); CREATININE 1.9 mg/dL (0.7-1.2); PHOSPHORUS 2.7 mg/dL (2.7-4.5)
[2018-12-10] MEDS: BENTYL PO SCH (08:59)
[2018-12-10] MEDS: DALIRESP PO SCH (08:59)
[2018-12-10] MEDS: PRILOSEC PO SCH ×2 (08:59→20:26)
[2018-12-10] MEDS: ASPIRIN EC PO SCH (09:00)
[2018-12-10] MEDS: SINGULAIR PO SCH (09:00)
[2018-12-10] MEDS: ZAROXOLYN PO SCH (09:00)
[2018-12-10] MEDS: COREG PO SCH ×2 (09:18→20:25)
[2018-12-10] MEDS: NORCO-7.5 PO PRN (10:26)
[2018-12-10] MEDS: BREO ELLIPTA 200/25 MCG INH INH SCH (11:01)
[2018-12-10 11:17] LABS: HEMOGLOBIN A1C 6.2 % (4.8-6.0)
--- NOTE | 2018-12-10 14:34 | Diag Imaging Result Doc PS360 ---
EXAM: US RENAL 2 (RETROPER) COMPLETE 12/09/2018 HISTORY: decreased renal function TECHNIQUE: Renal ultrasound COMMENT: The study is somewhat suboptimal due to the patient's body habitus. The urinary bladder is not distended. Both kidneys are somewhat enlarged but apparently normal in echogenicity. The right kidney measures 13.1 x 6.5 x 5.9 cm the left is 14.9 x 7.6 x 6.8 cm. There is a cyst measuring 1.7 cm in the upper central renal echocomplex of the left kidney. There is no evidence of hydronephrosis or solid masses and no definite stones are identified. IMPRESSION: No evidence of obstructive uropathy. Electronically signed by Rob Mccain 12/10/2018 2:31 PM
--- NOTE | 2018-12-10 14:37 | NEPHROLOGY PROGRESS NOTE ---
DATE: 12/10/2018 TIME SEEN: 0625. SUBJECTIVE: Mr. Lopez is resting quietly in bed. He is currently having his blood drawn for the a.m. OBJECTIVE: Vital Signs: Temperature 98.4 degrees, blood pressure 109/47, heart rate 101, respirations 20. He remains on his CPAP. His last recorded saturation is 95%. He has had 1082 in, 2800 out. LAB: Completed this morning: Sodium 141, potassium 4, chloride 97, CO2 33, BUN 52, creatinine is 1.9, glucose of 103, anion gap of 11, calcium 9.4, phosphorus 2.7, albumin 3.4. White count 7.05, hemoglobin 12.6, hematocrit 39.4 with a platelet count of 153,000. PHYSICAL EXAMINATION: General: This is a 33-year-old white male. He is resting quietly in bed. He appears chronically ill. He is in no acute distress. Continues with his BiPAP in place. HEENT: Normocephalic, atraumatic. Conjunctivae pink. Mucous membranes are dry. Neck: Supple. Trachea midline. Unable to determine JVD due to body habitus. Cardiovascular: Regular rate and rhythm. S1, S2 noted. Unable to detect any further heart sounds secondary to body habitus. Lungs: Clear anterior upper bronchovesicular area. Remains on BiPAP with O2 support. Unable to detect any lung sounds posterior. Abdomen: Large, obese, soft. Hypoactive bowel sounds. Genitourinary: Not inspected. Patient has been voiding. Extremities: Continues with 1+ lower extremity edema to the ankles up into the mid hip region. Neurological: Alert and oriented x3. ASSESSMENT AND PLAN: 1. Acute kidney injury on chronic kidney disease stage 3. Patient's baseline creatinine is 1.1 to 1.3. Continues to improve over the last 24 to 48 hours. He has had adequate urine output documented. He continues on Milrinone with his torsemide and metolazone. We will continue to monitor and follow. 2. Electrolytes and acid-base balance. These are acceptable. 3. Anemia. This is in target. 4. Obstructive sleep apnea with chronic hypoxic respiratory failure. Patient remains on CPAP. 5. Exacerbation of his chronic systolic congestive heart failure. Continues on Milrinone and continues on his diuretic therapy of torsemide and metolazone. This is followed by the primary care. 6. I would like to thank you for allowing us to follow with this patient. Dictated by ERIK Brewer for Jonas Tavares MD Face to face encounter, data reviewed, discussed with Aryan Smith on 12/10/18. I agree with the above assessment and plan of care. cc: ERIK Brewer MD [facility]
[2018-12-10] MEDS: ULTRAM PO PRN ×2 (15:51→23:00)
--- NOTE | 2018-12-10 18:31 | PROGRESS NOTE ---
DATE: 12/10/2018 SUBJECTIVE: Patient denies shortness of breath or chest discomfort on room air. He has some cough which is nonproductive. Fatigue symptoms seem to be gradually improving. OBJECTIVE: Vital Signs: Blood pressure 90/30, heart rate 97, oxygen saturation 94%. Neck: Jugular venous distention is difficult to appreciate. Chest: Clear to auscultation. Cardiac: Reveals a regular rate and rhythm without appreciable murmur or gallop. Extremities: Demonstrate moderate edema with chronic stasis changes. LABORATORY DATA: White blood cell count 7.05, hematocrit 39.4, hemoglobin 12.6, and platelet count 153,000. Sodium 141, potassium 4.2, chloride 97, carbon dioxide 33, BUN 52 creatinine 1.9, glucose 103, hemoglobin able A1c 6.2 and albumin 3.4. IMPRESSION: 1. Acute on chronic systolic heart failure predominantly right-sided. 2. Severe cardiomyopathy with severe reduced left ventricular systolic function. 3. Cardiorenal syndrome, likely etiology of acute renal dysfunction. 4. Morbid obesity. 5. Obstructive sleep apnea. 6. Hypertension. 7. Type 2 diabetes mellitus. 8. Inconsistent compliance with dietary restrictions. RECOMMENDATIONS: 1. Continue diuresis with IV Lasix. 2. Continue milrinone as inotrope. 3. Anticipate trying to diurese further over the next 72 hours with plans to possibly discharge on Friday as patient very much wishes to return to work by Friday. It is desired to afford him the most benefit from his hospital stay. Ultimately, he needs to establish follow-up in congestive heart failure clinic in [place], and this was discussed. cc: Brandon Miller MD
--- NOTE | 2018-12-10 21:02 | PROGRESS NOTE ---
DATE: 12/10/2018 SUBJECTIVE: The patient complains of a dry, hacking cough as well as generalized aches and pains. He denies having any chest pain. OBJECTIVE: Vital signs: Temperature 97.8 degrees, blood pressure 88/30, heart rate 97, respirations 28, O2 saturation 94% on 5 L nasal cannula. Intake 1 L, output 2.8 L.General: This is a morbidly obese male lying in bed, in no acute distress. Head normocephalic, atraumatic. Heart: S1, S2 normal. Tachycardic. Lungs: Equal air entry bilaterally. Diminished breath sounds at the bases. Abdomen: Positive bowel sounds. Soft, obese, nontender, nondistended. Extremities: Edema 1+ bilaterally with chronic lymphedema. Neurologic: The patient is alert and oriented x4. LABORATORY DATA: White blood cell count 7, hemoglobin 12, hematocrit 39, platelets 153,000. Sodium 141, potassium 4, chloride 97, CO2 is 33, BUN 52, creatinine 1.9, glucose 103. ASSESSMENT AND PLAN: 1. Acute on chronic systolic congestive heart failure exacerbation. The patient is on milrinone and diuretic therapy. Further management as per the sightseeing guide. 2. Nonischemic cardiomyopathy. Aware. 3. Acute kidney injury on chronic kidney disease. Slowly improving. Further management as per the vice president underwriting. 4. Morbid obesity. Aware. The patient is followed by Dr. Obrien as outpatient. 5. Obstructive sleep apnea. Continue with continuous positive airway pressure at bedtime. 6. Pulmonary hypertension. Aware. 7. Deep venous thrombosis prophylaxis. Continue on heparin. cc: Maryjane Krause MD [facility]
[2018-12-11] MEDS: PRIMACOR 20 MG/D5W 100 ML 20 MG/100 ML IVPB IV SCH ×5 (03:38→23:31)
[2018-12-11] MEDS: LASIX IV SCH (04:28)
[2018-12-11] MEDS: HEPARIN SUBQ SCH ×3 (04:28→20:46)
[2018-12-11] MEDS: NORCO-7.5 PO PRN ×2 (04:41→18:03)
[2018-12-11 06:28] LABS: HEMATOCRIT 37.6 % (42.0-52.0); HEMOGLOBIN 11.8 g/dL (14.0-18.0); MCH 25.7 PG (27-31); MCHC 31.4 g/dL (33-37); MCV 81.7 FL (81-99); MPV 10.6 FL (7.4-10.4); RBC 4.6 XMIL (4.7-6.1); RDW 17.1 % (11.5-14.5); WBC 7.82 X1000 (4.8-10.8)
[2018-12-11 07:26] LABS: AGAP 14; ALBUMIN 3.3 g/dL (3.5-5.0); BUN 46 mg/dL (8-22); CALCIUM 9.4 mg/dL (8.8-10.2); CHLORIDE 91 mmol/L (98-107); COSMO 286; CREATININE 1.4 mg/dL (0.7-1.2); ESTIMATED GFR > 60; GLUCOSE 106 mg/dL (70-104); PHOSPHORUS 2.9 mg/dL (2.7-4.5); POTASSIUM 4.1 mmol/L (3.5-5.1); SODIUM 137 mmol/L (136-145); TCO2 32 mmol/L (25-35)
[2018-12-11] MEDS: SINGULAIR PO SCH (08:42)
[2018-12-11] MEDS: COLACE PO SCH ×2 (08:42→20:46)
[2018-12-11] MEDS: MIRALAX PO SCH (08:42)
[2018-12-11] MEDS: ASPIRIN EC PO SCH (08:42)
[2018-12-11] MEDS: COREG PO SCH ×2 (08:43→20:46)
[2018-12-11] MEDS: BENTYL PO SCH (08:43)
[2018-12-11] MEDS: DALIRESP PO SCH (08:43)
[2018-12-11] MEDS: ZAROXOLYN PO SCH (08:43)
[2018-12-11] MEDS: PRILOSEC PO SCH ×2 (08:43→20:46)
--- NOTE | 2018-12-11 09:30 | Diag Imaging Result Doc PS360 ---
EXAM: FLAT/UPRIGHT ABD/1 VIEW CHEST HISTORY: constipation/cough TECHNIQUE: Flat and upright with chest, five views COMPARISON: Chest compared to 03/29/2018 FINDINGS: The heart remains massively enlarged. Mild vascular distention. No consolidation. No bowel obstruction although there is stool throughout the colon. No organomegaly. No abnormal abdominal calcifications. No foreign body. IMPRESSION: 1.Marked cardiomegaly 2.Moderate constipation Electronically signed by Jeremy Kim 12/11/2018 9:28 AM
[2018-12-11] MEDS ORDERED: PHENERGAN IV ONE (10:43)
[2018-12-11] MEDS ORDERED: SODIUM CHLORIDE 0.9% INJ ONE (10:43)
[2018-12-11] MEDS: BREO ELLIPTA 200/25 MCG INH INH SCH (11:46)
[2018-12-11] MEDS: SENOKOT PO SCH (13:31)
--- NOTE | 2018-12-11 15:10 | NEPHROLOGY PROGRESS NOTE ---
DATE: 12/11/2018 SUBJECTIVE: He had a significant diuresis over the last day. " I delivered my baby". OBJECTIVE: Vital Signs: Blood pressure 103/52, heart rate 103 respirations 17 afebrile intake 1.8 L. Output 7.8 L PHYSICAL EXAMINATION: No acute distress.Skin: Warm and dry. HEENT: Conjunctivae are pink.Heart: Regular. Abdomen: Soft. Bowel sounds are present. Minimal edema. IMPRESSION: 1. Acute kidney injury. 2. Cardiorenal syndrome. Progressive improvement with nice diuretic response. 3. BUN and creatinine are falling. 4. Continue current care for 1 more day. cc: Jonas Tavares MD [facility]
--- NOTE | 2018-12-11 18:36 | PROGRESS NOTE ---
DATE: 12/11/2018 SUBJECTIVE: Patient denies shortness of breath or chest discomfort. He was diuresed vigorously over the last 24 hours. OBJECTIVE: Blood pressure 88/35, heart rate 103, oxygen saturation 97% on BiPAP. Jugular venous distention cannot be appreciated.Chest: Clear to auscultation bilaterally. Cardiac Exam: Reveals a regular rate and rhythm without appreciable murmur or gallop. Extremities: Demonstrate mild edema. LABORATORY DATA: Includes a white blood cell count of 7.82, hematocrit 37.6, hemoglobin 11.8, platelet count 144,000. Sodium 137, potassium 4.1, chloride 91, carbon dioxide 32, BUN 46, creatinine 1.4. Glucose 106, albumin 3.3. IMPRESSION: 1. Acute on chronic systolic heart failure predominantly right-sided. 2. Severe cardiomyopathy with severely reduced left ventricular systolic function. 3. Cardiorenal syndrome. Renal function improving with diuresis. 4. Morbid obesity. 5. Obstructive sleep apnea. 6. Hypertension. 7. Type 2 diabetes mellitus. 8. Inconsistent compliance with dietary restrictions. RECOMMENDATIONS: 1. Stop metolazone at this point. 2. Reduce IV Lasix to once daily, anticipating diuretic effect of metolazone will continue through tomorrow. 3. Continue intravenous milrinone for ionotropic support. 4. Hopefully, the patient can be discharged in 48 hours on Friday to have close followup as an outpatient. He also needs to establish followup in congestive heart failure clinic in [place]. Dietary restrictions discussed. cc: Brandon Miller MD
--- NOTE | 2018-12-11 19:25 | PROGRESS NOTE ---
DATE: 12/11/2018 SUBJECTIVE: The patient is resting comfortably in bed. He has no complaints at this time. He is currently on a Primacor drip. OBJECTIVE: Vital Signs: Temperature 98.3 degrees, blood pressure 88/35, heart rate 103, respirations 29, O2 saturation is 97% on BiPAP. General: This is a young male lying in bed in no acute distress. Heart: S1, S2 normal. Tachycardic. Lungs: Diminished breath sounds bilaterally. No crackles. No rales. Abdomen: Positive bowel sounds. Soft, obese, nontender, nondistended. Extremities: Trace edema with chronic lymphedema present. Neurologic: The patient is alert and oriented x4. LABORATORY DATA: White blood cell count 7.8, hemoglobin 11, hematocrit 37, platelets 144,000. Sodium 137, potassium 4.1, chloride 91, CO2 is 32, BUN 46, creatinine 1.4, glucose 106. DIAGNOSTIC DATA: Abdominal x-ray shows moderate constipation and marked cardiomegaly. ASSESSMENT AND PLAN: 1. Fjcpy-no-varyahp systolic congestive heart failure exacerbation. The patient remains on milrinone and diuretic therapy. The patient is diuresing well with the current medication regimen. Further management as per the document management analyst. 2. Nonischemic cardiomyopathy. Aware. 3. Acute kidney injury on chronic kidney disease. Slowly improving. 4. Morbid obesity. Aware. 5. Pulmonary hypertension. Aware. 6. Obstructive sleep apnea. Continue with continuous positive airway pressure at bedtime. 7. Deep vein thrombosis prophylaxis. Continue on heparin. 8. Constipation. We will start the patient on scheduled laxative therapy. cc: Maryjane Krause MD
[2018-12-11] MEDS: ULTRAM PO PRN (20:46)
[2018-12-11] MEDS: DUONEB (A & A) INH PRN (22:02)
[2018-12-12] MEDS: PRIMACOR 20 MG/D5W 100 ML 20 MG/100 ML IVPB IV SCH ×8 (02:30→21:31)
[2018-12-12] MEDS: HEPARIN SUBQ SCH ×3 (06:04→20:05)
[2018-12-12 06:34] LABS: HEMATOCRIT 38.2 % (42.0-52.0); HEMOGLOBIN 11.5 g/dL (14.0-18.0); MCH 24.6 PG (27-31); MCHC 30.1 g/dL (33-37); MCV 81.6 FL (81-99); MPV 10.3 FL (7.4-10.4); RBC 4.68 XMIL (4.7-6.1); RDW 16.7 % (11.5-14.5); WBC 7.44 X1000 (4.8-10.8)
[2018-12-12 07:01] LABS: AGAP 11; ALBUMIN 3.2 g/dL (3.5-5.0); BUN 39 mg/dL (8-22); CALCIUM 9.5 mg/dL (8.8-10.2); CHLORIDE 91 mmol/L (98-107); COSMO 282; CREATININE 1.4 mg/dL (0.7-1.2); ESTIMATED GFR > 60; GLUCOSE 105 mg/dL (70-104); PHOSPHORUS 2.8 mg/dL (2.7-4.5); POTASSIUM 4.2 mmol/L (3.5-5.1); SODIUM 136 mmol/L (136-145); TCO2 34 mmol/L (25-35)
[2018-12-12] MEDS: SINGULAIR PO SCH (08:10)
[2018-12-12] MEDS: NORCO-7.5 PO PRN ×2 (08:11→21:34)
[2018-12-12] MEDS: COLACE PO SCH ×2 (08:12→20:04)
[2018-12-12] MEDS: DALIRESP PO SCH (08:12)
[2018-12-12] MEDS: SENOKOT PO SCH (08:12)
[2018-12-12] MEDS: ASPIRIN EC PO SCH (08:12)
[2018-12-12] MEDS: COREG PO SCH ×2 (08:12→20:05)
[2018-12-12] MEDS: BENTYL PO SCH (08:12)
[2018-12-12] MEDS: PRILOSEC PO SCH ×2 (08:13→20:04)
[2018-12-12] MEDS: LASIX IV SCH (08:13)
[2018-12-12] MEDS: MIRALAX PO SCH (08:17)
[2018-12-12] MEDS: DUONEB (A & A) INH PRN ×2 (09:25→21:22)
[2018-12-12] MEDS: BREO ELLIPTA 200/25 MCG INH INH SCH (09:26)
--- NOTE | 2018-12-12 14:32 | CARDIOLOGY PROGRESS NOTE ---
DATE: 12/12/2018 CHIEF COMPLAINT: Shortness of breath, swelling. SUBJECTIVE: Mr. Lopez is doing better today. He feels that he is breathing more comfortably. He also feels like his legs are smaller. He is not having any pain. He is wishing to be discharged tomorrow morning. OBJECTIVE: Vital signs: Blood pressure is 101/63, pulse 107, respirations 21, temperature 98 degrees. Last weight on the chart from today is 449 pounds. He is still on IV milrinone. He is awake, alert, in no distress, obese. Chest: Symmetrical breath sounds. No rales noted. Heart: He has a gallop rhythm with a summation gallop pattern. Abdomen is markedly obese. Extremities showed some diffuse edema. It is difficult to separate out what is fat than from swelling. Neurologic: He is awake, alert, oriented, follows commands, moves all 4 extremities. DIAGNOSTIC DATA: Sodium is 136, potassium 4.2, BUN is 39. BUN has come down from 63 to 39. Creatinine also has stabilized at 1.4. Albumin is 3.2. IMPRESSION: 1. The patient is with advanced congestive heart failure, [place] Heart Association class 3 to 4. 2. He is stage D of heart failure. 3. Idiopathic dilated cardiomyopathy. 4. Morbid obesity. 5. Obstructive sleep apnea. 6. Type 2 diabetes mellitus. 7. Renal dysfunction in connection with advanced heart failure, that would be cardiorenal syndrome. RECOMMENDATIONS: At this time, we will continue present course of action. Per discussion with Dr. Miller, the patient may be okay to go home tomorrow and follow strict regimen. He will follow up with Dr. Miller at the office. cc: Sander Johnson MD
--- NOTE | 2018-12-12 17:39 | PROGRESS NOTE ---
DATE: 12/12/2018 SUBJECTIVE: The patient is resting comfortably in bed. He is currently on Milrinone. He is diuresing well. OBJECTIVE: Vital Signs: Temperature 97.9 degrees, blood pressure 95/68, heart rate 108, respirations 18, O2 saturation is 100% on BiPAP. General: This is a morbidly obese male lying in bed in no acute distress. Heart: S1, S2 normal. Tachycardic. Lungs: Equal air entry bilaterally. No wheezing. No rales. No crackles. Abdomen: Positive bowel sounds. Soft, obese, nontender, nondistended. Extremities: Trace pedal edema. Neurologic: The patient is alert and oriented x4. LABORATORY DATA: White blood cell count 7.4, hemoglobin 11, hematocrit 38, platelets 158,000. Sodium 136, potassium 4.2, chloride 91, CO2 of 34, BUN 39, creatinine 1.4, glucose 105, phosphorus 2.8. ASSESSMENT AND PLAN: 1. Acute on chronic systolic congestive heart failure exacerbation. The patient is currently on Milrinone and diuretic therapy. The plan is for the patient to be discharged tomorrow. Further management as per the clinical quality assurance associate. 2. Nonischemic cardiomyopathy. Aware. 3. Acute kidney injury on chronic kidney disease. Improved. 4. Pulmonary hypertension. Aware. 5. Morbid obesity. The patient is being followed by Dr. Obrien as outpatient for possible bariatric surgery. 6. Obstructive sleep apnea. Continue with CPAP at bedtime. 7. Deep vein thrombosis prophylaxis. Continue on heparin. 8. Constipation. Continue with scheduled laxative therapy. cc: Maryjane Krause MD
[2018-12-13] MEDS: PRIMACOR 20 MG/D5W 100 ML 20 MG/100 ML IVPB IV SCH ×4 (00:51→07:41)
[2018-12-13] MEDS: HEPARIN SUBQ SCH ×3 (04:50→20:05)
[2018-12-13] MEDS: NORCO-7.5 PO PRN ×2 (06:40→18:56)
[2018-12-13 06:50] LABS: AGAP 6; BUN 31 mg/dL (8-22); CALCIUM 9.7 mg/dL (8.8-10.2); CHLORIDE 90 mmol/L (98-107); COSMO 278; CREATININE 1.4 mg/dL (0.7-1.2); ESTIMATED GFR > 60; GLUCOSE 98 mg/dL (70-104); PHOSPHORUS 3.3 mg/dL (2.7-4.5); POTASSIUM 4.1 mmol/L (3.5-5.1); SODIUM 136 mmol/L (136-145); TCO2 40 mmol/L (25-35)
[2018-12-13] MEDS ORDERED: VITAMIN D PO SCH (09:00)
[2018-12-13] MEDS: ASPIRIN EC PO SCH (09:36)
[2018-12-13] MEDS: LASIX IV SCH (09:36)
[2018-12-13] MEDS: SINGULAIR PO SCH (09:37)
[2018-12-13] MEDS: BENTYL PO SCH (09:37)
[2018-12-13] MEDS: PRILOSEC PO SCH ×2 (09:37→20:05)
[2018-12-13] MEDS: SENOKOT PO SCH ×2 (09:37→09:44)
[2018-12-13] MEDS: DALIRESP PO SCH (09:37)
[2018-12-13] MEDS: COLACE PO SCH ×2 (09:38→20:05)
[2018-12-13] MEDS: MIRALAX PO SCH (09:38)
[2018-12-13] MEDS: COREG PO SCH ×2 (09:38→20:05)
--- NOTE | 2018-12-13 10:51 | CARDIOLOGY PROGRESS NOTE ---
DATE: 12/13/2018 CHIEF COMPLAINT: Swelling, shortness of breath. SUBJECTIVE: Mr. Lopez is sitting up in bed. He is in no distress. OBJECTIVE: Vital signs: Blood pressure is 104/58, temperature 98.7, respirations 26, pulse rate 122. Today, his standing scale weight is 479.9 pounds. His "bed scale" was 448 pounds today. There is a significant discrepancy between the standing scale, which is obviously more accurate, and the bed scale which seems to be completely inaccurate. The patient is in no distress. He had some pain in the leg early this morning. HEENT: Unchanged. Chest: Clear to auscultation and percussion. Heart sounds are a little tachycardic with a summation gallop. Abdomen is morbidly obese. Extremities showed adiposity, no significant ankle edema. Neurologic: Follows commands. Moves all 4 extremities. DIAGNOSTIC DATA: Sodium is 136, potassium 4.1, BUN is 31, creatinine 1.4. IMPRESSION: 1. The patient presents with decompensated congestive heart failure stage D, [place] Heart Association class 3 to 4. 2. Idiopathic dilated cardiomyopathy. 3. Morbid obesity. 4. Obstructive sleep apnea. 5. Chronic kidney disease plus acute kidney dysfunction secondary to cardiorenal syndrome. RECOMMENDATIONS: At this time, it is obvious that we do not have a clear sense of whether or not this patient has lost weight or not during this admission, since we have been guided by the famous "bed scale." I would suggest to continue diuretic program, and he really needs to be followed very closely, probably by the [facility] in [place]. This may be a patient that may require some sort of implanted device system to monitor his fluid status. cc: Sander Johnson MD
[2018-12-13] MEDS: DUONEB (A & A) INH PRN ×2 (11:02→21:38)
[2018-12-13] MEDS: BREO ELLIPTA 200/25 MCG INH INH SCH (11:03)
--- NOTE | 2018-12-13 17:26 | PROGRESS NOTE ---
DATE: 12/13/2018 SUBJECTIVE: The patient is sitting up in bed. No acute events noted overnight. OBJECTIVE: Vital Signs: Temperature 98.4 degrees blood pressure 92/51, heart rate 103, respirations 24. O2 saturation 100% on 5 L nasal cannula. General: This is a morbidly obese male sitting at the edge of the bed in no acute distress. Heart: S1, S2 normal. Tachycardic. Lungs: Equal air entry bilaterally. No wheezing. No rales. Abdomen: Positive bowel sounds. Soft, obese, nontender. Extremities: 1+ edema bilaterally with chronic lymphedema. Neurologic: The patient is alert and oriented x4. LABS: Sodium 136, potassium 4.1, CO2 40, BUN 31, creatinine 1.4, glucose 98, albumin 3. Vitamin D level 5. ASSESSMENT AND PLAN: 1. Acute on chronic systolic congestive heart failure exacerbation. We will discontinue the milrinone drip. We will continue with diuretic therapy. Further recommendations to follow from the watch mechanic tomorrow. 2. Nonischemic cardiomyopathy. Aware. 3. Prediabetes. We will consult with the dietitian to talk to the patient about proper diet. 4. Acute kidney injury on chronic kidney disease. Improved. 5. Pulmonary hypertension. Aware. 6. Morbid obesity. The patient will follow up with Dr. Obrien as scheduled to discuss bariatric surgery. 7. Obstructive sleep apnea. Continue with CPAP at bedtime. 8. Constipation. Improved. Continue with scheduled laxative therapy. 9. Deep vein thrombosis prophylaxis. Continue on heparin. 10. Disposition. The patient will likely be discharged home tomorrow. cc: Maryjane Krause MD MTDJessica
[2018-12-14] MEDS: NORCO-7.5 PO PRN (03:45)
[2018-12-14] MEDS: HEPARIN SUBQ SCH ×2 (05:46→12:21)
[2018-12-14 08:12] LABS: ALBUMIN 3.3 g/dL (3.5-5.0); CALCIUM 9.8 mg/dL (8.8-10.2); CREATININE 1.8 mg/dL (0.7-1.2); PHOSPHORUS 3.9 mg/dL (2.7-4.5); POTASSIUM 4.6 mmol/L (3.5-5.1)
[2018-12-14] MEDS: SINGULAIR PO SCH (08:46)
[2018-12-14] MEDS: PRILOSEC PO SCH (08:46)
[2018-12-14] MEDS: SENOKOT PO SCH (08:46)
[2018-12-14] MEDS: ASPIRIN EC PO SCH (08:46)
[2018-12-14] MEDS: COLACE PO SCH (08:46)
[2018-12-14] MEDS: DALIRESP PO SCH (08:47)
[2018-12-14] MEDS: BENTYL PO SCH (08:47)
[2018-12-14] MEDS: MIRALAX PO SCH (08:47)
[2018-12-14] MEDS: COREG PO SCH (08:47)
[2018-12-14] MEDS ORDERED: DEMADEX PO SCH (09:00)
[2018-12-14] MEDS: BREO ELLIPTA 200/25 MCG INH INH SCH (11:55)
[2018-12-14] MEDS: DUONEB (A & A) INH PRN (11:56)
[2018-12-14 14:07] VITALS: BP 109/62
--- NOTE | 2018-12-14 14:55 | PROGRESS NOTE ---
DATE: 12/14/2018 SUBJECTIVE: The patient continues without shortness of breath or chest discomfort on room air. He very much wishes to go home today. OBJECTIVE: Vital Signs: Blood pressure 122/47, heart rate 104, oxygen saturation 98%. Neck: Jugular venous distention cannot be appreciated. Chest: Clear to auscultation. Cardiac: Regular rate and rhythm without appreciable murmur or gallop. Extremities: Without edema. LABORATORY DATA: Includes a sodium of 136, potassium 4.6, chloride 90, carbon dioxide 34, BUN 35, creatinine 1.8, glucose 102. IMPRESSION: 1. Acute on chronic systolic heart failure, predominantly right-sided. The patient has improved with diuresis, and laboratory data today suggests that he may have some emerging relative intravascular volume depletion. 2. Severe cardiomyopathy with severely reduced left ventricular systolic function. 3. Cardiorenal syndrome, improved with diuresis. 4. Morbid obesity. 5. Obstructive sleep apnea. 6. Hypertension. 7. Type 2 diabetes mellitus. 8. Inconsistent compliance with dietary restrictions. RECOMMENDATIONS: 1. Continue torsemide 100 mg daily. 2. Discontinue metolazone for now, and manage with loop diuretic alone. 3. Reasonable for the patient to be discharged today. I will be happy to see him again for followup in approximately 1 week. He needs to establish with the [facility] as well. cc: Brandon Miller MD
--- NOTE | 2018-12-14 21:02 | NEPHROLOGY PROGRESS NOTE ---
DATE: 12/14/2018 SUBJECTIVE: He is lying in bed, on his BiPAP. He states he is doing well and anticipates discharge after he is seen by Cardiology. OBJECTIVE: Blood pressure 122/47, heart rate 104, respirations 25, afebrile. General: No acute distress. Skin is warm and dry. Neck veins are not appreciated. Heart is regular, no gallops. Lungs are equal, no crackles. Abdomen: Soft, obese. Bowel sounds present. Extremities: Minimal edema. No clubbing or cyanosis. IMPRESSION: Acute kidney injury secondary to cardiorenal syndrome. BUN and creatinine have improved to his baseline. A mild bump today probably related to over-diuresis. I agree with withholding his thiazide diuretic. Okay to be discharged on furosemide or torsemide at your discretion, 100 mg of torsemide or 80 mg once a day of furosemide. We would be glad to follow him as an outpatient if that is a desire of the patient and the primary care team. cc: Jonas Tavares MD
--- NOTE | 2018-12-15 14:10 | Extremity Venous Study ---
PROCEDURE NAME: Venous U/S Left Leg - 12/07/2018 STUDY: Left lower extremity venous duplex and color flow imaging study using a GE Vivid E9 ultrasound system with a 9L-D transducer. REFERRING PHYSICIAN: DR. Ramirez. PUBLIC HEALTH DENTIST: Patricia Claire RVT INDICATIONS: Morbid obesity with bilateral lower extremity pain and edema suggestive of deep venous thrombosis. FINDINGS: The left common femoral vein and its branches, deep and superficial femoral veins were satisfactorily imaged. They had flow through them and were compressible. Left popliteal vein was compressible throughout its length. It was difficult to see the small veins below the left knee, but no clot was visualized. Superficial veins of the left lower extremity were compressible. IMPRESSION: Limited study secondary to the patient's obesity, but no evidence of acute deep or superficial venous thrombosis, left lower extremity. cc: MD Rodo Rice MD
--- NOTE | 2018-12-17 07:08 | DISCHARGE SUMMARY ---
ADMISSION DATE: 12/05/2018 DISCHARGE DATE: 12/14/2018 FINAL DISCHARGE DIAGNOSES: 1. Acute on chronic systolic congestive heart failure exacerbation. 2. Nonischemic cardiomyopathy. 3. Prediabetes. 4. Acute kidney injury on chronic kidney disease. 5. Pulmonary hypertension. 6. Morbid obesity. 7. Obstructive sleep apnea. 8. Constipation. CONSULTATIONS: 1. Cardiology consultation with Dr. Miller. 2. Nephrology consultation with Dr. Tavares. HOSPITAL COURSE: Mr. Lopez is a 33-year-old male with a history of acute on chronic systolic CHF with nonischemic cardiomyopathy, who presented to the ER with a chief complaint of shortness of breath and generalized swelling. The patient had a chest x-ray done in the ER that revealed pulmonary vascular congestion and edema. The patient was admitted to the hospitalist service. Cardiology was also consulted for assistance with the patient's medical management. The patient was started on BiPAP and diuretic therapy was initiated. The patient was slow to respond to diuretic therapy, and his creatinine was noted to be rising as result of the diuretic therapy. The patient was transferred to [facility], and started on a milrinone drip with diuretic therapy as well. With the initiation of the Primacor drip, the patient's diuresis improved and his renal function started to improve as well. The patient was again counseled about the importance of proper diet and weight loss. The patient stated that he is followed by Dr. Obrien, and there have been discussions about possible bariatric surgery. The patient was also noted to be deficient in vitamin D, and was started on vitamin D replacement. The patient was noted to have a hemoglobin A1c of 6.2, and he was told that he was prediabetic. Proper diet was discussed with the patient. The patient was weaned off of the Primacor drip, and started on oral diuretic therapy. The patient was also followed by the electric dolly operator during the hospitalization. The patient continued to improve clinically, and was ultimately cleared for discharge home on 12/14/2018. DISCHARGE MEDICATIONS: 1. MiraLAX 17 g oral daily. 2. Baker 7.5/325 one tab oral every 6 hours p.r.n. for pain. 3. Vitamin D2 48259 units oral every 7 days. 4. Colace 100 mg oral twice a day. 5. Aspirin 81 mg p.o. daily. 6. Singulair 5 mg p.o. daily. 7. Prilosec 40 mg p.o. twice a day. 8. Coreg 6.25 mg oral twice a day. 9. DuoNeb's every 6 hours p.r.n. 10. Bentyl 20 mg p.o. every morning. 11. Ellipta 1 inhalation every morning. 12. Reglan 10 mg oral twice a day. 13. Furosemide 100 mg p.o. every morning. DISCHARGE DIET: Low-sodium and low-cholesterol diet. ACTIVITY: As tolerated. FOLLOWUP INSTRUCTIONS: The patient will need to follow up with Dr. Miller as scheduled by his clinic. The patient will need to follow up with Dr. Obrien as scheduled by his clinic. The patient will need to follow up with Dr. Tavares as scheduled by his clinic. cc: Maryjane Krause MD
== END 2018-12-14 15:38 | disposition home or self-care (01) | DRG 291 ==
LOC: ED 15:13 → SUATTDRO 19:30 → 3N 19:30 → 2N 12-08 11:08 → 3N 12-14 02:56
PROVIDERS: ATTEND Internal Medicine

== ENCOUNTER 2019-01-28 07:36 | Inpatient (IN) ==
--- NOTE | 2019-01-28 08:07 | Diag Imaging Result Doc PS360 ---
EXAM: CHEST-1 VIEW 01/28/2019 HISTORY: cough TECHNIQUE: AP portable at 0757 COMMENT: There is cardiomegaly and increased pulmonary vascularity. The lower lung patel are not as well-demonstrated as on the previous study of 12/11/2018, largely due to technique. The possibility of pulmonary edema or pneumonia cannot be excluded. IMPRESSION: Cardiomegaly and questionable pulmonary edema. Electronically signed by Rob Mccain 01/28/2019 8:05 AM
--- NOTE | 2019-01-28 08:10 | PROVIDER DOCUMENTATION ---
HPI-Respiratory General - General Chief Complaint: SEPSIS ALERT - D Stated Complaint: "CHF EXACERBATION" PER PATIENT Time Seen by Provider: 01/28/19 07:48 Source: patient Allergies/Adverse Reactions: Patient Allergies Allergy/AdvReac Type Severity Reaction Status Date / Time No Known Allergies Allergy Verified 12/05/18 18:15 Home Medications: Home Medication List Medication Instructions Recorded Confirmed Last Taken Type Aspirin [Aspirin EC] 81 mg PO DAILY 01/22/13 12/05/18 1 Day Ago History ~12/04/18 Montelukast Chew [Singulair] 5 mg PO DAILY 03/10/18 12/05/18 12/04/18 History Roflumilast [Daliresp] 250 mcg PO DAILY 05/29/18 12/05/18 1 Day Ago History ~12/04/18 Carvedilol [Coreg] 6.25 mg PO Q12HR #60 tab 10/06/18 12/05/18 12/04/18 Rx Omeprazole [Prilosec] 40 mg PO BID #60 cap 10/06/18 12/05/18 1 Day Ago Rx ~12/04/18 Albuterol 2.5MG/Ipratrop 0.5MG 1 dose NEB PRN PRN 11/08/18 12/05/18 1 Day Ago History [Duoneb (A & A)] ~12/04/18 Albuterol Sulfate [Proair Hfa] 1 puff INH PRN PRN 12/03/18 12/05/18 2 Days Ago History ~12/03/18 Dicyclomine [Bentyl] 20 mg PO QAM 12/05/18 12/05/18 1 Day Ago History ~12/04/18 Fluticasone/Vilanterol [Breo 1 ea INHALATION QAM 12/05/18 12/05/18 1 Day Ago History Ellipta 200-25 Mcg INH] ~12/04/18 Metoclopramide [Reglan] 10 mg PO BID 12/05/18 12/05/18 1 Day Ago History ~12/04/18 Torsemide 100 mg PO QAM 12/05/18 12/05/18 1 Day Ago History ~12/04/18 Docusate Sodium [Colace] 100 mg PO BID #60 cap 12/14/18 Unknown Rx Ergocalciferol (Vitamin D2) 50,000 unit PO Q7D #8 cap 12/14/18 Unknown Rx [Vitamin D] Hydrocodone/APAP 7.5 mg/325 mg 1 ea PO Q6H PRN PRN #20 tab 12/14/18 Unknown Rx [[place]-7.5] Polyethylene Glycol 3350 [Miralax] 17 gm PO DAILY #30 powder, packet 12/14/18 Unknown Rx Sacubitril/Valsartan [Entresto 49 1 ea PO BID 12/14/18 12/14/18 12/04/18 History mg-51 mg Tablet] 49-51mg - History of Present Illness-Resp Nature of Presenting Problem: Patient is a 34 year old morbidly obese black male with history of renal insufficiency, diabetes, sleep apnea, CHF,and COPD requiring home oxygen (5L/min NC), who presents by POV complaining of worsening shortness of breath,sorethroat, congestion, and cough for past [address] Aleks Machado, Dr. Tidwell, and Dr. Miller. Denies chest pain, fever, chills, or tobacco use. Review of Systems - Adult - REVIEW OF SYSTEMS - ADULT Constitutional: denies: chills, fever Eyes: denies: discharge Ears, Nose, Mouth & Throat: reports: see HPI, throat pain Cardiovascular: reports: edema, orthopnea. denies: chest pain Respiratory: reports: cough, shortness of breath, wheezing. denies: excessive sputum production Gastrointestinal: denies: abdominal pain, constipation, diarrhea, nausea, vomiting Genitourinary: denies: dysuria Musculoskeletal: reports: see HPI Integumentary: reports: no symptoms reported Neurological: reports: no symptoms reported Psychiatric: reports: anxiety Endocrine: reports: no symptoms reported Hematologic/Lymphatic: reports: no symptoms reported Allergic/Immunologic: reports: no symptoms reported All Other Systems: Reviewed and Negative Past History - Adult - PAST MEDICAL HISTORY-ADULT Review of Records: reports: Old Records Reviewed, Nursing Assessment Review, Medications Reviewed Major Childhood Illnesses: reports: denies history Cardiovascular: reports: CHF, HTN Respiratory: reports: asthma, COPD, pneumonia, sleep apnea Gastrointestinal: reports: GERD, ulcer Obstetrical/Gynecological: reports: denies history Genitourinary: reports: denies history Musculoskeletal: reports: denies history Neurological: reports: denies history Psychiatric: reports: denies history Endocrine/Immune: reports: Diabetes Other Conditions: reports: denies history - PRIOR SURGERIES/PROCEDURES Surgical/Procedure History: reports: EGD, colonoscopy, other (sinus ) - IMMUNIZATION STATUS Childhood Immunizations: See Nurse Assessment Flu Vaccine: See Nurse Assessment - FAMILY HISTORY Family History: reviewed, not pertinent - SOCIAL HISTORY Smoking: denies Substance Use: denies Alcohol Use Frequency: occasionally Living Situation: family Physical Exam-General - PHYSICAL EXAM-ADULT Initial Vital Signs Reviewed: Yes - CONSTITUTIONAL General Appearance: alert, obese, other (no acute distress, wear nasal cannula) - EYES Eyes: other (clear,nonicteric) - HEAD, EARS, NOSE, MOUTH & THROAT HENMT: normocephalic/atraumatic, moist mucous membranes - NECK Neck: supple - RESPIRATORY Respiratory: chest non-tender, no respiratory distress, decreased breath sounds - CARDIOVASCULAR Cardiovascular: regular rate, rhythm - GASTROINTESTINAL (ABDOMEN) Abdominal Exam: soft. negative: guarding, rebound, tenderness - LYMPHATIC Lymphatic: no adenopathy - MUSCULOSKELETAL Back Exam: normal inspection, no CVA tenderness Extremity: non-tender, no calf tenderness, other (3+ lower extremity edema, dry scaly skin) - SKIN Integumentary: normal turgor, warm/dry - NEUROLOGIC Neurologic: grossly normal - PSYCHIATRIC Psych/Mental Status: oriented x 3, anxious Progress - PLAN OF CARE/RESULTS Progress/Plan/Lab Results: Vital Signs - 8 hr 01/28/19 07:37 01/28/19 07:41 Temperature 97.5 F L 97.9 F Pulse Rate 104 H 105 H Respiratory Rate 20 26 H Blood Pressure 112/62 O2 Sat by Pulse Oximetry 86 L 86 L Laboratory Results - last 24 hr 01/28/19 01/28/19 01/28/19 08:30 08:30 08:30 WBC 6.60 RBC 5.38 Hgb 13.1 L Hct 43.1 MCV 80.1 L MCH 24.3 L MCHC 30.4 L RDW Std Deviation 17.1 H Plt Count 295 MPV 10.7 H Immature Gran % (Auto) 0.3 Neut % (Auto) 66.8 Lymph % (Auto) 17.7 L [place] % (Auto) 12.9 H Eos % (Auto) 2.0 Baso % (Auto) 0.3 Immature Gran # (Auto) 0.02 Neut # (Auto) 4.41 Lymph # (Auto) 1.17 L [place] # (Auto) 0.85 H Eos # (Auto) 0.13 Baso # (Auto) 0.02 PT INR PTT (Actin FS) Specimen Type ARTERIAL Sample Site R RADIAL pH 7.36 pCO2 57 H* pO2 96 HCO3 28.8 H Base Excess 5.1 H Oxyhemoglobin 95.1 ABG O2 Sat (Calculated) 18.4 ABG O2 Saturation 98.1 ABG Carboxyhemoglobin 2.20 ABG Methemoglobin 0.9 Larry Test YES A-a O2 Difference 118.0 Total Hemoglobin 13.7 Lactate 1.20 Liter Flow 5.0 Blood Gas Modality CANNULA FiO2 % 40.0 Sodium Potassium Chloride Carbon Dioxide Anion Gap BUN Creatinine Estimated GFR/1.73 m2 BUN/Creatinine Ratio Glucose Calculated Osmolality Calcium Magnesium 1.5 Total Bilirubin AST ALT Alkaline Phosphatase Creatine Kinase Troponin T Qbi-U-Ymnducvihew Pept Total Protein Albumin Globulin Albumin/Globulin Ratio Plasma Lactate 01/28/19 01/28/19 01/28/19 08:30 08:30 08:30 WBC RBC Hgb Hct MCV MCH MCHC RDW Std Deviation Plt Count MPV Immature Gran % (Auto) Neut % (Auto) Lymph % (Auto) [place] % (Auto) Eos % (Auto) Baso % (Auto) Immature Gran # (Auto) Neut # (Auto) Lymph # (Auto) [place] # (Auto) Eos # (Auto) Baso # (Auto) PT 15.2 INR 1.18 PTT (Actin FS) 30.7 Specimen Type Sample Site pH pCO2 pO2 HCO3 Base Excess Oxyhemoglobin ABG O2 Sat (Calculated) ABG O2 Saturation ABG Carboxyhemoglobin ABG Methemoglobin Larry Test A-a O2 Difference Total Hemoglobin Lactate Liter Flow Blood Gas Modality FiO2 % Sodium 135 L Potassium 4.8 Chloride 92 L Carbon Dioxide 27 Anion Gap 16 BUN 92 H Creatinine 2.9 H Estimated GFR/1.73 m2 30 BUN/Creatinine Ratio 32 Glucose 108 H Calculated Osmolality 299 Calcium 9.5 Magnesium Total Bilirubin 1.11 H AST 15 ALT 11 Alkaline Phosphatase 96 Creatine Kinase 107 Troponin T 0.046 Qdj-[id number]-Xhmkxhbhwml Pept Total Protein 7.1 Albumin 4.2 Globulin 2.9 Albumin/Globulin Ratio 1.4 Plasma Lactate 01/28/19 01/28/19 08:30 08:30 WBC RBC Hgb Hct MCV MCH MCHC RDW Std Deviation Plt Count MPV Immature Gran % (Auto) Neut % (Auto) Lymph % (Auto) [place] % (Auto) Eos % (Auto) Baso % (Auto) Immature Gran # (Auto) Neut # (Auto) Lymph # (Auto) [place] # (Auto) Eos # (Auto) Baso # (Auto) PT INR PTT (Actin FS) Specimen Type Sample Site pH pCO2 pO2 HCO3 Base Excess Oxyhemoglobin ABG O2 Sat (Calculated) ABG O2 Saturation ABG Carboxyhemoglobin ABG Methemoglobin Larry Test A-a O2 Difference Total Hemoglobin Lactate Liter Flow Blood Gas Modality FiO2 % Sodium Potassium Chloride Carbon Dioxide Anion Gap BUN Creatinine Estimated GFR/1.73 m2 BUN/Creatinine Ratio Glucose Calculated Osmolality Calcium Magnesium Total Bilirubin AST ALT Alkaline Phosphatase Creatine Kinase Troponin T [id number]-Ghmogeejapf Pept 2446 H Total Protein Albumin Globulin Albumin/Globulin Ratio Plasma Lactate 1.2 Orders Category Date Time Status Cardiac Monitoring DIRECTED Care 01/28/19 07:48 Active IV Insertion ORDERED Care 01/28/19 07:48 Active Notify MD of + Sepsis Screen NOW Care 01/28/19 07:48 Active Notify Physician As Ordered Care 01/28/19 07:48 Active CHEST-1 VIEW [RAD] Stat Exams 01/28/19 07:48 Completed ABG [RESP] Routine Lab 01/28/19 08:30 Completed BLOOD CULTURE [BLDCUL] Stat Lab 01/28/19 09:14 Results CBC WITH DIFF [HEME] Stat Lab 01/28/19 08:30 Completed CK PROFILE [SP CHEM] Stat Lab 01/28/19 08:30 Completed COMPREHENSIVE METABOLIC PANEL [CHEM] Stat Lab 01/28/19 08:30 Completed DIRECT STREP Stat Lab 01/28/19 08:59 Uncollected LACTATE, PLASMA [CHEM] Lab 01/28/19 08:30 Completed LACTATE, PLASMA [CHEM] Lab 01/28/19 11:00 Uncollected LACTATE, PLASMA [CHEM] Lab 01/28/19 14:00 Uncollected MAGNESIUM [CHEM] Stat Lab 01/28/19 08:30 Completed PROTIME WITH INR [COAG] Stat Lab 01/28/19 08:30 Completed PTT [COAG] Stat Lab 01/28/19 08:30 Completed TROPONIN T Stat Lab 01/28/19 08:30 Completed URINALYSIS W/POSS RFLX CULT [URINALYSIS] Stat Lab 01/28/19 07:48 Uncollected bnp [PRO B-NATRIURETIC PEPTIDE] Stat Lab 01/28/19 08:30 Completed Furosemide [Lasix] Med 01/28/19 08:15 Discontinued 40 mg IV NOW ONE Oxygen Device Stat Oth 01/28/19 07:48 Active EKG [EKG] Stat Ther 01/28/19 08:35 Ordered Result Diagrams: 01/28/19 08:30 01/28/19 08:30 - XRAY 1 XRAY Study: Chest XRAY Interpretation: CHF - CONSULTS/PCP/HOSPITALIST Notification #1 *Consult/PCP/Hospitalist*: Benoit Jackson service Time Discussed: 09:50 Consult Disposition: Admit Departure - Departure Date of Disposition Decision: 01/28/19 Time of Disposition Decision: 09:57 DIAGNOSIS: Hypercarbia CHF exacerbation Qualifiers: Heart failure type: unspecified Qualified Code(s): I50.9 - Heart failure, unspecified Disposition: ADMITTED INPATIENT 09 Certified Medical Emergency: Emergent Condition: Stable Referrals and Follow-Ups: Aleks Machado MD [Primary Care Provider] - - Critical Care Note This patient required my direct & personal management of CC.: No Attestation - Physician/ KRISTAN Attestation Patient care was provided by Advanced Practice Provider:: No The physician spent face to face time with patient:: Yes Advanced Practice Provider documentation review:: Supervising physician onsite and consulted in the evaluation and care of this patient. The physician did have a face to face encounter with the patient.
[2019-01-28] MEDS ORDERED: LASIX IV ONE (08:15)
[2019-01-28 08:40] LABS: ALLEN TEST YES; BE 5.1 mmoll (-3.0-3.0); BLOOD TYPE ARTERIAL; HCO3-(ACT) 28.8 mmoll (20.0-26.0); METHB 0.9 % (0.0-1.5); O2(CT) 18.4 mL/dL (15.0-23.0); O2HB 95.1 % (95.0-99.0); PO2(98.6) 96 mmHg (60-100); SAMPLE BLOOD; SAO2 98.1 % (95.0-100.0); THB 13.7 g/dL (11.5-17.4); pH(98.6) 7.36 (7.35-7.45)
[2019-01-28 08:43] LABS: MODALITY CANNULA; PCO2(98.6) 57 mmHg (35-45)
[2019-01-28 09:12] LABS: BASO# 0.02 X1000 (0.0-0.2); BASO% 0.3 % (0.0-0.8); EOS# 0.13 X1000 (0.0-0.7); HEMATOCRIT 43.1 % (42.0-52.0); HEMOGLOBIN 13.1 g/dL (14.0-18.0); IMM GRAN# 0.02 X1000 (0.0-0.04); IMM GRAN% 0.3 % (0.0-0.5); LYMPH# 1.17 X1000 (1.2-3.4); LYMPH% 17.7 % (20.5-51.1); MCH 24.3 PG (27-31); MCHC 30.4 g/dL (33-37); MCV 80.1 FL (81-99); MONO# 0.85 X1000 (0.11-0.59); MONO% 12.9 % (1.7-9.3); MPV 10.7 FL (7.4-10.4); NEUT# 4.41 X1000 (1.4-6.5); NEUT% 66.8 % (42.2-75.2); PLT 295 X1000 (130-400); RBC 5.38 XMIL (4.7-6.1); RDW 17.1 % (11.5-14.5)
[2019-01-28 09:18] LABS: INR 1.18; PROTIME 15.2 Seconds (11.0-16.0); PTT 30.7 Seconds (22.3-41.8)
[2019-01-28 09:33] LABS: ALB/GLOB RATIO 1.4; ALBUMIN 4.2 g/dL (3.5-5.0); CALCIUM 9.5 mg/dL (8.8-10.2); CREATININE 2.9 mg/dL (0.7-1.2); POTASSIUM 4.8 mmol/L (3.5-5.1); TOTAL BILIRUBIN 1.11 mg/dL (0.20-1.00); TOTAL PROTEIN 7.1 g/dL (6.3-8.3)
--- NOTE | 2019-01-28 10:45 | HISTORY AND PHYSICAL ---
HISTORY OF PRESENT ILLNESS: This is a 34-year-old presenting. He said for the last 3 days he has struggling more with breathing. He feels like his lungs are congested. He does not feel like his feet are swollen up anymore. He feels like he has a little bit more orthopnea. No paroxysmal nocturnal dyspnea reported. No chest pain or palpitations. This is a 33-year-old with a nonischemic cardiomyopathy. Last ejection fraction was 15%. It was a poor quality echo, but this was 4 months ago. Apparently he has obstructive apnea, pulmonary hypertension. He feels a little worsening general anasarca. PAST MEDICAL HISTORY: 1. Nonischemic cardiomyopathy chronic systolic congestive heart failure with ejection fraction 20% in September 2018. 2. Pulmonary hypertension. Pulmonary artery systolic pressure 50 mmHg per echo. 3. Chronic gastroesophageal reflux disease. 4. Obstructive sleep apnea. 5. Chronic hypoxemic respiratory failure on oxygen Trilogy machine, I believe is what he has had at 1 time. I do not know if he still has it. 6. Morbid obesity. PAST SURGICAL HISTORY: None. ALLERGIES: No known drug allergies. FAMILY HISTORY: Positive for congestive heart failure in father and uncles. PAST SURGICAL HISTORY: Sinus surgery is the only think that I can see. SOCIAL HISTORY: No history of smoking, alcohol or tobacco. REVIEW OF SYSTEMS: General: He is not aware of any weight loss. HEENT: No change in visual or hearing acuity. Neck: No neck discomfort or adenopathy. Respiratory: Increased dyspnea at rest. Increased orthopnea. Cardiovascular: No chest pain or tachy palpitation. GI and : Unremarkable. Musculoskeletal and Neurologic: Neurologic no significant complaints. Nothing lateralizing. Endocrinologic and hemologic: No significant history. PHYSICAL EXAMINATION: VITAL SIGNS: In the emergency room, temperature 97.9 degrees, pulse 105, respirations 26, blood pressure 112/62. EYES.: Pupils are equal and round. LUNGS: Clear in all lung patel. CARDIOVASCULAR: Regular rhythm and rate without murmur or S3. Hematocrit is 43, hemoglobin 13. Sodium 135, potassium 4.8, chloride 92, bicarb is 27, BUN is 92, creatinine 2.9. AST is 15, ALT is 11. ProTime is 15.2, PTT is 30. Blood gas pH is 7.36, pCO2 is 57, PO2 is 96, O2 saturations are 98%. IMAGING: His chest x-ray: Cardiomegaly, questionable pulmonary edema. ASSESSMENT AND PLAN: 1. Pulmonary venous hypertension. He has severe systolic dysfunction, so congestive heart failure with reduced ejection fraction. Appears to have a nonischemic cardiomyopathy. He has had multiple admissions before. We are going to try and diurese and see if this will help. His blood pressure, his afterload looked to be optimal. 2. Chronic kidney disease. Looking back at his previous creatinines, I see it was down to 1.4 back in December of this year, so he is at 2.9 right now. We will see if he improves with diuresis. 3. Obstructive sleep apnea. 4. Morbid obesity. 5. Chronic venous insufficiency in combination with systolic dysfunction. We will ask Cardiology to help. See if we can diurese a little bit of fluid off. He does have a history of gastroesophageal reflux, as well. We will make sure he is on a proton pump inhibitor. He is at risk for deep vein thrombosis, so probably need to try the stockings as well as Lovenox low dose. cc: Larry Magallanes MD
[2019-01-28 12:18] LABS: URINE SOURCE CLEAN CATCH
[2019-01-28 12:27] LABS: BILIRUBIN URINE NEGATIVE (NEGATIVE); BLOOD URINE NEGATIVE (NEGATIVE); COLOR STRAW; GLUCOSE URINE NEGATIVE (NEGATIVE); KETONE URINE NEGATIVE (NEGATIVE); LEUKOCYTES URINE NEGATIVE (NEGATIVE); NITRITE URINE NEGATIVE (NEGATIVE); PROTEIN URINE 50 mg/dL (NEGATIVE); SP GRAVITY URINE 1.009; TURBIDITY URINE CLEAR (CLEAR); UROBILINOGEN URINE NORMAL (NORMAL)
[2019-01-28 12:37] LABS: UR EPITHELIAL CELLS <10 /HPF (<10); URINE BACTERIA NEGATIVE /HPF; URINE RBC <10 /HPF (<10); URINE WBC <10 /HPF (<10)
--- NOTE | 2019-01-28 13:06 | EKG Report ---
Test Performed on : 01/28/2019 12:57:28 PM Test Reason : pain Blood Pressure : / mmHG Vent. Rate : 096 BPM Atrial Rate : 096 BPM P-R Int : 158 ms QRS Dur : 100 ms QT Int : 380 ms P-R-T Axes : 074 016 084 degrees QTc Int : 480 ms Normal sinus rhythm. Nonspecific T wave abnormality Prolonged QT Abnormal ECG When compared with ECG of 07-DEC-2018 18:52, T wave amplitude has increased in Anterior leads Confirmed by Bakari VELÁZQUEZ, P.J.M ([id number]) on 01/29/2019 5:38:40 PM
[2019-01-28] MEDS: DUONEB (A & A) INH SCH ×4 (14:20→23:13)
[2019-01-28] MEDS ORDERED: DUONEB (A & A) ONE (14:23)
--- NOTE | 2019-01-28 14:59 | CARDIOLOGY CONSULTATION ---
DATE: 01/28/2019 HISTORY OF PRESENT ILLNESS: A 34-year-old, -[place] gentleman who came to the emergency room with a 3 day history of shortness of breath. In addition, he felt a sore throat and cough- like symptoms which was mucoid. Denies any fevers or chills. He says it feels like bronchitis. He has known congestive heart failure with severe LV dysfunction. Denies chest pain suggestive of angina. There are no palpitations. There is no dizziness or syncope. REVIEW OF SYSTEMS: A 14-point review of systems was done. GI System: There is no history of nausea, vomiting, diarrhea. There is no history of hematemesis or melena. Central Nervous System: No focal weakness to suggest a CVA or TIA. Genitourinary System: No dysuria or hematuria. PAST MEDICAL HISTORY: 1. Nonischemic cardiomyopathy, ejection fraction of 20%. 2. Congestive heart failure. 3. Pulmonary arterial hypertension. 4. Gastroesophageal reflux disease. 5. Morbid obesity. 6. Obstructive sleep apnea. ALLERGIES: He is not known to be allergic to any medication. HOME MEDICATIONS: Include: 1. Aspirin 81 mg a day. 2. Montelukast 5. 3. Daliresp. 4. Omeprazole 40 b.i.d. 5. Coreg 6.25 b.i.d. 6. Inhalers. 7. Torsemide 100 mg p.o. daily. 8. Vitamin D. 9. Entresto one tablet p.o. b.i.d., 49/51. PHYSICAL EXAMINATION: Vital Signs: Blood pressure 118/82. Jugular venous pressure was normal. First and second heart sounds were heard. Respiratory System: Bilateral expiratory wheeze. Abdomen was soft, obese, nontender. There was no guarding or rigidity. Bowel sounds were heard. Central Nervous System: Alert and oriented. Was moving all 4 extremities. Examination of his extremities revealed mild edema. ASSESSMENT: Mr. Jorgito Lopez is a 34-year-old, -[place] gentleman with a history of: 1. Congestive heart failure. 2. Severe left ventricular dysfunction, ejection fraction of 20%. 3. Morbid obesity. 4. Sleep apnea. He comes in with complaints of having had cough with mucoid expectoration and soreness in his throat. He has also noticed worsening shortness of breath. Hemoglobin was 13.1, hematocrit 43, platelet count of 295,000. Sodium 135, potassium 4.8, BUN 92, creatinine 2.9. His recent last creatinine was 1.4 to 2.3. However, creatinine varied from 1.4 to 2.3 in the last 4 months. His BUN was elevated at 92. His last BUN on 01/13/2019 was 64. Prior to that, BUN was 35. PLAN: 1. As far as his symptoms are concerned, it could be bronchitis related as his complaints of sore throat and has expiratory wheeze. 2. He has chronic congestive heart failure. However, he has significant worsening in his BUN and creatinine. Would recommend holding his diuresis. At home, he is on torsemide 100 mg p.o. daily. He may be intravascularly dehydrated given the worsening of his BUN and creatinine. 3. Severe LV dysfunction. Continue with Entresto and Coreg, which he has been on. 4. His laboratory examination, troponin was normal, with an elevated proBNP of 2446 which is chronically elevated. Thank you for the consult. We will follow hospital course. cc: Jesse Nichole MD
[2019-01-28] MEDS: LASIX IV SCH (21:43)
[2019-01-29] MEDS: ROCEPHIN 1 GM in NS 50 ML IV SCH (01:53)
[2019-01-29] MEDS: DUONEB (A & A) INH SCH ×6 (03:22→23:20)
[2019-01-29] MEDS: TYLENOL PO PRN (04:47)
[2019-01-29 08:16] LABS: BASO# 0.01 X1000 (0.0-0.2); BASO% 0.2 % (0.0-0.8); EOS# 0.17 X1000 (0.0-0.7); EOS% 3.2 % (0.0-10.0); HEMATOCRIT 42.7 % (42.0-52.0); HEMOGLOBIN 12.8 g/dL (14.0-18.0); LYMPH# 1.42 X1000 (1.2-3.4); LYMPH% 26.4 % (20.5-51.1); MCH 24.5 PG (27-31); MCV 81.6 FL (81-99); MONO# 0.57 X1000 (0.11-0.59); MONO% 10.6 % (1.7-9.3); MPV 10.2 FL (7.4-10.4); NEUT# 3.21 X1000 (1.4-6.5); NEUT% 59.6 % (42.2-75.2); PLT 247 X1000 (130-400); RBC 5.23 XMIL (4.7-6.1); RDW 16.7 % (11.5-14.5); WBC 5.38 X1000 (4.8-10.8)
[2019-01-29 08:29] LABS: CALCIUM 9.5 mg/dL (8.8-10.2); CREATININE 2.5 mg/dL (0.7-1.2); POTASSIUM 4.5 mmol/L (3.5-5.1)
[2019-01-29] MEDS: LASIX IV SCH ×2 (08:35→20:39)
--- NOTE | 2019-01-29 13:11 | PROGRESS NOTE ---
DATE: 01/29/2019 SUBJECTIVE: Mr. Lopez is breathing better. He had a pretty good night. He still feels congested. The BiPAP seemed to help. He can tell his little swelling has gone down in his lower extremities. OBJECTIVE: Vital signs: Temperature 97.9 degrees, pulse 95, respirations 22, blood pressure 99/47. HEENT: Pupils are equal and round. Lungs: Clear in all lung patel. Cardiovascular: Regular rhythm and rate without murmur or S3. Urine output was 2500 mL. ASSESSMENT AND PLAN: 1. Congestive heart failure, severe left ventricular dysfunction, ejection fraction 20% in the face of morbid obesity and underlying obstructive apnea. He has a little bronchial irritation and so we will add some bronchodilators and steroid inhaler. He has had significant worsening of his BUN and creatinine, so we are going to hold off on the diuresis. He is on torsemide 100 mg p.o. daily. Intravascularly it appears he may be dehydrated. 2. Severe left ventricular dysfunction. Continue with Entresto and Coreg. 3. Morbid obesity. Encourage weight reduction. 4. Obstructive sleep apnea. Aware. He has chronic venous insufficiency and some swelling, so we will hold off on the diuresis. I will add a steroid bronchodilator to his regimen and give him some guaifenesin to help with the secretions. He is on ceftriaxone 1 g daily. cc: Larry Magallanes MD
[2019-01-29] MEDS: MUCINEX PO SCH ×2 (14:19→20:39)
[2019-01-29] MEDS: SYMBICORT 160/4.5 MICROGM INHALER INH SCH (19:34)
[2019-01-30] MEDS: TYLENOL PO PRN ×2 (01:15→06:24)
[2019-01-30] MEDS: ALBUTEROL NEB INH PRN (02:00)
[2019-01-30] MEDS: ROCEPHIN 1 GM in NS 50 ML IV SCH (03:00)
[2019-01-30] MEDS: DUONEB (A & A) INH SCH ×6 (03:23→23:14)
[2019-01-30] MEDS ORDERED: TORADOL IV SCH (08:15)
[2019-01-30] MEDS: SYMBICORT 160/4.5 MICROGM INHALER INH SCH ×2 (08:16→20:06)
[2019-01-30] MEDS: MUCINEX PO SCH ×2 (08:27→21:16)
[2019-01-30] MEDS: ENTRESTO 49 MG-51 MG TABLET PO SCH ×2 (08:27→21:16)
[2019-01-30] MEDS: COREG PO SCH ×2 (08:27→21:16)
[2019-01-30] MEDS: TORADOL IV PRN ×2 (08:27→21:24)
[2019-01-30] MEDS: NORCO-7.5 PO PRN ×3 (11:46→21:16)
[2019-01-30] MEDS: LASIX IV SCH (19:45)
[2019-01-30] MEDS: MUCOMYST 20% INH SCH (20:06)
--- NOTE | 2019-01-30 22:24 | CARDIOLOGY PROGRESS NOTE ---
DATE: 01/30/2019 SUBJECTIVE: Mr. Lopez reports continued issues with congestion. He reports compliance with medications at home. PHYSICAL EXAMINATION: Vital signs: The patient is afebrile. Heart rate 100, blood pressure 110/56. General: He is in no acute distress. Cardiovascular: He sounds to be in a regular rate and rhythm. He has no murmurs, no S3. Very distant heart sounds. Chest: Very distant. No obvious abnormal sounds. Relatively clear. Abdomen: Soft, nontender. PERTINENT DATA: Sodium 132, potassium is 4.5. BUN 89, creatinine 2.5, which is down from 92 and 2.9 yesterday. ASSESSMENT: Mr. Lopez is a 34-year-old, black male, with a history of nonischemic cardiomyopathy. PLAN: He seems to have a probable bronchitis. His BUN and creatinine are elevated suggesting volume depletion. His diuretics have been held. I would agree with continuation of this. cc: Tex Gong MD
[2019-01-31] MEDS: DUONEB (A & A) INH SCH ×6 (02:41→23:32)
[2019-01-31] MEDS: ROCEPHIN 1 GM in NS 50 ML IV SCH (02:59)
[2019-01-31] MEDS: NORCO-7.5 PO PRN ×2 (03:42→08:21)
[2019-01-31 07:55] LABS: CALCIUM 9.2 mg/dL (8.8-10.2); MAGNESIUM 1.7 mg/dL (1.5-2.7); POTASSIUM 4.6 mmol/L (3.5-5.1)
[2019-01-31] MEDS: MUCOMYST 20% INH SCH ×2 (08:07→19:29)
[2019-01-31] MEDS: SYMBICORT 160/4.5 MICROGM INHALER INH SCH ×2 (08:09→19:30)
[2019-01-31] MEDS: COREG PO SCH ×2 (08:21→21:04)
[2019-01-31] MEDS: ENTRESTO 49 MG-51 MG TABLET PO SCH ×2 (08:21→21:03)
[2019-01-31] MEDS: MUCINEX PO SCH ×2 (08:21→21:03)
--- NOTE | 2019-01-31 09:25 | Diag Imaging Result Doc PS360 ---
EXAM: CHEST-PORTABLE INDICATION: chf TECHNIQUE: 2 views COMPARISON: 01/28/2019 FINDINGS: The lungs are grossly clear. There is no discrete pleural fluid collection or pneumothorax. There is no stable massive cardiomegaly. There is likely at least mild pulmonary venous congestion. IMPRESSION: Massive cardiomegaly and suggestion of mild pulmonary venous congestion. Electronically signed by Dirk Jasso 01/31/2019 9:23 AM
--- NOTE | 2019-01-31 10:08 | PROGRESS NOTE ---
DATE: 01/31/2019 SUBJECTIVE: Mr. Lopez says his left knee still giving him some stabbing pain right below his patella. He feels like maybe the phlegm and mucus is breaking up some. Still feels a lot of congestion in his lungs. OBJECTIVE: Temperature 97.6 degrees, pulse 82, respirations 20, blood pressure 106/47.HEENT: Pupils are equal and round. Lungs: Clear in all lung patel. Cardiovascular: Regular rhythm and rate without murmur or S3. : Urine output is 2200 mL. IMAGING: Chest x-ray: Massive cardiomegaly suggestive of mild pulmonary venous congestion. LABORATORY DATA: From this morning, sodium 137, potassium 4.6, chloride 94, bicarb 30, creatinine up to 3.0 from 2.5 yesterday, was 2.9 the day before. ASSESSMENT AND PLAN: 1. Dilated cardiomyopathy, nonischemic cardiomyopathy, but the symptoms seem more probable related to bronchitis and thick mucus and so continue Mucomyst and guaifenesin and bronchodilators. 2. His BUN and creatinine is still elevated, so we are holding off on diuresis. He is on his Entresto which is Sacubitril/ valsartan. He is on the 49 - 51. He is on Coreg 6.25 mg twice a day. So continue guaifenesin ER 1200 mg twice a day and budesonide formoterol 2 puffs b.i.d. I have him on Toradol for his knee pain and I gave him some hydrocodone. He is on Ceftriaxone 1 g IV q.24 hours. cc: Larry Magallanes MD
[2019-01-31] MEDS: ZOFRAN IV PRN ×2 (16:03→21:08)
[2019-01-31] MEDS: NS 1,000 ML IV SCH (17:23)
[2019-02-01] MEDS: ROCEPHIN 1 GM in NS 50 ML IV SCH (02:52)
[2019-02-01] MEDS: TORADOL IV PRN ×2 (03:00→18:02)
[2019-02-01] MEDS: NORCO-7.5 PO PRN ×3 (03:00→20:25)
[2019-02-01] MEDS: DUONEB (A & A) INH SCH ×6 (03:42→23:24)
[2019-02-01] MEDS: NS 1,000 ML IV SCH (04:01)
[2019-02-01] MEDS: MUCOMYST 20% INH SCH ×2 (08:05→19:14)
[2019-02-01] MEDS: ZOFRAN IV PRN (08:49)
--- NOTE | 2019-02-01 10:21 | PROGRESS NOTE ---
DATE: 01/30/2019 SUBJECTIVE: Mr. Lopez is complaining of left knee pain. Congestion still bothers him. He wants to try some Mucomyst, which I think is a good idea. He remains afebrile. OBJECTIVE: Vital Signs: Temperature 98.3 degrees, pulse 104, respirations 20, blood pressure 105/59. Eyes: Pupils are equal and round. Lungs: Lungs are clear in all lung patel. Cardiovascular exam: Regular rhythm and rate without murmur or S3. Extremities: It is difficult to tell the extent of his edema in his legs because of the size. : Urine output is 7000 mL. ASSESSMENT AND PLAN: 1. Congestive heart failure, severe left ventricular dysfunction. Ejection fraction 20%. In the face of morbid obesity, underlying obstructive apnea. His BUN and creatinine were a little high. He also has underlying chronic kidney disease. So, we have held off on the diuresis. I will try a little bit of Mucomyst and see if it helps break up some of the mucus secretions. 1. Profound left ventricular dysfunction. Put him back on his Entresto and Coreg. 2. Morbid obesity. Encourage weight reduction. 3. Obstructive apnea. Appreciate Cardiology's help. I think because of more bronchitis and mucus thickening, because of the significant worsening of BUN and creatinine, we are going to hold off on the diuresis. He was taking torsemide 100 mg p.o. daily. We will continue the Entresto and Coreg that he has been on. 4. His left leg appears to be in musculoskeletal discomfort, maybe some anterior tendinitis, so we will try a little bit of Toradol to see if that will help. cc: Larry Magallanes MD
[2019-02-01] MEDS: COREG PO SCH ×3 (11:00→23:09)
[2019-02-01] MEDS: MUCINEX PO SCH ×2 (11:01→20:25)
[2019-02-01] MEDS: ENTRESTO 49 MG-51 MG TABLET PO SCH ×3 (11:01→23:09)
--- NOTE | 2019-02-01 13:13 | PROGRESS NOTE ---
DATE: 02/01/2019 SUBJECTIVE: Mr. Lopez says his knee is feeling a little better. Still a lot of congestion but maybe a little improvement. OBJECTIVE: Temperature 97.4 degrees, pulse 85, respirations 16, blood pressure 98/48. Previous blood pressures 101/50, 92/43, 107/63. Pupils are equal. I cannot really tell if there are any distended neck veins. Lungs are clear anterior and posterior, although he has got distant breath sounds because of his size. Cardiovascular Examination: Regular rhythm and rate without murmur or S3. Abdomen is soft. Skin is warm and dry. Chest x-ray showed massive cardiomegaly, suggestive of mild pulmonary venous congestion but difficult to tell because of poor penetration. ASSESSMENT AND PLAN: 1. Dilated cardiomyopathy, nonischemic cardiomyopathy, ejection fraction around 20%. I think most of his symptoms are coming from bronchial irritation and thick mucus secretion. Continue his Mucomyst and guaifenesin, bronchodilators. 2. His BUN and creatinine had bumped up. His urine output went down. I think we are going to have to give him some fluids. I suspect he has some high right-sided heart pressures so will not do well if he is intravascularly depleted. REVIEW OF HIS CHEMISTRIES AND ORDERS: Yesterday, sodium 135, potassium 4.6, BUN was up to 91, creatinine 3.0. We are going to increase his IV fluids and see if we can improve his renal function. We had quit diuresis a couple of days ago and see if this will help. He is getting normal saline at 85 mL an hour. I am giving him ceftriaxone 1 g IV q.24 hours for upper respiratory type bacteria and he is on a sacubitril/losartan combination which is Entresto twice a day, Coreg 6.25 mg q.12, guaifenesin 1200 mg twice a day. cc: Larry Magallanes MD
[2019-02-01] MEDS: SYMBICORT 160/4.5 MICROGM INHALER INH SCH ×2 (15:53→19:15)
[2019-02-01] MEDS: FLOMAX PO SCH (18:02)
[2019-02-01] MEDS ORDERED: NS 500 ML IV ONE (20:49)
[2019-02-02] MEDS: DOPAMINE 800 MG/D5W 800 MG/500 ML IV.SOLN IV SCH (01:35)
[2019-02-02] MEDS: ZOFRAN IV PRN ×2 (01:50→08:35)
[2019-02-02] MEDS: ROCEPHIN 1 GM in NS 50 ML IV SCH (03:17)
[2019-02-02] MEDS: NS 1,000 ML IV SCH ×3 (03:17→18:36)
[2019-02-02] MEDS: DUONEB (A & A) INH SCH ×4 (03:24→19:30)
--- NOTE | 2019-02-02 07:08 | Diag Imaging Result Doc PS360 ---
CHEST-PORTABLE - 02/02/2019 INDICATION: dyspnea COMPARISON: 01/31/2019 FINDINGS: Stable severe cardiomegaly. No obvious infiltrates or edema. IMPRESSION: Stable severe cardiomegaly. Electronically signed by Richard Serrato 02/02/2019 7:06 AM
[2019-02-02] MEDS: MUCOMYST 20% INH SCH ×2 (08:10→20:34)
[2019-02-02] MEDS: MUCINEX PO SCH ×2 (08:43→20:37)
[2019-02-02] MEDS: COREG PO SCH ×2 (08:45→20:37)
[2019-02-02] MEDS: FLOMAX PO SCH (08:45)
[2019-02-02] MEDS: ENTRESTO 49 MG-51 MG TABLET PO SCH (08:45)
[2019-02-02] MEDS: ZOSYN 2.25 GM in NS 50 ML IV SCH ×3 (08:46→20:37)
[2019-02-02 10:00] LABS: ALLEN TEST YES; BE -1.4 mmoll (-3.0-3.0); BLOOD TYPE ARTERIAL; HCO3-(ACT) 23.7 mmoll (20.0-26.0); METHB 1.2 % (0.0-1.5); O2(CT) 17.1 mL/dL (15.0-23.0); O2HB 92.5 % (95.0-99.0); PO2(98.6) 70 mmHg (60-100); SAMPLE BLOOD; SAO2 95.7 % (95.0-100.0); THB 13.1 g/dL (11.5-17.4); pH(98.6) 7.22 (7.35-7.45)
[2019-02-02 10:02] LABS: MODALITY CANNULA; PCO2(98.6) 68 mmHg (35-45)
--- NOTE | 2019-02-02 10:44 | PROGRESS NOTE ---
DATE: 02/02/2019 SUBJECTIVE: This patient is lying in bed. At this moment, he is using the BiPAP machine. He seems to be tired. He is on dopamine drip. We did an x-ray that showed a severe cardiomegaly. I do believe he has some infiltrates at the right base, but it is hard to say given the quality of the picture. He has been coughing and he seems to have a lot of secretions, but is not coughing up too much though. He is extremely obese with a BMI greater than 80. His urine output is dropping. I will get not only the kidney doctor, but the pulmonary doctor as well since he has been on the BiPAP machine with acute on chronic respiratory failure. OBJECTIVE: Vital Signs: Temperature 97 degrees, pulse 88, respiratory rate 18, blood pressure 95/82, oxygen saturation 96 on the BiPAP machine. HEENT: Head normocephalic. No trauma. PERRLA. Neck: Supple. I cannot see JVD because of his neck size. Central trachea. Chest: Decreased breath sounds globally with bilateral rhonchi and crepitus. Abdomen: Soft, obese, protuberant. I cannot say if he has hepatosplenomegaly. Extremities: He is not cyanotic. Neurological: This patient is sleepy, but arousable. He seems to be tired. He is moving all 4 extremities slowly and spontaneously. He is answering some of my questions, but he is using the BiPAP machine right now. LABORATORY DATA: Sodium 135, potassium 4.6, chloride 94, bicarbonate 30, BUN 91, creatinine 3, glucose 105, calcium 9.2. Magnesium 1.7. ASSESSMENT AND PLAN: 1. Dilated cardiomyopathy, nonischemic, with a low ejection fraction at 20%. This patient has been placed on dopamine drip. Cardiology Department is following this patient. Will continue with the same management. 2. Bronchitis versus pneumonia. He does not have any fever during this hospitalization, but he has been having a lot of secretions and shortness of breath. X-ray did not show obvious infiltrate or edema, but I believe there is some kind of haziness at the level of the right lower lung. He has been placed on breathing treatment, Mucinex and Symbicort, but I will get the pulmonary doctor to evaluate this patient since he is having also acute on chronic respiratory failure. 3. Chronic hypercarbic respiratory failure, chronic hypoxemia. This patient has been getting oxygen at home. At this moment, he is on the bilevel positive airway pressure machine. I have requested an evaluation by the pulmonary doctor. Probably, this patient has some bronchitis. Will continue to monitor. I will switch the ceftriaxone to Zosyn. 4. Acute on chronic kidney disease. I have requested an evaluation by the kidney doctor. He is not getting any diuretics at this moment. Actually, he is getting some fluids, and he has been placed on dopamine. Apparently, the blood pressure dropped during the night. 5. Morbid obesity with a body mass index of greater than 80. CRITICAL CARE TIME: 40 minutes. cc: Velasquez Joe MD
--- NOTE | 2019-02-02 11:09 | ECHO REPORT ---
ORDER DATE: 02/01/2019 ECHOCARDIOGRAPHIC MEASUREMENTS: 1. Interventricular septum 1.1. 2. Left ventricular posterior wall 1.1. 3. Diastolic diameter 9.2. 4. Left atrium 5.8. 5. Aorta 3.2. SUMMARY OF THE 2-DIMENSIONAL IMAGIN. Aortic valve leaflets are trileaflet. 2. Pulmonic valve was normal. 3. Tricuspid valve was normal. 4. Technically suboptimal study. Optison was used to assess left ventricular systolic function. 5. There is moderate tricuspid regurgitation. Peak velocity across the tricuspid valve was 3.2 m/sec. 6. Pulmonary artery systolic pressure of 52 mmHg. There is pulmonary arterial hypertension. There is mild mitral regurgitation. 7. Mild mitral regurgitation. Moderate tricuspid regurgitation. 8. Peak velocity across the aortic valve less than 2 m/sec. There is no aortic stenosis or regurgitation. 9. Left ventricle is dilated. Optison was used to assess endocardial border with severely reduced systolic function. Estimated ejection fraction of 15 to 20 percent. There is severe global hypokinesis. 10. There is moderate to severe left atrial enlargement. 11. There is diastolic dysfunction. 12. There is no significant pericardial effusion noted. cc: MD Mindy De León PA
[2019-02-02] MEDS ORDERED: DOBUTAMINE 500/D5W 500 MG/250 ML IV.SOLN IV SCH (11:30)
[2019-02-02] MEDS: SYMBICORT 160/4.5 MICROGM INHALER INH SCH ×2 (11:35→20:37)
[2019-02-02] MEDS ORDERED: XYLOCAINE 1% ONE ×2 (12:07→14:47)
[2019-02-02] MEDS ORDERED: NS 250 ML ONE (14:44)
--- NOTE | 2019-02-02 15:18 | Diag Imaging Result Doc PS360 ---
CHEST-PORTABLE - 02/02/2019 2:52 PM INDICATION: post CVL attempt COMPARISON: 5:46 AM FINDINGS: There is no evidence of complication. IMPRESSION: No evidence of complication. Electronically signed by Richard Serrato 02/02/2019 3:16 PM
[2019-02-02] MEDS: DOBUTAMINE 500/D5W 500 MG/250 ML IV.SOLN IV SCH (15:40)
--- NOTE | 2019-02-02 15:57 | Diag Imaging Result Doc PS360 ---
CHEST-PORTABLE - 02/02/2019 3:47 PM INDICATION: PICC placement COMPARISON: 2:52 PM FINDINGS: There is a left-sided PICC line in good position. The catheter tip is at the lower SVC. IMPRESSION: Good left PICC line placement. Electronically signed by Richard Srerato 02/02/2019 3:55 PM
[2019-02-02 17:42] LABS: BASO# 0.01 X1000 (0.0-0.2); BASO% 0.2 % (0.0-0.8); EOS# 0.08 X1000 (0.0-0.7); EOS% 1.4 % (0.0-10.0); HEMATOCRIT 38.6 % (42.0-52.0); HEMOGLOBIN 11.4 g/dL (14.0-18.0); LYMPH# 0.78 X1000 (1.2-3.4); LYMPH% 13.9 % (20.5-51.1); MCH 24.5 PG (27-31); MCHC 29.5 g/dL (33-37); MCV 82.8 FL (81-99); MONO% 7.1 % (1.7-9.3); MPV 10.5 FL (7.4-10.4); NEUT# 4.36 X1000 (1.4-6.5); NEUT% 77.4 % (42.2-75.2); PLT 156 X1000 (130-400); RBC 4.66 XMIL (4.7-6.1); RDW 16.7 % (11.5-14.5); WBC 5.63 X1000 (4.8-10.8)
[2019-02-02 18:15] LABS: CALCIUM 8.6 mg/dL (8.8-10.2); CREATININE 4.7 mg/dL (0.7-1.2); MAGNESIUM 1.7 mg/dL (1.5-2.7); POTASSIUM 5.7 mmol/L (3.5-5.1)
--- NOTE | 2019-02-02 20:48 | NEPHROLOGY CONSULTATION ---
DATE: 02/02/2019 REASON FOR CONSULTATION: Acute kidney injury. HISTORY OF PRESENT ILLNESS: Mr. Lopez is a 34-year-old, man that we have seen in the past. His baseline creatinine is 1.4 as recently as December 13. He has experienced multiple episodes of acute kidney injury in the past related to decompensated heart failure. He was in his usual state of health until several days prior to admission when he had increasing shortness of breath, cough, sputum, which was thick and colored. He had no chills or fevers. No chest discomfort. He did not have any significant improvement with Mucinex at home so he came to the emergency room for evaluation. No nausea or vomiting. Shortness of breath was moderate. He has known nonischemic cardiomyopathy with LVEF of 15%, obesity, obesity hypoventilation syndrome, GE reflux, pulmonary hypertension secondary. PAST MEDICAL HISTORY: As above. HOME MEDICATIONS: Include aspirin, montelukast, roflumilast, omeprazole, carvedilol, albuterol, ipratropium, dicyclomine, fluticasone, metoclopramide, vilanterol, torsemide, MiraLAX, ergocalciferol, Entresto. ALLERGIES: None. SOCIAL HISTORY: He lives with his mother and his sister. No tobacco and rare alcohol. FAMILY HISTORY: Otherwise noncontributory. REVIEW OF SYSTEMS: Otherwise noncontributory. PHYSICAL EXAMINATION: Vital Signs: Blood pressure 90/55, heart rate 84, respirations 22, afebrile. General: He is a morbidly obese, black male, sitting up in no distress, room air. Skin: Warm and dry. HEENT: Conjunctivae are pink. Oropharynx is clear. Normal tongue. Normal teeth. Neck: Supple. Trachea is midline. Neck veins are not appreciated. Heart: PMI is non-palpable. Regular rate and rhythm with no murmurs, rubs, gallops. Lungs: Have equal breath sounds with coarse rhonchi and crackles throughout. Occasional wheezes. Abdomen: Obese, soft, nontender. Bowel sounds are present. Extremities: With 2+ edema. No clubbing or cyanosis. IMPRESSION: Acute kidney injury. Likely prerenal related to his cardiac disease. Creatinine was 1.4 as recently as December 13. No labs in the last 2 days as he has not been able to undergo successful phlebotomy in the last 2 days. He does have CO2 retention and modest respiratory acidosis overlying chronic respiratory acidosis. I have no recommended changes today. He is receiving dopamine and dobutamine and low-dose IV fluids. I will continue that care without change. We will check labs, urine studies. Imaging is unlikely to add anything meaningful so I will not order this at this time. cc: Jonas Tavares MD
--- NOTE | 2019-02-02 21:14 | GENERAL SURGERY PROGRESS NOTE ---
DATE: 02/02/2019 Asked to see the patient and place a central line per the hospitalist. The patient has got multiple medical comorbidities and has morbid obesity with a BMI of 80 and a height of 5 feet 7 inches and weight of 512 pounds. He has got congestive heart failure. He cannot lay flat. I attempted to try to place a central line in his neck, but he was unable to lie flat, and we were unable to pass a wire. After several attempts, the patient could not tolerate any more in his neck. We then tried his groin in the right groin under ultrasound. We were able to cannulate it after hitting the artery once, but then able to cannulate the vein. I could not pass a wire. The wire bent. The area was almost 5 cm below the skin under ultrasound. We held pressure and the patient seemed to tolerate both attempts well. We will have to find another means to get a central line and then maybe consider a PICC line. Discussed with Dr. Carmona. cc: Manny Rowe MD
[2019-02-03] MEDS: DUONEB (A & A) INH SCH ×3 (01:30→11:41)
[2019-02-03] MEDS: DOBUTAMINE 500/D5W 500 MG/250 ML IV.SOLN IV SCH ×2 (02:12→14:52)
[2019-02-03] MEDS: ZOSYN 2.25 GM in NS 50 ML IV SCH ×4 (03:07→23:38)
[2019-02-03] MEDS: DOPAMINE 800 MG/D5W 800 MG/500 ML IV.SOLN IV SCH ×2 (04:19→16:38)
[2019-02-03] MEDS: ZOFRAN IV PRN ×3 (04:19→23:10)
--- NOTE | 2019-02-03 04:56 | CONSULTATION ---
DATE OF CONSULTATION: 02/02/2019 REQUESTING PROVIDER: Dr. Velasquez Carmona. REASON FOR CONSULTATION: Acute on chronic respiratory failure, pneumonia versus bronchitis. HISTORY OF PRESENT ILLNESS: This is a 34-year-old male with medical history of nonischemic cardiomyopathy, systolic congestive heart failure, pulmonary arterial hypertension, asthma, chronic obstructive pulmonary disease, chronic hypoxic and hypercapnic respiratory failure, morbid obesity, obstructive sleep apnea, gastroesophageal reflux disease, diabetes mellitus type 2 and chronic kidney disease. He is familiar to our facility, he has been admitted this year with congestive heart failure exacerbation 6 times. He presented to the ER on 01/28/2019 with worsening shortness of breath, sore throat, chest congestion and nonproductive cough for 3 days. Initial workup in the ER revealed acute on chronic kidney disease and possible bronchitis. Apparently, he developed hypotension with oliguria last night, and was transferred to the ICU to start dopamine drip. The patient currently is lying in bed with some mild distress noted. Apparently, they has been trying to put PICC on him for multiple times without success. The patient started complaining of being generally discomfort and asked to sit up. He is still on dopamine drip. He states he feels fair with no significant improvement. He is on nasal cannula at 5 L, which apparently is his baseline oxygen requirement. He reports 1 episodes of palpitation before hospital admission. He reports shortness of breath that the same, and his sore throat has been resolved. He still feels some chest congestion. He has no fever, chill, chest pain, wheezing, or bowel habit change. PAST MEDICAL HISTORY: 1. Nonischemic cardiomyopathy. Echocardiogram this morning showed severely reduced systolic function with ejection fraction of 15 to 20 percent and severely global hypokineses. 2. Systolic congestive heart failure. 3. Pulmonary artery hypertension. Per echocardiogram this morning pulmonary artery early systolic pressure is 52 mmHg. 4. Hypertension. 5. Asthma. 6. Chronic obstructive pulmonary disease. 7. Chronic hypoxic and hypercapnic respiratory failure on home oxygen at 5 L/minute most of time and home Trilogy therapy. 8. Morbid obesity. Current BMI 80.2. He has been evaluated by Dr. Obrien for possible bariatric surgery, by patient's report he has to get his weight below 500 pounds. 9. Obstructive sleep apnea. 10. Gastroesophageal reflux disease. 11. Diabetes mellitus type 2. 12. Chronic kidney disease. PAST SURGICAL HISTORY: Sinus surgery. SOCIAL HISTORY: The patient lives at home with his mother. 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 He has no history of alcohol, tobacco, or illicit drug use. FAMILY HISTORY: Positive for diabetes and heart disease. ALLERGIES: No known drug allergies. REVIEW OF SYSTEMS: A 10-point review of systems was conducted and the pertinent is listed within the HPI, otherwise noncontributory. PHYSICAL EXAMINATION: Vital Signs: Temperature of 96.8 degrees, blood pressure 105/67, pulse 93, respiratory rate 18, oxygen saturation 99% on nasal cannula at 5 L. General: Significantly morbidly obese, very friendly and cooperative with some acute distress noted. He is trying to sitting on the edge of the bed. HEENT: Atraumatic, normocephalic. Trachea midline. Mucosa pink and moist. Respiratory: Breathing even and unlabored with no increased work of breathing. Auscultation reveals diminished breathing sounds bilaterally and only inspiratory crackles bibasilarly. Cardiovascular: Regular rate and rhythm. Very distant heart sounds. Gastrointestinal: Obese, soft, nontender. Normoactive bowel sounds in all 4 quadrants. Extremities: Chronic edema with chronic discoloration with some hypertrophic lynching, planus type change. No cyanosis. Neurologic: Alert and oriented x3. Speech fluent. Follows commands. LAB DATA: ABG with pH 7.22, pCO2 of 68, PO2 of 70, HCO3 of 23.7, base excess - 1.4, and oxyhemoglobin 92.5. IMAGING DATA: Chest x-ray this morning showed stable severe cardiomegaly with no obvious infiltrates or edema. ASSESSMENT: This is a 34-year-old male with medical history of nonischemic cardiomyopathy, systolic congestive heart failure, pulmonary arterial hypertension, hypertension, asthma, COPD, chronic hypoxic and hypercapnic respiratory failure, morbid obesity, obstructive sleep apnea, gastroesophageal reflux disease, diabetes mellitus type 2, and chronic kidney disease. He has been admitted since 01/28/2019 with acute on chronic kidney disease and possible bronchitis. He, apparently, developed hypotension since last. 1. Acute on chronic hypoxic hypercapnic respiratory failure. 2. Possible bronchitis. 3. Acute on chronic kidney disease. 4. Nonischemic cardiomyopathy with chronic systolic congestive heart failure. 5. Morbid obesity. PLAN: 1. Continue BiPAP at bedtime and as needed. 2. Continue diuretics as needed. Continue antibiotic and bronchodilators. Continue dopamine as needed. 3. Dr. Tavares and Dr. Nichole are on board. 4. Follow up with ABG, CBC, BMP, and chest x-ray. 5. Encourage weight control. 6. Further recommendations pending hospital course. Thank you for the courtesy of this consult. Dictated by ERIK Magallanes for Celsa Tidwell MD cc: ERIK Magallanes MD [facility]
[2019-02-03 05:07] LABS: ALLEN TEST YES; BE -2.4 mmoll (-3.0-3.0); BLOOD TYPE ARTERIAL; HCO3-(ACT) 22.8 mmoll (20.0-26.0); METHB 0.8 % (0.0-1.5); O2(CT) 19.1 mL/dL (15.0-23.0); O2HB 90.4 % (95.0-99.0); PO2(98.6) 65 mmHg (60-100); SAMPLE BLOOD
[2019-02-03 05:09] LABS: MODALITY CANNULA; PCO2(98.6) 78 mmHg (35-45); pH(98.6) 7.17 (7.35-7.45)
[2019-02-03 06:18] LABS: BASO# 0.01 X1000 (0.0-0.2); BASO% 0.1 % (0.0-0.8); EOS# 0.12 X1000 (0.0-0.7); EOS% 1.8 % (0.0-10.0); HEMATOCRIT 38.4 % (42.0-52.0); HEMOGLOBIN 11.2 g/dL (14.0-18.0); IMM GRAN# 0.02 X1000 (0.0-0.04); IMM GRAN% 0.3 % (0.0-0.5); LYMPH# 1.01 X1000 (1.2-3.4); LYMPH% 15.1 % (20.5-51.1); MCH 24.1 PG (27-31); MCHC 29.2 g/dL (33-37); MCV 82.6 FL (81-99); MONO# 0.94 X1000 (0.11-0.59); MONO% 14.1 % (1.7-9.3); NEUT# 4.57 X1000 (1.4-6.5); NEUT% 68.6 % (42.2-75.2); PLT 183 X1000 (130-400); RBC 4.65 XMIL (4.7-6.1); RDW 16.6 % (11.5-14.5); WBC 6.67 X1000 (4.8-10.8)
[2019-02-03 07:06] LABS: CALCIUM 8.7 mg/dL (8.8-10.2); CREATININE 4.8 mg/dL (0.7-1.2); POTASSIUM 5.5 mmol/L (3.5-5.1)
--- NOTE | 2019-02-03 07:43 | Diag Imaging Result Doc PS360 ---
CHEST-PORTABLE - 02/03/2019 INDICATION: dyspnea COMPARISON: 02/02/2019 FINDINGS: Stable left PICC line in good position. Stable severe cardiomegaly and severe pulmonary vascular congestion. No dense infiltrates or definite edema. IMPRESSION: No change from prior. Electronically signed by Richard Serrato 02/03/2019 7:41 AM
[2019-02-03] MEDS: SYMBICORT 160/4.5 MICROGM INHALER INH SCH ×2 (08:00→19:39)
[2019-02-03] MEDS: MUCOMYST 20% INH SCH ×3 (08:00→19:39)
[2019-02-03] MEDS: COREG PO SCH ×2 (08:21→20:34)
[2019-02-03] MEDS: FLOMAX PO SCH (08:21)
[2019-02-03] MEDS: MUCINEX PO SCH ×2 (08:21→20:34)
[2019-02-03 08:23] LABS: ALLEN TEST YES; BLOOD TYPE ARTERIAL; HCO3-(ACT) 24.9 mmoll (20.0-26.0); METHB 1.4 % (0.0-1.5); O2(CT) 16.7 mL/dL (15.0-23.0); O2HB 95.2 % (95.0-99.0); PO2(98.6) 105 mmHg (60-100); SAMPLE BLOOD; SAO2 98.3 % (95.0-100.0); SRATE 20 BPM; THB 12.4 g/dL (11.5-17.4); pH(98.6) 7.21 (7.35-7.45)
[2019-02-03 08:25] LABS: MODALITY BI PAP; PCO2(98.6) 74 mmHg (35-45)
--- NOTE | 2019-02-03 08:25 | PROGRESS NOTE ---
DATE: 02/03/2019 SUBJECTIVE: This patient is lying in bed with the CPAP machine. He is sleeping, but arousable. He is really weak, but following commands. OBJECTIVE: Vital Signs: Temperature 98.3 degrees, pulse 103, respiratory rate 19, blood pressure 98/56, oxygen saturation 99 on the BiPAP machine. HEENT: Head normocephalic, no trauma. PERRLA. Neck: Supple. I cannot see JVD because of his neck size. Central trachea. Chest: Decreased breath sounds globally with bilateral rhonchi and crepitus. Abdomen: Soft, obese, protuberant. It is hard to say if he has hepatosplenomegaly. Extremities: Not cyanotic, no clubbing. Neurological: This patient is sleeping, but arousable. He is really tired. LABORATORY: WBC 6.6, hemoglobin 11.2, hematocrit 38.4, platelet 183,000. Sodium 129, potassium 5.5, chloride 89, bicarbonate 24, BUN 112, creatinine 4.8, glucose 97, calcium 8.7. ASSESSMENT AND PLAN: 1. Dilated cardiomyopathy, nonischemic, with a low ejection fraction at 20%. Continue with dobutamine and dopamine drip. His blood pressure during the night dropped to the 60s, but it looks like his urine output is better compared with yesterday. Cardiology Department following this patient closely. 2. Bronchitis versus pneumonia. He has been having some phlegm and shortness of breath. I do not see any obvious infiltrate or edema in the x-ray, but continue with the same management. Pulmonary Department on board. 3. Chronic hypercarbic respiratory failure with hypoxemia. ABGs today showed respiratory acidosis and also the bicarb level is low, but we are going to repeat the ABGs in a few minutes. We readjusted the BiPAP mask. 4. Acute on chronic kidney disease. This is likely prerenal due to his cardiac condition. He has been having low blood pressure also during the night, but the urine output improved compared with yesterday. It is documented to be 1.5 L. He has been placed on dobutamine and dopamine as well. It looks like he has a total negative balance of 3 L. BUN and creatinine about the same compared with yesterday. 5. Respiratory acidosis with low bicarb level, as above. 6. Morbid obesity with a body mass index greater than 80, aware. 7. Cardiogenic shock. His blood pressure has been dropping mostly during the night, now seems to be in the 90s and 100s. Cardiology on board. Continue with dobutamine and dopamine. 8. Overall, this patient has poor prognosis due to his advanced cardiac disease, morbid obesity. We will continue with the same management for now. cc: Velasquez Joe MD
[2019-02-03] MEDS ORDERED: DULCOLAX PR ONE (08:49)
--- NOTE | 2019-02-03 10:38 | Diag Imaging Result Doc PS360 ---
EXAM: ABDOMEN FLAT/UPRIGHT 02/03/2019 HISTORY: constipation TECHNIQUE: Flat and upright abdomen portable at 1010 COMMENT: There is a nonspecific bowel gas pattern. There is gas in the colon. The study is markedly suboptimal technically. No definite evidence of organomegaly is present. IMPRESSION: No evidence of obstruction. Otherwise nonspecific abdomen. Electronically signed by Rob Mccain 02/03/2019 10:35 AM
[2019-02-03] MEDS: HEPARIN SUBQ SCH ×2 (11:05→21:19)
[2019-02-03] MEDS: SODIUM CHLORIDE 0.9% INJ SCH (11:05)
[2019-02-03] MEDS: PROTONIX IV SCH (11:05)
[2019-02-03] MEDS: NS 1,000 ML IV SCH ×2 (11:29→20:27)
[2019-02-03] MEDS: XOPENEX NEB INH SCH ×4 (11:41→23:52)
--- NOTE | 2019-02-03 11:52 | PROVIDER PROGRESS NOTE ---
Progress Note Subjective: Lying in bed on BIPAP. Still SOB but improved by his estimation. Objective: VSS NAD Skin is warm and dry. Conjunctiva pink and moist. Neck veins distended. Heart is regular with tachycardia and murmur. Lungs coarse but equal with wheezes and crackles. Abd obese and soft. Normal bowel sounds. Ext with ++ edema. Impression: acute kidney injury. Likely cardiorenal syndrome. Modest improvement in volume status but no change in renal function. Modest hyperkalemia. He is receiving dopamine and dobutamine. Remains volume overloaded. Continue current care over the next 24 hours.
[2019-02-03 16:32] LABS: ALLEN TEST YES; BLOOD TYPE ARTERIAL; HCO3-(ACT) 25.6 mmoll (20.0-26.0); METHB 0.8 % (0.0-1.5); MODALITY BI PAP; PO2(98.6) 76 mmHg (60-100); SAMPLE BLOOD; SAO2 96.8 % (95.0-100.0); THB 12.8 g/dL (11.5-17.4); pH(98.6) 7.26 (7.35-7.45)
[2019-02-03 16:33] LABS: PCO2(98.6) 66 mmHg (35-45)
[2019-02-03] MEDS: LASIX IV SCH ×2 (17:17→20:34)
[2019-02-03] MEDS: COLACE PO SCH (20:34)
[2019-02-03] MEDS: MIRALAX PO SCH (20:34)
--- NOTE | 2019-02-03 21:47 | PROGRESS NOTE ---
DATE: 02/03/2019 SUBJECTIVE: The patient had a rough night. Early this morning he had an episode of emesis, and he states that he has not had a bowel movement in several days. He complains of a persistent cough with yellowish sputum. OBJECTIVE: Vital Signs: Temperature 98.2, blood pressure 104/57, heart rate 104, respirations 18, O2 saturation 97% on BiPAP. Intake 1.1 L, output 2.2 L. General: This is a morbidly obese male lying in bed in no acute distress. Heart: S1, S2 normal. Tachycardic. Lungs: Diminished breath sounds bilaterally. No wheezing. No rales. Abdomen: Positive bowel sounds. Soft, obese, nontender, nondistended. Extremities: 2+ edema in the lower extremities. Neurologic: The patient is alert and oriented x4. LABS: White blood cell count 6.6, hemoglobin 11, hematocrit 38, platelets 183. Sodium 129, potassium 5.5, chloride 89, CO2 24, BUN 112, creatinine 4.8, glucose 97, calcium 8.7. ABG: pH of 7.26, pCO2 of 66, pO2 of 76, bicarb 25. Chest x-ray shows severe pulmonary edema and cardiomegaly. ASSESSMENT AND PLAN: 1. Acute on chronic hypoxemic and hypercapnic respiratory failure. Multifactorial. The patient is volume overloaded and possibly has bronchitis. We will continue to treat the underlying issues. 2. Acute bronchitis. We will continue on Zosyn. The sputum culture and blood cultures are currently pending. Continue with bronchodilator therapy and BiPAP support. 3. Acute on chronic systolic congestive heart failure exacerbation with pulmonary edema. Continue with dopamine and dobutamine drips as directed by the well point pumping supervisor. The patient is also receiving diuretic therapy. 4. Acute kidney injury on chronic kidney disease. This is likely secondary to cardiorenal syndrome. We will continue to monitor the patient closely. His urine output has improved since the dopamine and dobutamine drips were added yesterday. We will continue to monitor closely. We will avoid nephrotoxic agents. Dr. Tavares is following. 5. Constipation. The patient has been started on scheduled laxative therapy. We will leave the patient on a clear liquid diet for now until he has a bowel movement. 6. Hyperkalemia. Unchanged. Will continue to monitor closely. 7. Hyponatremia. Slightly worse today. We will monitor closely. Continue with diuretic therapy. 8. Obstructive sleep apnea. Aware. 9. Morbid obesity. Aware. 10. Nonischemic cardiomyopathy. The patient currently has an ejection fraction of 15% to 20%. 11. Pulmonary hypertension. Aware. 12. Deep vein thrombosis prophylaxis. Continue on heparin. 13. Gastrointestinal prophylaxis. The patient is on IV Protonix. DISPOSITION: The patient is a FULL CODE. The patient is critically ill with a high risk of mortality. We will continue with the current treatment regimen as ordered. cc: Maryjane Krause MD MTDD
[2019-02-04] MEDS: DOBUTAMINE 500/D5W 500 MG/250 ML IV.SOLN IV SCH (02:59)
[2019-02-04] MEDS: XOPENEX NEB INH SCH ×6 (03:31→23:47)
[2019-02-04] MEDS: DOPAMINE 800 MG/D5W 800 MG/500 ML IV.SOLN IV SCH (04:27)
[2019-02-04 05:40] LABS: ALLEN TEST YES; BE 5.7 mmoll (-3.0-3.0); BLOOD TYPE ARTERIAL; HCO3-(ACT) 29.3 mmoll (20.0-26.0); METHB 1.1 % (0.0-1.5); MODALITY BI PAP; O2(CT) 15.1 mL/dL (15.0-23.0); O2HB 94.4 % (95.0-99.0); PCO2(98.6) 65 mmHg (35-45); PO2(98.6) 86 mmHg (60-100); SAMPLE BLOOD; SAO2 97.4 % (95.0-100.0); SRATE 20 BPM; THB 11.3 g/dL (11.5-17.4); pH(98.6) 7.32 (7.35-7.45)
[2019-02-04 06:04] LABS: BASO# 0.02 X1000 (0.0-0.2); BASO% 0.5 % (0.0-0.8); EOS# 0.06 X1000 (0.0-0.7); EOS% 1.4 % (0.0-10.0); HEMATOCRIT 39.9 % (42.0-52.0); LYMPH% 14.2 % (20.5-51.1); MCH 24.5 PG (27-31); MCHC 30.1 g/dL (33-37); MCV 81.6 FL (81-99); MONO# 0.76 X1000 (0.11-0.59); MPV 10.6 FL (7.4-10.4); NEUT# 2.79 X1000 (1.4-6.5); NEUT% 65.9 % (42.2-75.2); PLT 180 X1000 (130-400); RBC 4.89 XMIL (4.7-6.1); RDW 16.4 % (11.5-14.5); WBC 4.23 X1000 (4.8-10.8)
[2019-02-04 06:34] LABS: ALBUMIN 3.4 g/dL (3.5-5.0); DIRECT BILIRUBIN 0.3 mg/dL (0.00-0.20); TOTAL BILIRUBIN 0.94 mg/dL (0.20-1.00); TOTAL PROTEIN 6.9 g/dL (6.3-8.3)
[2019-02-04 06:47] LABS: ALBUMIN 3.6 g/dL (3.5-5.0); CALCIUM 9.6 mg/dL (8.8-10.2); CREATININE 2.7 mg/dL (0.7-1.2); PHOSPHORUS 3.9 mg/dL (2.7-4.5); POTASSIUM 5.4 mmol/L (3.5-5.1)
--- NOTE | 2019-02-04 07:16 | Diag Imaging Result Doc PS360 ---
EXAM: CHEST-PORTABLE HISTORY: dyspnea TECHNIQUE: Single view COMPARISON: 02/03/2019 FINDINGS: The lungs are well expanded. The heart is markedly enlarged. Central vascular prominence. No pleural effusions identified. No change in the left-sided PICC line. IMPRESSION: Marked cardiomegaly with vascular distention. Electronically signed by Jeremy Kim 02/04/2019 7:14 AM
[2019-02-04] MEDS: ZOSYN 2.25 GM in NS 50 ML IV SCH ×3 (07:47→23:05)
[2019-02-04] MEDS: NS 1,000 ML IV SCH (07:48)
[2019-02-04] MEDS ORDERED: TUSSIONEX LIQUID PO ONE (08:00)
[2019-02-04] MEDS: SYMBICORT 160/4.5 MICROGM INHALER INH SCH ×2 (08:03→19:54)
[2019-02-04] MEDS: MUCOMYST 20% INH SCH ×2 (08:03→19:54)
[2019-02-04] MEDS: MUCINEX PO SCH ×2 (10:31→22:13)
[2019-02-04] MEDS: FLOMAX PO SCH (10:31)
[2019-02-04] MEDS: MIRALAX PO SCH ×2 (10:31→21:07)
[2019-02-04] MEDS: COLACE PO SCH ×2 (10:31→21:06)
[2019-02-04] MEDS: COREG PO SCH ×2 (10:31→21:14)
[2019-02-04] MEDS: TESSALON PO SCH ×3 (10:31→18:50)
[2019-02-04] MEDS: LASIX IV SCH ×2 (10:32→21:14)
[2019-02-04] MEDS: LACTULOSE PO SCH ×2 (10:32→21:07)
[2019-02-04] MEDS: SOLU-MEDROL IV SCH ×3 (10:32→21:14)
[2019-02-04] MEDS: PROTONIX IV SCH (10:32)
[2019-02-04] MEDS: SODIUM CHLORIDE 0.9% INJ SCH (10:32)
[2019-02-04] MEDS: HEPARIN SUBQ SCH ×2 (10:42→23:05)
--- NOTE | 2019-02-04 10:59 | PROGRESS NOTE ---
DATE: 02/04/2019 INTERVAL HISTORY: No acute events overnight. His pulse and blood pressure were rather stable. He has been on dobutamine and dopamine. He has mild respiratory acidosis. SUBJECTIVE: Patient is feeling tired. He denies any complaints. Oral cavity is dry. He states he was n.p.o. and was just started on liquid diet. He has had bowel movements on bowel regimen. VITALS: Temperature 97.8 degrees, pulse 108, respiratory 24, blood pressure 118/76, saturating 95% on 5 L nasal cannula. PHYSICAL EXAMINATION: General: Morbidly obese, appears tired. Examination is limited because of body habitus. Lungs: Air entry bilaterally equal. No wheeze, rhonchi, or crackles. Cardiovascular: S1, S2 normal. No murmur or gallop. Abdomen: Obese, soft, nontender. Extremities: He has lower extremity edema. : He does not want a urine catheter. Neurologic: He is able to engage in meaningful conversation. I expressed my concern to him that his condition was critical. Considering congestive heart failure, cardiorenal syndrome, the prognosis is grim. LABS: Suggestive of normal acceptable range of WBC, hemoglobin and platelet count. He has mild respiratory acidosis. BMP suggestive of improvement in BUN and creatinine. MICROBIOLOGY: Blood cultures have been drawn; they are in lab. IMAGING: Chest x-ray suggests marked cardiomegaly and vascular distention. ASSESSMENT AND PLAN: 1. Acute on chronic hypoxic hypercapnic respiratory failure due to morbid obesity, volume overload and suspected pneumonia. Continue BiPAP while asleep and oxygenation as tolerated. Follow up serial arterial blood gases. I will also keep him on intravenous Zosyn. Considering his large body habitus, he may not be able to go down to get a CAT scan. I will follow up sputum culture and blood culture results. 2. Acute on chronic systolic congestive heart failure with ejection fraction of 15% with nonischemic cardiomyopathy. Continue intravenous Lasix, intravenous dobutamine and intravenous dopamine. He had good urine output on yesterday's regimen. Appreciate Cardiology's recommendation. 3. Acute kidney injury on chronic kidney disease, thought to be related to cardiorenal syndrome, now improving. Nephrology on board. Continue diuresis 4. Others. His constipation has resolved; his electrolyte abnormalities currently are within acceptable range; continue BiPAP as needed for obstructive sleep apnea. He also has pulmonary hypertension, and he is on heparin for deep vein thrombosis prophylaxis, as well as pantoprazole for stress ulcer prophylaxis. DISPOSITION: Mr. Lopez's condition is really critical and his prognosis is poor. He is at high risk of during this admission. I called patient's mother to inform her about patient's critical condition. However, she did not rock picker. I have left a voice message. ADDENDUM: I went to the bedside and informed patient's mother about patient's clinical condition. I told her that Mr. Lopez is critically ill considering failing heart, failing kidneys and chronic respiratory failure. I answered all of her questions. cc: Rodo Ramirez MD MTDD
[2019-02-04] MEDS ORDERED: DOPAMINE 800 MG/D5W 800 MG/500 ML IV.SOLN IV SCH (12:27)
[2019-02-04] MEDS ORDERED: ZAROXOLYN PO ONE (12:27)
[2019-02-04] MEDS ORDERED: MILRINONE IV ONE (12:30)
--- NOTE | 2019-02-04 12:48 | PROGRESS NOTE ---
DATE: 02/04/2019 SUBJECTIVE: Patient relates feeling fatigued. He denies shortness of breath on supplemental oxygen per nasal cannula. There has been no chest pain. He does relate some headache. He has had cough productive of some yellow sputum. He continues on dobutamine and dopamine as well as IV Lasix q.12. OBJECTIVE: Vital signs: Blood pressure 135/85, heart rate 106 with ECG monitor showing sinus rhythm. Oxygen saturation 98%. Neck: Jugular venous distention vaguely visible suggesting elevated central venous pressure. Chest: Reveals diminished breath sounds bilaterally. Cardiac: Reveals a regular rate and rhythm without appreciable murmur or gallop. Extremities: Demonstrate trace edema. LABORATORY DATA: Includes a white blood cell count 4.23, hematocrit 39.9, hemoglobin 12.0, platelet count 180,000. Sodium 139, potassium 5.4, chloride 98, carbon dioxide 30, BUN 89, creatinine is 2.7, glucose 100. IMPRESSION: 1. Acute on chronic biventricular congestive heart failure with predominance of right-sided heart failure presently and associated cardiorenal syndrome. Patient remains volume overloaded. 2. Severe nonischemic cardiomyopathy. 3. Massive obesity. 4. Obstructive sleep apnea. 5. Pulmonary hypertension secondary to cardiopulmonary issues. RECOMMENDATIONS: 1. Switch from dobutamine to Primacor and minimize dopamine dose. 2. Give dose of metolazone 5 mg p.o. today. 3. Continue BiPAP at night and when asleep. cc: Brandon Miller MD
[2019-02-04] MEDS: MORPHINE IV PRN (15:59)
[2019-02-04] MEDS: DALIRESP PO SCH (16:04)
[2019-02-04] MEDS: PRIMACOR 20 MG/D5W 100 ML 20 MG/100 ML IVPB IV SCH ×3 (16:14→20:49)
[2019-02-05] MEDS: PRIMACOR 20 MG/D5W 100 ML 20 MG/100 ML IVPB IV SCH ×6 (00:10→21:59)
[2019-02-05] MEDS: XOPENEX NEB INH SCH ×6 (03:43→23:35)
[2019-02-05] MEDS: TYLENOL PO PRN (04:09)
[2019-02-05 05:00] LABS: ALLEN TEST YES; BE 7.2 mmoll (-3.0-3.0); BLOOD TYPE ARTERIAL; HCO3-(ACT) 30.5 mmoll (20.0-26.0); O2(CT) 16.8 mL/dL (15.0-23.0); O2HB 94.9 % (95.0-99.0); PO2(98.6) 89 mmHg (60-100); SAMPLE BLOOD; SAO2 97.6 % (95.0-100.0); THB 12.5 g/dL (11.5-17.4); pH(98.6) 7.35 (7.35-7.45)
[2019-02-05 05:01] LABS: PCO2(98.6) 63 mmHg (35-45)
[2019-02-05 05:02] LABS: MODALITY BI PAP
[2019-02-05] MEDS: SOLU-MEDROL IV SCH ×4 (05:12→21:16)
[2019-02-05 06:00] LABS: HEMATOCRIT 38.6 % (42.0-52.0); HEMOGLOBIN 11.6 g/dL (14.0-18.0); LYMPH# 0.43 X1000 (1.2-3.4); MCH 24.4 PG (27-31); MCHC 30.1 g/dL (33-37); MCV 81.1 FL (81-99); MONO# 0.16 X1000 (0.11-0.59); MONO% 4.5 % (1.7-9.3); MPV 10.9 FL (7.4-10.4); NEUT# 2.99 X1000 (1.4-6.5); NEUT% 83.5 % (42.2-75.2); PLT 180 X1000 (130-400); RBC 4.76 XMIL (4.7-6.1); RDW 16.1 % (11.5-14.5); WBC 3.58 X1000 (4.8-10.8)
[2019-02-05 06:34] LABS: ALBUMIN 3.6 g/dL (3.5-5.0); CALCIUM 9.7 mg/dL (8.8-10.2); CREATININE 2.1 mg/dL (0.7-1.2); PHOSPHORUS 2.5 mg/dL (2.7-4.5); POTASSIUM 5.8 mmol/L (3.5-5.1)
--- NOTE | 2019-02-05 07:09 | Diag Imaging Result Doc PS360 ---
EXAM: CHEST-PORTABLE HISTORY: dyspnea TECHNIQUE: Single view COMPARISON: 02/04/2019 FINDINGS: The heart remains markedly enlarged. Pulmonary edema persists. No pleural effusions identified. No change in the left-sided PICC line. IMPRESSION: No interval improvement Electronically signed by Jeremy Kim 02/05/2019 7:06 AM
[2019-02-05] MEDS: LASIX IV SCH ×2 (08:02→20:56)
[2019-02-05] MEDS: TESSALON PO SCH ×3 (08:02→16:03)
[2019-02-05] MEDS: COLACE PO SCH ×3 (08:02→20:55)
[2019-02-05] MEDS: ZOSYN 2.25 GM in NS 50 ML IV SCH ×3 (08:02→23:48)
[2019-02-05] MEDS: FLOMAX PO SCH (08:02)
[2019-02-05] MEDS: COREG PO SCH ×2 (08:02→20:57)
[2019-02-05] MEDS: ZOFRAN IV PRN ×2 (08:02→18:41)
[2019-02-05] MEDS: MIRALAX PO SCH ×3 (08:03→20:55)
[2019-02-05] MEDS: LACTULOSE PO SCH ×3 (08:03→20:55)
[2019-02-05] MEDS: MUCINEX PO SCH ×2 (08:03→20:55)
[2019-02-05] MEDS: DALIRESP PO SCH (08:10)
[2019-02-05] MEDS: SYMBICORT 160/4.5 MICROGM INHALER INH SCH ×2 (08:32→20:02)
[2019-02-05] MEDS: MUCOMYST 20% INH SCH ×2 (08:33→20:03)
[2019-02-05] MEDS ORDERED: MAGNESIUM SULFATE 2 GM/S.W.I. 2 GM/50 ML IVPB IV ONE (09:21)
[2019-02-05] MEDS ORDERED: KAYEXALATE PO ONE (09:23)
[2019-02-05] MEDS: SODIUM CHLORIDE 0.9% INJ SCH (09:39)
[2019-02-05] MEDS: PROTONIX IV SCH (09:39)
[2019-02-05] MEDS: HEPARIN SUBQ SCH ×2 (09:40→21:16)
[2019-02-05] MEDS ORDERED: NORCO-5 PO PRN (09:45)
--- NOTE | 2019-02-05 12:48 | PROGRESS NOTE ---
DATE: 02/05/2019 SUBJECTIVE: Patient rest resting comfortably following analgesics. He continues on BiPAP presently. He diuresed vigorously in the last 24 hours. OBJECTIVE: Blood pressure 125/59, heart rate 130 with ECG monitor showing sinus tach. Jugular venous distention appears to be vaguely present suggesting elevated central venous pressure. Auscultation of the chest reveals coarse breath sounds bilaterally. Cardiac: Reveals a regular rate and rhythm without appreciable murmur or gallop. Extremities: Demonstrate trace edema. LABORATORY DATA: Includes a white blood cell count of 3.58, hematocrit 38.6, hemoglobin 11.6, platelet count 180,000, sodium 133, potassium 5.8, chloride 93, carbon dioxide 29, BUN 76, creatinine 2.1, glucose 149. IMPRESSION: 1. Acute on chronic biventricular congestive heart failure with predominance of right-sided failure presently and associated cardiorenal syndrome. Patient diuresed vigorously over the last 24 hours, but still shows some signs of volume excess. 2. Severe nonischemic cardiomyopathy. 3. Massive obesity. 4. Obstructive sleep apnea. 5. Pulmonary hypertension secondary to cardiopulmonary issues. RECOMMENDATIONS: 1. Continue Primacor 0.375 mcg/kg per minute. 2. Discontinue dopamine. 3. Continue IV Lasix q.12 another 24 hours and reassess. 4. Continue BiPAP at night and when asleep. 5. Given patient's tendency to readily desaturate from an oxygenation standpoint, would keep in intensive care unit another 24 hours and reassess. cc: Brandon Miller MD
[2019-02-05] MEDS: DOPAMINE 800 MG/D5W 800 MG/500 ML IV.SOLN IV SCH (14:27)
--- NOTE | 2019-02-05 15:20 | NEPHROLOGY PROGRESS NOTE ---
DATE: 02/05/2019 SUBJECTIVE: He is lying in bed on his BiPAP. Easily arousable. Answers questions. Still short of breath, but no nausea, vomiting, or coughing. OBJECTIVE: Vital Signs: Blood pressure 73/36, heart rate 108 respirations 20, intake 2 L, output 2.9 L. He is net -10 L since admission. general: Obese, black male, lying in bed at 45 degrees on BiPAP. Skin: Warm and dry. Conjunctivae are pink. Neck: Neck veins are not visible. Heart: Irregular, but rate controlled. Lungs: Equal, no crackles. Abdomen: Obese, soft, nontender. Bowel sounds present. Extremities: With 1+ edema. No clubbing or cyanosis. IMPRESSION: Acute kidney injury. Excellent urine output. BUN and creatinine are improving. Baseline creatinine 1.4 as of December 13. He does have modest hyperkalemia and hyponatremia. Observe without intervention. cc: Jonas Tavares MD
[2019-02-05 17:14] LABS: ALBUMIN 3.4 g/dL (3.5-5.0); CALCIUM 9.5 mg/dL (8.8-10.2); CREATININE 2.2 mg/dL (0.7-1.2); PHOSPHORUS 3.1 mg/dL (2.7-4.5); POTASSIUM 5.3 mmol/L (3.5-5.1)
[2019-02-05 17:21] LABS: ALLEN TEST YES; BE 7.6 mmoll (-3.0-3.0); BLOOD TYPE ARTERIAL; HCO3-(ACT) 30.8 mmoll (20.0-26.0); O2(CT) 16.7 mL/dL (15.0-23.0); O2HB 95.2 % (95.0-99.0); PO2(98.6) 89 mmHg (60-100); SAMPLE BLOOD; THB 12.4 g/dL (11.5-17.4); pH(98.6) 7.36 (7.35-7.45)
[2019-02-05 17:23] LABS: MODALITY VENTIMASK; PCO2(98.6) 62 mmHg (35-45)
--- NOTE | 2019-02-05 18:15 | PROGRESS NOTE ---
DATE: 02/05/2019 SUBJECTIVE: The patient is awake; however, he has been unable to keep anything down. He has been vomiting and feeling nauseous all day. He is on a primacor drip. OBJECTIVE: Vital Signs: Temperature 97.9 degrees, blood pressure 103/66, heart rate 126, respirations 21, O2 saturation 92% on a Venturi mask at 50%, intake 2 L, output 2.9 L. General: This is a morbidly obese male lying in bed in no acute distress. Heart: S1, S2 normal. Tachycardic. Lungs: Diminished breath sounds bilaterally. No wheezing. No rales. Abdomen: Obese, soft, nontender. Extremities: 1+ edema bilaterally. Neurologic: The patient is alert and oriented x4. LABORATORY DATA: White blood cell count 3.5, hemoglobin 11, hematocrit 38, platelets 180,000. ABG: pH of 7.36, pCO2 62, pO2 89, bicarb 30. Sodium 133, potassium 5.3, chloride 92, CO2 28, BUN 77, creatinine 2.2, glucose 250, magnesium 1.5, phosphorus 3.1. IMAGING: Chest x-ray shows pulmonary edema and cardiomegaly. ASSESSMENT AND PLAN: 1. Acute on chronic hypoxemic and hypercapnic respiratory failure. Continue to treat the patient's underlying heart failure and pneumonia. We will broaden the patient's antibiotic coverage. 2. Pneumonia. Continue on Zosyn. 3. Acute on chronic systolic congestive heart failure exacerbation with pulmonary edema. The patient is currently on a dopamine and Primacor drip. Continue further management as directed by the offbearer sewer pipe. Continue with diuretic therapy. 4. Acute kidney injury on chronic kidney disease. Slowly improving. The patient's urine output has been excellent. Nephrology is following. 5. Nausea and vomiting. We will repeat the abdominal x-ray. We consult GI in the morning. Will change to clear liquids only. 6. Hyperkalemia. We will continue to monitor closely. 7. Pulmonary hypertension. Aware. 8. Obstructive sleep apnea. Aware. 9. Nonischemic cardiomyopathy with an ejection fraction of 15% to 20%. Aware. 10. Morbid obesity. BMI of 77. 11. Constipation. Continue on miralax 12. Deep vein thrombosis prophylaxis. Continue on heparin. 13. Disposition. The patient is currently a full code. The patient remains critically ill with a high risk of mortality. The patient's questions were answered. cc: Maryjane Krause MD MTDD
--- NOTE | 2019-02-05 19:11 | Diag Imaging Result Doc PS360 ---
EXAM: ABDOMEN FLAT/UPRIGHT HISTORY: nausea and vomiting TECHNIQUE: Single view COMPARISON: 02/03/2019 FINDINGS: Suboptimal exam due to the patient's body habitus. Very little information obtained. Electronically signed by Jeremy Kim 02/05/2019 7:09 PM
[2019-02-05] MEDS: NORCO-5 PO PRN (20:56)
[2019-02-05] MEDS: HUMULIN R SUBQ SCH (20:59)
[2019-02-05] MEDS: MORPHINE IV PRN (23:49)
[2019-02-06] MEDS: DOPAMINE 800 MG/D5W 800 MG/500 ML IV.SOLN IV SCH ×2 (01:53→21:39)
[2019-02-06] MEDS: TYLENOL PO PRN (02:11)
[2019-02-06] MEDS: PRIMACOR 20 MG/D5W 100 ML 20 MG/100 ML IVPB IV SCH ×6 (02:11→23:20)
[2019-02-06] MEDS: SOLU-MEDROL IV SCH ×5 (03:26→21:04)
[2019-02-06 05:49] LABS: ALLEN TEST YES; BLOOD TYPE ARTERIAL; HCO3-(ACT) 30.4 mmoll (20.0-26.0); O2(CT) 15.6 mL/dL (15.0-23.0); O2HB 96.3 % (95.0-99.0); PO2(98.6) 156 mmHg (60-100); SAMPLE BLOOD; SAO2 98.8 % (95.0-100.0); THB 11.3 g/dL (11.5-17.4); pH(98.6) 7.34 (7.35-7.45)
[2019-02-06 05:50] LABS: MODALITY BI PAP; PCO2(98.6) 64 mmHg (35-45)
[2019-02-06] MEDS: XOPENEX NEB INH SCH ×6 (06:08→23:39)
[2019-02-06] MEDS: HUMULIN R SUBQ SCH ×4 (06:12→21:04)
[2019-02-06 06:52] LABS: BASO# 0.01 X1000 (0.0-0.2); BASO% 0.1 % (0.0-0.8); HEMATOCRIT 39.5 % (42.0-52.0); HEMOGLOBIN 12.1 g/dL (14.0-18.0); LYMPH# 0.69 X1000 (1.2-3.4); MCH 24.8 PG (27-31); MCHC 30.6 g/dL (33-37); MCV 81.1 FL (81-99); MONO# 0.38 X1000 (0.11-0.59); MPV 10.3 FL (7.4-10.4); NEUT# 6.57 X1000 (1.4-6.5); NEUT% 85.9 % (42.2-75.2); PLT 193 X1000 (130-400); RBC 4.87 XMIL (4.7-6.1); RDW 16.1 % (11.5-14.5); WBC 7.65 X1000 (4.8-10.8)
[2019-02-06 07:02] LABS: ALBUMIN 3.5 g/dL (3.5-5.0); CALCIUM 9.8 mg/dL (8.8-10.2); CREATININE 2.3 mg/dL (0.7-1.2); PHOSPHORUS 3.9 mg/dL (2.7-4.5); POTASSIUM 5.8 mmol/L (3.5-5.1)
[2019-02-06] MEDS: SYMBICORT 160/4.5 MICROGM INHALER INH SCH ×2 (07:48→19:33)
[2019-02-06] MEDS: MUCOMYST 20% INH SCH ×2 (07:52→19:34)
--- NOTE | 2019-02-06 07:59 | Diag Imaging Result Doc PS360 ---
EXAM: CHEST-PORTABLE - 02/06/2019 HISTORY: dyspnea TECHNIQUE: Portable chest COMPARISON: 02/05/2019 FINDINGS: PICC remains in place. There is substantial cardiomegaly similar to prior. There is possibly mild pulmonary edema similar to prior. There is no substantial pleural effusion or pneumothorax identified. IMPRESSION: Cardiomegaly with possible mild pulmonary edema similar to prior. Electronically signed by Flakito Rodriguez 02/06/2019 7:57 AM
[2019-02-06] MEDS: LACTULOSE PO SCH ×2 (08:11→21:04)
[2019-02-06] MEDS: LASIX IV SCH ×2 (08:12→21:04)
[2019-02-06] MEDS: MUCINEX PO SCH ×2 (08:12→21:03)
[2019-02-06] MEDS: COLACE PO SCH ×2 (08:12→21:04)
[2019-02-06] MEDS: TESSALON PO SCH ×3 (08:12→17:43)
[2019-02-06] MEDS: MIRALAX PO SCH ×2 (08:12→21:03)
[2019-02-06] MEDS: ZOSYN 2.25 GM in NS 50 ML IV SCH ×3 (08:12→23:20)
[2019-02-06] MEDS: DALIRESP PO SCH (08:13)
[2019-02-06] MEDS: NORCO-5 PO PRN ×2 (08:13→21:40)
[2019-02-06] MEDS: COREG PO SCH ×2 (08:14→21:03)
[2019-02-06] MEDS: FLOMAX PO SCH (08:14)
[2019-02-06] MEDS: ZOFRAN IV PRN (08:45)
--- NOTE | 2019-02-06 09:57 | EKG Report ---
Test Performed on : 02/06/2019 08:39:52 AM Test Reason : Rhythm change Blood Pressure : / mmHG Vent. Rate : 127 BPM Atrial Rate : 127 BPM P-R Int : 124 ms QRS Dur : 092 ms QT Int : 310 ms P-R-T Axes : 066 017 077 degrees QTc Int : 450 ms Sinus tachycardia. Otherwise normal ECG When compared with ECG of 28-JAN-2019 12:57, No significant change was found Confirmed by Bakari VELÁZQUEZ, P.J.M ([id number]) on 02/07/2019 1:11:17 PM
[2019-02-06] MEDS: SODIUM CHLORIDE 0.9% INJ SCH (10:50)
[2019-02-06] MEDS: PROTONIX IV SCH (10:50)
[2019-02-06] MEDS: HEPARIN SUBQ SCH ×3 (10:51→21:19)
[2019-02-06] MEDS: REGLAN PO SCH ×2 (10:54→15:42)
--- NOTE | 2019-02-06 14:36 | NEPHROLOGY PROGRESS NOTE ---
DATE: 02/06/2019 SUBJECTIVE: He is on a closed face mask today. He feels better overall. Shortness of breath is managed. OBJECTIVE: Vital Signs: Blood pressure 90/57, heart rate 113, respirations 26. Afebrile. General: No acute distress. Skin: Warm and dry. Neck: Neck veins are not visible. Heart: Regular. Lungs: Equal. Abdomen: Nontender. Bowel sounds present. Extremities: Perhaps 1+ edema. No clubbing or cyanosis. IMPRESSION: 1. Acute kidney injury secondary to hypotension/cardiorenal syndrome. Creatinine 2.3 today. Little change in the last 48 hours. Potassium is marginal at 5.8 and sodium 133. Good urine output. 2. Observe. cc: Jonas Tavares MD
--- NOTE | 2019-02-06 14:38 | CARDIOLOGY PROGRESS NOTE ---
DATE: 02/06/2019 CHIEF COMPLAINT: Shortness of breath. Cough. SUBJECTIVE: Mr. Lopez is still requiring high flow oxygen. His blood gases this morning showed some improvement with a pCO2 that is closer to his usual baseline. He is still on dopamine at a low dose and milrinone. OBJECTIVE: Vital Signs: Blood pressure is 90.57, temperature 97.3, pulse 117, and respirations 26. General: He is awake and in no distress. HEENT: Unremarkable. Chest: Diminished breath sounds diffusely. Cardiac: Heart sounds are distant and tachycardic. Abdomen: The abdomen is very large and obese. Extremities: The extremities show brawny edema. Neurological: He follows commands and moves all extremities. No agitation. He is pretty calm. LABORATORY DATA: Blood work: Sodium is 133, potassium 5.8, BUN 81, and creatinine 2.3. ProBNP is 2,061 pg/mL. IMPRESSION: Patient with: 1. Advanced Class D heart failure [employer] Functional Class IV on pressors. 2. Respiratory failure, hypercarbic. 3. Pseudomonas pneumonia. Sensitive to all agents. 4. Massive obesity. 5. Acute renal dysfunction in the midst of heart failure consistent with cardiorenal syndrome. RECOMMENDATIONS: At this time we will continue with supportive therapy. The patient's prognosis is really pretty grim right now. We will see how things go. cc: Sander Johnson MD
[2019-02-06 17:16] LABS: ALBUMIN 3.7 g/dL (3.5-5.0); PHOSPHORUS 3.6 mg/dL (2.7-4.5); POTASSIUM 5.4 mmol/L (3.5-5.1)
--- NOTE | 2019-02-06 18:59 | PROGRESS NOTE ---
DATE: 02/06/2019 SUBJECTIVE: The patient is sitting up. He is awake and alert. He states that he does not feel as nauseated today. His Reglan has been restarted. OBJECTIVE: Vital Signs: Temperature 98.6, blood pressure 112/42, heart rate 121, respirations 22, O2 saturation 97% on a nonrebreather mask General: This is a morbidly obese male sitting up in bed in no acute distress. Heart: S1, S2 normal. Tachycardic. Lungs: Diminished breath sounds bilaterally. Abdomen: Positive bowel sounds. Soft, nontender, nondistended. Extremities: There is 1+ edema bilaterally. Neurologic: The patient is alert and oriented x4. LABS: White blood cell count 7.6, hemoglobin 12, hematocrit 39, platelets 193. ABG: pH of 7.34, pCO2 of 64, pO2 of 156. Sodium 134, potassium 5.4, chloride 93, CO2 30, BUN 82, creatinine 2, glucose 171, phosphorus 3.6, magnesium 2. Chest x-ray: Cardiomegaly with mild pulmonary edema. ASSESSMENT AND PLAN: 1. Acute on chronic hypoxemic and hypercapnic respiratory failure. Continue to treat the volume overload and pneumonia. 2. Pneumonia secondary to Pseudomonas. Continue on Zosyn. 3. Acute on chronic systolic congestive heart failure exacerbation with pulmonary edema. We will continue to try and wean the patient off of the dopamine drip. Continue on Primacor drip as directed by the senior grants officer. The patient is tolerating diuretic therapy as well. 4. Acute kidney injury on chronic kidney disease. Slowly improving. Dr. Tavares is following. 5. Nausea with vomiting. The patient's Reglan was restarted by gastroenterology. We will monitor closely for improvement. 6. Hyperkalemia. Stable. 7. Pulmonary hypertension. Aware. 8. Obstructive sleep apnea. Aware. 9. Nonischemic cardiomyopathy with an ejection fraction of 15% to 20%. Aware. 10. Morbid obesity with a body mass index of 76. Aware. The patient has been counseled about weight loss and proper diet. He is followed by Dr. Obrien. 11. Constipation. Continue on MiraLAX. 12. Deep vein thrombosis prophylaxis. Continue on heparin. 13. Disposition. The patient is improved today. We will continue to monitor the patient in the ICU. cc: Maryjane Krause MD [facility]
[2019-02-07] MEDS: PRIMACOR 20 MG/D5W 100 ML 20 MG/100 ML IVPB IV SCH ×6 (03:04→22:27)
[2019-02-07] MEDS: SOLU-MEDROL IV SCH ×4 (03:04→21:04)
[2019-02-07] MEDS: XOPENEX NEB INH SCH ×6 (03:35→23:45)
--- NOTE | 2019-02-07 04:56 | GASTROENTEROLOGY CONSULTATION ---
DATE: 02/07/2019 REASON FOR CONSULTATION: Nausea, vomiting, decreased p.o. intake. HISTORY OF PRESENT ILLNESS: Mr. Jorgito Lopez is a 34-year-old gentleman with past medical history of systolic CHF with ejection fraction of 15 to 20 percent, obstructive sleep apnea on CPAP, GERD, history of iron deficiency anemia, history of peptic ulcer disease, COPD/asthma on home 5 L of oxygen, IBS with constipation and hemorrhoids, who was admitted on 01/28 with congestive heart failure exacerbation. The patient has been treated with diuresis, dopamine, and milrinone. Since admission, he reports having nausea with intermittent vomiting, early satiety, and lack of appetite. He has been getting Zofran as needed with minimal improvement. He also reports some constipation for which he is on MiraLAX b.i.d., lactulose 30 b.i.d., Colace and a proton pump inhibitor 40 mg daily. He also complains of persistent cough with yellow sputum. No shortness of breath at this time or chest pain. Notable lower extremity edema. REVIEW OF SYSTEMS: As per HPI, otherwise 12 point review of systems negative. PAST MEDICAL HISTORY: As per HPI. PAST SURGICAL HISTORY: None. ALLERGIES: No known drug allergies. FAMILY HISTORY: No family history of GI malignancies. SOCIAL HISTORY: No smoking. No alcohol or drug use. HOME MEDICATIONS: Aspirin, montelukast, Daliresp, omeprazole, Coreg, inhalers, torsemide, vitamin D, Entresto, dicyclomine, fluticasone, Reglan, MiraLAX, ipratropium, aspirin, carvedilol, ergocalciferol. PHYSICAL EXAM: Vital Signs: Temperature 98.2, heart rate of 126, respiratory rate of 25, blood pressure 94/77, O2 saturation 97% on 50% venturi mask. General: The patient is awake, alert, and in no acute distress. HEENT: Sclerae anicteric. Moist mucous membranes. Neck: Thick. Cardiac: Irregular heart rhythm. I cannot appreciate any murmurs. Lungs: No increased work of breathing. Breath sounds are difficult to auscultate given habitus. Abdomen: Obese, soft, nontender. Bowel sounds are present. Extremities: 2+ edema bilaterally. Neuro: Patient can move all extremities spontaneously. LABORATORY DATA: White count of 7.6, hemoglobin is 12.1, MCV of 81, platelets of 193,000. ABG with pH of 7.34, pCO2 of 64, PO2 of 156, lactate of 1.6. Sodium 134, potassium 5.4, chloride 93, bicarb 30, BUN 82, creatinine of 2.0. Glucose of 171. ProBNP of 2061. Albumin 3.7. IMAGING: Abdominal x-ray was on suboptimal given patient's habitus. Chest x- ray today shows cardiomegaly with possible mild pulmonary edema similar to prior. ASSESSMENT AND PLAN: Mr. Jorgito Lopez is a 34-year-old gentleman with morbid obesity and advanced heart failure, irritable bowel syndrome with constipation, history of peptic ulcer disease, and GERD who presents with heart failure exacerbation requiring inotropes and aggressive diuresis. Gastroenterology was consulted for nausea and vomiting, which I suspect is related to his underlying heart failure that can caused capsular stretch of the liver as well as edema of the intestine. Treatment is supportive with antiemetics and treating his underlying heart failure. We will add on Reglan t.i.d. with meals. His QTc is within normal range. We will continue to monitor, if his QTc becomes prolonged, alternative therapies will have to be considered. At this time, I would not recommend endoscopic evaluation given his high risk for anesthesia. Correct any electrolyte abnormalities. Minimize constipating medications. Continue bowel regimen as you are. He does endorse that his nausea is triggered by taking his medications. I would consider spreading out his medications or staggering them throughout the day. Advance diet as tolerated. # Nausea/vomiting # IBS-C # GERD # Systolic CHF exacerbation # Morbid obesity We will follow with you. Call with any questions or concerns. [facility]
[2019-02-07] MEDS: ALBUTEROL NEB INH PRN (05:51)
--- NOTE | 2019-02-07 05:52 | Diag Imaging Result Doc PS360 ---
EXAM: CHEST-PORTABLE HISTORY: dyspnea TECHNIQUE: Single view COMPARISON: 02/06/2019 FINDINGS: The lungs are well expanded. The heart is markedly enlarged. The vessels are distended. There are no infiltrates. No effusion identified. IMPRESSION: Cardiomegaly with pulmonary edema Electronically signed by Jeremy Kim 02/07/2019 5:50 AM
[2019-02-07] MEDS: HUMULIN R SUBQ SCH ×4 (06:00→21:06)
[2019-02-07] MEDS: REGLAN PO SCH ×3 (06:00→16:30)
[2019-02-07 06:50] LABS: BASO# 0.01 X1000 (0.0-0.2); BASO% 0.1 % (0.0-0.8); EOS# 0.18 X1000 (0.0-0.7); HEMATOCRIT 40.4 % (42.0-52.0); HEMOGLOBIN 11.9 g/dL (14.0-18.0); IMM GRAN# 0.08 X1000 (0.0-0.04); IMM GRAN% 0.9 % (0.0-0.5); LYMPH# 0.67 X1000 (1.2-3.4); LYMPH% 7.3 % (20.5-51.1); MCH 23.9 PG (27-31); MCHC 29.5 g/dL (33-37); MCV 81.3 FL (81-99); MONO# 0.36 X1000 (0.11-0.59); MONO% 3.9 % (1.7-9.3); MPV 10.7 FL (7.4-10.4); NEUT# 7.87 X1000 (1.4-6.5); NEUT% 85.8 % (42.2-75.2); PLT 156 X1000 (130-400); RBC 4.97 XMIL (4.7-6.1); WBC 9.17 X1000 (4.8-10.8)
[2019-02-07 07:15] LABS: LYMPHS 9 % (21-51); MONO 2 % (1-9); SEGS 89 % (42-75)
[2019-02-07 07:16] LABS: ANISOCYTOSIS OCCASIONAL; HYPOCHROM OCCASIONAL; MICROCYTOSIS OCCASIONAL
[2019-02-07 07:21] LABS: CALCIUM 9.5 mg/dL (8.8-10.2); CREATININE 2.1 mg/dL (0.7-1.2); POTASSIUM 5.4 mmol/L (3.5-5.1)
[2019-02-07] MEDS: MUCOMYST 20% INH SCH (08:18)
[2019-02-07] MEDS: DALIRESP PO SCH (08:25)
[2019-02-07] MEDS: COLACE PO SCH ×2 (08:26→21:03)
[2019-02-07] MEDS: MUCINEX PO SCH ×2 (08:26→21:04)
[2019-02-07] MEDS: TESSALON PO SCH ×3 (08:26→16:21)
[2019-02-07] MEDS: COREG PO SCH ×2 (08:27→21:03)
[2019-02-07] MEDS: ZOSYN 2.25 GM in NS 50 ML IV SCH ×3 (08:27→23:25)
[2019-02-07] MEDS: LACTULOSE PO SCH ×2 (08:27→21:03)
[2019-02-07] MEDS: LASIX IV SCH ×2 (08:27→21:03)
[2019-02-07] MEDS: FLOMAX PO SCH (08:27)
[2019-02-07] MEDS: MIRALAX PO SCH ×2 (08:31→21:04)
[2019-02-07] MEDS: MORPHINE IV PRN (08:58)
[2019-02-07] MEDS: HEPARIN SUBQ SCH ×2 (10:10→21:15)
[2019-02-07] MEDS: PROTONIX IV SCH (10:10)
[2019-02-07 10:24] LABS: ALLEN TEST YES; BE 8.6 mmoll (-3.0-3.0); BLOOD TYPE ARTERIAL; HCO3-(ACT) 31.6 mmoll (20.0-26.0); O2(CT) 16.5 mL/dL (15.0-23.0); O2HB 95.5 % (95.0-99.0); PO2(98.6) 86 mmHg (60-100); SAMPLE BLOOD; SAO2 98.2 % (95.0-100.0); THB 12.2 g/dL (11.5-17.4); pH(98.6) 7.35 (7.35-7.45)
[2019-02-07 10:25] LABS: MODALITY VENTIMASK; PCO2(98.6) 66 mmHg (35-45)
--- NOTE | 2019-02-07 11:09 | CARDIOLOGY PROGRESS NOTE ---
DATE: 02/07/2019 REASON FOR CONSULTATION: Shortness of breath, weakness. SUBJECTIVE: Mr. Lopez is still feeling short of breath, although not as bad as yesterday. His chest x-ray today shows cardiomegaly with pulmonary edema. OBJECTIVE: Vital signs: Blood pressure is 86/48, pulse 120, temperature 97.8, respirations 20. Obese, awake, alert, in no distress, comfortable. Chest: Symmetrical breath sounds, no rales. Heart sounds are regular with some PVCs. Abdomen is obese. Extremities showed no obvious edema. Neurologic: Follows commands. Moves all 4 extremities. DIAGNOSTIC DATA: Blood gases today show pCO2 is 66, pO2 is 86, and he is on a Ventimask. The pH is 7.35. IMPRESSION: 1. The patient is with cardiomegaly, congestive heart failure, systolic, chronic, functional class 4, stage D heart failure on IV pressors, dopamine, plus milrinone. 2. Pseudomonas bronchitis/pneumonia. 3. Morbid obesity with chronic hypercarbic respiratory failure. RECOMMENDATIONS: At this time, we will continue supportive measures. His prognosis is really very poor. At this time the therapeutic options in his case are very limited. In the presence of pseudomonas infection of the bronchial tree, I do not think he could be offered LVAD or any heroic intervention to prolong his survival. cc: Sander Johnson MD [facility]ITALJessica
[2019-02-07] MEDS: SYMBICORT 160/4.5 MICROGM INHALER INH SCH ×2 (11:36→19:51)
--- NOTE | 2019-02-07 16:11 | PROGRESS NOTE ---
DATE: 02/07/2019 SUBJECTIVE: The patient states that he feels a little bit better. He has not had any episodes of nausea or vomiting since yesterday. He complains of pain on his backside from lying in bed. OBJECTIVE: Vital Signs: Temperature 98.6 degrees. Blood pressure 97/38, heart rate 117, respiratory rate 27, O2 saturation 91% on nonrebreather mask. Intake 3 L, output 2.2 L. General: This is a morbidly obese male lying in bed in no acute distress. Heart: S1, S2. Normal. Tachycardic. Lungs: Diminished breath sounds bilaterally. Mild expiratory wheezes in the left lung field. Abdomen: Positive bowel sounds. Soft, obese. Extremities: 1+ edema. Neurologic: The patient is alert and oriented x4. LABS: White blood cell count 9, hemoglobin 11, hematocrit 40, platelets 156,000. Sodium 132, potassium 5.4, chloride 90, CO2 28, BUN 85, creatinine 2.1, glucose 117, magnesium 1.9. Chest x-ray shows pulmonary edema with cardiomegaly. ASSESSMENT AND PLAN: 1. Acute on chronic hypoxemic and hypercapnic respiratory failure. Continue with the current treatment regimen. 2. Pneumonia secondary to Pseudomonas. Continue on Zosyn and bronchodilator therapy. 3. Acute on chronic systolic congestive heart failure exacerbation with pulmonary edema. Continue on the Primacor drip with diuretic therapy as directed by the timber appraiser. Continue to try to wean the patient off of the dopamine drip. 4. Acute kidney injury on chronic kidney disease. Stable. Nephrology is following. 5. Nausea with vomiting. Improved. Continue on Reglan before each meal. 6. Hyperkalemia. Stable. 7. Obstructive sleep apnea. Aware. 8. Pulmonary hypertension. Aware. 9. Nonischemic cardiomyopathy with an ejection fraction of 15 to 20%. Aware. 10. Morbid obesity with a body mass index of 76. Aware. 11. Constipation. Improved. Continue on MiraLAX. 12. Deep vein thrombosis prophylaxis. Continue on heparin. cc: Maryjane Krause MD
[2019-02-07] MEDS: DOPAMINE 800 MG/D5W 800 MG/500 ML IV.SOLN IV SCH (21:02)
--- NOTE | 2019-02-08 00:04 | PROVIDER PROGRESS NOTE ---
Progress Note GI Progress Note 02/07/2019 S: No acute overnight events. Patient denies N/V, abdominal pain. He had small bowel movement this morning. He is back reglan, which he takes at home. Normally, on twice daily dosing. Currently on TID with AC. He is tolerating full liquids. O: Last Vital Signs Temp 98.1 F 02/08/19 00:00 Pulse 108 H 02/08/19 00:01 Resp 18 02/08/19 00:01 BP 99/53 02/08/19 00:01 Pulse Ox 92 L 02/08/19 00:01 Height 5 ft 7 in Weight 489 lb 11.2 oz GEN: awake, alert, NAD HEENT: anicteric, MMM NECK: unable to assess for JVD PULM: normal WOB, difficult to hear breath sounds given habitus CARDS: tachycardic ABD: obese, soft NT EXT: 2-3+ edema LABS: 02/07/19 02/07/19 02/07/19 04:59 04:59 10:20 WBC 9.17 Hgb 11.9 L Plt Count 156 pH 7.35 pCO2 66 H* pO2 86 Sodium 132 L Potassium 5.4 H Chloride 90 L Carbon Dioxide 28 BUN 85 H Creatinine 2.1 H Glucose 117 H ASSESSMENT AND PLAN: Mr. Jorgito Lopez is a 34-year-old gentleman with morbid obesity advanced heart failure with EF 15-20%, COPD, MARICRUZ, pulmonary HTN, IBS with constipation, history of PUD, GERD who presented with heart failure exacerbation requiring inotrope therapy and aggressive diuresis. He is also being treated for Pseudomonas pneumonia and CELINA on CKD. Gastroenterology was consulted for nausea and vomiting that has improved with restarting patient's home reglan. He is also on PPI and bowel regimen for GERD and constipation, respectively. He is tolerating full liquids. Will advance to renal diet. He has anemia without overt bleeding. He is at high anesthesia risk; therefore, I would like to avoid endoscopic procedures for now unless absolutely necessary. # N/V # GERD # Constipation # CHF exacerbation # Pneumonia # CELINA on CKD # Anemia Will follow with you. Please call with questions
[2019-02-08] MEDS: MUCOMYST 20% INH SCH ×3 (02:37→19:57)
[2019-02-08] MEDS: XOPENEX NEB INH SCH ×6 (03:21→23:48)
[2019-02-08] MEDS: PRIMACOR 20 MG/D5W 100 ML 20 MG/100 ML IVPB IV SCH ×6 (03:30→22:23)
[2019-02-08] MEDS: SOLU-MEDROL IV SCH ×4 (03:30→21:17)
[2019-02-08 05:02] LABS: ALLEN TEST YES; BE 7.1 mmoll (-3.0-3.0); BLOOD TYPE ARTERIAL; HCO3-(ACT) 30.4 mmoll (20.0-26.0); METHB 1.1 % (0.0-1.5); O2(CT) 17.9 mL/dL (15.0-23.0); O2HB 96.5 % (95.0-99.0); PO2(98.6) 149 mmHg (60-100); SAMPLE BLOOD; pH(98.6) 7.33 (7.35-7.45)
[2019-02-08 05:03] LABS: MODALITY BI PAP; PCO2(98.6) 67 mmHg (35-45)
[2019-02-08] MEDS: NORCO-5 PO PRN (05:05)
[2019-02-08] MEDS: ALBUTEROL NEB INH PRN (05:45)
[2019-02-08 06:25] LABS: HEMATOCRIT 40.4 % (42.0-52.0); HEMOGLOBIN 12.1 g/dL (14.0-18.0); MCH 24.2 PG (27-31); MCV 80.8 FL (81-99); MPV 10.3 FL (7.4-10.4); RDW 15.6 % (11.5-14.5); WBC 9.67 X1000 (4.8-10.8)
[2019-02-08] MEDS: DUONEB (A & A) INH SCH (06:25)
[2019-02-08] MEDS: HUMULIN R SUBQ SCH ×4 (06:26→21:19)
[2019-02-08] MEDS: REGLAN PO SCH ×3 (06:30→16:17)
[2019-02-08 07:11] LABS: ALBUMIN 3.5 g/dL (3.5-5.0); CALCIUM 9.8 mg/dL (8.8-10.2); CREATININE 2.2 mg/dL (0.7-1.2); PHOSPHORUS 3.3 mg/dL (2.7-4.5); POTASSIUM 5.5 mmol/L (3.5-5.1)
[2019-02-08] MEDS: SYMBICORT 160/4.5 MICROGM INHALER INH SCH ×2 (08:11→19:57)
[2019-02-08] MEDS: ZOSYN 2.25 GM in NS 50 ML IV SCH ×3 (09:00→23:21)
[2019-02-08] MEDS: LACTULOSE PO SCH ×2 (10:00→21:16)
[2019-02-08] MEDS: MUCINEX PO SCH ×2 (10:00→21:16)
[2019-02-08] MEDS: TESSALON PO SCH ×3 (10:00→16:17)
[2019-02-08] MEDS: TYLENOL PO PRN (10:00)
[2019-02-08] MEDS: DALIRESP PO SCH (10:00)
[2019-02-08] MEDS: LASIX IV SCH ×2 (10:00→21:16)
[2019-02-08] MEDS: MIRALAX PO SCH (10:00)
[2019-02-08] MEDS: COREG PO SCH ×2 (10:00→21:16)
[2019-02-08] MEDS: COLACE PO SCH (10:00)
[2019-02-08] MEDS: FLOMAX PO SCH (10:00)
[2019-02-08] MEDS: PROTONIX IV SCH (10:02)
[2019-02-08] MEDS: HEPARIN SUBQ SCH ×2 (10:03→21:17)
--- NOTE | 2019-02-08 10:38 | PROGRESS NOTE ---
DATE: 02/08/2019 SUBJECTIVE: Mr. Lopez is a 34-year-old male, resting in bed. He complains that he gets nauseated after he takes his medicines. Denied any vomiting. He had one bowel movement today. OBJECTIVE: Vital Signs: Temperature 98.1 degrees, pulse is 124, respirations 22, blood pressure is 105/57, oxygen saturation is 93% on Ventimask at 15% flow rate. The patient's weight is 488 pounds, BMI is 76.5 kg/m2. General: The patient is morbidly obese, alert and oriented x3, and in no acute distress. HEENT: Pale conjunctivae. No icterus. PERRL. Neck: Supple. Lungs: Wheezing heard in the anterior patel. Cardiovascular: The patient is tachycardic. Abdomen: Obese, generalized tenderness. Hypoactive bowel sounds heard in all 4 quadrants. Extremities: No clubbing, no cyanosis. 2+ pitting edema in the lower extremities. Neurologic: Alert and oriented x3. IMAGING AND LABORATORY DATA: WBCs 9.67, RBC 5.0, hemoglobin 12.1, hematocrit 40.4, platelet count 189,000. Sodium is 136, potassium 5.5, chloride 94, carbon dioxide 28, anion gap 14, BUN 91, creatinine 2.2, glucose 120, calcium 9.8. Phosphorus 3.3. Albumin is 3.5. Chest x-ray showed cardiomegaly with pulmonary edema. IMPRESSION AND PLAN: Nausea/Vomiting GERD Constipation CHF exacerbation Pneumonia Anemia CKD Morbid obesity Pulmonary edema from CHF PLAN: Mr. Lopez is a 34-year-old male who is morbidly obese. Gastroenterology is following him for his nausea and vomiting. The patient has complained that whenever he takes the medicine, he feels nauseated. He is currently on antiemetics, Zofran and Reglan for his nausea and vomiting. The patient is also on GI prophylaxis Protonix 40 mg intravenously daily for his GERD. The patient is receiving lactulose, Colace, and MiraLAX for his constipation. His constipation is getting resolved. He is on antibiotic, Zosyn, for his pneumonia. His hemoglobin today was 12.1 and hematocrit was 40.4. He is hemodynamically stable. We will continue to provide supportive care to the patient and follow the plan of care per PCP. This plan was discussed with Dr. Rao. No plans for endoscopic procedures at this time. Please call us for any further questions or concerns. Dictated by ERIK Murguia for Josue Rao MD cc: Josue Rao MD I have seen and examined the patient myself and I agree with the above plan of care. I have discussed the above with the patient and all questions were answered. Please call us with any further questions. МАРИЯ
[2019-02-08] MEDS: NS NEB INH SCH (11:40)
[2019-02-08] MEDS ORDERED: MIRALAX PO PRN (15:49)
--- NOTE | 2019-02-08 16:19 | PROGRESS NOTE ---
DATE: 02/08/2019 SUBJECTIVE: The patient states that he feels okay today. He was able to eat breakfast and has not had any episodes of vomiting. He remains on a dopamine and Primacor drips. OBJECTIVE: Vital Signs: Temperature 97.4 degrees, blood pressure 94/63, heart rate 123, respirations 22, O2 saturation 97% on non-rebreather. Intake 3.1 L. Output 2.3 L. General: This is a morbidly obese male lying in bed in no acute distress. Heart: S1, S2 normal. Tachycardic. Lungs: Diminished breath sounds bilaterally. Abdomen: Positive bowel sounds. Soft, obese, nontender. Extremities: 1+ edema in the lower extremities. Neurologic: The patient is alert and oriented x4. LABS: White blood cell count 9.6, hemoglobin 12, hematocrit 40, platelets 189,000. ABG pH of 7.33, pCO2 67, PO2 149, bicarb 30. Sodium 136, potassium 5.5, chloride 94, CO2 28, BUN 91, creatinine 2.2, glucose 120, calcium 9.8. ASSESSMENT AND PLAN: 1. Acute on chronic hypoxemic and hypercapnic respiratory failure. Continue with the current treatment regimen. 2. Pneumonia secondary to Pseudomonas. Continue on Zosyn and bronchodilator therapy. 3. Acute on chronic systolic congestive heart failure exacerbation with pulmonary edema. Continue on Primacor and diuretic therapy. Continue to try and wean the patient off of the dopamine drip. 4. Acute kidney injury on chronic kidney disease. Stable. Continue to avoid nephrotoxic agents. 5. Hyperkalemia. Unchanged. Continue to monitor closely. 6. Obstructive sleep apnea. Aware. 7. Pulmonary hypertension. Aware. 8. Morbid obesity with a body mass index of 76. Aware. 9. Nonischemic cardiomyopathy with ejection fraction of 15 to 20 percent. Aware. 10. Deep vein thrombosis prophylaxis. Continue on heparin. cc: Maryjane Krause MD MTDD
--- NOTE | 2019-02-08 16:50 | PROVIDER PROGRESS NOTE ---
Progress Note Subjective: patient sitting up in bed eating breakfast. He voices he feels better than he has been. He is still short of breath. Denies any other uremic complaints. Objective: temperature 97.9, pulse 107, respirations 20, blood pressure 97/47, 02 sat 95% on 15L BIPAP. General: obese -[place] male lying in bed eating breakfast in no acute distress. HEENT: Normocephalic, atraumatic, pupils equal and reactive. Mucous membranes moist. Trachea midline. Skin: warm and dry next line neck: supple, 8 cm JVD. Cardiovascular: S1, S2, tachycardic rate and rhythm. No murmur gallop. respiratory: clear bilaterally with equal air excursion anteriorly Abdomen: obese, soft, nontender, nondistended. Bowel sounds present. : not inspected extremities: 1+ pitting edema Neurologic: alert and oriented to person, place, and time. Labs: WBC 9.67, hemoglobin 12.1, hematocrit 40.4, platelet count 189, sodium 136, potassium 5.5, carbon dioxide 28, BUN 91, creatinine 2.2. Intake 3197, output 2340. Impression: Acute kidney injury secondary to hypertension/cardiorenal syndrome. Creatinine stable at 2.2 today, good urine output noted. We will continue to monitor. Blood pressure. Below target. Remains on dopamine. Acid base balance and electrolytes. Stable. Anemia. Stable. Fluid volume. Above target, remains on milrinone.
[2019-02-08] MEDS: MORPHINE IV PRN (17:41)
[2019-02-08] MEDS: DOPAMINE 800 MG/D5W 800 MG/500 ML IV.SOLN IV SCH (21:14)
[2019-02-09] MEDS: PRIMACOR 20 MG/D5W 100 ML 20 MG/100 ML IVPB IV SCH ×6 (02:01→23:40)
[2019-02-09] MEDS: SOLU-MEDROL IV SCH ×4 (03:03→21:28)
[2019-02-09] MEDS: XOPENEX NEB INH SCH ×6 (03:40→23:22)
[2019-02-09 05:10] LABS: ALLEN TEST YES; BE 7.2 mmoll (-3.0-3.0); BLOOD TYPE ARTERIAL; HCO3-(ACT) 30.5 mmoll (20.0-26.0); METHB 1.1 % (0.0-1.5); O2HB 96.4 % (95.0-99.0); PO2(98.6) 169 mmHg (60-100); SAMPLE BLOOD; SAO2 99.2 % (95.0-100.0); pH(98.6) 7.39 (7.35-7.45)
[2019-02-09 05:12] LABS: MODALITY BI PAP; PCO2(98.6) 56 mmHg (35-45)
[2019-02-09] MEDS: HUMULIN R SUBQ SCH ×4 (06:08→21:00)
[2019-02-09 06:13] LABS: HEMATOCRIT 39.6 % (42.0-52.0); HEMOGLOBIN 12.1 g/dL (14.0-18.0); MCH 24.7 PG (27-31); MCHC 30.6 g/dL (33-37); MPV 11.6 FL (7.4-10.4); RBC 4.89 XMIL (4.7-6.1); RDW 15.9 % (11.5-14.5); WBC 12.02 X1000 (4.8-10.8)
[2019-02-09] MEDS: REGLAN PO SCH ×3 (06:15→15:50)
[2019-02-09 07:23] LABS: ALBUMIN 3.4 g/dL (3.5-5.0); CALCIUM 9.4 mg/dL (8.8-10.2); CREATININE 2.2 mg/dL (0.7-1.2); PHOSPHORUS 3.1 mg/dL (2.7-4.5); POTASSIUM 5.4 mmol/L (3.5-5.1)
--- NOTE | 2019-02-09 08:04 | Diag Imaging Result Doc PS360 ---
CHEST-PORTABLE - 02/09/2019 INDICATION: dyspnea COMPARISON: 02/07/2019 FINDINGS: Stable left PICC line in good position. There is severe cardiomegaly and pulmonary vascular congestion. Lung volumes are low. IMPRESSION: No change from prior. Electronically signed by Richard Serrato 02/09/2019 8:02 AM
[2019-02-09] MEDS: SYMBICORT 160/4.5 MICROGM INHALER INH SCH ×2 (08:28→19:54)
[2019-02-09] MEDS: MUCOMYST 20% INH SCH ×2 (08:29→19:54)
[2019-02-09] MEDS: ZOSYN 2.25 GM in NS 50 ML IV SCH ×3 (09:00→23:40)
[2019-02-09] MEDS: HEPARIN SUBQ SCH ×2 (09:26→21:28)
[2019-02-09] MEDS: PROTONIX IV SCH (09:26)
[2019-02-09] MEDS: LASIX IV SCH ×2 (09:26→21:28)
[2019-02-09] MEDS: DALIRESP PO SCH (09:27)
[2019-02-09] MEDS: LACTULOSE PO SCH ×2 (09:27→21:28)
[2019-02-09] MEDS: COREG PO SCH ×2 (09:27→21:28)
--- NOTE | 2019-02-09 10:19 | PROGRESS NOTE ---
DATE: 02/09/2019 INTERVAL HISTORY: No acute events overnight. He was maintaining MAP more than 65 mmHg. However, dopamine could not be weaned down because he would become hypotensive when it was attempted. SUBJECTIVE: He states he is still not able to bring up sputum. He states his abdominal cramps are better. He states he is eating better. He denies any chest pain except occasional palpitation. He denies feeling short of breath. He is currently on his CPAP mask. We discussed about treatment of pneumonia, extremely poor heart function. OBJECTIVE: Vital signs: Temperature 97.7 degrees, pulse 109, respiratory 12, blood pressure 110/63, he is saturating currently 100% on my review of monitor technician at bedside. He is currently on CPAP. HEENT: Oral cavity is dry. No oral candidiasis. Chest: Examination is limited. However, S1, S2 is normal. Point of maximal impulse of heart is currently under sternum. No murmur, rub, or gallop. Lungs: Air entry bilaterally equal. No wheeze or rhonchi. However, examination is limited. Abdomen: Obese, soft, nontender. Active bowel sounds. Extremities: He does have mild edema bilateral lower extremity and upper extremity. Input and output: Suggest positive 800 mL yesterday. LABORATORY DATA: Suggestive of mild leukocytosis, normocytic anemia, normal platelet count. His ABG suggestive of chronic hypercarbia on BiPAP. He does have hyponatremia, mild hyperkalemia, elevation in his BUN and stable creatinine suggestive of chronic kidney disease stage III. MICROBIOLOGY: Blood culture has not shown any growth to date. Previously Pseudomonas aeruginosa was isolated in the sputum. IMAGING: Chest x-ray has not been reviewed yet. ASSESSMENT AND PLAN: 1. Acute on chronic hypoxic, hypercapnic respiratory failure due to morbid obesity and acute heart failure. Continue CPAP while asleep and oxygen through nasal cannula as tolerated to maintain saturation more than 94%. His pneumonia due to Pseudomonas could be a contributing factor as well for which we will continue him on intravenous Zosyn and albuterol nebulization. Day 1 of antibiotics was February 03. I will appreciate Pulmonology recommendation about weaning his intravenous methylprednisolone down as tolerated, though it could also be helping maintain his blood pressure at the moment. 2. Acute on chronic systolic congestive heart failure exacerbation with acute pulmonary edema on presentation with history of nonischemic cardiomyopathy and ejection fraction of 15 to 20 percent. Continue intravenous Lasix, intravenous Milrinone and intravenous dopamine. I will appreciate Cardiology recommendation about further care. He may need left ventricular assist device or higher level of care. 3. Acute kidney injury on chronic kidney disease stage III, now stable, likely because of his congestive heart failure. I will continue to monitor his electrolytes and his hyperkalemia. 4. Others. He does have history of obstructive sleep apnea, morbid obesity and pulmonary hypertension, which are currently stable. I will keep him on pantoprazole for stress ulcer prophylaxis and bowel regimen to treat his constipation. DISPOSITION: The patient's condition is critical. I talked with Mr. Lopez that many people with comorbidities as many as he has and I expressed my concern about his poor health. I expressed to him that he is currently on life support medications that we have not been able to wean him off. I expressed to him that he is at risk of sudden cardiac . He understood it. He states that he trusted me. At this point, I will have a detailed discussion with Cardiology team to see if he would need to be evaluated for any left ventricular assist device or other therapies at higher level of care, though considering he also has Pseudomonas pneumonia, it could be challenging. TIME SPENT: More than 30 minutes of critical care time was spent in taking care of this patient. cc: Rodo Ramirez MD ADDENDUM: I had a discussion with the cardiology team MICKI who had discussion with the head of mobile. The plan is to continue him on current treatment and reevaluate him tomorrow to see if he would benefit from higher level of care e.g. heart failure center. MTDD
--- NOTE | 2019-02-09 12:38 | GASTROENTEROLOGY PROGRESS NOTE ---
DATE: 02/09/2019 SUBJECTIVE: Mr. Lopez is a 34-year-old, -[place] male, resting in bed, having his breakfast. He has denied any nausea or vomiting today. OBJECTIVE: Vital Signs: Temperature 97.7, pulse 123, respirations 25, blood pressure 120/56, oxygen saturation 97% on Ventimask, oxygen flow is at 50%. The patient's weight is 488 pounds. BMI is 76.6 kg/m2. General: The patient is morbidly obese, alert, oriented x3, and in no acute distress. HEENT: Pale conjunctivae. No icterus. PERRL. Neck: Supple. Lungs: Coarse wheezing is heard in the anterior patel. Cardiovascular: The patient is tachycardic. Abdomen: Obese with generalized tenderness. Hypoactive bowel sounds heard in all 4 quadrants. Extremities: No clubbing, no cyanosis. Generalized edema in the lower extremities. Neurologic: Alert and oriented x3. Labs: WBCs are 12.02, RBCs 4.89, hemoglobin is 12.1, hematocrit is 39.6, platelet count is 192,000. Sodium 133, potassium 5.4, chloride 91, carbon dioxide 30, anion gap 12, BUN 96, creatinine 2.2, glucose 141, calcium 9.4, phosphorus 3.1, albumin 3.4. Chest x- ray has shown no changes. IMPRESSION: 1. Nausea and vomiting. 2. Gastroesophageal reflux disease. 3. Constipation. 4. Congestive heart failure exacerbation. 5. Pneumonia. 6. Anemia. 7. Chronic kidney disease. 8. Morbid obesity. 9. Pulmonary edema from congestive heart failure. PLAN: Mr. Lopez is a 34-year-old, -[place] male who is morbidly obese. GI is following him for his nausea and vomiting. The patient is receiving antiemetics, Zofran and Reglan, for his nausea and vomiting. His nausea and vomiting is under control today. He is receiving GI prophylaxis, 40 mg IV daily for his GERD. The patient is receiving lactulose and MiraLAX for his constipation. His constipation is also getting resolved. He is on antibiotic, Zosyn, for his pneumonia. His hemoglobin today was 12.1 and 39.6. Patient is hemodynamically stable. We will continue to provide supportive care to the patient and follow the plan of care per PCP. This plan was discussed with Dr. Bajadero. We do not plan to do any endoscopy procedures at this time. Please call us for any further questions or concerns. Dictated by ERIK Murguia for Pollo Rolle MD Physician Attestation I have seen and examined the patient. I have discussed and reviewed the note by Mindy VALENCIA and agree with findings and plan as documented. Awaiting diagnostic paracentesis. Continue supportive care. Nausea and vomiting resolved. He does get upset stomach with taking all his medications at one time. +BMs that are non bloody. Recommend staggering oral meds. MTDD
[2019-02-09] MEDS: MORPHINE IV PRN (14:11)
--- NOTE | 2019-02-09 18:52 | PROVIDER PROGRESS NOTE ---
Progress Note Subjective: Pt voices feeling better today. He had a lot of uncomfortable flatulence yesterday. Voices less productive sputum and shortness of breath. Objective: temperature 97.8, pulse 126, respirations 22, blood pressure 92/69, o2 sat 95% on 15 L bipap. General: obese -[place] male lying in bed in no acute distress. HEENT: Normocephalic, atraumatic, pupils equal and reactive. Mucous membranes dry. Trachea midline. Skin: warm and dry Neck: supple, 8 cm JVD. Cardiovascular: S1, S2, tachycardic rate and rhythm. No murmur gallop, enlarged and displaced PMI. Respiratory: coarse bilaterally with equal air excursion anteriorly Abdomen: obese, soft, nontender, nondistended. Bowel sounds present. : not inspected extremities: 1+ pitting edema to bilateral feet. Neurologic: alert and oriented to person, place, and time. Labs: WBC 12.02, hemoglobin 12.1, hematocrit 39.6, platelet count 192, sodium 133, potassium 5.4, chloride 91, carbon dioxide 30, BUN 96, creatinine 2.2. Intake 2733, output 2775. Impression: Acute kidney injury secondary to hypertension/cardiorenal syndrome. Creatinine remains stable at 2.2 today. Primacor and dopamine remain in place. We will continue to monitor. Blood pressure. Below target. Remains on dopamine. Acid base balance and electrolytes. Stable. Anemia. Stable. Fluid volume. Improved, remains on milrinone.
[2019-02-10] MEDS: PRIMACOR 20 MG/D5W 100 ML 20 MG/100 ML IVPB IV SCH ×3 (03:05→11:44)
[2019-02-10] MEDS: XOPENEX NEB INH SCH ×6 (03:43→23:23)
[2019-02-10] MEDS: SOLU-MEDROL IV SCH (03:55)
[2019-02-10 04:59] LABS: ALLEN TEST YES; BE 10.4 mmoll (-3.0-3.0); BLOOD TYPE ARTERIAL; METHB 0.7 % (0.0-1.5); O2(CT) 17.3 mL/dL (15.0-23.0); O2HB 96.6 % (95.0-99.0); PO2(98.6) 120 mmHg (60-100); SAMPLE BLOOD; SAO2 99.1 % (95.0-100.0); SRATE 20 BPM; THB 12.6 g/dL (11.5-17.4); pH(98.6) 7.36 (7.35-7.45)
[2019-02-10 05:00] LABS: MODALITY BI PAP; PCO2(98.6) 68 mmHg (35-45)
--- NOTE | 2019-02-10 06:03 | Diag Imaging Result Doc PS360 ---
EXAM: CHEST-PORTABLE HISTORY: dyspnea TECHNIQUE: Single view COMPARISON: 02/09/2019 FINDINGS: The lungs are well expanded. The heart is markedly enlarged. There is pulmonary edema and there appear to be small effusions. IMPRESSION: Stable chest Electronically signed by Jeremy Kim 02/10/2019 6:00 AM
[2019-02-10 06:07] LABS: HEMATOCRIT 40.2 % (42.0-52.0); HEMOGLOBIN 12.2 g/dL (14.0-18.0); MCH 24.5 PG (27-31); MCHC 30.3 g/dL (33-37); MCV 80.7 FL (81-99); MPV 10.1 FL (7.4-10.4); RBC 4.98 XMIL (4.7-6.1); WBC 13.09 X1000 (4.8-10.8)
[2019-02-10] MEDS: REGLAN PO SCH ×3 (06:08→15:52)
[2019-02-10] MEDS: MORPHINE IV PRN ×2 (06:30→11:44)
[2019-02-10 06:42] LABS: ALBUMIN 3.6 g/dL (3.5-5.0); CALCIUM 9.6 mg/dL (8.8-10.2); CREATININE 2.1 mg/dL (0.7-1.2); PHOSPHORUS 2.4 mg/dL (2.7-4.5); POTASSIUM 4.9 mmol/L (3.5-5.1)
[2019-02-10] MEDS: HUMULIN R SUBQ SCH ×4 (07:31→21:36)
[2019-02-10] MEDS: ZOSYN 2.25 GM in NS 50 ML IV SCH ×2 (07:47→15:51)
[2019-02-10] MEDS: SYMBICORT 160/4.5 MICROGM INHALER INH SCH ×2 (08:57→23:24)
[2019-02-10] MEDS: MUCOMYST 20% INH SCH ×2 (08:58→23:23)
[2019-02-10] MEDS: LACTULOSE PO SCH ×2 (09:53→21:35)
[2019-02-10] MEDS: COREG PO SCH ×2 (09:53→21:36)
[2019-02-10] MEDS: HEPARIN SUBQ SCH ×2 (09:53→21:35)
[2019-02-10] MEDS: DALIRESP PO SCH (09:53)
[2019-02-10] MEDS: PROTONIX IV SCH (09:53)
[2019-02-10] MEDS: SODIUM CHLORIDE 0.9% INJ SCH (09:53)
[2019-02-10] MEDS: LASIX IV SCH ×2 (09:53→21:35)
--- NOTE | 2019-02-10 12:26 | PROVIDER PROGRESS NOTE ---
Progress Note Subjective: Pt voices feeling the same as yesterday, denies any uremic complaints. Voices no change in shortness of breath. Objective: temperature 97.2, pulse 119, respirations 23, blood pressure 134/68, 02 sat 95% on 15 liter BiPAP General: obese -[place] male lying in bed in no acute distress. HEENT: Normocephalic, atraumatic, pupils equal and reactive. Mucous membranes dry. Trachea midline. Skin: warm and dry Neck: supple, 8 cm JVD. Cardiovascular: S1, S2, tachycardic rate and rhythm. No murmur or gallop, enlarged and displaced PMI. Respiratory: coarse bilaterally with rhonchi, equal air excursion anteriorly Abdomen: obese, soft, nontender, nondistended. Bowel sounds present. : not inspected extremities: 1+ pitting edema to bilateral feet. Neurologic: alert and oriented to person, place, and time. Labs: WBC 13.09, hemoglobin 12.2, hematocrit 40.2, platelet count 169, sodium 136, potassium 4.9, chloride 92, carbon dioxide 33, BUN 98, creatinine 2.1, intake 1516, output 1575. Impression: Acute kidney injury secondary to hypertension/cardiorenal syndrome. Creatinine remains stable, 2.1 today. Primacor and dopamine remain in place. We will continue to monitor. Blood pressure. Below target. Remains on dopamine. Acid base balance and electrolytes. Stable. Anemia. Stable. Fluid volume. Improved. Nutrition. Excellent. Ambulation. PT/OT in place Medication review. No changes.
--- NOTE | 2019-02-10 12:29 | PROGRESS NOTE ---
DATE: 02/10/2019 INTERVAL HISTORY: No acute events overnight. He has been off dopamine for more than 24 hours now. SUBJECTIVE: Mr. Lopez denies new complaints. He is still complaining of cough, but he is able to bring up expectoration. He continues to be on CPAP mask. OBJECTIVE: Vital signs: Currently temperature 97.2 degrees, pulse 119, respiratory 23, blood pressure 130/68, saturating 95% on BiPAP. Input and output suggests -800 mL so far today. General: Morbidly obese. Examination is limited. Lungs: Air entry bilaterally equal. No wheeze or rhonchi. He does have crackles in inframammary region. Cardiovascular: S1, S2 normal. Tachycardic. No murmur or gallop. Abdomen: Obese, soft, nontender. Extremities: Mild bilateral lower extremity edema. He has a left arm PICC line. Genitourinary: He does not have urine catheter. Neurologic: He is alert and oriented x3. LABS: Suggestive of leukocytosis, anemia which is stable and normal platelet count. He has adequate oxygenation on BiPAP. He does have chronic hypercarbia, elevated BUN and creatinine suggestive of chronic kidney disease stage 3. IMAGING STUDIES: Chest x-ray today suggests stable chest. ASSESSMENT AND PLAN: 1. Acute on chronic hypoxic hypercapnic respiratory failure due to morbid obesity. Acute congestive heart failure with reduced ejection fraction exacerbation. Continue BiPAP for his obstructive sleep apnea and oxygen through nasal cannula while awake to maintain saturation more than 94%. His multifocal pneumonia could also be a contributing factor. I will continue him on intravenous Zosyn. Day 1 is February 03. I will discuss with Pulmonology about decreasing his methylprednisolone. 2. Acute on chronic systolic congestive heart failure exacerbation with acute pulmonary edema with history of nonischemic cardiomyopathy and ejection fraction of 15 to 20 percent, and type 1 cardiorenal syndrome on presentation. Continue intravenous Lasix and intravenous Milrinone. He is also on intravenous Lasix. His cardiorenal syndrome and kidney function are currently stable. I appreciate Cardiology's recommendations about further care to see if he would need a higher level of care. 3. Acute kidney injury on chronic kidney disease stage 3, currently stable. 4. Other. He has history of obstructive sleep apnea on BiPAP, morbid obesity, pulmonary hypertension, which are currently stable. I will continue him on pantoprazole for stress ulcer prophylaxis and bowel regimen to treat his constipation. DISPOSITION: Continue to monitor patient in ICU. Awaiting further recommendations from Cardiology. Plan of care discussed with the patient, and his questions have been answered. His condition is really critical and prognosis is grim. I had a detailed discussion about his condition and high risk of mortality with the patient and his mother previously. cc: Rodo Ramirez MD
--- NOTE | 2019-02-10 14:26 | GASTROENTEROLOGY PROGRESS NOTE ---
DATE: 02/10/2019 SUBJECTIVE: Mr. Lopez is a 34-year-old male, resting in bed. He has denied any nausea and vomiting, but complains of feeling like he is bloated and has got too much of gas. OBJECTIVE: Vital Signs: Temperature 97.2 degrees, pulse 128, respirations 23, blood pressure 107/70, oxygen saturation 91% on Ventimask. The patient's weight is 488 pounds. BMI is 76.6 kg/m2. General: The patient is morbidly obese, alert, oriented x3, and in no acute distress. HEENT: Pale conjunctivae. No icterus. PERRL. Neck: Supple. Lungs: Coarse wheezing heard in the anterior patel. Cardiovascular: The patient is tachycardic. Abdomen: Obese, mildly tender. Hypoactive bowel sounds heard in all 4 quadrants. Extremities: No clubbing, no cyanosis. Generalized edema in the lower extremities. Neurologic: Alert and oriented x3. IMAGING AND LABORATORY DATA: WBCs are 13.09, RBC 4.98, hemoglobin 12.2, hematocrit 40.2, platelet count 169,000. Sodium is 136, potassium 4.9, chloride 92, carbon dioxide 33, anion gap 11, BUN 98, creatinine 2.1, glucose 144, calcium 9.6. Phosphorus 2.4. Chest x-ray today showed stable chest. IMPRESSION AND PLAN: Nausea and vomiting GERD Constipation CHF exacerbation Pneumonia Anemia CKD Morbid obesity Pulmonary edema form CHF PLAN: Mr. Lopez is a 34-year-old male who is morbidly obese, GI is following him for his nausea and vomiting. The patient is currently receiving antiemetic, Zofran and Reglan, for his nausea and vomiting. He is receiving Reglan before meals. His nausea and vomiting is under control. He is receiving GI prophylaxis 40 mg IV for his GERD. The patient is also on lactulose and MiraLAX for his constipation, and his constipation is getting better. The patient is receiving Zosyn for his pneumonia. We will continue to provide supportive care to the patient, and follow the plan of care per PCP. This plan was discussed with Dr. Rolle. Please call us for any further questions or concerns. Dictated by ERIK Murguia for Pollo Rolle MD Physician Attestation I have seen and examined the patient. I have discussed and reviewed the note by Mindy VALENCIA and agree with findings and plan as documented. His N/V is resolved and he having bowel movements on current bowel regimen. No abdominal pain. Will sign off. Please call with questions. Recommend staggering oral meds. MTDD
[2019-02-11] MEDS: ZOSYN 2.25 GM in NS 50 ML IV SCH ×3 (00:58→16:20)
[2019-02-11] MEDS: MORPHINE IV PRN (01:03)
[2019-02-11] MEDS: XOPENEX NEB INH SCH ×7 (03:11→23:15)
[2019-02-11 05:07] LABS: ALLEN TEST YES; BE 11.5 mmoll (-3.0-3.0); BLOOD TYPE ARTERIAL; HCO3-(ACT) 33.9 mmoll (20.0-26.0); O2(CT) 17.7 mL/dL (15.0-23.0); O2HB 96.4 % (95.0-99.0); PO2(98.6) 179 mmHg (60-100); SAMPLE BLOOD; THB 12.8 g/dL (11.5-17.4); pH(98.6) 7.42 (7.35-7.45)
[2019-02-11 05:10] LABS: PCO2(98.6) 59 mmHg (35-45)
[2019-02-11 05:11] LABS: MODALITY BI PAP
[2019-02-11 05:52] LABS: HEMATOCRIT 39.6 % (42.0-52.0); MCH 24.8 PG (27-31); MCHC 30.3 g/dL (33-37); MPV 10.9 FL (7.4-10.4); RBC 4.83 XMIL (4.7-6.1); RDW 16.2 % (11.5-14.5); WBC 15.73 X1000 (4.8-10.8)
[2019-02-11] MEDS: REGLAN PO SCH ×3 (06:06→16:21)
[2019-02-11] MEDS: HUMULIN R SUBQ SCH ×4 (06:08→21:30)
[2019-02-11 06:16] LABS: ALBUMIN 3.4 g/dL (3.5-5.0); CALCIUM 9.4 mg/dL (8.8-10.2); CREATININE 1.8 mg/dL (0.7-1.2); PHOSPHORUS 1.9 mg/dL (2.7-4.5); POTASSIUM 4.9 mmol/L (3.5-5.1)
--- NOTE | 2019-02-11 07:09 | Diag Imaging Result Doc PS360 ---
EXAM: CHEST-PORTABLE 02/11/2019 HISTORY: dyspnea TECHNIQUE: AP portable at 0507 COMMENT: There is cardiomegaly. The appearance of the chest has not changed significantly since 02/10/2019. IMPRESSION: Stable chest. Electronically signed by Rob Mccain 02/11/2019 7:06 AM
[2019-02-11] MEDS: MUCOMYST 20% INH SCH (07:50)
[2019-02-11] MEDS: SYMBICORT 160/4.5 MICROGM INHALER INH SCH ×2 (07:50→19:43)
--- NOTE | 2019-02-11 08:36 | PROVIDER PROGRESS NOTE ---
Progress Note Pulmonary additional Note: Case assessed and full note to follow.
[2019-02-11] MEDS: LASIX IV SCH ×2 (08:57→21:27)
[2019-02-11] MEDS: LACTULOSE PO SCH ×2 (08:57→21:27)
[2019-02-11] MEDS: DALIRESP PO SCH (08:57)
[2019-02-11] MEDS: SODIUM CHLORIDE 0.9% INJ SCH (08:57)
[2019-02-11] MEDS: PROTONIX IV SCH (08:57)
[2019-02-11] MEDS: HEPARIN SUBQ SCH ×2 (08:57→21:27)
[2019-02-11] MEDS: COREG PO SCH ×2 (08:58→21:28)
--- NOTE | 2019-02-11 11:55 | PROGRESS NOTE ---
DATE: 02/11/2019 INTERVAL HISTORY: No acute events overnight. His milrinone drip was stopped yesterday and his carvedilol dose was increased. He has been less tachycardic today and he has been sustaining his blood pressure. SUBJECTIVE: He denies any new complaints. He states that he is in the bed almost all the time and he uses a BiPAP while lying down. He denies any chest pain, shortness of breath. He is occasionally coughing and making sputum. VITALS: Temperature 97.1 degrees, pulse 96, respiratory 23, blood pressure 91/50. He is saturating 97% on BiPAP. PHYSICAL EXAMINATION: General: Morbidly obese, not in any acute distress. He has a BiPAP on. Examination is limited because of large body habitus. Lungs: Air entry appears equal in bilateral supramammary region. No wheeze, rhonchi. Mild crackles infrascapular region. Cardiac: S1, S2 normal, not tachycardic at the moment. No murmur, rub, or gallop. Abdomen: Obese, soft, nontender. Extremities: Mild bilateral lower extremity edema. He has left arm PICC line. : He does not have urine catheter. Neuro: He is alert and oriented x3. LABS: Labs suggestive of leukocytosis. This is likely related to steroid use, which was discontinued yesterday. Chronic hypercarbia with adequate oxygenation. He does have elevated BUN and creatinine suggestive of chronic kidney disease. Chest x-ray shows stable chest. ASSESSMENT AND PLAN: 1. Acute on chronic hypoxic hypercapnic respiratory failure due to morbid obesity and congestive heart failure exacerbation. Continue BiPAP for obstructive sleep apnea and nasal cannula during daytime. His Pseudomonas multifocal pneumonia could also be a contributing factor. I will continue him on intravenous Zosyn. Day 1 is February 03. He has been off methylprednisolone. I will keep him on his Roflumilast and leave albuterol nebulization as well as intravenous diuretics. 2. Acute on chronic systolic congestive heart failure exacerbation with ejection fraction of 15 to 20 percent with acute pulmonary edema and history of nonischemic cardiomyopathy as well as cardiorenal syndrome. Continue intravenous Lasix. He has been off dopamine, dobutamine and Milrinone. Cardiology team recommended outpatient close followup with heart failure clinic. 3. Cardiorenal syndrome leading to acute kidney injury on chronic kidney disease stage 3, currently stable. 4. He has morbid obesity, obstructive sleep apnea, pulmonary hypertension which are currently stable. I will continue him on pantoprazole for stress ulcer prophylaxis. His constipation is resolved. His dietary intake is acceptable. DISPOSITION: I will continue to monitor him inside ICU. He will be on Reglan for his nausea, vomiting and abdominal pain, which was thought to be related to bowel wall edema. I again discussed with him about his poor prognosis. If the family comes by, I will come by and talk with them and again update them about his poor prognosis and critical condition. All of Mr. Lopez's questions have been answered. cc: Rodo Ramirez MD
[2019-02-11] MEDS: TUSSIONEX LIQUID PO PRN (13:25)
[2019-02-11] MEDS: SOLU-MEDROL IV SCH ×2 (13:41→18:19)
--- NOTE | 2019-02-11 15:24 | PROVIDER PROGRESS NOTE ---
Progress Note Subjective: pt voices being extra tired this morning and complaints of thick sputum. Objective: temp 97.0, pulse 98, respirations 20, blood pressure 96/46, O2 sat 100% on 50% Venturi mask. General: obese -[place] male lying in bed in no acute distress. HEENT: Normocephalic, atraumatic, pupils equal and reactive. Mucous membranes dry. Trachea midline. Skin: warm and dry Neck: supple, unable to assess JVD today due to body position. Cardiovascular: S1, S2, tachycardic rate and rhythm. No murmur or gallop, enlarged and displaced PMI. Respiratory: coarse bilaterally with rhonchi, equal air excursion anteriorly Abdomen: obese, soft, nontender, nondistended. Bowel sounds present. : not inspected extremities: 1+ pitting edema to bilateral feet. Neurologic: alert and oriented to person, place, and time. Labs: WBC 15.73, hemoglobin 12, hematocrit 39.6, platelet count 193, sodium 135, potassium 4.9, chloride 93, carbon dioxide 34, BUN 92, creatinine 1.8. Intake 2411, output 3750. Impression: Acute kidney injury secondary to hypertension/cardiorenal syndrome. Creatinine improving, 1.8 today. Primacor and dopamine remain in place. We will continue to monitor. Blood pressure. Below target. Remains on dopamine. Acid base balance and electrolytes. Stable. Anemia. Stable. Fluid volume. Improved. Nutrition. Excellent. Ambulation. PT/OT in place Leukocytosis. Defer to primary. Medication review.
[2019-02-11] MEDS: BIDIL PO SCH (16:21)
--- NOTE | 2019-02-11 20:41 | GASTROENTEROLOGY PROGRESS NOTE ---
DATE: 02/11/2019 SUBJECTIVE: Patient resting in bed. Patient's nurse is at bedside. Patient is eating well. His nausea has improved. He is moving his bowels. OBJECTIVE: Vital signs: Temperature 97 degrees, pulse rate 119, respiratory rate of 30, blood pressure 119/75, saturating 96% on Ventimask. Body weight of 490 pounds 1.6 ounces; BMI 76.8 kg/m. General: Morbidly obese, lying in bed, in no acute distress. HEENT: No pallor. No icterus. Face mask in place. Neck: Supple. Abdomen: Morbidly obese. No guarding or rebound. Extremities: No cyanosis or clubbing. Neurologic: Alert, awake, and oriented to time, place, and person. LABS: Hemoglobin and hematocrit are 12 and 39.6, white count of 15.73, platelet count 193,000. ABGs showing a pH of 7.42, pCO2 59, pO2 139. This is on BiPAP. Percent FiO2 of 40%. Sodium 139, potassium 4.9, chloride 93, bicarb 34, BUN of 92, creatinine 1.8, glucose of 87, calcium is 9.4, phosphorus 1.9, and albumin of 3.4. Blood cultures negative. IMPRESSION AND PLAN: 1. Nausea and vomiting, which have resolved. 2. Constipation, improving. 3. Gastroesophageal reflux disease. 4. Congestive heart failure. 5. Pneumonia. 6. Anemia, which is very mild. 7. Chronic kidney disease. 8. Morbid obesity. 9. Pulmonary edema, from congestive heart failure. RECOMMENDATIONS: 1. Patient is currently having improvement of nausea. He will continue on antiemetics as needed. He is also receiving Reglan before meals. He will continue on gastrointestinal prophylaxis with Protonix once daily. He will continue on gastroesophageal reflux life changes. 2. He will continue MiraLAX and lactulose for constipation and his constipation is improved. 3. He is receiving Zosyn for pneumonia. 4. He is receiving albuterol inhaler every 2 hours as needed. 5. He is also receiving Lasix 40 mg IV b.i.d., which is likely the reason for his worsening BUN level. 6. He is on deep venous thrombosis prophylaxis with heparin 5000 units every 6 hours. 7. He is getting morphine 2 mg intravenously every 4 hours for pain control. We need to reduce the narcotics to as low as possible to help improve his constipation. 8. The above plan was discussed with the patient and the nurses at bedside. All questions were answered. We will sign off at this time. Please call with any further questions. cc: MD Dr. James Abrams MD Dr. Figh Dr. Najjar Dr. Basu MTDD
[2019-02-12] MEDS: SOLU-MEDROL IV SCH ×4 (00:54→20:55)
[2019-02-12] MEDS: ZOSYN 2.25 GM in NS 50 ML IV SCH ×4 (00:54→23:48)
[2019-02-12] MEDS: XOPENEX NEB INH SCH ×6 (03:31→23:37)
[2019-02-12 04:44] LABS: ALLEN TEST YES; BE 10.6 mmoll (-3.0-3.0); BLOOD TYPE ARTERIAL; HCO3-(ACT) 33.1 mmoll (20.0-26.0); METHB 1.4 % (0.0-1.5); O2(CT) 18.1 mL/dL (15.0-23.0); O2HB 95.3 % (95.0-99.0); PO2(98.6) 115 mmHg (60-100); SAMPLE BLOOD; SAO2 98.6 % (95.0-100.0); THB 13.4 g/dL (11.5-17.4); pH(98.6) 7.37 (7.35-7.45)
[2019-02-12 04:45] LABS: MODALITY BI PAP; PCO2(98.6) 67 mmHg (35-45)
[2019-02-12 05:16] LABS: AGAP 10; BUN 86 mg/dL (8-22); CALCIUM 9.7 mg/dL (8.8-10.2); CHLORIDE 92 mmol/L (98-107); COSMO 301; CREATININE 1.5 mg/dL (0.7-1.2); ESTIMATED GFR > 60; GLUCOSE 141 mg/dL (70-104); MAGNESIUM 2.1 mg/dL (1.5-2.7); POTASSIUM 5.3 mmol/L (3.5-5.1); SODIUM 136 mmol/L (136-145); TCO2 34 mmol/L (25-35)
[2019-02-12 05:19] LABS: BASO# 0.01 X1000 (0.0-0.2); BASO% 0.1 % (0.0-0.8); HEMOGLOBIN 12.5 g/dL (14.0-18.0); IMM GRAN# 0.12 X1000 (0.0-0.04); IMM GRAN% 0.7 % (0.0-0.5); LYMPH# 0.83 X1000 (1.2-3.4); LYMPH% 4.7 % (20.5-51.1); MCH 24.3 PG (27-31); MCHC 29.8 g/dL (33-37); MCV 81.6 FL (81-99); MONO# 0.54 X1000 (0.11-0.59); MONO% 3.1 % (1.7-9.3); MPV 10.9 FL (7.4-10.4); NEUT# 16.05 X1000 (1.4-6.5); NEUT% 91.4 % (42.2-75.2); PLT 204 X1000 (130-400); RBC 5.15 XMIL (4.7-6.1); RDW 16.3 % (11.5-14.5); WBC 17.55 X1000 (4.8-10.8)
[2019-02-12] MEDS: REGLAN PO SCH ×3 (06:23→16:02)
[2019-02-12] MEDS: HUMULIN R SUBQ SCH ×4 (06:24→21:06)
[2019-02-12 06:50] LABS: EOS 1 % (1-10); LYMPHS 6 % (21-51); MONO 1 % (1-9); SEGS 92 % (42-75)
--- NOTE | 2019-02-12 06:54 | Diag Imaging Result Doc PS360 ---
CHEST-PORTABLE - 02/12/2019 INDICATION: dyspnea COMPARISON: 02/11/2019 FINDINGS: Stable severe cardiomegaly. Pulmonary vascularity is top normal. No infiltrates or edema. There are probably trace pleural effusions. IMPRESSION: No change from prior. Electronically signed by Richard Serrato 02/12/2019 6:51 AM
[2019-02-12] MEDS: COREG PO SCH ×2 (08:02→20:54)
[2019-02-12] MEDS: DALIRESP PO SCH (08:02)
[2019-02-12] MEDS: LASIX IV SCH ×2 (08:02→20:55)
[2019-02-12] MEDS: LACTULOSE PO SCH ×2 (08:02→20:54)
[2019-02-12] MEDS: MUCOMYST 20% INH SCH ×2 (08:48→19:12)
[2019-02-12] MEDS: SYMBICORT 160/4.5 MICROGM INHALER INH SCH ×2 (08:48→19:12)
[2019-02-12] MEDS: BIDIL PO SCH ×3 (09:02→16:02)
[2019-02-12] MEDS: PROTONIX IV SCH (09:02)
[2019-02-12] MEDS: HEPARIN SUBQ SCH ×2 (09:02→20:54)
--- NOTE | 2019-02-12 17:18 | PROGRESS NOTE ---
DATE: 02/12/2019 SUBJECTIVE: No acute events overnight. Mr. Lopez's pulse and blood pressure has been within acceptable range. He denies any complaints except occasional shortness of breath. He denies any chest pain. He is not short of breath at rest. When he is not sleeping he can keep 40% Ventimask on. OBJECTIVE: Vital Signs: Temperature of 97.3 degrees, pulse is 105 per minute, blood pressure is 104/66, he is saturating 96% on Venturi mask. General: He is morbidly obese, not in acute distress. Large body habitus. Adequate air entry bilateral supramammary region. Crackles bilateral infra-axillary region. Cardiovascular: S1, S2 normal. Regular. No murmur, rub, or gallop. Abdomen: Obese, soft, nontender. Bowel sounds are difficult to appreciate. Extremities: He had bilateral mild lower extremity edema. Left arm PICC line. Neurologic: He is alert and oriented x3. LABORATORY DATA: Suggestive of leukocytosis with 0% eosinophil count, adequate oxygenation on BiPAP, and persistent hypercarbia. He does have hyperkalemia, elevated BUN and creatinine. MICROBIOLOGY: No positive data. IMAGING: Chest x-ray suggests no change from prior. ASSESSMENT AND PLAN: 1. Acute on chronic hypoxic respiratory failure due to morbid obesity, obstructive sleep apnea, systolic congestive heart failure with acute exacerbation. Continue BiPAP and Ventimask as tolerated. Continue him on intravenous steroids, Roflumilast, albuterol ipratropium nebulization. 2. Bilateral multifocal Pseudomonas pneumonia. Continue intravenous Zosyn. Day 1 is 02/03/2019. Considering that he is stable, I will transfer him to the PVC Unit. 3. Acute on chronic systolic congestive heart failure exacerbation with an ejection fraction of 15% to 20% with acute pulmonary edema, with a history of nonischemic cardiomyopathy due to his large body habitus, as well as acute kidney injury due to cardiorenal syndrome. Continue intravenous Lasix, oral carvedilol. He has been off dopamine, dobutamine and Milrinone. DISPOSITION: I will transfer the patient to the PVC Unit. I again had an extensive discussion about his obesity leading to heart failure leading to cardiorenal syndrome. He asked me if he could go for bariatric surgery and I informed him that considering his multiple comorbidities and tenuous cardiovascular health, he may not be the best candidate for major surgery at least at the moment. I encouraged him to work on diet, weight reduction and medication compliance. I answered all of his questions. ADDENDUM: I called patient's mother and discussed with her about Mr. Lopez's critical condition. I expressed to her that I was worried about his survival. I discussed with her the risk of sudden cardiac and life threatening heart arrhythmia. She understood it. I answered all of her questions. cc: Rodo Ramirez MD MTDJessica
--- NOTE | 2019-02-12 22:11 | NEPHROLOGY PROGRESS NOTE ---
DATE: 02/12/2019 SUBJECTIVE: He states he is feeling better. He anticipates being moved to a room today. No shortness of breath, nausea, vomiting. OBJECTIVE: Vital Signs: Blood pressure 94/54, heart rate 99, respirations 20, afebrile. Intake 3.6 L. Output 3.8 L. General: No acute distress. Skin: Warm and dry. Neck: Neck veins are not visible. Heart: Regular. Lungs: Equal. No crackles. Abdomen: Obese soft, nontender. Bowel sounds present. Extremities: Trace edema. No clubbing or cyanosis. IMPRESSION: 1. Acute kidney injury. Creatinine is 1.5 today. 2. Cardiorenal syndrome. Kidney function has been progressively improving as his cardiac status has improved. Nothing further to add from a nephrology perspective, so I will sign off today, but if we can be of further assistance, please do not hesitate to call. cc: Jonas Tavares MD
[2019-02-13] MEDS: XOPENEX NEB INH SCH ×6 (03:30→22:36)
[2019-02-13] MEDS: SOLU-MEDROL IV SCH ×3 (05:20→21:37)
[2019-02-13] MEDS: REGLAN PO SCH ×3 (06:19→17:00)
[2019-02-13] MEDS: HUMULIN R SUBQ SCH ×4 (06:43→21:38)
[2019-02-13 07:11] LABS: CALCIUM 9.7 mg/dL (8.8-10.2); CREATININE 1.6 mg/dL (0.7-1.2); POTASSIUM 5.2 mmol/L (3.5-5.1)
[2019-02-13] MEDS: LACTULOSE PO SCH ×2 (08:08→21:39)
[2019-02-13] MEDS: LASIX IV SCH ×2 (08:08→21:37)
[2019-02-13] MEDS: PROTONIX IV SCH (08:09)
[2019-02-13] MEDS: ZOSYN 2.25 GM in NS 50 ML IV SCH ×2 (08:09→17:01)
[2019-02-13] MEDS: BIDIL PO SCH ×3 (08:09→17:00)
[2019-02-13] MEDS: COREG PO SCH ×2 (08:09→21:37)
[2019-02-13] MEDS: DALIRESP PO SCH (08:09)
[2019-02-13] MEDS: HEPARIN SUBQ SCH ×2 (08:09→21:37)
[2019-02-13] MEDS: MUCOMYST 20% INH SCH ×2 (08:42→19:55)
[2019-02-13] MEDS: SYMBICORT 160/4.5 MICROGM INHALER INH SCH ×2 (08:42→19:55)
[2019-02-13] MEDS: TUSSIONEX LIQUID PO PRN (12:03)
--- NOTE | 2019-02-13 21:04 | PROGRESS NOTE ---
DATE: 02/13/2019 INTERVAL HISTORY: No acute events overnight. SUBJECTIVE: He is feeling fine. He states he is feeling comfortable in PVC unit. He is breathing well on nasal cannula now. He states he is still feeling congested, but overall is feeling better. He asked me if someone is to notify his bariatric surgeon and I told him that once he gets discharged, it would really need coordination with the food and beverage order clerk and the surgeon doctor. VITALS: Temperature 97.8 degrees, pulse 54, respiratory rate 14, blood pressure 160/86, saturating 95% on 5 L nasal cannula. PHYSICAL EXAMINATION: Morbidly obese, not in acute distress. Oral cavity is moist. Air entry bilaterally equal, no wheeze, rhonchi. Inspiratory crackles, infrascapular region, but improved air entry as compared to 5 days ago.Cardiovascular: S1, S2 normal. Regular. No murmur or gallop. Abdomen: Obese, soft, nontender. No lower extremity edema. The examination is limited because of her large body habitus. LABS: No CBC today. BMP suggestive of hyponatremia, hypochloremia, hyperkalemia, elevated BUN and creatinine. Microbiology, no positive data. IMAGING: No chest x-ray today. Yesterday, chest x-ray had a cardiomegaly, but otherwise essentially stable. ASSESSMENT AND PLAN: 1. Acute on chronic hypoxic respiratory failure due to morbid obesity, obstructive sleep apnea, systolic congestive heart failure with reduced ejection fraction, acute exacerbation, Pseudomonas pneumonia. Continue BiPAP while asleep and nasal cannula as tolerated. Continue intravenous steroids, albuterol ipratropium nebulization or Roflumilast. 2. Bilateral multifocal Pseudomonas pneumonia. Continue intravenous Zosyn. Day 1 is February 03. My plan is to treat him with 10 to 14 days of IV antibiotics, considering his multiple comorbidities. 3. Acute on chronic systolic congestive heart failure exacerbation with ejection fraction of 15 to 20% and history of nonischemic cardiomyopathy due to obesity and cardiorenal syndrome leading to acute kidney injury. Continue intravenous Lasix, oral carvedilol. DISPOSITION: Continue to monitor patient in PVC. Plan of care discussed with him. His questions have been answered. cc: Rodo Ramirez MD
[2019-02-14] MEDS: ZOSYN 2.25 GM in NS 50 ML IV SCH ×3 (00:35→16:43)
[2019-02-14] MEDS: TYLENOL PO PRN (01:32)
--- NOTE | 2019-02-14 01:56 | CARDIOLOGY PROGRESS NOTE ---
DATE: 02/13/2019 SUBJECTIVE: The patient continues without chest discomfort or shortness of breath, on BiPAP presently. OBJECTIVE: Blood pressure 112/60, heart rate 100 and regular, oxygen saturation 94% to 95%. Jugular venous distention is evident, suggesting elevated central venous pressure. Chest is clear to auscultation bilaterally. Cardiac exam reveals a regular rate and rhythm without appreciable murmur or gallop. Extremities are without edema. LABORATORY DATA: Includes sodium 132, potassium 5.2, chloride 88, carbon dioxide 33, BUN 91, creatinine 1.6, glucose 157. IMPRESSION: 1. [id number] biventricular congestive heart failure. Predominance of right-sided heart failure and associated cardiorenal syndrome. The patient is improving with gentle diuresis. 2. Severe nonischemic cardiomyopathy. 3. Massive obesity. 4. Obstructive sleep apnea. 5. Pulmonary hypertension secondary to cardiopulmonary issues. RECOMMENDATIONS: 1. Continue current IV Lasix q.12 and current diuresis rate. 2. Follow renal function closely. cc: Brandon Miller MD
[2019-02-14] MEDS: XOPENEX NEB INH SCH ×6 (03:16→23:19)
[2019-02-14 04:48] LABS: ALLEN TEST YES; BLOOD TYPE ARTERIAL; HCO3-(ACT) 31.2 mmoll (20.0-26.0); O2(CT) 17.9 mL/dL (15.0-23.0); O2HB 96.6 % (95.0-99.0); PO2(98.6) 140 mmHg (60-100); SAMPLE BLOOD; SAO2 99.3 % (95.0-100.0); pH(98.6) 7.34 (7.35-7.45)
[2019-02-14 04:50] LABS: MODALITY BI PAP; PCO2(98.6) 67 mmHg (35-45)
[2019-02-14 06:11] LABS: HEMATOCRIT 40.8 % (42.0-52.0); HEMOGLOBIN 12.1 g/dL (14.0-18.0); IMM GRAN# 0.15 X1000 (0.0-0.04); IMM GRAN% 0.8 % (0.0-0.5); LYMPH# 0.76 X1000 (1.2-3.4); LYMPH% 4.1 % (20.5-51.1); MCH 24.5 PG (27-31); MCHC 29.7 g/dL (33-37); MCV 82.6 FL (81-99); MONO# 0.74 X1000 (0.11-0.59); MPV 10.9 FL (7.4-10.4); NEUT# 16.71 X1000 (1.4-6.5); NEUT% 91.1 % (42.2-75.2); PLT 236 X1000 (130-400); RBC 4.94 XMIL (4.7-6.1); WBC 18.36 X1000 (4.8-10.8)
[2019-02-14] MEDS: HUMULIN R SUBQ SCH ×4 (06:18→21:13)
[2019-02-14] MEDS: REGLAN PO SCH ×3 (06:21→16:42)
[2019-02-14 06:31] LABS: CALCIUM 9.9 mg/dL (8.8-10.2); CREATININE 2.1 mg/dL (0.7-1.2); MAGNESIUM 2.2 mg/dL (1.5-2.7)
[2019-02-14] MEDS: MUCOMYST 20% INH SCH ×2 (07:44→19:21)
[2019-02-14] MEDS: SYMBICORT 160/4.5 MICROGM INHALER INH SCH ×2 (07:44→19:21)
[2019-02-14 08:46] LABS: BANDS 4 % (0-1); LYMPHS 2 % (21-51); MONO 6 % (1-9); SEGS 86 % (42-75)
[2019-02-14] MEDS: BIDIL PO SCH ×3 (09:00→16:43)
[2019-02-14] MEDS: COREG PO SCH ×2 (09:00→21:13)
[2019-02-14] MEDS: PROTONIX IV SCH (09:00)
[2019-02-14] MEDS: LACTULOSE PO SCH ×2 (09:00→21:13)
[2019-02-14] MEDS ORDERED: SOLU-MEDROL IV SCH (09:00)
[2019-02-14] MEDS: LASIX IV SCH ×2 (09:00→21:13)
[2019-02-14] MEDS: HEPARIN SUBQ SCH ×2 (09:00→21:13)
[2019-02-14] MEDS: DALIRESP PO SCH (09:01)
--- NOTE | 2019-02-14 12:31 | PROGRESS NOTE ---
DATE: 02/14/2019 INTERVAL HISTORY: The patient's vitals were largely unremarkable except that he has been slightly tachycardic with heart rate between 90 to 110 per minute. He has been making on average 2 L of urine, however, he was still net positive because his oral intake has been significantly high and it often time exceeds 2 L. SUBJECTIVE: The patient denies any new complaints except occasional cough and mild shortness of breath. He is otherwise doing better. cc: Rodo Ramirez MD
--- NOTE | 2019-02-14 12:39 | PROGRESS NOTE ---
DATE: 02/14/2019 CONTINUATION REPORT: OBJECTIVE: Vital Signs: Temperature of 97.2 degrees pulse 108, respiratory 24, blood pressure 112/75, saturating 100% on BiPAP and 5 L nasal cannula. General: Not in acute distress. HEENT: Oral cavity is moist. Lungs: Air entry bilaterally equal in supramammary region. Mild crackles bilateral infracture region. Cardiovascular: S1, S2 normal. No murmur, rub, or gallop. Abdomen: Soft, nontender, obese. Extremities: It is hard to differentiate edema from fat deposition on extremities. Neurologic: He is alert and oriented x3. LABORATORY STUDIES: Suggestive of leukocytosis with 0% eosinophil count, hypercarbia with mild acidosis. Normal electrolytes. Elevated BUN and creatinine. Microbiology: No positive data. IMAGING STUDIES: No new chest x-ray. ASSESSMENT AND PLAN: 1. Acute on chronic hypoxic respiratory failure due to morbid obesity, obstructive sleep apnea, systolic congestive heart failure with reduced ejection fraction exacerbation, Pseudomonas pneumonia. Continue BiPAP while asleep and nasal cannula as tolerated, intravenous steroids, albuterol ipratropium nebulization and Roflumilast. 2. Bilateral multifocal Pseudomonas pneumonia. Continue intravenous Zosyn. Day 1 was 02/03/2019. My plan is to treat it until 02/16/2019. 3. Acute on chronic systolic congestive heart failure exacerbation with EF of 15% to 20% due to nonischemic cardiomyopathy due to obesity and cardiorenal syndrome leading to acute kidney injury, currently stable. Continue intravenous Lasix, oral carvedilol. I discussed with him about fluid restriction of 1500 mL considering he is net positive. However, the patient is a little apprehensive about decreasing fluid intake. However, he is willing to try for at least 24 hours. I will continue to encourage him. DISPOSITION: Continue physical therapy. Continue to monitor him in PVC unit. Plan of care discussed with him. His questions have been answered. cc: Rodo Ramirez MD
[2019-02-14] MEDS ORDERED: LASIX IV ONE (13:49)
--- NOTE | 2019-02-14 18:19 | GASTROENTEROLOGY PROGRESS NOTE ---
DATE: 02/13/2019 SUBJECTIVE: Mr. Lopez is a 34-year-old male. He is resting in bed. Family at the bedside. The patient has denied any nausea, vomiting, and he is now transitioned to a nasal cannula. The patient is receiving 5 L of oxygen. OBJECTIVE: Vital Signs: Temperature 97.8 degrees, pulse is 54, respirations 14, blood pressure 116/86, oxygen saturation 95% on 5 L nasal cannula. The patient's weight is 488 pounds. BMI is 76.6 kg/m2. General: He is alert, oriented x3, and in no acute distress. HEENT: Pale conjunctivae. No icterus. PERRL. Neck: Supple. Lungs: Wheezing heard in the anterior patel. Cardiovascular: The patient is bradycardic. Abdomen: Obese, nontender. Hypoactive bowel sounds heard in all 4 quadrants. Extremities: No clubbing no cyanosis. Generalized edema. Neurologic: Alert oriented x3. LABORATORY DATA: WBC 17.55, RBC 5.15, hemoglobin 12.5, hematocrit 42.0, platelet count 204,000. Sodium 132, potassium 5.2, chloride 88, carbon dioxide 33, anion gap 11, BUN 91, creatinine is 1.6, glucose is 157, calcium 9.7. IMAGING: Chest x-ray on 02/12 showed no changes from the prior. IMPRESSION AND PLAN: 1. Nausea and vomiting. 2. Constipation. 3. Gastroesophageal reflux disease. 4. Congestive heart failure. 5. Pneumonia. 6. Anemia. 7. Chronic kidney disease. 8. Morbid obesity. 9. Pulmonary edema due to congestive heart failure. PLAN: Mr. Lopez is a 34-year-old male who is morbidly obese. Gastroenterology has been following him for his nausea and vomiting. The patient's nausea and vomiting has been resolved. He is receiving antiemetic Zofran, Reglan. The patient is on a gastrointestinal prophylaxis, Protonix 40 mg IV daily. He is also on antibiotic Zosyn for his pneumonia. For his bowel regimen, patient is receiving MiraLAX and Lactulose The patient did have 1 bowel movement. We will continue to monitor the patient and follow the plan of care per PCP. This plan was discussed with Dr. Randall. Please call us for any further questions or concerns. Dictated by ERIK Murguia for Chelsi Randall MD cc: Chelsi Randall MD [facility]
--- NOTE | 2019-02-14 21:10 | GASTROENTEROLOGY PROGRESS NOTE ---
DATE: 02/14/2019 SUBJECTIVE: Mr. Lopez is a 34-year-old male. He is resting in bed. Family at the bedside. The patient has denied any nausea, vomiting, or abdominal pain. The patient is getting oxygen through the nasal cannula at 5 L. OBJECTIVE: Vital signs: Temperature 98.4 degrees, pulse of 96, respirations 24, blood pressure 91/59, oxygen saturation is 96%. He is on 5 L nasal cannula. His weight is 488 pounds. BMI is 76.6 kg/m2. General: He is alert, oriented x3, and in no acute distress. HEENT: Pale conjunctivae. No icterus. PERRL. Neck: Is supple. Lungs: Wheezing heard in the anterior patel. Cardiovascular: Regular rate and rhythm. Abdomen: Is obese, nontender. Hypoactive bowel sounds heard in all 4 quadrants. Extremities: No clubbing no cyanosis. Generalized edema. Pedal pulses 1+ present bilaterally. Neurologic: Alert and oriented x3. LABORATORY DATA: WBC is 18.35, RBC is 4.94, hemoglobin 12.1, hematocrit 40.8, platelet count 236,000. Sodium 135, potassium 5.0, chloride 90, carbon dioxide 32, anion gap 13, BUN 96, creatinine 2.1, glucose 167, calcium 9.9, magnesium 2.2. IMPRESSION AND PLAN: 1. Nausea and vomiting. 2. Constipation. 3. Gastroesophageal reflux disease. 4. Congestive heart failure. 5. Pneumonia. 6. Anemia. 7. Chronic kidney disease. 8. Morbid obesity. 9. Pulmonary edema due to congestive heart failure. PLAN: Mr. Lopez is a 34-year-old male with morbid obesity. Gastroenterology is following him for his nausea and vomiting. The patient's nausea and vomiting has been resolved. He is receiving antiemetic Zofran and Reglan. We will monitor the patient for side effects of tardive dyskinesia. The patient is on a gastrointestinal prophylaxis, Protonix 40 mg IV for his GERD. He is receiving antibiotic, Zosyn for his pneumonia. For his bowel regimen receiving MiraLAX and lactulose. His constipation is also under control. The patient did have 3 bowel movements today. We will continue to monitor the patient, provide supportive care and follow the plan of care per PCP. This plan was discussed with Dr. Randall. Please call us for any further questions or concerns. Dictated by ERIK Murguia for Chelsi Randall MD cc: Chelsi Randall MD [facility]
[2019-02-15] MEDS: ZOSYN 2.25 GM in NS 50 ML IV SCH ×3 (00:55→15:59)
[2019-02-15] MEDS: XOPENEX NEB INH SCH ×6 (03:15→23:00)
[2019-02-15 04:37] LABS: ALLEN TEST YES; BE 9.2 mmoll (-3.0-3.0); BLOOD TYPE ARTERIAL; HCO3-(ACT) 32.1 mmoll (20.0-26.0); METHB 0.9 % (0.0-1.5); O2(CT) 17.5 mL/dL (15.0-23.0); O2HB 96.6 % (95.0-99.0); PO2(98.6) 142 mmHg (60-100); SAMPLE BLOOD; SAO2 99.2 % (95.0-100.0); THB 12.7 g/dL (11.5-17.4); pH(98.6) 7.39 (7.35-7.45)
[2019-02-15 04:47] LABS: PCO2(98.6) 60 mmHg (35-45)
[2019-02-15 04:48] LABS: MODALITY BI PAP
--- NOTE | 2019-02-15 06:30 | Diag Imaging Result Doc PS360 ---
EXAM: CHEST-1 VIEW HISTORY: SOB TECHNIQUE: Single view COMPARISON: 02/12/2019 FINDINGS: The heart remains markedly enlarged. There is mild vascular distention. No pleural effusions identified. No consolidation. IMPRESSION: Stable severe cardiomegaly Electronically signed by Jeremy Kim 02/15/2019 6:28 AM
[2019-02-15] MEDS: HUMULIN R SUBQ SCH ×4 (06:35→20:14)
[2019-02-15] MEDS: REGLAN PO SCH ×3 (06:35→15:59)
[2019-02-15 07:09] LABS: CALCIUM 9.7 mg/dL (8.8-10.2); CREATININE 2.4 mg/dL (0.7-1.2); POTASSIUM 4.7 mmol/L (3.5-5.1)
[2019-02-15] MEDS: SYMBICORT 160/4.5 MICROGM INHALER INH SCH ×2 (08:05→20:25)
[2019-02-15] MEDS: MUCOMYST 20% INH SCH ×2 (08:05→20:22)
[2019-02-15] MEDS: TYLENOL PO PRN ×2 (08:29→15:40)
[2019-02-15] MEDS: LASIX IV SCH (08:31)
[2019-02-15] MEDS: LACTULOSE PO SCH ×2 (08:31→20:12)
[2019-02-15] MEDS: PROTONIX IV SCH (08:32)
[2019-02-15] MEDS: DALIRESP PO SCH (08:32)
[2019-02-15] MEDS: HEPARIN SUBQ SCH ×2 (08:32→20:13)
[2019-02-15] MEDS: COREG PO SCH ×2 (08:32→20:12)
[2019-02-15] MEDS: BIDIL PO SCH ×3 (08:32→16:36)
[2019-02-15] MEDS ORDERED: SOLU-MEDROL IV SCH (09:00)
--- NOTE | 2019-02-15 11:29 | GASTROENTEROLOGY PROGRESS NOTE ---
DATE: 02/15/2019 SUBJECTIVE: Mr. Jorgito Lpoez is a 34-year-old male, resting in bed. He was using the BiPAP machine. He said he was feeling weak, but has denied any nausea, vomiting or abdominal pain. OBJECTIVE: Vital Signs: Temperature 97.6 degrees, pulse 85, respirations 19, blood pressure 150/122, oxygen saturation 100% on BiPAP. The patient's weight is 490 pounds. BMI is 76.9 kg/m2. General: He is alert, oriented x3, and in no acute distress. HEENT: Pale conjunctivae. No icterus. Neck: The neck is supple. Respiratory: Crackles heard in the anterior patel. Cardiovascular: Regular rate and rhythm. Abdomen: Obese, soft, nontender. Hypoactive bowel sounds heard in all 4 quadrants. Extremities: No clubbing, no cyanosis. Generalized edema in the lower extremities. Pedal pulses 1+ present bilaterally. Neurologic: He is alert, oriented x3. LABS: WBCs are 18.36 with RBC 4.94, hemoglobin 12.1, hematocrit 40.8, platelet count 236. Sodium 134, potassium 4.7, chloride 91, carbon dioxide 36, anion gap 7. BUN 101, creatinine 2.4, glucose 154, calcium 9.7. X-RAYS: Chest x-ray showed stable severe cardiomegaly. IMPRESSION: 1. Nausea and vomiting. 2. Constipation. 3. Gastroesophageal reflux disease. 4. Congestive heart failure. 5. Pneumonia. 6. Anemia. 7. Chronic kidney disease. 8. Morbid obesity. 9. Pulmonary edema due to congestive heart failure. PLAN: Mr. Lopez is a 34-year-old male with morbid obesity. GI is following him for his nausea, vomiting and constipation. Patient's nausea and vomiting is under control. He is receiving antiemetic, Zofran. The patient is also on Reglan 10 mg three times a day. We will continue to monitor him for the side effects of tardive dyskinesia. The patient's constipation is also getting resolved. He had 3 bowel movements yesterday. The patient is on a GI prophylaxis 40 mg IV daily. His hemoglobin yesterday was 12.1 and hematocrit was 40.8. He is hemodynamically stable. The patient is receiving antibiotics for his pneumonia. He is on a bowel regimen, MiraLAX and lactulose. We will continue to provide supportive care to the patient and follow the plan of care per PCP. This plan was discussed with Dr. Rao. Please call us for any further questions or concerns. Dictated by ERIK Murguia for Josue Rao MD cc: Josue Rao MD I have seen and examined the patient myself and I agree with the above plan of care. Discussed the above with the patient and all questions were answered. МАРИЯ
[2019-02-15] MEDS ORDERED: DEMADEX PO SCH (11:30)
[2019-02-15] MEDS: DEMADEX PO SCH (12:24)
[2019-02-15] MEDS ORDERED: XOPENEX NEB INH PRN (14:19)
--- NOTE | 2019-02-15 15:23 | PROGRESS NOTE ---
DATE: 02/15/2019 INTERVAL HISTORY: Mr. Lopez did have elevated BUN and creatinine today for which his IV diuretics have been discontinued, and he has been started on oral diuretics. His steroids have also been tapered down. He continues to have occasional cough. SUBJECTIVE: He denies new complaints. I had an extensive discussion with him about his concerns, including fluctuating blood pressure, being transferred to the medical floor, and change of diuretics from intravenous to oral route and address all of them. His mother is at bedside. VITALS: Temperature 97.8 degrees, pulse 104, respiratory 18, blood pressure 120s/93, saturating 99% on BiPAP. I turn his oxygen saturation to 93% on 3 L and I asked the nurse to check his oxygen saturation within 30 minutes. PHYSICAL EXAMINATION: General: He is not in any respiratory distress during my encounter. Oral cavity: Moist. Lungs: Air entry improved bilaterally. Adequate supramammary region and adequate infra-axillary region without wheeze, rhonchi, or crackles. Cardiovascular: S1, S2 normal. No murmur, rub, or gallop. Abdomen: Obese, soft, nontender. Bowel sounds are difficult to be appreciated. He does not have urine catheter. He is morbidly obese. Neurologic: He is alert and oriented x3. LABS: No CBC today. ABG suggestive of adequate oxygenation on BiPAP. He also has hyponatremia, hypochloremia which are currently stable, including BUN and creatinine. MICROBIOLOGY: No new microbiological data. X-RAYS: A chest x-ray today suggestive of stable severe cardiomegaly, mild vascular distention without pleural effusions or any consolidation. ASSESSMENT AND PLAN: 1. Acute on chronic hypoxic respiratory failure due to morbid obesity, obstructive sleep apnea, acute systolic congestive heart failure exacerbation, Pseudomonas pneumonia. Continue BiPAP while asleep and nasal cannula during awake. I decreased the amount of oxygen. Continue inhaled bronchodilators, Roflumilast and steroid taper as per Pulmonology recommendation. 2. Bilateral multifocal Pseudomonas pneumonia. Continue intravenous Zosyn. Day 1 was February 03. My plan is to stop antibiotics on February 16. 3. Acute on chronic systolic congestive heart failure exacerbation with ejection fraction of 15 to 20 percent due to nonischemic cardiomyopathy due to morbid obesity and cardiorenal syndrome type 1, leading to acute kidney injury on presentation. Currently reasonably within acceptable range. Continue oral carvedilol and his intravenous Lasix has been changed to torsemide today. Continue fluid restriction to 1500 mL. However, he has not been able to be compliant with it. I will continue to encourage him. DISPOSITION: I will transfer patient to routine medical floor. All of his questions have been answered. The patient's mother is at bedside. Her core concerns have also been addressed. The eventual goal would be to get the patient to a reasonable level of functional status like coming out of bed, sitting in the chair and discharge home in future. He is in agreement with that plan. cc: Rodo Ramirez MD
[2019-02-16] MEDS: ZOSYN 2.25 GM in NS 50 ML IV SCH ×3 (00:13→15:35)
[2019-02-16] MEDS: XOPENEX NEB INH SCH ×6 (03:00→23:10)
[2019-02-16 04:03] LABS: ALLEN TEST YES; BE 7.7 mmoll (-3.0-3.0); BLOOD TYPE ARTERIAL; HCO3-(ACT) 30.9 mmoll (20.0-26.0); O2(CT) 17.3 mL/dL (15.0-23.0); O2HB 95.6 % (95.0-99.0); PO2(98.6) 100 mmHg (60-100); SAMPLE BLOOD; SAO2 98.6 % (95.0-100.0); THB 12.8 g/dL (11.5-17.4); pH(98.6) 7.39 (7.35-7.45)
[2019-02-16 04:09] LABS: MODALITY BI PAP; PCO2(98.6) 57 mmHg (35-45)
[2019-02-16] MEDS: REGLAN PO SCH ×3 (06:07→15:35)
[2019-02-16] MEDS: PRILOSEC PO SCH (06:07)
[2019-02-16] MEDS: HUMULIN R SUBQ SCH ×4 (06:08→21:20)
[2019-02-16] MEDS ORDERED: MEDROL DOSEPAK PO SCH (07:00)
[2019-02-16] MEDS: SYMBICORT 160/4.5 MICROGM INHALER INH SCH ×2 (08:11→19:45)
[2019-02-16] MEDS: MUCOMYST 20% INH SCH ×2 (08:11→19:39)
[2019-02-16 08:15] LABS: BASO# 0.01 X1000 (0.0-0.2); BASO% 0.1 % (0.0-0.8); EOS# 0.12 X1000 (0.0-0.7); EOS% 0.6 % (0.0-10.0); HEMATOCRIT 39.5 % (42.0-52.0); HEMOGLOBIN 11.8 g/dL (14.0-18.0); IMM GRAN% 0.5 % (0.0-0.5); LYMPH# 1.91 X1000 (1.2-3.4); LYMPH% 10.3 % (20.5-51.1); MCH 24.2 PG (27-31); MCHC 29.9 g/dL (33-37); MCV 81.1 FL (81-99); MONO# 1.36 X1000 (0.11-0.59); MONO% 7.3 % (1.7-9.3); MPV 11.3 FL (7.4-10.4); NEUT# 15.01 X1000 (1.4-6.5); NEUT% 81.2 % (42.2-75.2); PLT 271 X1000 (130-400); RBC 4.87 XMIL (4.7-6.1); RDW 17.4 % (11.5-14.5); WBC 18.51 X1000 (4.8-10.8)
[2019-02-16 08:26] LABS: CALCIUM 10.1 mg/dL (8.8-10.2); CREATININE 2.2 mg/dL (0.7-1.2); MAGNESIUM 2.2 mg/dL (1.5-2.7)
[2019-02-16 08:29] LABS: HYPOCHROM 2+; LYMPHS 13 % (21-51); MONO 9 % (1-9); SEGS 78 % (42-75)
[2019-02-16] MEDS: MEDROL PO SCH ×4 (08:44→21:35)
[2019-02-16] MEDS: DEMADEX PO SCH (08:44)
[2019-02-16] MEDS: BIDIL PO SCH ×3 (08:44→16:28)
[2019-02-16] MEDS: COREG PO SCH ×2 (08:44→21:36)
[2019-02-16] MEDS: DALIRESP PO SCH (08:45)
[2019-02-16] MEDS: HEPARIN SUBQ SCH ×2 (08:45→21:36)
[2019-02-16] MEDS: LACTULOSE PO SCH ×2 (08:45→21:36)
[2019-02-16] MEDS: TYLENOL PO PRN ×2 (11:41→22:32)
[2019-02-16] MEDS: PREPARATION H OINT TOP PRN (15:00)
[2019-02-16 15:50] LABS: ALBUMIN 3.9 g/dL (3.5-5.0); CALCIUM 9.6 mg/dL (8.8-10.2); CREATININE 2.4 mg/dL (0.7-1.2); POTASSIUM 5.2 mmol/L (3.5-5.1)
--- NOTE | 2019-02-16 20:19 | PROGRESS NOTE ---
DATE: 02/16/2019 SUBJECTIVE: The patient complains of rectal bleeding from his hemorrhoids as well as abdominal discomfort. He states that his breathing is about the same. He is currently on BiPAP. He has had one bowel movement today. OBJECTIVE: Vital Signs: Temperature 98.3 degrees, blood pressure 124/99, heart rate 106, respirations 20, O2 saturation 97% on 5 L nasal cannula, intake 1 L, output 3.3 L. General: This is a morbidly obese male sitting up in bed in no acute distress on BiPAP. Heart: S1, S2 normal. Tachycardic. Lungs: Diminished breath sounds bilaterally. No wheezing. No rales. No crackles. Abdomen: Positive bowel sounds. Soft, obese, nontender. Extremities: Trace pedal edema. No cyanosis. No calf tenderness. Neurologic: The patient is alert and oriented x4. LABORATORY DATA: White blood cell count 18, hemoglobin 11, hematocrit 39, platelets 271,000. ABG: pH of 7.39, pCO2 57, pO2 100, bicarb 30. Sodium 135, potassium 5.2, chloride 90, CO2 30, BUN 118, creatinine 2.4, glucose 181. ASSESSMENT AND PLAN: 1. Acute on chronic hypercapnic and hypoxemic respiratory failure secondary to morbid obesity as well as obstructive sleep apnea. Continue with the current treatment regimen. 2. Acute on chronic systolic congestive heart failure exacerbation. The patient is back on torsemide. His urine output has been excellent. His chest x-ray is unchanged. We will continue to monitor as directed by the manager inventory management. 3. Pneumonia secondary to Pseudomonas. Today is the last day of therapy with the Zosyn. The x- ray done yesterday appears to show resolution of the infection. 4. Morbid obesity with a body mass index of 76. Aware. The patient is followed by Dr. Obrien as outpatient for possible bariatric surgery. 5. Nonischemic cardiomyopathy with an ejection fraction of 15%. Aware. The patient has been counseled about fluid restriction and medication compliance. 6. Leukocytosis. This is likely steroid induced. The patient is currently on a steroid taper. 7. Acute kidney injury on chronic kidney disease likely secondary to cardiorenal syndrome. The BUN and creatinine are elevated. Will d/c the torsemide. We will continue to monitor the patient closely. 8. Hemorrhoids. The patient is on a Preparation-H. 9. Gastroesophageal reflux disease. Continue on Prilosec. 10. Deep vein thrombosis prophylaxis. Continue on heparin. 11. Continue with physical therapy. DISPOSITION: The patient is severely deconditioned. He will likely require inpatient rehab placement. The patient states that he is currently thinking about it. cc: Maryjane Krause MD MTDD
[2019-02-17] MEDS: ZOFRAN IV PRN ×2 (03:24→08:41)
[2019-02-17] MEDS: XOPENEX NEB INH SCH ×6 (03:50→23:25)
[2019-02-17 05:34] LABS: ALLEN TEST YES; BE 6.2 mmoll (-3.0-3.0); BLOOD TYPE ARTERIAL; HCO3-(ACT) 29.7 mmoll (20.0-26.0); METHB 0.6 % (0.0-1.5); O2(CT) 17.8 mL/dL (15.0-23.0); O2HB 95.9 % (95.0-99.0); PO2(98.6) 101 mmHg (60-100); SAMPLE BLOOD; SAO2 98.6 % (95.0-100.0); THB 13.1 g/dL (11.5-17.4); pH(98.6) 7.35 (7.35-7.45)
[2019-02-17 05:36] LABS: MODALITY CANNULA; PCO2(98.6) 61 mmHg (35-45)
[2019-02-17] MEDS: HUMULIN R SUBQ SCH ×4 (06:53→20:31)
[2019-02-17] MEDS: PRILOSEC PO SCH (06:53)
[2019-02-17] MEDS: REGLAN PO SCH ×3 (06:53→17:10)
[2019-02-17] MEDS: MUCOMYST 20% INH SCH ×2 (07:28→19:36)
[2019-02-17] MEDS: SYMBICORT 160/4.5 MICROGM INHALER INH SCH ×2 (07:29→19:37)
[2019-02-17 07:34] LABS: HEMATOCRIT 39.9 % (42.0-52.0); HEMOGLOBIN 12.1 g/dL (14.0-18.0); MCH 24.7 PG (27-31); MCHC 30.3 g/dL (33-37); MCV 81.6 FL (81-99); RBC 4.89 XMIL (4.7-6.1); RDW 17.7 % (11.5-14.5); WBC 21.19 X1000 (4.8-10.8)
[2019-02-17 07:51] LABS: CALCIUM 9.9 mg/dL (8.8-10.2); CREATININE 2.4 mg/dL (0.7-1.2); POTASSIUM 5.2 mmol/L (3.5-5.1)
[2019-02-17] MEDS: COREG PO SCH ×2 (08:41→20:31)
[2019-02-17] MEDS: DEMADEX PO SCH (08:42)
[2019-02-17] MEDS: MEDROL PO SCH ×4 (08:42→20:31)
[2019-02-17] MEDS: DALIRESP PO SCH (08:42)
[2019-02-17] MEDS: HEPARIN SUBQ SCH ×2 (08:42→20:30)
[2019-02-17] MEDS: BIDIL PO SCH ×3 (08:43→17:10)
[2019-02-17] MEDS: LACTULOSE PO SCH (08:43)
[2019-02-17 12:17] LABS: UR CREAT RANDOM 100.1 mg/dL (14-26); UR PROT RANDOM 119.5 mg/dL; UR SODIUM < 10 mmoll; UR UREA NITROGEN RANDOM 803 mg/dL
[2019-02-17] MEDS ORDERED: BENTYL PO ONE (13:06)
[2019-02-17] MEDS: PROTONIX IV SCH (18:44)
[2019-02-17 18:56] LABS: URINE SOURCE CLEAN CATCH
[2019-02-17 18:58] LABS: BILIRUBIN URINE NEGATIVE (NEGATIVE); BLOOD URINE NEGATIVE (NEGATIVE); COLOR YELLOW; GLUCOSE URINE NEGATIVE (NEGATIVE); KETONE URINE NEGATIVE (NEGATIVE); LEUKOCYTES URINE NEGATIVE (NEGATIVE); NITRITE URINE NEGATIVE (NEGATIVE); PROTEIN URINE 100 mg/dL (NEGATIVE); SP GRAVITY URINE 1.016; TURBIDITY URINE CLEAR (CLEAR); UROBILINOGEN URINE NORMAL (NORMAL)
[2019-02-17 19:00] LABS: UR EPITHELIAL CELLS <10 /HPF (<10); URINE BACTERIA NEGATIVE /HPF; URINE RBC <10 /HPF (<10); URINE WBC <10 /HPF (<10)
[2019-02-17] MEDS: BENTYL PO PRN (20:34)
[2019-02-17] MEDS: PREPARATION H OINT TOP PRN (21:50)
[2019-02-18] MEDS: XOPENEX NEB INH SCH ×6 (03:29→23:15)
--- NOTE | 2019-02-18 03:45 | PROGRESS NOTE ---
DATE: 02/17/2019 SUBJECTIVE: The patient is sitting on the bedside commode. He states that he has had abdominal pain all night. He did have a bowel movement today. He states he has no appetite due to the abdominal pain. OBJECTIVE: Vital Signs: Temperature 97.3 degrees, blood pressure 102/72, heart rate 89, respirations 20, O2 saturations 100% on BiPAP, intake 480, output 2.3 L. General: This is a morbidly obese male sitting in on a bedside commode in no acute distress. Heart: S1, S2, normal. Regular rate and rhythm. Lungs: Diminished breath sounds bilaterally. No wheezing. No rales. Abdomen: Positive bowel sounds. Soft, obese. Extremities: Trace pedal edema. Neurologic: The patient is alert and oriented x4. LABS: White blood cell count 21, hemoglobin 12, hematocrit 39, platelets 275,000. ABG: PH 7.35, pCO2 61, pO2 102 1. Sodium 134, potassium 5.2, chloride 92, CO2 29, BUN 125, creatinine 2.4, glucose 126. ASSESSMENT AND PLAN: 1. Acute on chronic hypercapnic and hypoxemic respiratory failure, secondary to morbid obesity and obstructive sleep apnea. Continue with nasal cannula during the day and BiPAP at night. 2. Acute on chronic systolic congestive heart failure exacerbation. The patient's diuretic therapy is on hold due to worsening renal dysfunction. The patient continues to have good urine output. 3. Pneumonia secondary to Pseudomonas, resolved. 4. Leukocytosis. The patient's white blood cell count has slowly been rising. However, the patient is on a steroid taper, which will be complete on 02/21/2019. The patient remains afebrile with no obvious source of infection. We will continue to monitor closely. 5. Morbid obesity, with body mass index of 76. Aware. 6. Nonischemic cardiomyopathy with an ejection fraction of 15%. Aware. 7. Acute kidney injury on chronic kidney disease, likely secondary to cardiorenal syndrome and dehydration. The fractional excretion of urea is 15%. The patient's torsemide is currently on hold. We will continue to hold the diuretic therapy and monitor the renal function closely. May end up reconsulting Nephrology if the BUN continues to rise. 8. Hemorrhoids. Continue with Preparation-H. 9. Abdominal cramping. The patient is having regular bowel movements. We will give a dose of Bentyl today and switch the patient back to intravenous Protonix. 10. Deep vein thrombosis prophylaxis. Continue on heparin. 11. Continue with physical therapy. 12. Disposition. The patient is severely deconditioned. He will likely need inpatient rehabilitation placement at the time of discharge. cc: Maryjane Krause MD MTDD
[2019-02-18] MEDS: HUMULIN R SUBQ SCH ×4 (06:36→21:01)
[2019-02-18] MEDS: REGLAN PO SCH ×3 (06:43→16:47)
[2019-02-18] MEDS: PROTONIX IV SCH ×2 (06:43→18:02)
[2019-02-18] MEDS: BENTYL PO PRN ×2 (06:52→21:01)
[2019-02-18] MEDS: HEPARIN SUBQ SCH ×2 (08:33→21:01)
[2019-02-18] MEDS: COREG PO SCH ×2 (08:33→21:01)
[2019-02-18] MEDS: DALIRESP PO SCH (08:34)
[2019-02-18] MEDS: MEDROL PO SCH ×4 (08:34→21:01)
[2019-02-18] MEDS: BIDIL PO SCH ×3 (08:34→16:47)
[2019-02-18] MEDS: MUCOMYST 20% INH SCH ×2 (11:21→20:04)
[2019-02-18] MEDS: SYMBICORT 160/4.5 MICROGM INHALER INH SCH ×2 (11:21→20:03)
[2019-02-18 12:27] LABS: BASO# 0.02 X1000 (0.0-0.2); BASO% 0.1 % (0.0-0.8); EOS% 0.5 % (0.0-10.0); HEMATOCRIT 38.9 % (42.0-52.0); HEMOGLOBIN 11.8 g/dL (14.0-18.0); IMM GRAN# 0.13 X1000 (0.0-0.04); IMM GRAN% 0.6 % (0.0-0.5); LYMPH# 2.57 X1000 (1.2-3.4); LYMPH% 11.8 % (20.5-51.1); MCH 24.7 PG (27-31); MCHC 30.3 g/dL (33-37); MCV 81.4 FL (81-99); MONO# 1.45 X1000 (0.11-0.59); MONO% 6.6 % (1.7-9.3); MPV 11.1 FL (7.4-10.4); NEUT# 17.56 X1000 (1.4-6.5); NEUT% 80.4 % (42.2-75.2); PLT 201 X1000 (130-400); RBC 4.78 XMIL (4.7-6.1); RDW 17.6 % (11.5-14.5); WBC 21.83 X1000 (4.8-10.8)
[2019-02-18 12:35] LABS: EOS 4 % (1-10); LYMPHS 8 % (21-51); SEGS 88 % (42-75)
[2019-02-18 13:00] LABS: ALBUMIN 3.9 g/dL (3.5-5.0); CALCIUM 9.9 mg/dL (8.8-10.2); CREATININE 2.8 mg/dL (0.7-1.2); PHOSPHORUS 5.5 mg/dL (2.7-4.5); POTASSIUM 5.1 mmol/L (3.5-5.1)
[2019-02-18] MEDS ORDERED: NS 500 ML IV ONE (14:01)
--- NOTE | 2019-02-18 14:48 | Diag Imaging Result Doc PS360 ---
EXAM: FLAT/UPRIGHT ABD/1 VIEW CHEST HISTORY: abdominal pain/pneumonia TECHNIQUE: Five views COMPARISON: 02/15/2019 FINDINGS: The heart remains markedly enlarged and there is pulmonary edema. No free air beneath the diaphragm. The bowel loops are not dilated. There is a left pelvic phlebolith. No abnormal abdominal calcifications. No foreign body. IMPRESSION: No change in the chest. No definite acute abdominal abnormality. Electronically signed by Jeremy Kim 02/18/2019 2:45 PM
[2019-02-18] MEDS: SODIUM CHLORIDE 0.9% INJ SCH (18:03)
[2019-02-18] MEDS: TYLENOL PO PRN (18:04)
--- NOTE | 2019-02-18 20:04 | PROGRESS NOTE ---
DATE: 02/18/2019 SUBJECTIVE: The patient states that he still does not feel well. He is complaining of abdominal discomfort. He is having regular bowel movements. His urine output remains adequate. He is starting to eat a little bit more. OBJECTIVE: Vital signs: Temperature 97.8 degrees, blood pressure 117/88, heart rate 94, respirations 18, O2 saturation 99% on BiPAP. Intake 480, output 1.23 L.General: This is a morbidly obese male sitting up in bed in no acute distress. Heart: S1, S2, normal. Tachycardic. Lungs: Diminished breath sounds bilaterally. No wheezing. No rales. Abdomen: Positive bowel sounds. Soft, obese. Extremities: No edema, no cyanosis. No calf tenderness. Neurologic: The patient is alert and oriented x4. LABORATORY DATA: White blood cell count 21, hemoglobin 11, hematocrit 38, platelets 201,000. Sodium 130, potassium 5.1, chloride 87, CO2 is 29, BUN 134, creatinine 2.8, glucose 115, phosphorus 5.5. DIAGNOSTIC DATA: 1. Abdominal x-ray shows no acute abnormality. 2. Chest x-ray shows cardiomegaly and pulmonary edema. ASSESSMENT AND PLAN: 1. Acute on chronic hypoxemic and hypercapnic respiratory failure secondary to morbid obesity and obstructive sleep apnea. Aware. 2. Acute on chronic systolic congestive heart failure exacerbation. Unchanged. The patient's diuretic therapy is on hold due to worsening renal dysfunction. 3. Pneumonia secondary to pseudomonas. Resolved. 4. Leukocytosis. This may be steroid-induced. There is no evidence of pneumonia on x-ray. We will continue to monitor closely. The patient is currently completing a steroid taper. 5. Acute kidney injury on chronic kidney disease. Multifactorial. The patient has cardiorenal syndrome and dehydration. The fractional excretion of urea is 15%. We will give the patient a 500 mL bolus of fluid and continue to hold his torsemide. We will also continue to avoid nephrotoxic agents. The case was discussed with Dr. Tavares. 6. Mild hyperkalemia. Stable. 7. Hemorrhoids. Continue on Preparation-H. 8. Abdominal cramping. This may be secondary to the patient's worsening renal function. The patient is having regular bowel movements. Continue on intravenous Protonix. 9. Morbid obesity with a BMI of 75. Aware. 10. Deep vein thrombosis prophylaxis. Continue on heparin. 11. Continue with physical therapy. 12. Disposition: The patient will likely need inpatient rehab placement at the time of discharge. cc: Maryjane Krause MD MTDJessica
[2019-02-19] MEDS: BENTYL PO PRN (04:24)
[2019-02-19] MEDS: TYLENOL PO PRN (04:24)
[2019-02-19 05:40] LABS: ALLEN TEST YES; BE 2.7 mmoll (-3.0-3.0); BLOOD TYPE ARTERIAL; METHB 0.3 % (0.0-1.5); O2(CT) 16.4 mL/dL (15.0-23.0); O2HB 97.5 % (95.0-99.0); PO2(98.6) 145 mmHg (60-100); SAMPLE BLOOD; SAO2 100.9 % (95.0-100.0); THB 11.8 g/dL (11.5-17.4); pH(98.6) 7.31 (7.35-7.45)
[2019-02-19 05:42] LABS: MODALITY BI PAP; PCO2(98.6) 60 mmHg (35-45)
[2019-02-19] MEDS: XOPENEX NEB INH SCH ×5 (05:51→19:50)
[2019-02-19] MEDS: SODIUM CHLORIDE 0.9% INJ SCH ×2 (06:26→17:01)
[2019-02-19] MEDS: PROTONIX IV SCH ×2 (06:26→17:01)
[2019-02-19] MEDS: REGLAN PO SCH ×3 (06:26→16:51)
[2019-02-19] MEDS: HUMULIN R SUBQ SCH ×4 (06:27→21:43)
[2019-02-19] MEDS: BIDIL PO SCH ×3 (08:02→16:51)
[2019-02-19] MEDS: COREG PO SCH ×2 (08:02→21:44)
[2019-02-19] MEDS: DALIRESP PO SCH (08:02)
[2019-02-19] MEDS: MEDROL PO SCH ×3 (08:03→21:44)
[2019-02-19] MEDS: HEPARIN SUBQ SCH ×2 (08:03→21:45)
--- NOTE | 2019-02-19 10:41 | GASTROENTEROLOGY PROGRESS NOTE ---
DATE: 02/19/2019 PATIENT PROFILE: A 34-year-old male. SUBJECTIVE: Mr. Lopez is a 34-year-old male, sitting in the chair. The patient mentioned that he was feeling much better. He is on 3 L nasal cannula, and he is c/o of abdominal cramping and nausea but denied vomiting. OBJECTIVE: Vital Signs: Temperature 97.3 degrees, pulse 81, respirations 18, blood pressure 107/69, oxygen saturation 97% on 3 L nasal cannula. His weight is 484 pounds; BMI is 76.0 kg/m2. General: He is alert, oriented x3, and in no acute distress. HEENT: Pale conjunctivae, no icterus. Neck: Supple. Lungs: Mild wheezing heard in the anterior patel. Cardiovascular: Regular rate and rhythm. Abdomen: Obese, nontender. Active bowel sounds heard in all 4 quadrants. Extremities: No clubbing no cyanosis. Generalized edema in the lower extremities. Pedal pulses 1+ present bilaterally. Neurologic: Alert and oriented x3. LABS: His labs are from 02/18: WBC 21.83, RBC 4.78, hemoglobin 11.8, hematocrit 38.9, platelet count 201. Sodium 130, potassium 5.1, chloride 87, carbon dioxide 29, anion gap 14. BUN 134, creatinine 28, glucose 115, calcium 9.9, phosphorus 5.5. X-RAYS: Abdominal x-ray on 02/18 showed no changes in the chest. No definite acute abdominal abnormalities. IMPRESSION: 1. Nausea and vomiting. 2. IBS-Constipation. 3. Gastroesophageal reflux disease. 4. Congestive heart failure. 5. Pneumonia. 6. Anemia. 7. Chronic kidney disease. 8. Morbid obesity. 9. Pulmonary edema due to congestive heart failure. PLAN: Mr. Lopez is a 34-year-old male. GI is following him for his nausea, vomiting, and constipation. The patient did complain about feeling nauseated, but his vomiting is under control, and he was complaining of abdominal cramps. The patient has denied having any bowel movements today or yesterday. His Miralax is PRN, we have scheduled it daily, For his nausea is receiving Zofran PRN, and Reglan is scheduled before every meal. The patient is receiving Bentyl for his abdominal cramps. He is on GI prophylaxis, Protonix IV twice a day. We will continue to monitor the patient and follow the plan of care per PCP. This plan was discussed with Dr. Rolle. Please call us for any further questions or concerns. Dictated by ERIK Murguia for Pollo Rolle MD Physician Attestation I have seen and examined the patient. I have discussed and reviewed the note by Mindy VALENCIA and agree with findings and plan as documented. MTDD
[2019-02-19 11:20] LABS: BASO# 0.01 X1000 (0.0-0.2); BASO% 0.1 % (0.0-0.8); EOS# 0.02 X1000 (0.0-0.7); EOS% 0.1 % (0.0-10.0); HEMATOCRIT 37.6 % (42.0-52.0); HEMOGLOBIN 11.5 g/dL (14.0-18.0); IMM GRAN# 0.05 X1000 (0.0-0.04); IMM GRAN% 0.3 % (0.0-0.5); LYMPH# 1.24 X1000 (1.2-3.4); LYMPH% 7.4 % (20.5-51.1); MCH 24.7 PG (27-31); MCHC 30.6 g/dL (33-37); MCV 80.7 FL (81-99); MONO% 7.1 % (1.7-9.3); MPV 11.7 FL (7.4-10.4); NEUT# 14.28 X1000 (1.4-6.5); PLT 272 X1000 (130-400); RBC 4.66 XMIL (4.7-6.1); RDW 17.7 % (11.5-14.5)
[2019-02-19] MEDS: ZOFRAN IV PRN (11:43)
[2019-02-19 11:59] LABS: ANISOCYTOSIS 1+; LYMPHS 8 % (21-51); MICROCYTOSIS 1+; MONO 6 % (1-9); NRBC 1 % (0-0); SEGS 86 % (42-75)
[2019-02-19] MEDS: MUCOMYST 20% INH SCH ×2 (12:05→19:50)
[2019-02-19] MEDS: SYMBICORT 160/4.5 MICROGM INHALER INH SCH ×2 (12:06→20:40)
[2019-02-19] MEDS ORDERED: TESSALON PO PRN ×2 (12:34→12:39)
[2019-02-19 12:40] LABS: ALBUMIN 3.9 g/dL (3.5-5.0); C REACTIVE PROT QUANT 12.11 mg/L (0.00-5.00); CALCIUM 9.8 mg/dL (8.8-10.2); CREATININE 2.6 mg/dL (0.7-1.2); POTASSIUM 4.9 mmol/L (3.5-5.1)
[2019-02-19] MEDS: TUSSIONEX LIQUID PO PRN (13:49)
[2019-02-19 14:15] LABS: SED RATE 10 mm/hr (0-15)
--- NOTE | 2019-02-19 18:29 | GASTROENTEROLOGY PROGRESS NOTE ---
DATE: 02/18/2019 SUBJECTIVE: The patient reports having cramping abdominal pain overnight. He says that his pain is worse after eating. He has been having some bowel movements. His lactulose was recently stopped given concern that may be causing his bloating. He denies any nausea, vomiting, rectal bleeding or melena. No shortness of breath or chest pain. His PPI IV was recently switched to omeprazole once daily and now is back to IV PPI given concern that his symptoms may be related to dyspepsia versus GERD. OBJECTIVE: Vital signs: Temperature is 97.8 degrees, heart rate of 89, respiratory rate 18, blood pressure 116/88, O2 saturation 95% on BiPAP 40% FiO2. General: The patient is awake, alert, oriented, in no acute distress. HEENT: Sclerae anicteric. Moist mucous membranes. Neck: Unable to assess for JVD given his habitus. Pulmonary: Normal work of breathing. Difficulty hearing breath sounds given his habitus. Cardiac: Regular. Abdomen: Obese, soft, nontender. Extremities: 2 to 3+ edema. Neuro: Nonfocal. LABS: White count of 21.8, hemoglobin 11.8, platelets of 201,000. Sodium 130, potassium 5.1, chloride of 87, bicarb 29, BUN of 134, creatinine of 2.8, glucose of 115. IMAGING: KUB and chest x-ray shows no change in the chest. No definite acute abdominal abnormalities. ASSESSMENT AND PLAN: Mr. Jorgito Lopez is a 34-year-old man with morbid obesity, advanced heart failure with an ejection fraction of 15 to 20 percent, chronic obstructive pulmonary disease, obstructive sleep apnea on BiPAP, pulmonary hypertension, irritable bowel syndrome with constipation, history of peptic ulcer disease, gastroesophageal reflux disease, who was admitted for heart failure exacerbation requiring aggressive diuresis, inotrope therapy. GI was consulted for nausea and vomiting and constipation. The patient is having bowel movements but reports having some postprandial abdominal pain. He was given Bentyl which seemed to help his symptoms as well as transition back to IV PPI. Currently, he denies any abdominal pain. He is having bowel movements. No nausea, vomiting. He is tolerating a diet. He does believe that his swelling is increasing in his lower extremities after being taken off of his milrinone. No chest pain or shortness of breath at this time. I recommend that we continue Bentyl with meals 3 to 4 times a day as needed. Continue bowel regimen as you are, we are holding the lactulose given his bloating and abdominal distention. Continue Reglan and Zofran as well as MiraLAX. His leukocytosis is likely related to steroid therapy. His hemoglobin is stable without overt bleeding. Continue treatment for his CHF exacerbation per primary team. He does appear to have a rising creatinine consistent with acute kidney injury on underlying chronic kidney disease. We will follow with you. Please call with any questions or concerns. # N/V # IBS-C # GERD # Morbid obesity # CHF exacerbation # [facility] CKD [facility]
--- NOTE | 2019-02-19 20:16 | NEPHROLOGY PROGRESS NOTE ---
DATE: 02/19/2019 SUBJECTIVE: We were asked to come back and see him again because his labs have been worsening. He is currently on BiPAP and sleeping, but easily arousable. Complains of cough. OBJECTIVE: Vital Signs: Blood pressure 107/69, heart rate 81, respiration 18, afebrile. Intake 500 mL. Output 2 L, net -18 L since admission. General: No acute distress. Skin: Warm and dry. Neck: Neck veins are distended. Oropharynx is dry. Heart: Regular with systolic murmur. Lungs: Coarse, but no crackles or wheezes. Abdomen: Obese, soft, nontender. Bowel sounds present. Extremities: With trace edema. No clubbing or cyanosis. IMPRESSION: Acute kidney injury overlying chronic kidney disease. Baseline creatinine approximately 1.5 when his hemodynamics are idealized. His labs have been progressively worsening over the last 5 to 7 days since he has been off of dobutamine and dopamine. His FENA and FEUN are both very low, suggesting a prerenal state. I agree with a small fluid bolus. If he does not respond to this, then I think we have to assume he is once again dealing with decompensated heart failure, and may require more inotropic therapy. Unfortunately, we have limited treatment alternatives available for him at this point. cc: Jonas Tavares MD
--- NOTE | 2019-02-20 00:02 | PULMONOLOGY PROGRESS NOTE ---
DATE: 02/19/2019 SUBJECTIVE: The patient is currently on BiPAP. He is awake and alert. OBJECTIVE: Vital Signs: Blood pressure 115/72, heart rate 82, respiratory rate 20, oxygen saturation 98% on BiPAP. HEENT: Pupils are equal and reactive. Oropharynx appears clear. Neck: Supple. Chest: Reveals crackles bilaterally. Cardiac: S1, S2. Abdomen: Obese and soft. Extremities: Without edema. LABORATORIES: Arterial blood gas reveals a pH 7.31, pCO2 of 60, PO2 of 145. Sodium 131, potassium 4.9, chloride 88, bicarbonate 26, BUN 134, creatinine 2.6. IMPRESSION: A 34-year-old with: 1. Severe morbid obesity with a body mass index of 76. 2. Acute hypoxemic respiratory failure. 3. Acute hypercapnic respiratory failure. 4. Nonischemic cardiomyopathy with ejection fraction of 20%. 5. Pulmonary hypertension. 6. Obstructive sleep apnea. 7. Acute renal insufficiency. DISCUSSION: Unfortunate 34-year-old with problems outlined above. The patient is dying from his weight/morbid obesity. RECOMMENDATIONS: Continue oxygen and BiPAP for hypoxemic and hypercapnic respiratory failure. cc: Ta Hawthorne MD
[2019-02-20] MEDS: XOPENEX NEB INH SCH ×7 (00:10→23:52)
[2019-02-20 04:33] LABS: CALCIUM 9.8 mg/dL (8.8-10.2); CREATININE 2.6 mg/dL (0.7-1.2); PHOSPHORUS 5.1 mg/dL (2.7-4.5)
[2019-02-20 04:36] LABS: ALLEN TEST YES; BE 5.4 mmoll (-3.0-3.0); BLOOD TYPE ARTERIAL; HCO3-(ACT) 29.1 mmoll (20.0-26.0); METHB 1.1 % (0.0-1.5); O2(CT) 16.5 mL/dL (15.0-23.0); O2HB 95.8 % (95.0-99.0); PO2(98.6) 111 mmHg (60-100); SAMPLE BLOOD; SAO2 98.8 % (95.0-100.0); SRATE 20 BPM; THB 12.1 g/dL (11.5-17.4); pH(98.6) 7.35 (7.35-7.45)
[2019-02-20 04:38] LABS: MODALITY BI PAP
[2019-02-20 04:40] LABS: PCO2(98.6) 59 mmHg (35-45)
--- NOTE | 2019-02-20 06:02 | EKG Report ---
Test Performed on : 02/20/2019 05:12:51 AM Test Reason : Run of V-tach per telemetry Blood Pressure : / mmHG Vent. Rate : 085 BPM Atrial Rate : 085 BPM P-R Int : 178 ms QRS Dur : 092 ms QT Int : 416 ms P-R-T Axes : 065 008 057 degrees QTc Int : 495 ms Normal sinus rhythm. Possible Left atrial enlargement Nonspecific ST and T wave abnormality Prolonged QT Abnormal ECG When compared with ECG of 06-FEB-2019 08:39, Vent. rate has decreased BY [address] now depressed in Anterior leads Confirmed by Summer VELÁZQUEZ, Jac ([id number]) on 02/22/2019 8:15:11 AM
[2019-02-20] MEDS: PROTONIX IV SCH ×2 (06:03→17:03)
[2019-02-20] MEDS: REGLAN PO SCH ×3 (06:04→16:37)
[2019-02-20] MEDS: SODIUM CHLORIDE 0.9% INJ SCH (06:04)
[2019-02-20] MEDS: HUMULIN R SUBQ SCH ×4 (06:07→20:45)
--- NOTE | 2019-02-20 07:18 | PROGRESS NOTE ---
DATE: 02/19/2019 SUBJECTIVE: The patient is sitting up in bed eating lunch. He states that he feels about the same. No acute events noted overnight. OBJECTIVE: Vital Signs: Temperature 97.4 degrees, blood pressure 115/72, heart rate 82, respirations 20, O2 saturation 98% on BiPAP. Intake 480; output 1.9 L. General: This is a morbidly obese male sitting up in bed in no acute distress. Heart: S1, S2 normal. Regular rate and rhythm. Lungs: Diminished breath sounds bilaterally. No wheezing. No rales. Abdomen: Positive bowel sounds. Soft, obese. Extremities: 1+ edema in the lower extremities. Neurologic: The patient is alert and oriented x4. LABS: White blood cell count 16, hemoglobin 11, hematocrit 37, platelets 272. Sodium 131, potassium 4.9, chloride 88, CO2 26. BUN 134, creatinine 2.6, glucose 135, albumin 3.9. ASSESSMENT AND PLAN: 1. Acute on chronic hypoxemic and hypercapnic respiratory failure secondary to morbid obesity, heart failure and obstructive sleep apnea. 2. Acute on chronic systolic congestive heart failure exacerbation. Continue to monitor closely. The patient's diuretic therapy is currently on hold due to renal dysfunction. 3. Leukocytosis. Improved. This is likely steroid induced. 4. Acute kidney injury on chronic kidney disease. Slightly improved today. We will continue to monitor closely. Nephrology is following. 5. Mild hyperkalemia. Stable. 6. Hemorrhoids. Continue with Preparation-H. 7. Irritable bowel syndrome. Continue with Bentyl as needed. 8. Morbid obesity with a body mass index of 76. Aware. 9. Deep vein thrombosis prophylaxis. Continue on heparin. 10. Continue with physical therapy. 11. Disposition: Once the patient is medically stable, he will be discharged to an inpatient rehabilitation. cc: Maryjane Krause MD MTDD
[2019-02-20] MEDS: MEDROL PO SCH ×2 (07:59→20:04)
[2019-02-20] MEDS: COREG PO SCH ×2 (08:01→20:03)
[2019-02-20] MEDS: DALIRESP PO SCH (08:01)
[2019-02-20] MEDS: BIDIL PO SCH ×3 (08:01→16:38)
[2019-02-20] MEDS: MIRALAX PO SCH (08:02)
[2019-02-20] MEDS: HEPARIN SUBQ SCH ×2 (08:02→20:03)
[2019-02-20] MEDS: MUCOMYST 20% INH SCH ×2 (08:45→19:42)
[2019-02-20] MEDS: TYLENOL PO PRN (09:40)
[2019-02-20] MEDS: BENTYL PO PRN ×2 (09:42→16:43)
[2019-02-20] MEDS ORDERED: MILRINONE IV ONE ×2 (09:55→15:30)
[2019-02-20] MEDS: SYMBICORT 160/4.5 MICROGM INHALER INH SCH ×2 (11:48→19:43)
[2019-02-20] MEDS: PRIMACOR 20 MG/D5W 100 ML 20 MG/100 ML IVPB IV SCH ×4 (15:53→23:27)
--- NOTE | 2019-02-21 00:30 | PULMONOLOGY PROGRESS NOTE ---
DATE: 02/20/2019 SUBJECTIVE: The patient is awake, alert, and conversant. He is currently off his BiPAP device. He has been transferred to the ICU. OBJECTIVE: Vital Signs: Blood pressure 107/78, heart rate 101, respiratory rate 26, oxygen saturation 96 percent on nasal cannula. HEENT: Pupils are equal and reactive. Oropharynx is clear. Neck: Supple. Chest: Reveals distant breath sounds with crackles in the bases. Cardiac: Distant heart sounds. Normal S1, normal S2. Abdomen: Obese and soft. Extremities: Reveal +1 peripheral edema. LABORATORIES: Sodium 139, potassium 5.0, chloride 87, bicarbonate 27, BUN 136, creatinine 2.6. Arterial blood gas reveals a pH 7.35, pCO2 of 59, PO2 of 111. IMPRESSION: A 34-year-old with: 1. Acute hypoxemic respiratory failure. 2. Acute hypercapnic respiratory failure. 3. Nonischemic cardiomyopathy. 4. Morbid obesity with a body mass index greater than 76. 5. Hypertension. 6. Acute renal insufficiency with worsening uremia. 7. Obstructive sleep apnea. PLAN: 1. Continue to cycle nasal cannula and BiPAP for respiratory failure. 2. Nephrology consultation noted. 3. Overall prognosis remains poor. cc: Ta Hawthorne MD
--- NOTE | 2019-02-21 01:15 | PROGRESS NOTE ---
DATE: 02/20/2019 SUBJECTIVE: The patient is complaining of abdominal discomfort. No acute events noted overnight. OBJECTIVE: Vital Signs: Temperature 97.9 degrees, blood pressure 118/71, heart rate 122, respirations 22. O2 saturations 100% on 4 L nasal cannula. General: This is a morbidly obese male lying in bed, in no acute distress. Heart: S1, S2 normal. Tachycardic. Lungs: Equal air entry bilaterally. No wheezing. No rales. Abdomen: Positive bowel sounds. Soft, obese, nontender. Extremities: 1+ edema in the lower extremities. Neurologic: The patient is alert and oriented x4. LABS: Sodium 131, potassium 5, chloride 87, CO2 of 27, BUN 136, creatinine 2.6, chloride 109. ASSESSMENT AND PLAN: 1. Acute on chronic hypoxemic and hypercapnic respiratory failure. Multifactorial. 2. Acute on chronic systolic congestive heart failure exacerbation. We will plan to transfer the patient to the ICU and start a Primacor drip. We will monitor the patient closely. 3. Acute kidney injury on chronic kidney disease. Unchanged. Nephrology is following. 4. Mild hyperkalemia. Stable. 5. Leukocytosis. Slowly improving. This is likely steroid induced. 6. Irritable bowel syndrome. Continue on Bentyl p.r.n. 7. Morbid obesity with a body mass index of 76. Aware. 8. Hemorrhoids. Aware. 9. Obstructive sleep apnea. The patient is on BiPAP the majority of the day. 10. Chronic obstructive pulmonary disease. Continue with bronchodilator therapy. 11. Pneumonia secondary to pseudomonas. Resolved. 12. Deep vein thrombosis prophylaxis. Continue on heparin. cc: Maryjane Krause MD [facility]
[2019-02-21] MEDS: PRIMACOR 20 MG/D5W 100 ML 20 MG/100 ML IVPB IV SCH ×6 (03:05→23:22)
[2019-02-21] MEDS: XOPENEX NEB INH SCH ×6 (03:30→23:40)
[2019-02-21 04:53] LABS: ALLEN TEST YES; BE 5.9 mmoll (-3.0-3.0); BLOOD TYPE ARTERIAL; HCO3-(ACT) 29.2 mmoll (20.0-26.0); O2(CT) 12.8 mL/dL (15.0-23.0); PCO2(98.6) 39 mmHg (35-45); SAMPLE BLOOD; SAO2 86.2 % (95.0-100.0); THB 10.9 g/dL (11.5-17.4); pH(98.6) 7.49 (7.35-7.45)
[2019-02-21 04:54] LABS: PO2(98.6) 41 mmHg (60-100)
[2019-02-21 04:55] LABS: MODALITY BI PAP; O2HB 83.5 % (95.0-99.0)
[2019-02-21] MEDS: PROTONIX IV SCH ×2 (06:06→17:32)
[2019-02-21] MEDS: REGLAN PO SCH ×3 (06:07→15:40)
[2019-02-21] MEDS: HUMULIN R SUBQ SCH ×4 (06:07→20:20)
[2019-02-21 06:31] LABS: BASO# 0.01 X1000 (0.0-0.2); BASO% 0.1 % (0.0-0.8); EOS# 0.04 X1000 (0.0-0.7); EOS% 0.3 % (0.0-10.0); HEMATOCRIT 32.9 % (42.0-52.0); HEMOGLOBIN 9.8 g/dL (14.0-18.0); IMM GRAN# 0.07 X1000 (0.0-0.04); IMM GRAN% 0.5 % (0.0-0.5); LYMPH# 0.97 X1000 (1.2-3.4); LYMPH% 6.7 % (20.5-51.1); MCH 24.2 PG (27-31); MCHC 29.8 g/dL (33-37); MCV 81.2 FL (81-99); MONO# 1.53 X1000 (0.11-0.59); MONO% 10.6 % (1.7-9.3); MPV 11.2 FL (7.4-10.4); NEUT# 11.79 X1000 (1.4-6.5); NEUT% 81.8 % (42.2-75.2); PLT 195 X1000 (130-400); RBC 4.05 XMIL (4.7-6.1); RDW 17.8 % (11.5-14.5); WBC 14.41 X1000 (4.8-10.8)
[2019-02-21 07:16] LABS: ALBUMIN 3.6 g/dL (3.5-5.0); CALCIUM 9.3 mg/dL (8.8-10.2); CREATININE 2.4 mg/dL (0.7-1.2); PHOSPHORUS 3.6 mg/dL (2.7-4.5); POTASSIUM 4.3 mmol/L (3.5-5.1)
--- NOTE | 2019-02-21 07:20 | Diag Imaging Result Doc PS360 ---
EXAM: CHEST-PORTABLE 02/21/2019 HISTORY: pulmonary edema TECHNIQUE: AP portable upright at 0507 COMMENT: There is marked enlargement of the cardiomediastinal silhouette. There is a PICC line on the left with its tip in the right atrium. Compared to 02/15/2019 there has been no significant change. IMPRESSION: Cardiomegaly and/or pericardial effusion. Electronically signed by Rob Mccain 02/21/2019 7:18 AM
[2019-02-21] MEDS: TYLENOL PO PRN ×3 (07:55→23:21)
[2019-02-21] MEDS: MEDROL PO SCH (07:56)
[2019-02-21] MEDS: COREG PO SCH ×2 (08:09→20:19)
[2019-02-21] MEDS: DALIRESP PO SCH (08:10)
[2019-02-21] MEDS: HEPARIN SUBQ SCH ×2 (08:12→20:19)
[2019-02-21] MEDS: BENTYL PO PRN ×2 (08:25→17:35)
[2019-02-21] MEDS: SYMBICORT 160/4.5 MICROGM INHALER INH SCH (08:32)
[2019-02-21] MEDS: MUCOMYST 20% INH SCH (08:32)
[2019-02-21] MEDS: MIRALAX PO SCH (09:17)
[2019-02-21] MEDS: BIDIL PO SCH ×3 (10:17→17:31)
--- NOTE | 2019-02-21 19:14 | PULMONOLOGY PROGRESS NOTE ---
DATE: 02/21/2019 The patient is awake, alert, conversant. He is sitting on the bedside commode. OBJECTIVE: Vital Signs: The patient has been afebrile for the last 24 hours. Blood pressure 121/96, heart rate 109, respiratory rate 26, oxygen saturation 96% on nasal cannula. HEENT: Pupils are equal and reactive. Oropharynx appears clear. Neck: Neck is supple. Chest: Chest reveals crackles in the lung bases, but otherwise clear to auscultation. Cardiac exam: Increased rate. Regular rhythm. Abdomen: Abdomen is obese and soft. Extremities: Reveal 1+ peripheral edema. LABORATORIES/X-RAYS: Chest x-ray reveals very large cardiac silhouette without significant change. White blood count 14.4, hemoglobin 9.8, platelet count 195,000. Sodium 124, potassium 4.3, chloride 82, bicarbonate 29, BUN 129, creatinine 2.4. Arterial blood gas on BiPAP reveals a pH 7.49, pCO2 of 39, PO2 of 41. IMPRESSION: A 34-year-old with: 1. Acute hypoxemic respiratory failure. 2. Acute hypercapnic respiratory failure. 3. Nonischemic cardiomyopathy. 4. Body mass index greater than 75/morbid obesity. 5. Acute renal insufficiency. 6. Hypertension. 7. Obstructive sleep apnea. SUBJECTIVE: The patient's numbers are marginally improved today. BUN and creatinine have slightly declined. It will be an ongoing struggle to balance fluids on this patient. From a pulmonary standpoint, he will do better if he is dry, but from a renal standpoint he needs additional fluids. He is clearly dying from complications of super morbid obesity. PLAN: 1. Continue to cycle BiPAP and nasal cannula. 2. Fluid management per Nephrology. 3. Prognosis is poor for a gentleman who is very young. cc: Ta Hawthorne MD
[2019-02-22] MEDS: PRIMACOR 20 MG/D5W 100 ML 20 MG/100 ML IVPB IV SCH ×5 (03:04→20:14)
[2019-02-22] MEDS: XOPENEX NEB INH SCH ×6 (03:35→22:53)
[2019-02-22 04:29] LABS: ALLEN TEST YES; BE 8.5 mmoll (-3.0-3.0); BLOOD TYPE ARTERIAL; HCO3-(ACT) 31.6 mmoll (20.0-26.0); METHB 0.6 % (0.0-1.5); O2(CT) 14.2 mL/dL (15.0-23.0); O2HB 97.3 % (95.0-99.0); PO2(98.6) 180 mmHg (60-100); SAMPLE BLOOD; SAO2 99.7 % (95.0-100.0); THB 10.1 g/dL (11.5-17.4)
[2019-02-22 04:31] LABS: MODALITY BI PAP; PCO2(98.6) 56 mmHg (35-45)
[2019-02-22] MEDS: SYMBICORT 160/4.5 MICROGM INHALER INH SCH ×3 (04:32→19:47)
[2019-02-22] MEDS: MUCOMYST 20% INH SCH ×3 (04:32→19:47)
--- NOTE | 2019-02-22 05:01 | PROGRESS NOTE ---
DATE: 02/21/2019 SUBJECTIVE: The patient states that he feels a lot better today. He is currently on a Primacor drip. His urine output has picked up. OBJECTIVE: Vital Signs: Temperature 98.2 degrees, blood pressure 110/63, heart rate 103, respirations 19, O2 saturation 96% on 3 L nasal cannula. Intake 1.4 L. Output 2.5 L. General: This is a morbidly obese male lying comfortably in bed in no acute distress. Heart: S1, S2. Normal. Tachycardic. Lungs: Distant breath sounds. No wheezing. No rales. Abdomen: Positive bowel sounds. Soft, obese, nontender, and nondistended. Extremities: 1+ edema in the lower extremities. Neurologic: The patient is alert and oriented x4. LABORATORY: White blood cell count 14, hemoglobin 9.8, hematocrit 32, and platelets 195,000. ABG pH 7.49, pCO2 39, PO2 41, bicarb 29, sodium 124, potassium 4.3, chloride 82, CO2 29, BUN 129, creatinine 2.4, glucose 126. ProBNP 5804. Albumin 3.6. Chest x-ray shows cardiomegaly and pulmonary edema. ASSESSMENT AND PLAN: 1. Acute on chronic hypoxemic and hypercapnic respiratory failure. Slightly improved today. The patient is now on 3 L nasal cannula and tolerating it without any difficulty. 2. Acute on chronic systolic chf exacerbation NYHA Class IV. We will continue with the Primacor drip. I spoke to the on-call shirt turner at [facility] about the patient's clinical course. He stated that the patient would not be a candidate for heart transplant or LVAD due to his size and renal dysfunction. He recommended continuing with inotropic therapy. We will continue to monitor the patient closely in an ICU setting. He will likely require regularly scheduled primacor infusions as outpatient. 3. Acute kidney injury on chronic kidney disease secondary to cardiorenal syndrome. Slightly improved today. The urine output is improved. Continue with inotropic therapy. 4. Hyponatremia. This may be secondary to the patient's volume overload plus the D5W that is in the Primacor drip. We will continue to monitor closely. 5. Leukocytosis. Improved. 6. Irritable bowel syndrome. Stable. Continue on Bentyl p.r.n. 7. Morbid obesity with body mass index of 76. Aware. 8. Hemorrhoids. Aware. 9. Pulmonary hypertension. Aware. 10. Obstructive sleep apnea. Continue with BiPAP at night. 11. Chronic obstructive pulmonary disease. Continue with bronchodilator therapy. 12. Pneumonia secondary to Pseudomonas. Resolved. 13. Dilated nonischemic cardiomyopathy. Aware. 14. Deep vein thrombosis prophylaxis. Continue on heparin. 15. Disposition. The patient will likely require outpatient inotropic therapy on a regular basis to stay out of the hospital. We will continue to monitor the patient in the ICU setting. I also called [facility], however, they are on diversion. cc: Maryjane Krause MD MTDD
[2019-02-22] MEDS: REGLAN PO SCH ×3 (06:25→17:41)
[2019-02-22] MEDS: PROTONIX IV SCH ×2 (06:25→17:41)
[2019-02-22] MEDS: HUMULIN R SUBQ SCH ×4 (06:26→21:06)
[2019-02-22 06:34] LABS: EOS# 0.06 X1000 (0.0-0.7); EOS% 0.5 % (0.0-10.0); HEMATOCRIT 31.4 % (42.0-52.0); HEMOGLOBIN 9.3 g/dL (14.0-18.0); IMM GRAN# 0.05 X1000 (0.0-0.04); IMM GRAN% 0.4 % (0.0-0.5); LYMPH# 1.25 X1000 (1.2-3.4); LYMPH% 10.1 % (20.5-51.1); MCH 24.3 PG (27-31); MCHC 29.6 g/dL (33-37); MCV 82.2 FL (81-99); MONO# 1.44 X1000 (0.11-0.59); MONO% 11.7 % (1.7-9.3); MPV 11.6 FL (7.4-10.4); NEUT# 9.55 X1000 (1.4-6.5); NEUT% 77.3 % (42.2-75.2); PLT 189 X1000 (130-400); RBC 3.82 XMIL (4.7-6.1); RDW 18.1 % (11.5-14.5); WBC 12.35 X1000 (4.8-10.8)
[2019-02-22 06:52] LABS: ALBUMIN 3.7 g/dL (3.5-5.0); CALCIUM 9.3 mg/dL (8.8-10.2); CREATININE 2.3 mg/dL (0.7-1.2); PHOSPHORUS 3.1 mg/dL (2.7-4.5); POTASSIUM 3.9 mmol/L (3.5-5.1)
--- NOTE | 2019-02-22 07:48 | Diag Imaging Result Doc PS360 ---
EXAM: CHEST-PORTABLE INDICATION: dyspnea TECHNIQUE: 2 views COMPARISON: 02/21/2019 FINDINGS: The left PICC line is in stable position. There is suggestion of at least mild pulmonary venous congestion that is stable and may be chronic. No new consolidation is identified. There is stable marked cardiomegaly. IMPRESSION: Stable chest. Electronically signed by Dirk Jasso 02/22/2019 7:45 AM
[2019-02-22] MEDS: MIRALAX PO SCH (09:43)
[2019-02-22] MEDS: HEPARIN SUBQ SCH ×2 (09:43→20:15)
[2019-02-22] MEDS: COREG PO SCH ×2 (09:44→20:14)
[2019-02-22] MEDS: BIDIL PO SCH ×3 (09:44→17:41)
[2019-02-22] MEDS: DALIRESP PO SCH (09:44)
[2019-02-22] MEDS: BENTYL PO PRN (09:49)
--- NOTE | 2019-02-22 12:07 | GASTROENTEROLOGY PROGRESS NOTE ---
DATE: 02/22/2019 SUBJECTIVE: Mr. Lopez is a 34-year-old, male. He was sitting on the chair. The patient has denied any nausea, vomiting, or abdominal pain. He is on nasal cannula at 5 L and he said he was feeling much better than what he was. OBJECTIVE: Vital Signs: Temperature 98.2 degrees, pulse 101, respirations 30, blood pressure 85/39, oxygen saturation is 92% on 5 L nasal cannula. The patient's weight is 493 pounds. BMI is 77.4 kg/m2. General: Patient is morbidly obese, alert, oriented x3, and in no acute distress. HEENT: Pale conjunctivae. No icterus. PERRL. Neck: Supple. Lungs: Wheezing heard in the anterior patel. Cardiovascular: Patient is tachycardic and tachypneic. Abdomen: Obese, soft, nontender. Hypoactive bowel sounds heard in all 4 quadrants. Extremities: No clubbing. No cyanosis. Generalized edema in the lower extremities. Pedal pulses 1+ present bilaterally. Neurologic: He is alert, oriented x3. Labs: WBCs 12.35, RBCs 3.82, hemoglobin 9.3, hematocrit 31.4, platelet count is 189,000. Sodium 125, potassium 3.9, chloride 84, carbon dioxide 32, anion gap 9, BUN 105, creatinine 2.3, glucose is 276, calcium 9.3, phosphorus 3.1, albumin is 3.7. The patient's x-ray on 02/21/2019 showed cardiomegaly and/or pericardial effusion. X-ray today showed stable chest. IMPRESSION: 1. Nausea and vomiting. 2. Constipation. 3. Gastroesophageal reflux disease. 4. Congestive heart failure. 5. Pneumonia. 6. Anemia. 7. Chronic kidney disease. 8. Morbid obesity. 9. Pulmonary edema due to congestive heart failure. PLAN: Mr. Lopez is a 34-year-old, -[place] male. GI is following him for his nausea, vomiting, and constipation. The patient's nausea, vomiting, and constipation are under control. The patient is having some positive bowel movements. We will continue with the current plan of care. He is on Zofran for his nausea and vomiting. The patient is receiving Reglan 10 mg 3 times a day. He is on GI prophylaxis, Protonix IV twice a day, and he is on a bowel regimen, MiraLAX 17 g daily. We will continue to monitor the patient and provide supportive care to the patient. This plan was discussed with Dr. Rao. Please call us for any further questions or concerns. Dictated by ERIK Murguia for Josue Rao MD cc: Josue Rao MD I have seen and examined the patient myself and I agree with the above plan of care. I have discussed the above with the patient and all questions were answered. Please call us with any further questions. MTDD
--- NOTE | 2019-02-22 13:37 | NEPHROLOGY PROGRESS NOTE ---
DATE: 02/22/2019 SUBJECTIVE: Patient is sitting up in a chair beside the bed. He states that he hopes he can go to [facility]. OBJECTIVE: Vital Signs: Temperature 98.2 degrees, pulse 104, respiratory rate 18, blood pressure 93/58. Intake 2.5 L. Output 3.5 L urine voided. General: This is a middle- aged gentleman sitting up in a chair. He is awake and alert. He is in no acute distress. HEENT: Normocephalic, atraumatic. PERRL. Oral mucosa moist. Neck: Thick, unable to determine JVD. Cardiovascular: Distant heart sounds. No murmur appreciated. Pulmonary: Equal excursion. No increased work of breathing. He is on O2 supplementation via nasal cannula. Abdomen: Morbidly obese, soft, positive bowel sounds. : Voiding. Extremities: 2 to 3+ edema. Vascular changes noted bilateral lower extremities. Integumentary: Skin is warm and dry. LAB DATA: WBC of 12.3, hemoglobin 9.3. Sodium 125, potassium 3.5, chloride 84, CO2 32, creatinine 2.3. BUN 105. Chest x-ray with stable mild pulmonary venous congestion. Chronic marked cardiomegaly. ASSESSMENT AND PLAN: 1. Acute overlying chronic kidney disease. His baseline creatinine appears 1.5. Renal function has been with mild to modest improvement over the weekend. Creatinine down to 2.3 from 2.8 on Friday. The patient really is not a candidate for other intervention from a nephrology standpoint at this time. We will continue to monitor closely. 2. Class 4 CHF exacerbation with profound cardiomegaly. The patient is on a Milrinone drip. Plan is try to get him to [facility] if possible. Followed by primary and cardiology. 3. Electrolytes, acid-base balance. He is slightly hyponatremic. This is secondary to fluid volume overload plus his Primacor drip and the D5W. 4. Fluid volume. He is about a liter negative overnight. He is voiding. 5. Disposition. Again, the patient will stay in the Intensive Care Unit for monitoring. We will continue inotropic therapy. Defer to primary. Dictated by ERIK [place] for Jonas Tavares MD Face to face encounter, data reviewed, discussed with Lacho Banks on 02/22/19. I agree with the above assessment and plan of care. rg cc: Jonas Tavares MD [facility]
--- NOTE | 2019-02-22 16:41 | PROGRESS NOTE ---
DATE: 02/22/2019 SUBJECTIVE: The patient is sitting up in bed, resting comfortably. He states that he had a good night. He remains on a Primacor drip. OBJECTIVE: Vital Signs: Temperature 98.6 degrees, blood pressure 99/78, heart rate 109, respirations 16, O2 saturation is 95% on 5 L nasal cannula. General: This is a morbidly obese male sitting up in bed, in no acute distress. Heart: S1, S2 normal. Tachycardic. Lungs: Equal air entry bilaterally. No wheezing. No rales. Abdomen: Positive bowel sounds. Soft, obese, nontender. Extremities: Have 1+ edema in the legs. Neurologic: The patient is alert and oriented x4. LABS: White blood cell count 12, hemoglobin 9.3, hematocrit 31, platelets 189,000. Sodium 125, potassium 3.9, chloride 84, CO2 32, BUN 105, creatinine 2.3, glucose 276, albumin 3.7. Chest x-ray shows mild pulmonary venous congestion that is stable. No new consolidation identified. ASSESSMENT AND PLAN: 1. Acute on chronic hypoxemic and hypercapnic respiratory failure. Unchanged. Continue to cycle nasal cannula during the day and BiPAP at night. 2. Acute on chronic systolic congestive heart failure exacerbation, NYHA class 4. The patient remains on the Primacor drip. I called [facility] and they are currently on diversion and cannot accept any patients at this time. Today, I spoke to Dr.Kelly Smith at [facility] who stated that the patient is not a candidate for a heart transplant or LVAD due to his morbid obesity and renal dysfunction. She did recommend to continue to optimize inotropic therapy. She also mentioned possibly placing a [place]-Ashwin catheter to get a better reading on the patient's true hemodynamic status. The patient will likely require regularly scheduled Primacor infusions as an outpatient. We will await further recommendations from the coder. 3. Acute kidney injury on chronic kidney disease secondary to cardiorenal syndrome. The BUN and creatinine are a little bit better today. The patient's urine output has picked up as well. We will continue with inotropic therapy. Nephrology is following. 4. Hyponatremia. Stable. Continue to monitor closely. 5. Leukocytosis. Improved. 6. Irritable bowel syndrome. Stable. 7. Morbid obesity with a body mass index of 77. The patient is followed by Dr. Obrien in [place] for consideration for bariatric surgery. Once the patient is discharged from the hospital he will need to follow up with Dr. Obrien. 8. Hemorrhoids. Aware. 9. Pulmonary hypertension. Aware. 10. Obstructive sleep apnea. Continue on BiPAP at night. 11. Pneumonia secondary to Pseudomonas. Resolved. 12. Dilated nonischemic cardiomyopathy with an ejection fraction of 15 to 20%. Aware. Continue with the current treatment regimen. 13. Deep vein thrombosis prophylaxis. Continue on heparin. 14. Disposition. The patient desires transfer to either [facility] or [place]. I placed a call to [place] and spoke to 2 different cardiologists who both said that the patient would not benefit from heart transplant or LVAD due to his size and his renal dysfunction. They both recommended [place]-Ashwin catheter placement to get a true reading on the patient's hemodynamics to aid with titration of inotropic therapy. I also called [facility] and they are on ICU diversion so cannot accept the patient at this time. At this time, we will continue on inotropic therapy and await further recommendations from the coder. cc: Maryjane Krause MD [facility]
[2019-02-22] MEDS: SODIUM CHLORIDE 0.9% INJ SCH (17:41)
[2019-02-22] MEDS: TYLENOL PO PRN (22:32)
[2019-02-23] MEDS: PRIMACOR 20 MG/D5W 100 ML 20 MG/100 ML IVPB IV SCH ×6 (00:31→23:42)
[2019-02-23] MEDS: XOPENEX NEB INH SCH ×5 (02:57→20:10)
[2019-02-23 04:37] LABS: ALLEN TEST YES; BLOOD TYPE ARTERIAL; HCO3-(ACT) 32.7 mmoll (20.0-26.0); METHB 1.1 % (0.0-1.5); O2(CT) 14.4 mL/dL (15.0-23.0); O2HB 96.8 % (95.0-99.0); PO2(98.6) 186 mmHg (60-100); SAMPLE BLOOD; SAO2 99.5 % (95.0-100.0); THB 10.3 g/dL (11.5-17.4)
[2019-02-23 04:39] LABS: MODALITY BI PAP
[2019-02-23 04:44] LABS: PCO2(98.6) 59 mmHg (35-45)
[2019-02-23] MEDS: PROTONIX IV SCH ×2 (05:41→16:20)
[2019-02-23] MEDS: TYLENOL PO PRN ×2 (05:41→23:44)
[2019-02-23] MEDS: SODIUM CHLORIDE 0.9% INJ SCH ×2 (05:41→16:20)
[2019-02-23] MEDS: HUMULIN R SUBQ SCH ×4 (05:59→20:22)
[2019-02-23] MEDS: REGLAN PO SCH ×3 (06:00→16:20)
[2019-02-23 06:07] LABS: EOS# 0.09 X1000 (0.0-0.7); EOS% 0.8 % (0.0-10.0); HEMATOCRIT 32.5 % (42.0-52.0); HEMOGLOBIN 9.6 g/dL (14.0-18.0); IMM GRAN# 0.05 X1000 (0.0-0.04); IMM GRAN% 0.5 % (0.0-0.5); LYMPH# 1.16 X1000 (1.2-3.4); LYMPH% 10.5 % (20.5-51.1); MCH 24.6 PG (27-31); MCHC 29.5 g/dL (33-37); MCV 83.3 FL (81-99); MONO# 1.33 X1000 (0.11-0.59); MPV 11.2 FL (7.4-10.4); NEUT# 8.44 X1000 (1.4-6.5); NEUT% 76.2 % (42.2-75.2); PLT 186 X1000 (130-400); RDW 18.7 % (11.5-14.5); WBC 11.07 X1000 (4.8-10.8)
[2019-02-23 06:31] LABS: ALBUMIN 3.8 g/dL (3.5-5.0); CALCIUM 9.7 mg/dL (8.8-10.2); CREATININE 1.9 mg/dL (0.7-1.2); PHOSPHORUS 2.6 mg/dL (2.7-4.5); POTASSIUM 4.7 mmol/L (3.5-5.1)
[2019-02-23] MEDS: SYMBICORT 160/4.5 MICROGM INHALER INH SCH (08:00)
[2019-02-23] MEDS: MUCOMYST 20% INH SCH (08:01)
[2019-02-23] MEDS: HEPARIN SUBQ SCH ×2 (08:14→20:18)
[2019-02-23] MEDS: COREG PO SCH ×2 (08:14→20:18)
[2019-02-23] MEDS: DALIRESP PO SCH (08:14)
[2019-02-23] MEDS: BIDIL PO SCH ×3 (08:14→16:20)
[2019-02-23] MEDS: BENTYL PO PRN ×2 (08:15→17:52)
[2019-02-23] MEDS: MIRALAX PO SCH (08:16)
--- NOTE | 2019-02-23 11:28 | GASTROENTEROLOGY PROGRESS NOTE ---
DATE: 02/23/2019 SUBJECTIVE: Mr. Lopez is a 34-year-old male. He was resting in bed with his BiPAP machine on, he was using it for some time and then will switch to 5 L NC The patient said that he was feeling a little weak this morning. OBJECTIVE: Vital Signs: Temperature 97.9 degrees, pulse is 89, respirations 16, blood pressure 121/69, oxygen saturation 92%, currently on Bipap machine. His weight is 493 pounds, BMI is 77.4 kg/m2. General: He is alert, oriented x3, in no acute distress. HEENT: Pale conjunctivae. No icterus. PERRL. Neck: Supple. Lungs: Wheezing heard in the anterior patel. Cardiovascular: Regular rate and rhythm. patel. Abdomen: Obese, soft, nontender. Hypoactive bowel sounds heard in all 4 quadrants. Extremities: No clubbing, no cyanosis. Generalized edema in the lower extremities. Pedal pulses 1+ present. Neurological: Alert oriented x3. LABORATORY DATA: WBC is 11.7, RBC 3.90, hemoglobin 9.6, hematocrit 32.5, platelet count 186,000. Sodium 134, potassium 4.7, chloride 91, carbon dioxide 30, anion gap 13, BUN 91, creatinine 1.9, glucose 99, calcium 9.7, phosphorus 2.6, albumin 3.8. IMAGING: Chest x-ray yesterday showed stable chest. IMPRESSION AND PLAN: 1. Nausea and vomiting, constipation. 2. Gastroesophageal reflux disease. 3. Congestive heart failure. 4. Pneumonia. 5. Anemia. 6. Chronic kidney disease. 7. Morbid obesity. 8. Pulmonary edema due to congestive heart failure. PLAN: Mr. Lopez is a 34-year-old male. Gastroenterology has been following him for his nausea and vomiting. The patient's nausea, vomiting, and constipation are under control. The patient is having positive bowel movements. We will continue with the current plan of care. Patient is on antiemetics, Zofran and he has got Reglan which is scheduled 3 times a day. The patient is also receiving Bentyl 10 mg for abdominal cramps. He is on gastrointestinal prophylaxis, Protonix 40 mg IV twice a day. He is on a bowel regimen, MiraLAX 17 g daily. We will continue to provide supportive care to the patient and follow the plan of care per primary care physician. This plan was discussed with Dr. Rolle. Please call us for any further questions or concerns. Dictated by ERIK Murguia for Pollo Rolle MD Physician Attestation I have seen and examined the patient. I have discussed and reviewed the note by Mindy VALENCIA and agree with findings and plan as documented. Symptoms are controlled with current regimen. No new recommendations. Will sign off. Please call with questions. MTDD
--- NOTE | 2019-02-23 11:49 | PROGRESS NOTE ---
DATE: 02/23/2019 INTERVAL HISTORY: No acute events overnight. He had a few readings of low blood pressure overnight, but he was asymptomatic. Telemetry does not have any premature ventricular contraction recorded. We discussed about lowering his FiO2 as tolerated. We discussed about following up with sodium level, as well as serum creatinine. SUBJECTIVE: Mr. Lopez denies chest pain, shortness of breath at rest, cough. He states his cough is significantly better. He denies any nausea, vomiting, or abdominal pain. He is eating better. I had a discussion with him about his kidney function. He asked me about outpatient milrinone drip, and I told him that I would have to have a discussion with the cardiology team to figure out the logistics outpatient. I also informed him that unfortunately [facility] did not think he was an ideal candidate for left ventricular assistive device or heart transplantation and [facility] was on diversion. PHYSICAL EXAMINATION: Vital Signs: Temperature of 98.2 degrees, pulse of 99, respiratory rate 20, blood pressure 90/60. He is saturating 98% on 50% BiPAP right now. General: On physical examination, morbidly obese, not in any acute distress. Oral cavity is moist. Lungs: Air entry bilaterally equal. No wheeze, rhonchi, crackles. Cardiovascular: S1, S2 normal. No murmur, rub, or gallop. Abdomen: Obese, soft, nontender. Extremities: He has a bilateral lower extremity edema. He has a left arm PICC line. Neck: His jugular venous distention is difficult to assess. Neurologic: He is alert oriented x3. Input and Output: The input and output says -800 mL so far today. LABS: Suggestive of mild leukocytosis, normocytic anemia, normal platelet count. Hypercarbia on ABG with adequate oxygen level. He has improvement in his BUN and creatinine. Microbiology, no new data. IMAGING STUDIES: No new data. ASSESSMENT AND PLAN: 1. Acute on chronic hypoxic hypercarbic respiratory failure due to morbid obesity, obstructive sleep apnea, acute systolic congestive heart failure exacerbation, and Pseudomonas pneumonia. Continue to cycle BiPAP and nasal cannula as tolerated. We will decrease FiO2 as tolerated. I will continue him on inhaled bronchodilators, Roflumilast, Symbicort. He is status post intravenous Zosyn of about 14 days. 2. Acute on chronic systolic congestive heart failure exacerbation with ejection fraction of 15% to 20% due to morbid obesity related nonischemic cardiomyopathy. Continue him on carvedilol and Bidil. He is currently requiring intravenous milrinone. I will start him on oral diuretic. I appreciate Cardiology's recommendation if he could be a candidate of outpatient milrinone therapy. 3. Cardiorenal syndrome due to [place] [employer] stage IV cardiomyopathy. His kidney function shows some improvement after starting inotropic PICC agents. I will continue to monitor urine output and start him on diuretic therapy. DISPOSITION: Mr. Lopez's condition is stable, though his prognosis is extremely poor due to multiple comorbid conditions, morbid obesity, congestive heart failure. I have previously had a imtiaz discussion with him and his mother about his poor survival chances. TIME SPENT: More than 30 minutes of critical care time was spent in taking care of this patient. Plan of care was discussed with him. His questions have been answered. cc: Rodo Ramirez MD MTDD
[2019-02-23] MEDS: DEMADEX PO SCH (12:31)
--- NOTE | 2019-02-23 16:20 | PROVIDER PROGRESS NOTE ---
Progress Note Subjective: patient denies any complaints. Voices no shortness of breath, nausea, chest pain, or change in appetite. Objective: temperature 98.2, pulse 99, respirations 20, blood pressure 90/60, 02 sat 98% on BiPAP. General: obese -Indian male lying in bed in no acute distress. HEENT: Normocephalic, atraumatic, pupils equal and reactive. Mucous membranes dry. Trachea midline. Skin: warm and dry Neck: supple, 8 cm JVD. Cardiovascular: distant S1, S2, regular rate and rhythm. No murmur or gallop, enlarged and displaced PMI. Respiratory: coarse bilaterally with rhonchi, equal air excursion anteriorly Abdomen: obese, soft, nontender, nondistended. Hypoactive Bowel sounds present. : not inspected extremities:2+ pitting edema to BLE Neurologic: alert and oriented to person, place, and time. Labs: WBC 11.07, hemoglobin 9.6, 32.5, platelet count 186, sodium 134, potassium4.7, chloride 91, carbon dioxide 30, BUN 91, Creatinine 1.9. Input 2097, output 2900. Impression: Acute kidney injury secondary to hypertension/cardiorenal syndrome. Creatinine trending down to 1.9 today. Remains on milrinone drip with adequate output. Blood pressure. Stable for now. Periods of hypotension. Acid base balance and electrolytes. Stable. Anemia. Stable. Fluid volume. Expanded. Continue inotropic therapy. Nutrition. Excellent. Ambulation. PT/OT in place Medication review. No changes.
[2019-02-24] MEDS: MUCOMYST 20% INH SCH ×3 (00:22→19:45)
[2019-02-24] MEDS: SYMBICORT 160/4.5 MICROGM INHALER INH SCH ×3 (00:22→19:49)
[2019-02-24] MEDS: XOPENEX NEB INH SCH ×8 (00:23→23:25)
[2019-02-24] MEDS: PROTONIX IV SCH ×2 (04:01→16:43)
[2019-02-24] MEDS: PRIMACOR 20 MG/D5W 100 ML 20 MG/100 ML IVPB IV SCH ×5 (04:01→20:45)
[2019-02-24] MEDS: SODIUM CHLORIDE 0.9% INJ SCH (04:01)
[2019-02-24] MEDS: HUMULIN R SUBQ SCH ×4 (06:10→22:11)
[2019-02-24 06:12] LABS: EOS# 0.13 X1000 (0.0-0.7); EOS% 1.2 % (0.0-10.0); HEMATOCRIT 32.1 % (42.0-52.0); HEMOGLOBIN 9.4 g/dL (14.0-18.0); IMM GRAN# 0.05 X1000 (0.0-0.04); IMM GRAN% 0.5 % (0.0-0.5); LYMPH# 1.22 X1000 (1.2-3.4); LYMPH% 11.4 % (20.5-51.1); MCH 24.7 PG (27-31); MCHC 29.3 g/dL (33-37); MCV 84.3 FL (81-99); MONO# 0.91 X1000 (0.11-0.59); MONO% 8.5 % (1.7-9.3); MPV 10.4 FL (7.4-10.4); NEUT# 8.37 X1000 (1.4-6.5); NEUT% 78.4 % (42.2-75.2); PLT 150 X1000 (130-400); RBC 3.81 XMIL (4.7-6.1); RDW 18.9 % (11.5-14.5); WBC 10.68 X1000 (4.8-10.8)
[2019-02-24] MEDS: REGLAN PO SCH ×3 (06:13→16:43)
[2019-02-24 06:38] LABS: ALBUMIN 3.7 g/dL (3.5-5.0); CALCIUM 9.7 mg/dL (8.8-10.2); CREATININE 1.6 mg/dL (0.7-1.2); PHOSPHORUS 2.4 mg/dL (2.7-4.5); POTASSIUM 4.3 mmol/L (3.5-5.1)
[2019-02-24] MEDS: DEMADEX PO SCH (08:12)
[2019-02-24] MEDS: MIRALAX PO SCH (08:12)
[2019-02-24] MEDS: DALIRESP PO SCH (08:12)
[2019-02-24] MEDS: HEPARIN SUBQ SCH ×2 (08:12→21:13)
[2019-02-24] MEDS: COREG PO SCH ×2 (08:12→21:13)
[2019-02-24] MEDS: BIDIL PO SCH ×3 (08:12→16:43)
--- NOTE | 2019-02-24 13:23 | PROVIDER PROGRESS NOTE ---
Progress Note Subjective: Denies any complaints. No shortness of breath or n/v. Objective: temperature 97.7, pulse 100, respiration 16, blood pressure 113/63, 02 sat 97% on 5 L nasal cannula. General: obese -Citizen Of [place] male lying in bed in no acute distress. HEENT: Normocephalic, atraumatic, pupils equal and reactive. Mucous membranes dry. Trachea midline. Skin: warm and dry Neck: supple, 8 cm JVD. Cardiovascular: distant S1, S2, regular rate and rhythm. No murmur or gallop, enlarged and displaced PMI. Respiratory: coarse bilaterally with rhonchi, equal air excursion anteriorly Abdomen: obese, soft, nontender, nondistended. Hypoactive Bowel sounds present. : not inspected extremities:2+ pitting edema to BLE, pitting edema to hips. Neurologic: alert and oriented to person, place, and time. Labs: WBC 10.68, hemoglobin 9.4, hematocrit 32.1, platelet count 150. Sodium 135, potassium 4.3, chloride 92, carbon dioxide 33, BUN 78, creatinine 1.6. Intake 1468, output 3225. Impression: Acute kidney injury secondary to hypertension/cardiorenal syndrome. Creatinine trending down to 1.6 today. Remains on milrinone drip with adequate output. Will sign off today. Blood pressure. Stable. Acid base balance and electrolytes. Stable. Anemia. Stable. Fluid volume. Expanded. Continue inotropic therapy. Nutrition. Excellent. Ambulation. PT/OT in place Medication review.
--- NOTE | 2019-02-24 16:24 | PROGRESS NOTE ---
DATE: 02/24/2019 INTERVAL HISTORY: No acute events overnight. He was transferred out of ICU to [facility]. I called [facility] and talked with Dr. Albert Michel and discussed with him about the patient's clinical condition to request transfer for higher level of care. However, learning his clinical state and multiple comorbidities it was suggested that he is not a candidate for advanced heart failure therapy including left ventricular assist device or heart transplant and it was suggested that he may need intravenous Milrinone outpatient and ongoing discussion of palliative care. VITAL SIGNS: Temperature of 97.4 degrees, pulse 59, respiratory rate 16, blood pressure 130/60. He is saturating 93% on nasal cannula. PHYSICAL EXAMINATION: Vital Signs: Morbidly obese. Not in any acute distress. Oral cavity, I am not able to examine properly because he has a BiPAP mask on. Lungs: Air entry bilaterally equal. No wheeze, rhonchi, crackles. Cardiovascular: S1, S2 normal. No murmur, rub, or gallop. Abdomen: Obese, soft, nontender. He has mild bilateral lower extremity edema. He has a left arm PICC line. Neurologic: He is alert and oriented x3. SUBJECTIVE: He denies chest pain, shortness of breath at rest. His cough is better. It is mostly nonproductive. LABORATORY DATA: Labs suggestive of no leukocytosis, normocytic anemia, normal platelet count. He has decreasing BUN and decreasing creatinine. MICROBIOLOGY: Blood culture has not shown any growth. IMAGING: No new imaging. ASSESSMENT AND PLAN: 1. Acute on chronic hypoxic hypercapnic respiratory failure due to morbid obesity, obstructive sleep apnea, acute systolic congestive heart failure exacerbation, Pseudomonas pneumonia. Continue to cycle BiPAP and nasal cannula as tolerated, inhaled bronchodilators, Roflumilast and Symbicort. He is status post intravenous Zosyn for pneumonia. 2. Acute on chronic systolic congestive heart failure exacerbation with ejection fraction of 15 to 20 percent due to morbid obesity related nonischemic cardiomyopathy. Continue carvedilol, isosorbide, hydralazine, torsemide and intravenous Milrinone. Previously [facility] would not accept the patient citing they did not have additional help to offer considering his multiple comorbidities. Today, on 02/24/2019, I called [facility] and talked with heart failure lithographic proofer apprentice, Dr. Albert Reyes and discussed with him about the patient's clinical condition. Considering his morbid obesity, renal failure, I was informed that he is probably not the candidate for left ventricular assist device or any advanced heart failure therapies and I was suggested to continue him on current medical regimen, consider palliative care, consider outpatient Milrinone infusion. 3. Cardiorenal syndrome due to [place] [employer] steps for cardiomyopathy leading to acute kidney injury. Now his creatinine showed improvement after being on Milrinone and diuretic therapy, which I will continue. DISPOSITION: I will monitor patient in the PVC unit. I have asked the patient to see if I could have a detailed discussion about the patient's clinical conditions with himself and his mother together and he is going to reach out to his mother and probably tomorrow I will have a detailed discussion. Meanwhile, I will also touch base with the cardiology team to see if outpatient Milrinone could be arranged. The patient's prognosis is poor and he is aware of that. His code status remains full. cc: Rodo Ramirez MD
[2019-02-25] MEDS: PRIMACOR 20 MG/D5W 100 ML 20 MG/100 ML IVPB IV SCH ×3 (01:01→09:22)
[2019-02-25] MEDS: TYLENOL PO PRN (02:16)
[2019-02-25] MEDS: XOPENEX NEB INH SCH ×6 (03:23→22:32)
[2019-02-25] MEDS: PROTONIX IV SCH (05:03)
[2019-02-25] MEDS: REGLAN PO SCH ×3 (06:05→15:50)
[2019-02-25 06:28] LABS: ALBUMIN 3.4 g/dL (3.5-5.0); CALCIUM 9.1 mg/dL (8.8-10.2); CREATININE 1.6 mg/dL (0.7-1.2); PHOSPHORUS 2.7 mg/dL (2.7-4.5); POTASSIUM 4.1 mmol/L (3.5-5.1)
[2019-02-25] MEDS: HUMULIN R SUBQ SCH ×4 (06:51→20:56)
[2019-02-25] MEDS: NS NEB INH SCH ×3 (08:25→15:56)
[2019-02-25] MEDS: SYMBICORT 160/4.5 MICROGM INHALER INH SCH ×2 (08:31→19:32)
[2019-02-25] MEDS: MUCOMYST 20% INH SCH ×2 (08:31→19:32)
[2019-02-25] MEDS: HEPARIN SUBQ SCH ×2 (09:23→20:45)
[2019-02-25] MEDS: DEMADEX PO SCH (09:23)
[2019-02-25] MEDS: DALIRESP PO SCH (09:23)
[2019-02-25] MEDS: MIRALAX PO SCH (09:23)
[2019-02-25] MEDS: COREG PO SCH ×2 (09:23→20:46)
[2019-02-25] MEDS: BIDIL PO SCH ×3 (09:23→20:46)
--- NOTE | 2019-02-25 12:14 | PROGRESS NOTE ---
DATE: 02/25/2019 INTERVAL HISTORY: No acute events overnight. SUBJECTIVE: Mr. Lopez is sitting in the chair by the bedside. Denies any complaints. VITALS: Temperature 97.7 degrees, pulse 112, respiratory rate 18, blood pressure 107/68, saturating 95% on 5 L nasal cannula. I decreased his oxygen level to 3 L and he was saturating well. PHYSICAL EXAMINATION: General: Morbidly obese, not in acute distress. Oral cavity: Moist. Lungs: Air entry equal. No wheeze, rhonchi or crackles. Heart: S1 normal. No murmur, rub or gallop. Abdomen: Soft, nontender. Extremities: He has bilateral lower extremity edema extending up to knee level. He was worried about a pit on his left leg, which looks like edema. : He had 3.2 L urine output yesterday. He denies any chest pain, shortness of breath, cough, nausea, vomiting, abdominal pain. LABS: His BUN and creatinine are currently stable. MICROBIOLOGY: No data. IMAGING: No new data. ASSESSMENT AND PLAN: 1. Acute on chronic hypoxic hypercarbic respiratory failure due to morbid obesity, obstructive sleep apnea, acute systolic congestive heart failure exacerbation, Pseudomonas pneumonia. Continue to cycle BiPAP and nasal cannula as tolerated. Decrease the oxygen to 3 L, inhaled bronchodilators, Roflumilast and Symbicort. He is status post intravenous Zosyn for pneumonia. 2. Acute on chronic systolic congestive heart failure exacerbation with ejection fraction 15 to 20 percent due to morbid obesity. 3. Nonischemic cardiomyopathy. Continue carvedilol, isosorbide, hydralazine, torsemide. After discussion with Cardiology, I decided to stop the intravenous Milrinone and monitor him for the next 24 to 48 hours. Previously, [facility] cardiologists had suggested that he may not be the ideal candidate for heart transplantation or left ventricular assist device, and had recommended current medical management. 4. Cardiorenal syndrome due to congestive heart failure leading to intermittent acute kidney injury. I will follow up BUN and creatinine on a daily basis. DISPOSITION: My plan is to watch his kidney function for the next 24 to 48 hours without Milrinone drip. If his kidney function remains stable on current cardiovascular medical management, I would [facility], and then from there he could follow up with [facility] or his further heart failure care. His code status is full. PLAN OF CARE: I again in detail discussed the plan of care with the patient and his mother at bedside. I told them about the natural history of heart failure in his case. I also discussed with them about his clinical condition, guarded prognosis. I answered all of their questions. cc: Rodo Ramirez MD
[2019-02-25] MEDS: PROTONIX PO SCH (20:46)
[2019-02-26] MEDS: TYLENOL PO PRN ×2 (02:27→08:25)
[2019-02-26] MEDS: XOPENEX NEB INH SCH ×6 (03:37→23:20)
[2019-02-26 06:02] LABS: BASO# 0.01 X1000 (0.0-0.2); BASO% 0.1 % (0.0-0.8); EOS# 0.14 X1000 (0.0-0.7); EOS% 1.6 % (0.0-10.0); HEMATOCRIT 33.6 % (42.0-52.0); HEMOGLOBIN 9.8 g/dL (14.0-18.0); IMM GRAN# 0.03 X1000 (0.0-0.04); IMM GRAN% 0.4 % (0.0-0.5); LYMPH# 1.13 X1000 (1.2-3.4); LYMPH% 13.3 % (20.5-51.1); MCH 24.8 PG (27-31); MCHC 29.2 g/dL (33-37); MCV 85.1 FL (81-99); MONO# 0.62 X1000 (0.11-0.59); MONO% 7.3 % (1.7-9.3); MPV 10.7 FL (7.4-10.4); NEUT# 6.58 X1000 (1.4-6.5); NEUT% 77.3 % (42.2-75.2); PLT 136 X1000 (130-400); RBC 3.95 XMIL (4.7-6.1); RDW 19.4 % (11.5-14.5); WBC 8.51 X1000 (4.8-10.8)
[2019-02-26] MEDS: REGLAN PO SCH ×3 (06:08→17:08)
[2019-02-26 06:46] LABS: ALBUMIN 3.6 g/dL (3.5-5.0); CALCIUM 9.7 mg/dL (8.8-10.2); CREATININE 1.7 mg/dL (0.7-1.2); PHOSPHORUS 2.9 mg/dL (2.7-4.5); POTASSIUM 4.2 mmol/L (3.5-5.1)
[2019-02-26] MEDS: HUMULIN R SUBQ SCH ×4 (07:15→21:25)
[2019-02-26] MEDS: DALIRESP PO SCH (08:25)
[2019-02-26] MEDS: PROTONIX PO SCH ×2 (08:25→20:04)
[2019-02-26] MEDS: DEMADEX PO SCH (08:25)
[2019-02-26] MEDS: BIDIL PO SCH ×3 (08:25→20:04)
[2019-02-26] MEDS: MIRALAX PO SCH (08:26)
[2019-02-26] MEDS: COREG PO SCH ×2 (08:26→20:06)
[2019-02-26] MEDS: HEPARIN SUBQ SCH ×2 (08:26→20:05)
[2019-02-26] MEDS: SYMBICORT 160/4.5 MICROGM INHALER INH SCH ×2 (08:32→19:34)
[2019-02-26] MEDS: NS NEB INH SCH ×2 (11:50→16:28)
[2019-02-26] MEDS: MUCOMYST 20% INH SCH (11:52)
[2019-02-26] MEDS: NORCO-5 PO PRN ×2 (13:48→20:05)
--- NOTE | 2019-02-26 21:52 | PROGRESS NOTE ---
DATE: 02/26/2019 INTERVAL HISTORY: No acute events overnight. He maintained adequate urine output. His kidney numbers are largely stable. SUBJECTIVE: Mr. Lopez states that he would like to a counselor or a psychologist to talk through his illness. I offered him if he would like to avail program director services, and he suggested to me that he is already talking to his toaster operator. I informed him that I would talk with the nursing team if we have any such services. Currently, he denies any chest pain, shortness of breath. He is complaining of right shoulder and left hip pain. VITAL SIGNS: Temperature of 98.2 degrees, pulse 99, respiratory rate 33, blood pressure 134/93. He is saturating 94% on 3 L nasal cannula. PHYSICAL EXAMINATION: General: Not in any acute distress. Morbidly obese. Oral cavity: Moist. Lungs: Air entry bilaterally equal. Inspiratory crackles in the right infrascapular region. Cardiovascular: S1, S2 normal. Regular. Currently not tachycardic. No murmur, rub, or gallop. Abdomen: Obese, soft, nontender. Extremity: Bilateral lower extremity edema. Neurologic: He is alert and oriented x3. Input and output suggests -1.2 L yesterday, -4 mL so far today. Labs suggestive of stable hemoglobin, normal platelet count. He does have stable BUN and creatinine. No new microbiological or imaging data. ASSESSMENT AND PLAN: 1. Acute on chronic hypoxic hypercapnic respiratory failure due to morbid obesity, obstructive sleep apnea, acute systolic congestive heart failure exacerbation, and Pseudomonas pneumonia. Continue to cycle BiPAP and nasal cannula as tolerated, inhaled bronchodilators, Roflumilast, and Symbicort. He is status post intravenous Zosyn for pneumonia. 2. Acute chronic systolic congestive heart failure exacerbation, with ejection fraction of 15 to 20 percent, due to morbid obesity related nonischemic cardiomyopathy. Continue carvedilol, isosorbide, hydralazine, torsemide. 3. Chronic kidney disease stage 3 and intermittent acute kidney injury due to cardiorenal syndrome, due to congestive heart failure. Continue to monitor BUN and creatinine. 4. Disposition. [facility] are [facility]. In the best scenario, if his kidney function remains stable without the need of pressor inotropic agent, then we will discharge him to rehab whenever a bed is available, hopefully within the next 48 to 72 hours. Plan of care discussed with him. All of his questions have been answered. cc: Rodo Ramirez MD
[2019-02-27] MEDS: MORPHINE IV PRN ×2 (01:38→22:19)
[2019-02-27] MEDS: XOPENEX NEB INH SCH ×6 (03:28→23:11)
[2019-02-27] MEDS: HUMULIN R SUBQ SCH ×4 (06:07→21:08)
[2019-02-27] MEDS: REGLAN PO SCH ×3 (06:21→16:18)
[2019-02-27 07:23] LABS: CALCIUM 9.5 mg/dL (8.8-10.2); CREATININE 1.8 mg/dL (0.7-1.2); POTASSIUM 4.6 mmol/L (3.5-5.1)
[2019-02-27] MEDS: DEMADEX PO SCH ×2 (07:55→09:14)
[2019-02-27] MEDS: DALIRESP PO SCH ×2 (07:55→09:13)
[2019-02-27] MEDS: COREG PO SCH ×3 (07:56→21:07)
[2019-02-27] MEDS: HEPARIN SUBQ SCH ×3 (07:56→21:08)
[2019-02-27] MEDS: BIDIL PO SCH ×4 (07:56→16:18)
[2019-02-27] MEDS: MIRALAX PO SCH ×3 (07:56→22:30)
[2019-02-27] MEDS: PROTONIX PO SCH ×2 (07:56→21:07)
[2019-02-27] MEDS: SYMBICORT 160/4.5 MICROGM INHALER INH SCH ×2 (08:06→19:30)
[2019-02-27] MEDS: NORCO-5 PO PRN ×2 (10:34→18:04)
[2019-02-27] MEDS ORDERED: LASIX IV ONE (17:32)
[2019-02-27] MEDS: TUSSIONEX LIQUID PO PRN (18:04)
--- NOTE | 2019-02-27 18:13 | PROGRESS NOTE ---
DATE: 02/27/2019 INTERVAL HISTORY: No acute events. SUBJECTIVE: Mr. Lopez is complaining of bilateral hip pain. I discussed with him about musculoskeletal nature of his pain. His mother is at bedside. CURRENT VITAL SIGNS: Temperature 97.8 degrees, pulse 97, respiratory rate 34, blood pressure 108/65, saturating 94% on nasal cannula. PHYSICAL EXAMINATION: Morbidly obese, not in acute distress. Oral cavity is moist. Air entry bilaterally equal. No wheeze or rhonchi. Inspiratory crackles in infrascapular and infra- axillary region. S1, S2 normal. Currently not tachycardic. No murmur, rub, or gallop. He does have very prominent right-sided parasternal heave.Abdomen: Obese, soft, nontender. Bilateral lower extremity edema. He is alert and oriented x3. He has a left arm PICC line. Musculoskeletal: On joint exam, I could not see any erythema or localized tenderness over bilateral hip or knee joint. He is able to wiggle his toes, flex his knees. He is able to slightly raise both legs above ground level. LABORATORY DATA: No CBC today. BMP suggestive of stable BUN and creatinine. MICROBIOLOGY: Blood culture has not shown any growth. IMAGING: No new imaging. ASSESSMENT AND PLAN: 1. Acute on chronic hypoxic hypercapnic respiratory failure due to morbid obesity, obstructive sleep apnea, acute systolic congestive heart failure exacerbation, and Pseudomonas pneumonia. Continue to cycle BiPAP and nasal cannula as tolerated, inhaled bronchodilators, Roflumilast, and Symbicort. He is status post IV Zosyn for pneumonia. 2. Bilateral hip pain. No signs of any fracture or dislocation on clinical examination. It is likely musculoskeletal pain due to lying down in the bed and body position. I will treat it with as-needed [place] and intravenous morphine as tolerated. 3. Acute on chronic systolic congestive heart failure exacerbation with ejection fraction of 15 to 20 percent due to morbid obesity-related nonischemic cardiomyopathy. Continue carvedilol, isosorbide, hydralazine, and oral torsemide. 4. Chronic kidney disease stage 3 and intermittent acute kidney injury due to cardiorenal syndrome. Requiring intravenous inotropic support. Continue to monitor BUN and creatinine, and current dose of torsemide. 5. Disposition. Awaiting insurance approval for potential rehab next week. I answered the patient's and his mother's questions at bedside. Their questions have been answered. cc: Rodo Ramirez MD
--- NOTE | 2019-02-27 20:06 | PROGRESS NOTE ---
DATE: 02/27/2019 CARDIOLOGY FOLLOW-UP NOTE: SUBJECTIVE: The patient continues without shortness of breath or chest discomfort on supplemental oxygen either through nasal cannula or BiPAP when he is sleeping. OBJECTIVE: vital signs: Blood pressure 95/76 to 108/65, heart rate 97, oxygen saturation 97% on nasal cannula oxygen. Neck: Jugular venous distention cannot be discerned. Chest: Clear to auscultation. Cardiac: Reveals a regular rate and rhythm without appreciable murmur or gallop. Extremities: Demonstrate trace edema. LABORATORY DATA: Includes a sodium 136, potassium 4.6, chloride 91, carbon dioxide 31, BUN 63, creatinine 1.8, glucose 99. IMPRESSION: 1. Acute on chronic systolic heart failure predominantly right sided. The patient has significant tendency for cardiorenal syndrome. Clinically appears to be drifting back towards volume overload. 2. Severe nonischemic cardiomyopathy. 3. Chronic kidney disease with superimposed acute chronic kidney disease related to cardiorenal syndrome. 4. Massive obesity. 5. Obstructive sleep apnea. RECOMMENDATIONS: 1. IV Lasix this afternoon to try and augment diuresis. 2. Continue current cardiovascular regimen otherwise unchanged. cc: Brandon Miller MD
[2019-02-28] MEDS: NORCO-5 PO PRN ×3 (03:12→23:21)
[2019-02-28] MEDS: XOPENEX NEB INH SCH ×6 (03:26→22:47)
[2019-02-28 05:59] LABS: ALLEN TEST YES; BE 6.9 mmoll (-3.0-3.0); BLOOD TYPE ARTERIAL; HCO3-(ACT) 30.3 mmoll (20.0-26.0); METHB 0.7 % (0.0-1.5); O2(CT) 14.3 mL/dL (15.0-23.0); O2HB 96.2 % (95.0-99.0); PCO2(98.6) 50 mmHg (35-45); PO2(98.6) 135 mmHg (60-100); SAMPLE BLOOD; SAO2 99.8 % (95.0-100.0); THB 10.4 g/dL (11.5-17.4); pH(98.6) 7.42 (7.35-7.45)
[2019-02-28 06:00] LABS: MODALITY BI PAP
[2019-02-28] MEDS: HUMULIN R SUBQ SCH ×4 (06:15→20:46)
[2019-02-28] MEDS: REGLAN PO SCH ×3 (06:18→15:22)
[2019-02-28 06:19] LABS: BASO# 0.01 X1000 (0.0-0.2); BASO% 0.1 % (0.0-0.8); EOS# 0.12 X1000 (0.0-0.7); EOS% 1.5 % (0.0-10.0); HEMATOCRIT 33.6 % (42.0-52.0); HEMOGLOBIN 9.9 g/dL (14.0-18.0); LYMPH# 1.27 X1000 (1.2-3.4); LYMPH% 15.6 % (20.5-51.1); MCH 24.9 PG (27-31); MCHC 29.5 g/dL (33-37); MCV 84.4 FL (81-99); MONO# 0.67 X1000 (0.11-0.59); MONO% 8.2 % (1.7-9.3); MPV 10.9 FL (7.4-10.4); NEUT# 6.09 X1000 (1.4-6.5); NEUT% 74.6 % (42.2-75.2); PLT 109 X1000 (130-400); RBC 3.98 XMIL (4.7-6.1); RDW 19.1 % (11.5-14.5); WBC 8.16 X1000 (4.8-10.8)
[2019-02-28 07:34] LABS: CALCIUM 9.8 mg/dL (8.8-10.2); CREATININE 2.1 mg/dL (0.7-1.2); MAGNESIUM 1.8 mg/dL (1.5-2.7); POTASSIUM 4.4 mmol/L (3.5-5.1)
[2019-02-28] MEDS: SYMBICORT 160/4.5 MICROGM INHALER INH SCH ×2 (08:00→19:36)
[2019-02-28] MEDS: BIDIL PO SCH ×3 (08:42→20:17)
[2019-02-28] MEDS: MIRALAX PO SCH ×2 (08:42→20:18)
[2019-02-28] MEDS: DALIRESP PO SCH (08:42)
[2019-02-28] MEDS: HEPARIN SUBQ SCH ×2 (08:42→20:20)
[2019-02-28] MEDS: COREG PO SCH ×2 (08:42→20:17)
[2019-02-28] MEDS: PROTONIX PO SCH ×2 (08:42→20:17)
[2019-02-28] MEDS: DEMADEX PO SCH (08:42)
--- NOTE | 2019-02-28 10:56 | PROGRESS NOTE ---
DATE: 02/28/2019 INTERVAL HISTORY: No acute events overnight. SUBJECTIVE: Mr. Lopez denies any new complaints. He was given an additional dose of intravenous Lasix yesterday. OBJECTIVE: Vital Signs: Temperature 98.3 degrees, pulse 93, respiratory rate 21, blood pressure 122/88, saturating 93% to 96% on BiPAP nasal cannula. General: Morbidly obese, not in acute distress. Lungs: Air entry bilaterally equal. No wheeze or rhonchi. Mild crackles in infra- axillary region. Cardiovascular: S1, S2 normal. Right-sided parasternal heave. Abdomen: Obese, soft, nontender. Extremities: Bilateral lower extremity edema. Neurologic: He is alert oriented x3. He has a left arm PICC line. Input and output suggest -400 mL yesterday, -300 mL so far today. LABORATORY DATA: Suggestive of stable hemoglobin, mild thrombocytopenia. ABG suggestive of pCO2 of 50, pO2 of 135. He does now appear to have increasing BUN and increase in creatinine. Microbiology: No positive data. No new imaging. ASSESSMENT AND PLAN: 1. Acute on chronic hypoxic hypercapnic respiratory failure due to morbid obesity, obstructive sleep apnea, acute systolic congestive heart failure exacerbation, Pseudomonas pneumonia. Continue to cycle BiPAP and nasal cannula as tolerated, inhaled bronchodilators, Roflumilast, and Symbicort. He is status post IV Zosyn for pneumonia. 2. Acute on chronic systolic congestive heart failure exacerbation with ejection fraction of 15 to 20 percent due to morbid obesity related nonischemic cardiomyopathy. Continue carvedilol, isosorbide, hydralazine and oral torsemide. We will give him intravenous Lasix as needed. 3. Bilateral hip pain. He is still able to move both lower extremities and able to stand up with both legs with some help. I will treat it with as-needed [place] and intravenous morphine. If it does not get better in the next 24 hours or so, I will consider getting x-ray images. 4. Chronic kidney disease stage III and intermittent acute kidney injury due to cardiorenal syndrome requiring intermittently intravenous inotropic support. Continue to monitor BUN and creatinine and current dose of torsemide. His increasing creatinine is worrisome for worsening cardiorenal syndrome. I will follow up with [facility] tomorrow. 5. Disposition. Awaiting insurance approval for rehab transfer potentially next week if he is medically stable. I answered all of Mr. Lopez's questions. cc: Rodo Ramirez MD
--- NOTE | 2019-02-28 16:14 | PROGRESS NOTE ---
DATE: 02/28/2019 SUBJECTIVE: Patient denies shortness of breath or chest discomfort. He is presently on BiPAP. OBJECTIVE: Vital Signs: Blood pressure 110/74, heart rate 102, oxygen saturation 97%. Neck: Jugular venous distention cannot be appreciated. Chest: Clear to auscultation bilaterally. Cardiac: Reveals a regular rate and rhythm without appreciable murmur or gallop. Extremities: Demonstrate very mild distal lower extremity edema. LABORATORY DATA: Includes white blood cell count 8.16, hematocrit 33.6, hemoglobin 9.9, platelet count 109,000. Sodium 136, potassium 4.4, chloride 92, carbon dioxide 29, BUN 68, creatinine 2.1, glucose 97, albumin previously 3.6. IMPRESSIONS: 1. Acute on chronic systolic heart failure. Patient has a significant tendency for cardiorenal syndrome. At present he appears to be near intravascularly euvolemic state. 2. Severe nonischemic cardiomyopathy. 3. Chronic kidney disease with superimposed acute kidney disease related to cardiorenal syndrome. 4. Massive obesity. 5. Obstructive sleep apnea. RECOMMENDATION: 1. Continue current cardiovascular regimen unchanged. 2. Repeat BMP in the a.m. cc: Brandon Miller MD
[2019-02-28] MEDS: TUSSIONEX LIQUID PO PRN (21:13)
[2019-03-01] MEDS: XOPENEX NEB INH SCH ×6 (03:13→22:48)
[2019-03-01] MEDS: HUMULIN R SUBQ SCH ×4 (06:10→21:54)
[2019-03-01] MEDS: REGLAN PO SCH ×3 (06:10→16:49)
[2019-03-01 07:34] LABS: CALCIUM 9.5 mg/dL (8.8-10.2); CREATININE 2.6 mg/dL (0.7-1.2); POTASSIUM 4.7 mmol/L (3.5-5.1)
[2019-03-01] MEDS: HEPARIN SUBQ SCH ×2 (07:59→22:00)
[2019-03-01] MEDS: MIRALAX PO SCH ×2 (07:59→21:59)
[2019-03-01] MEDS: DEMADEX PO SCH ×2 (07:59→22:00)
[2019-03-01] MEDS: DALIRESP PO SCH (07:59)
[2019-03-01] MEDS: BIDIL PO SCH ×3 (07:59→16:49)
[2019-03-01] MEDS: PROTONIX PO SCH ×2 (07:59→22:00)
[2019-03-01] MEDS: COREG PO SCH ×2 (07:59→22:00)
[2019-03-01] MEDS: NS NEB INH SCH ×3 (08:22→16:12)
[2019-03-01] MEDS: SYMBICORT 160/4.5 MICROGM INHALER INH SCH ×2 (08:22→19:49)
[2019-03-01] MEDS: NORCO-5 PO PRN (11:38)
--- NOTE | 2019-03-01 18:01 | PROGRESS NOTE ---
DATE: 03/01/2019 INTERVAL HISTORY: No acute events overnight. SUBJECTIVE: Mr. Lopez denies any new complaints. He says his hip pain is better than before. We discussed about the fact that he had 1.2 L of urine output in last 24 hours. We discussed about probably increasing the diuretic dose. He denies any chest pain, shortness of breath. He has occasional cough. VITALS: Temperature of 97.5 degrees, pulse 85, respiratory 21, blood pressure 110/75, he is saturating 99% on BiPAP. He states that he was sent a food that was high in salt content yesterday and probably that why he has a swelling of his legs. Air entry bilaterally equal. No wheeze or rhonchi. He has inspiratory crackles infraaxillary region. S1, S2 normal. He has a right parasternal heave. No murmur, rub, or gallop. Abdomen is obese, soft, nontender. Active bowel sounds. He has bilateral lower extremity edema extending up to thigh level. He does not have urine catheter. He has BiPAP and a PICC line. LABS: No CBC today. His BMP suggest BUN of 75, creatinine of 2.6. His blood glucose is 106. Microbiology, no new data. IMAGING: No new data. ASSESSMENT AND PLAN: 1. Acute on chronic hypoxic hypercapnic respiratory failure due to morbid obesity, obstructive sleep apnea and acute congestive heart failure exacerbation. 2. Acute on chronic systolic congestive heart failure exacerbation with ejection fraction of 15 to 20 percent. 3. Bilateral hip pain . 4. Chronic kidney disease stage 3. PLAN: I will continue current management of his heart failure with carvedilol, BiDil. I discussed with Cardiology team and we are going to increase his Lasix dose. DISPOSITION: [facility] is evaluating patient and whenever he is medically ready, he could be discharged there. ADDENDUM: [facility] has accepted the patient and can potentially take him on 03/02. I have dictated discharge summary. I am anticipating discharge in next 24 hours. I will appreciate cardiology inputs if any other treatment changes need to be made. cc: MD МАРИЯ García
[2019-03-01] MEDS: TUSSIONEX LIQUID PO PRN (18:16)
--- NOTE | 2019-03-01 23:55 | PULMONOLOGY PROGRESS NOTE ---
DATE: 03/01/2019 SUBJECTIVE: The patient is awake and alert. He is on his BiPAP. He reports he is having a pretty good day. He is without specific complaints. OBJECTIVE: Vital Signs: The patient has been afebrile for the last 24 hours. BP 111/80, heart rate 92, respiratory rate 22, oxygen saturation 98%. HEENT: Pupils are equal and reactive. Oropharynx appears clear but limited view with BiPAP in place. Neck: Supple. Chest: Reveals diminished breath sounds throughout all lung patel. Cardiac: S1, S2. Abdomen: Obese and soft. Extremities: Reveal 1+ peripheral edema. LABORATORIES: Sodium 136, potassium 4.7, chloride 91, bicarbonate 27, BUN 75, creatinine 2.6. IMPRESSION: 1. A 34-year-old with acute hypoxemic respiratory failure, acute hypercapnic respiratory failure. 2. Nonischemic cardiomyopathy. 3. Super morbid obesity with a body mass index greater than 75. 4. Chronic renal insufficiency. 5. Obstructive sleep apnea. PLAN: 1. Continue to cycle BiPAP and oxygen as tolerated. 2. Anticipate discharge to rehab soon. 3. Overall prognosis is guarded. cc: Ta Hawthorne MD
[2019-03-02] MEDS: NORCO-5 PO PRN ×3 (02:50→20:48)
[2019-03-02] MEDS: XOPENEX NEB INH SCH ×6 (03:08→23:18)
[2019-03-02] MEDS: HUMULIN R SUBQ SCH ×4 (06:33→21:00)
[2019-03-02] MEDS: REGLAN PO SCH ×3 (06:35→16:24)
[2019-03-02 06:54] LABS: HEMOGLOBIN 7.7 g/dL (14.0-18.0); MCH 25.1 PG (27-31); MCHC 29.6 g/dL (33-37); MCV 84.7 FL (81-99); MPV 10.6 FL (7.4-10.4); RBC 3.07 XMIL (4.7-6.1); RDW 18.7 % (11.5-14.5); WBC 6.83 X1000 (4.8-10.8)
[2019-03-02 07:20] LABS: RETIC-HE 26.4 PG (28.2-36.6)
[2019-03-02 07:23] LABS: ALBUMIN 3.4 g/dL (3.5-5.0); CREATININE 2.5 mg/dL (0.7-1.2); PHOSPHORUS 4.9 mg/dL (2.7-4.5); POTASSIUM 4.4 mmol/L (3.5-5.1)
[2019-03-02 07:50] LABS: IRON SATURATION 12 %; TIBC 315 ug/dL; TOTAL IRON 37 ug/dL (53-167); UNBOUND IRON 278 ug/dL (112-346)
[2019-03-02 08:07] LABS: FERRITIN 244 ng/mL (30-400)
[2019-03-02] MEDS: NS NEB INH SCH ×3 (08:10→16:28)
[2019-03-02] MEDS: SYMBICORT 160/4.5 MICROGM INHALER INH SCH ×2 (08:10→19:40)
[2019-03-02] MEDS: BIDIL PO SCH ×3 (08:48→17:17)
[2019-03-02] MEDS: COREG PO SCH ×2 (08:48→20:46)
[2019-03-02] MEDS: DALIRESP PO SCH (08:48)
[2019-03-02] MEDS: PROTONIX PO SCH ×2 (08:48→20:46)
[2019-03-02] MEDS: DEMADEX PO SCH ×2 (08:48→20:47)
[2019-03-02] MEDS: MIRALAX PO SCH ×2 (08:49→20:49)
[2019-03-02] MEDS: HEPARIN SUBQ SCH ×2 (08:49→20:48)
--- NOTE | 2019-03-02 09:04 | DISCHARGE SUMMARY ---
ADMISSION DATE: 01/28/2019 DISCHARGE DATE: DISCHARGE DISPOSITION: Rehab. DISCHARGE CONDITION: Currently at the time of this dictation, the patient is hemodynamically stable. He is alert and oriented x3. He denies any chest pain or shortness of breath. He does have a slight increase in his creatinine, but his creatinine has been holding anywhere between 1.5 to 2.5 during this hospital admission. DISCHARGE DIAGNOSES: 1. Acute on chronic hypoxic hypercapnic respiratory failure. 2. Acute on chronic systolic congestive heart failure exacerbation with ejection fraction of 15% to 20%. 3. Congestive heart failure due to morbid obesity-related nonischemic cardiomyopathy. 4. Bilateral hip pain. 5. Abdominal pain, nausea, and vomiting, thought to be related to intestinal wall edema related to his congestive heart failure. 6. Pseudomonas and pneumonia. 7. Frequent cardiorenal syndrome leading to acute kidney injury on chronic kidney disease stage 3. OTHER DIAGNOSES: 1. History of nonischemic cardiomyopathy. 2. History of recurrent hospital admission for congestive heart failure exacerbation. 3. History of morbid obesity. 4. History of obstructive sleep apnea, on bilevel positive airway pressure while lying down, and nasal cannula otherwise. CURRENT MEDICATIONS: Currently, Mr. Lopez is on: 1. Acetaminophen 650 mg every 6 hours as needed for fever or pain. 2. Symbicort 160/4.5 mcg inhaler b.i.d. 3. Carvedilol 12.5 mg b.i.d. 4. Dicyclomine 10 mg t.i.d. as needed for abdominal cramps. 5. Heparin 5000 units subcutaneously every 12 hours for DVT prophylaxis. 6. [place] 5 one tablet every 6 hours as needed for abdominal pain. 7. Insulin human sliding scale for blood glucose more than 150. 8. BiDil 1 tablet t.i.d. 9. Levalbuterol nebulization 1.25 mg every 4 hours and every 2 hours as needed for shortness of breath. 10. Metoclopramide 10 mg t.i.d. with meals. 11. Morphine 2 mg IV every 4 hours as needed for hip pain. 12. Zofran 4 mg IV every 4 hours as needed for nausea and vomiting. 13. Pantoprazole 40 mg orally every 12 hours. 14. MiraLAX 17 grams b.i.d. 15. Roflumilast 500 mcg daily. 16. Torsemide 50 mg b.i.d. PHYSICAL EXAMINATION: Vital Signs: At the time of current dictation, temperature 97.5 degrees, pulse 95, respiratory rate 21, blood pressure 117/75, saturating 99% on BiPAP. General: Morbidly obese, not in acute distress. HEENT: Oral cavity is moist. Lungs: Air entry bilaterally equal. No wheeze, rhonchi, crackles. S1, S2 normal. No murmur or gallop. Abdomen: Soft, nontender. He has massive abdominal obesity and infra-axillary crackles on lung examination. Extremities: Bilateral lower extremity edema. Neurologic: He is alert and oriented x3. He is currently on BiPAP. SIGNIFICANT LABORATORY DATA: At the time of this dictation, his hemoglobin is 9.9, WBC 8.1, platelets 109,000. His sodium is 136, potassium 4.7, his BUN is 75, creatinine of 2.6. He does have a GFR of 34, blood glucose of 106. SIGNIFICANT MICROBIOLOGY: 1. No positive data on the last two blood cultures. However, on presentation, 1 of the 2 blood cultures was growing Streptococcus salivarius, which was thought to be a contaminant. 2. His sputum culture on 02/03/2019 was growing Pseudomonas aeruginosa, which was sensitive to Zosyn. SIGNIFICANT IMAGING DURING HOSPITAL ADMISSION: 1. Chest x-ray on presentation had cardiomegaly and questionable pulmonary edema. Abdomen x-ray on 02/03/2019 did not have evidence of obstruction. Chest x-ray on 02/22/2019 had stable chest. He had left-sided PICC line. 2. Electrocardiogram on presentation had normal sinus rhythm, nonspecific T-wave abnormality, prolonged QTc. 3. Echocardiogram, limited views on 02/01/2019 had ejection fraction of 15% to 20%, severe global hypokinesia, dilated left ventricle, [id number] left atrial enlargement, diastolic dysfunction. HOSPITAL COURSE SUMMARY: Mr. Lopez is a 34-year-old man with history of morbid obesity, obstructive sleep apnea, nonischemic cardiomyopathy with chronic systolic congestive heart failure with ejection fraction of 15% to 20%, who initially presented to the hospital on 01/28/2019 with chief complaints of feeling congested, short of breath, and lower extremity edema. He also had orthopnea. In the emergency room, he was found to be in volume overload, so he was admitted for intravenous diuretic therapy for acute systolic congestive heart failure exacerbation. While inside the hospital, his sputum grew Pseudomonas aeruginosa. He was also started on broad- spectrum intravenous Zosyn, and he completed 14 days of IV antibiotic therapy on 02/16/2019. Largely, he has been in the hospital for his congestive heart failure, and has required multiple changes in his medication. He was treated with intravenous diuresis. However, intermittently he developed cardiorenal syndrome, requiring intravenous inotropic support. He has been in and out of ICU throughout this hospital stay, and has required intravenous dopamine, intravenous dobutamine, and intermittently intravenous Milrinone. He also required several adjustments in his intravenous Lasix dose. Attempts were made to request transfer to higher levels of care for advanced heart failure therapy, and [facility] had been called. However, after talking with the account executive healthcare, they had suggested that he was not a candidate of cardiac transplantation or left ventricular assist device, and medical management was recommended. At the time of dictation, he has been off Milrinone drip since at least 02/24/2019, and he has had adequate urine output, though he has gradually increasing creatinine, and considering that he may be becoming a little volume overloaded, his diuretic dose has been increased today. The patient is significantly deconditioned and would benefit from going to the rehab to get stronger, so rehab has been recommended. FOLLOWUP: 1. The patient needs to get repeat basic metabolic panel 2 to 3 days after discharge to monitor his electrolytes and kidney function. 2. The patient needs to really schedule an appointment with [facility] Failure [facility] at [facility] as he may need intravenous Milrinone therapy on a chronic basis. TIME SPENT: More than 30 minutes were spent in preparing this discharge summary. Plan of care was discussed with the patient on 03/01/2019, and all of his questions were satisfactorily answered. cc: Rodo Ramirez MD
[2019-03-02] MEDS: PRIMACOR 20 MG/D5W 100 ML 20 MG/100 ML IVPB IV SCH ×4 (13:08→23:38)
[2019-03-02 14:27] LABS: HEMATOCRIT 34.8 % (42.0-52.0); HEMOGLOBIN 10.5 g/dL (14.0-18.0)
[2019-03-02] MEDS ORDERED: ZAROXOLYN PO ONE (16:10)
--- NOTE | 2019-03-02 17:00 | PROGRESS NOTE ---
DATE: 03/02/2019 SUBJECTIVE: The patient denies shortness of breath or chest discomfort on supplemental oxygen per nasal cannula. OBJECTIVE: Vital Signs: Blood pressure 122/75, heart rate 98, oxygen saturation 92% on nasal cannula oxygen. Neck: Jugular venous distention is difficult to discern but appears vaguely elevated. Chest: Clear to auscultation bilaterally. Cardiac: Exam reveals a regular rate and rhythm without appreciable murmur or gallop. Extremities: Demonstrate mild edema. LABORATORY DATA: Includes white blood cell count of 6.83, hematocrit 34.8, hemoglobin 10.5, platelet count 106,000. Sodium 133, potassium 4.4, chloride 94, carbon dioxide 27, BUN 82, creatinine 2.5, glucose 99. IMPRESSION: 1. Acute on chronic systolic heart failure with significant tendency for right-sided heart failure and cardiorenal syndrome. He appears to be drifting back into volume overload. 2. Severe nonischemic cardiomyopathy. 3. Chronic kidney disease with superimposed acute renal dysfunction related to cardiorenal syndrome. 4. Massive obesity. 5. Obstructive sleep apnea. RECOMMENDATIONS: 1. Continue torsemide 100 mg daily. 2. Administer metolazone 5 mg p.o. today and tomorrow. cc: Brandon Miller MD
--- NOTE | 2019-03-02 17:38 | PULMONOLOGY PROGRESS NOTE ---
DATE: 03/02/2019 SUBJECTIVE: The patient is awake and alert. He is sitting on the bedside commode. He has no shortness of breath. He reports he feels better. He is currently being evaluated for discharge to a rehab facility. OBJECTIVE: Vital Signs: The patient has been afebrile for the last 24 hours. Blood pressure 92/64, heart rate 89, respiratory rate 20, oxygen saturation 91% on nasal cannula. HEENT: Pupils are equal and reactive. Oropharynx appears clear. Neck: Supple chest reveals decreased breath sounds bilaterally with crackles in both lung bases. Cardiovascular: S1, S2. Abdomen: Obese and soft. Extremities: Reveal 1+ peripheral edema. LABORATORIES: Sodium 133, potassium 4.4, chloride 94, bicarbonate 27, BUN 82, creatinine 2.5. IMPRESSION: 34-year-old with: 1. Morbid obesity with a BMI greater than 75. 2. Acute hypoxemic respiratory failure. 3. Acute hypercapnic respiratory failure. 4. Nonischemic cardiomyopathy. 5. Chronic renal insufficiency, obstructive. DISCUSSION: 34-year-old with problems outlined above. The patient has been in the hospital for 33 days and appears to have stabilized. RECOMMENDATION: 1. Continue to cycle BiPAP and oxygen after discharge/transfer. 2. Anticipate transfer to rehab soon. 3. Overall prognosis is guarded. cc: Ta Hawthorne MD
--- NOTE | 2019-03-02 18:35 | PROGRESS NOTE ---
DATE: 03/02/2019 SUBJECTIVE: The patient is sitting on the bedside commode. He states that he feels a little bit better today. He also reports that his shortness of breath has improved. OBJECTIVE: Vital Signs: Temperature 97.4 degrees, blood pressure 122/75, heart rate 109, respiratory rate 24, O2 saturation 92% on 5 L nasal cannula. Intake 1.5 L, output 1.6 L. General: This is a morbidly obese male sitting on the bedside commode in no acute distress. Heart: S1, S2 normal. Regular rate and rhythm. Lungs: Equal air entry bilaterally. No wheezing. No rales. Abdomen: Positive bowel sounds. Soft, obese, nontender, nondistended. Extremities: Trace pedal edema. Neurologic: The patient is alert and oriented x4. LABS: White blood cell count 6.8, hemoglobin 10, hematocrit 34, platelets 102,000. Sodium 133, potassium 4.4, chloride 94, CO2 27, BUN 82, creatinine 2.5, glucose 99, phosphorus 4.9. ASSESSMENT AND PLAN: 1. Acute on chronic hypoxemic and hypercapnic respiratory failure. Multifactorial. 2. Acute on chronic systolic congestive heart failure exacerbation, NYHA class 4. The patient is currently on a Primacor drip plus diuretic therapy. The patient will require regular outpatient Primacor infusions. Will discuss with the franchise business consultant about arranging this as outpatient. Continue on fluid restriction. 3. Acute kidney injury on chronic kidney disease secondary to cardiorenal syndrome. Aware. The BUN is slowly rising and the creatinine is stable. We will continue to monitor the patient closely while on diuretic therapy. 4. Anemia. Stable. 5. Thrombocytopenia. We will monitor this closely. We will check a HIT assay. 6. Obstructive sleep apnea. Continue with BiPAP at night. 7. Dilated nonischemic cardiomyopathy with an ejection fraction of 15 to 20 percent. Aware. 8. Pneumonia secondary to Pseudomonas. Resolved. 9. Morbid obesity with a body mass index of 77. The patient has been advised to follow up with Dr. Obrien to discuss a bariatric surgery. 10. Irritable bowel syndrome. Stable. 11. Disposition. [facility] has declined to accept the patient for inpatient rehab. The patient will likely need outpatient physical therapy via rehab access. Production Line Operator will arrange for this. cc: MD МАРИЯ Rubin
[2019-03-03] MEDS: PRIMACOR 20 MG/D5W 100 ML 20 MG/100 ML IVPB IV SCH ×8 (01:32→21:44)
[2019-03-03] MEDS: NORCO-5 PO PRN ×3 (02:31→19:30)
[2019-03-03] MEDS: XOPENEX NEB INH SCH ×6 (03:25→22:57)
[2019-03-03] MEDS: REGLAN PO SCH ×4 (05:37→15:35)
[2019-03-03 06:54] LABS: HEMOGLOBIN 9.5 g/dL (14.0-18.0); MCH 24.6 PG (27-31); MCHC 29.7 g/dL (33-37); MCV 82.9 FL (81-99); MPV 10.9 FL (7.4-10.4); RBC 3.86 XMIL (4.7-6.1); RDW 18.7 % (11.5-14.5); WBC 6.59 X1000 (4.8-10.8)
[2019-03-03] MEDS: HUMULIN R SUBQ SCH ×4 (07:45→21:14)
[2019-03-03 07:50] LABS: ALBUMIN 3.4 g/dL (3.5-5.0); CALCIUM 9.5 mg/dL (8.8-10.2); CREATININE 2.3 mg/dL (0.7-1.2); PHOSPHORUS 4.6 mg/dL (2.7-4.5); POTASSIUM 4.1 mmol/L (3.5-5.1)
[2019-03-03] MEDS ORDERED: ZAROXOLYN PO ONE (08:00)
[2019-03-03] MEDS: SYMBICORT 160/4.5 MICROGM INHALER INH SCH ×2 (08:46→19:20)
[2019-03-03] MEDS: DEMADEX PO SCH ×2 (09:43→21:26)
[2019-03-03] MEDS: COREG PO SCH ×2 (09:43→21:26)
[2019-03-03] MEDS: PROTONIX PO SCH ×2 (09:44→21:26)
[2019-03-03] MEDS: DALIRESP PO SCH (09:44)
[2019-03-03] MEDS: FOLIC ACID PO SCH (09:44)
[2019-03-03] MEDS: MIRALAX PO SCH ×2 (09:44→21:34)
[2019-03-03] MEDS: HEPARIN SUBQ SCH ×2 (09:44→21:26)
[2019-03-03] MEDS: BIDIL PO SCH ×3 (09:44→21:26)
[2019-03-03] MEDS: NS NEB INH SCH ×2 (11:34→16:14)
[2019-03-03] MEDS ORDERED: STERILE WATER INJ. INJ ONE (14:18)
[2019-03-03] MEDS ORDERED: CATHFLO IV ONE (14:18)
--- NOTE | 2019-03-03 16:04 | PROGRESS NOTE ---
DATE: 03/03/2019 SUBJECTIVE: The patient is resting comfortably. He states that he feels a lot better today. His weight is down significantly today. OBJECTIVE: Vital Signs: Temperature 98.6 degrees, blood pressure 94/46, heart rate 95, respirations 17, O2 saturation 95% on BiPAP. Intake 1.6 L. Output 3.6 L. General: This is a morbidly obese male lying in bed in no acute distress. Heart: S1, S2 normal. Tachycardic. Lungs: Equal air entry bilaterally. No wheezing. Abdomen: Positive bowel sounds. Soft, obese, nontender, nondistended. Extremities: No edema, no cyanosis. Neurologic: The patient is alert and oriented x4. LABS: White blood cell count 6.5, hemoglobin 9.5, hematocrit 32, platelets 158,000. Sodium 135%, potassium 4.1, chloride 91, CO2 28, BUN 88, creatinine 2.3 glucose 120, phosphorus 4.6, albumin 3.4. ASSESSMENT AND PLAN: 1. Acute on chronic hypoxemic and hypercapnic respiratory failure. Stable. 2. Acute on chronic systolic congestive heart failure exacerbation, NYHA class 4. The patient is currently on a Primacor drip and diuretic therapy. Further management as per the assistive technology trainer. 3. Acute kidney injury on chronic kidney disease secondary to cardiorenal syndrome. The creatinine is slightly improved today. Continue on the current treatment regimen. 4. Anemia. Stable. 5. Dilated nonischemic cardiomyopathy with an ejection fraction of 15 to 20 percent. Aware. 6. Morbid obesity with a body mass index of 69. The patient will follow up with Dr. Obrien as outpatient to discuss bariatric surgery. 7. Obstructive sleep apnea. Continue with BiPAP at night. 8. Irritable bowel syndrome. Stable. 9. Disposition. The patient will likely be discharged home with home health and we will arrange for the patient to go to rehab access for outpatient PT. cc: Maryjane Krause MD
--- NOTE | 2019-03-03 20:20 | PULMONOLOGY PROGRESS NOTE ---
DATE: 03/03/2019 SUBJECTIVE: The patient is awake and alert. He reports the transfer to a rehab stay has been denied. He is currently being evaluated for outpatient infusions of milrinone. OBJECTIVE: Patient has been afebrile for the last 24 hours. He has had good urine output after the initiation of Milrinone. BP 104/38, heart rate 109, respiratory rate 17, oxygen saturation 97% on nasal cannula.HEENT: Pupils are equal and reactive. Oropharynx is clear. Neck: Supple. Chest: Reveals distant breath sounds bilaterally. Cardiac: S1-S2. Abdomen: Obese and soft. Extremities: Reveal 1+ peripheral edema. LABORATORIES: Sodium 135, potassium 4.1, chloride 91, bicarbonate 28, BUN 88, creatinine 2.3. IMPRESSION: 34-year-old with 1. Nonischemic cardiomyopathy. 2. Morbid obesity with a body mass index greater than 70. 3. Acute hypoxemic respiratory failure. 4. Acute hypercapnic respiratory failure. 5. Chronic renal insufficiency. PLAN: 1. Continue to cycle BiPAP at bedtime and p.r.n. 2. Anticipate discharge home. There is currently an attempt to arrange outpatient milrinone infusions. 3. Prognosis remains guarded. cc: Ta Hawthorne MD
[2019-03-04] MEDS: PRIMACOR 20 MG/D5W 100 ML 20 MG/100 ML IVPB IV SCH ×8 (03:17→23:29)
[2019-03-04] MEDS: NORCO-5 PO PRN ×3 (03:22→20:21)
[2019-03-04] MEDS: XOPENEX NEB INH SCH ×6 (03:25→22:59)
[2019-03-04] MEDS: HUMULIN R SUBQ SCH ×4 (06:14→20:10)
[2019-03-04] MEDS: REGLAN PO SCH ×3 (06:20→16:20)
[2019-03-04 07:08] LABS: HEMATOCRIT 29.4 % (42.0-52.0); HEMOGLOBIN 8.7 g/dL (14.0-18.0); MCH 25.1 PG (27-31); MCHC 29.6 g/dL (33-37); MPV 10.7 FL (7.4-10.4); RBC 3.46 XMIL (4.7-6.1); RDW 19.5 % (11.5-14.5); WBC 5.76 X1000 (4.8-10.8)
[2019-03-04 07:24] LABS: ALBUMIN 3.2 g/dL (3.5-5.0); CALCIUM 9.7 mg/dL (8.8-10.2); CREATININE 2.1 mg/dL (0.7-1.2); PHOSPHORUS 4.1 mg/dL (2.7-4.5); POTASSIUM 3.2 mmol/L (3.5-5.1)
[2019-03-04] MEDS ORDERED: KLOR-CON PO ONE (07:26)
[2019-03-04] MEDS: COREG PO SCH ×3 (07:56→20:09)
[2019-03-04] MEDS: DALIRESP PO SCH ×2 (07:56→08:06)
[2019-03-04] MEDS: PROTONIX PO SCH ×3 (07:56→20:09)
[2019-03-04] MEDS: BIDIL PO SCH ×4 (07:56→16:21)
[2019-03-04] MEDS: DEMADEX PO SCH ×3 (07:56→20:09)
[2019-03-04] MEDS: FOLIC ACID PO SCH ×2 (07:56→08:07)
[2019-03-04] MEDS: MIRALAX PO SCH ×3 (07:57→20:09)
[2019-03-04] MEDS: HEPARIN SUBQ SCH ×3 (07:57→20:10)
[2019-03-04] MEDS: NS NEB INH SCH ×3 (08:18→19:25)
[2019-03-04] MEDS: SYMBICORT 160/4.5 MICROGM INHALER INH SCH ×2 (08:18→19:24)
--- NOTE | 2019-03-04 18:53 | PULMONOLOGY PROGRESS NOTE ---
DATE: 03/04/2019 SUBJECTIVE: The patient is awake and alert. He is currently on BiPAP. He reports his breathing is doing okay, but he does have some right hip pain. OBJECTIVE: Intake and Output: Intake 1425, output 5780. Vital Signs: Blood pressure 133/77, heart rate 109, respiratory rate 14, oxygen saturation 98%. HEENT: Pupils are equal and reactive. Oropharynx is clear. Neck: Supple. Chest: Reveals crackles in the lung bases. Cardiac: Distant heart sounds. Normal S1, normal S2. Abdomen: Obese and soft. Extremities: Reveals 1 to 2+ peripheral edema. LABORATORIES: Sodium 136, potassium 3.2, chloride 91, bicarbonate 31, BUN 82, creatinine 2.1. White blood count 5.76, hemoglobin 8.7, platelet count 168,000. IMPRESSION: Unfortunate 34-year-old male with 1. Acute hypoxemic respiratory failure. 2. Acute hypercapnic respiratory failure. 3. Nonischemic cardiomyopathy with systolic heart failure. 4. Morbid obesity with a BMI greater than 75. 5. Chronic renal insufficiency. DISCUSSION: A 34-year-old with problems outlined above. The patient has had excellent diuresis with reinitiation of milrinone. PLAN: 1. Continue management of heart failure per Cardiology. 2. Continue to cycle BiPAP every night at bedtime and p.r.n. 3. Anticipate discharge home with plans to arrange outpatient [facility] if [facility]. 4. Prognosis is guarded to poor given problems outlined above. cc: Ta Hawthorne MD
[2019-03-05] MEDS: XOPENEX NEB INH SCH ×6 (03:12→23:10)
[2019-03-05] MEDS: PRIMACOR 20 MG/D5W 100 ML 20 MG/100 ML IVPB IV SCH ×2 (03:22→08:01)
--- NOTE | 2019-03-05 03:48 | PROGRESS NOTE ---
DATE: 03/04/2019 SUBJECTIVE: The patient is sitting up in a chair. He states that he feels a lot better today. He does complain of cramping in his hands. He is on the Primacor drip. OBJECTIVE: Vital Signs: Temperature 98.1 degrees, blood pressure 133/77, heart rate 109, respirations 13, O2 saturation 98% on 5 L nasal cannula. General: This is a morbidly obese male sitting up in a chair in no acute distress. Heart: S1, S2 normal. Tachycardic. Lungs: Equal air entry bilaterally. No wheezing. No rales. Abdomen: Positive bowel sounds. Soft, nontender, nondistended. Extremities: No edema, no cyanosis. Neurologic: The patient is alert and oriented x4. LABS: White blood cell count 5.7, hemoglobin 8.7, hematocrit 29, platelets 168,000. Sodium 136, potassium 3.2, chloride 91, CO2 31, BUN 82, creatinine 2.1, glucose 107. ASSESSMENT AND PLAN: 1. Acute on chronic hypoxemic and hypercapnic respiratory failure. Stable. 2. Acute on chronic systolic congestive heart failure exacerbation, [place] Heart Association class 4. We will plan to discontinue the Primacor drip and continue with the current diuretic therapy regimen. The patient has an appointment with the [facility] in [place]. 3. Acute kidney injury on chronic kidney disease, secondary to cardiorenal syndrome. Improved. 4. Dilated nonischemic cardiomyopathy, with an ejection fraction of 15 to 20 percent. Aware. 5. Morbid obesity, with a body mass index of 69. Aware. The patient has been counseled about weight loss and proper diet. 6. Obstructive sleep apnea. Continue with BiPAP at night. 7. Irritable bowel syndrome. Stable. 8. Chronic obstructive pulmonary disease. Continue with bronchodilator therapy and supplemental oxygen. 9. Disposition. The patient will be discharged home with home health services tomorrow. cc: Maryjane Krause MD
[2019-03-05] MEDS: TYLENOL PO PRN (05:11)
[2019-03-05] MEDS: REGLAN PO SCH ×3 (06:19→16:42)
--- NOTE | 2019-03-05 06:20 | Diag Imaging Result Doc PS360 ---
EXAM: CHEST-PORTABLE HISTORY: abnormal exam TECHNIQUE: Single view COMPARISON: 02/22/2019 FINDINGS: The heart is markedly enlarged. There is pulmonary edema. No consolidation. No pleural effusions identified. IMPRESSION: Marked cardiomegaly with pulmonary edema Electronically signed by Jeremy Kim 03/05/2019 6:18 AM
[2019-03-05 06:35] LABS: HEMATOCRIT 32.6 % (42.0-52.0); HEMOGLOBIN 9.7 g/dL (14.0-18.0); MCH 25.3 PG (27-31); MCHC 29.8 g/dL (33-37); MCV 84.9 FL (81-99); MPV 10.3 FL (7.4-10.4); RBC 3.84 XMIL (4.7-6.1); RDW 19.2 % (11.5-14.5); WBC 5.37 X1000 (4.8-10.8)
[2019-03-05] MEDS: HUMULIN R SUBQ SCH ×4 (06:52→21:23)
[2019-03-05 06:58] LABS: CALCIUM 10.2 mg/dL (8.8-10.2); CREATININE 2.1 mg/dL (0.7-1.2); POTASSIUM 3.9 mmol/L (3.5-5.1)
[2019-03-05] MEDS ORDERED: MAG-OX PO ONE (07:22)
[2019-03-05] MEDS: FOLIC ACID PO SCH (08:00)
[2019-03-05] MEDS: HEPARIN SUBQ SCH ×2 (08:00→21:22)
[2019-03-05] MEDS: MIRALAX PO SCH ×2 (08:00→21:23)
[2019-03-05] MEDS: DEMADEX PO SCH ×2 (08:01→21:22)
[2019-03-05] MEDS: BIDIL PO SCH ×4 (08:01→16:42)
[2019-03-05] MEDS: COREG PO SCH ×2 (08:01→21:22)
[2019-03-05] MEDS: DALIRESP PO SCH (08:01)
[2019-03-05] MEDS: PROTONIX PO SCH ×2 (08:01→21:22)
[2019-03-05] MEDS: SYMBICORT 160/4.5 MICROGM INHALER INH SCH ×2 (08:21→20:37)
[2019-03-05] MEDS: NORCO-5 PO PRN (10:07)
--- NOTE | 2019-03-05 14:58 | PROGRESS NOTE ---
DATE: 03/05/2019 SUBJECTIVE: The patient is resting comfortably in bed. He has no complaints. OBJECTIVE: Vital Signs: Temperature 97.4 degrees, blood pressure 103/73, heart rate 105, respirations 21, O2 saturations 100% on BiPAP, intake 2.1 L, output 3.6 L. General: This is a morbidly obese male lying in bed in no acute distress. Heart: S1, S2 normal. Tachycardic. Lungs: Equal air entry bilaterally. No wheezing, no rales, no rhonchi. Abdomen: Positive bowel sounds. Soft, obese, nontender, nondistended. Extremities: No edema, no cyanosis. Neuro: The patient is alert and oriented x4. LABS: White blood cell count 5.3, hemoglobin 9.7, hematocrit 32, platelets 193,000. Sodium 140, potassium 3.9, chloride 92, CO2 35, BUN 78, creatinine 2.1, glucose 103, calcium 10, magnesium 1.7. Chest x-ray shows marked cardiomegaly with pulmonary edema. ASSESSMENT AND PLAN: 1. Acute on chronic hypoxemic and hypercapnic respiratory failure. Stable. Continue to cycle nasal cannula and BiPAP. 2. Acute on chronic systolic congestive heart failure exacerbation [place] Heart Association class 4. The Primacor drip has been discontinued. Continue on diuretic therapy and fluid restriction. The patient has an appointment to follow up with the [facility] to possibly initiate outpatient Primacor infusions. 3. Acute kidney injury on chronic kidney disease secondary to cardiorenal syndrome. Stable. We will continue to monitor the patient's renal function and urine output closely while on diuretic therapy. 4. Dilated nonischemic cardiomyopathy with an ejection fraction of 15 to 20 percent. Aware. 5. Morbid obesity. The patient has been counseled about weight loss and proper diet. 6. Irritable bowel syndrome. Stable. 7. Obstructive sleep apnea. Continue with BiPAP at night. 8. Chronic obstructive pulmonary disease. Stable. Continue with bronchodilator therapy and supplemental oxygen. 9. Disposition. The patient states that he is unable to be discharged home because he cannot walk or take care of himself at this time. The case was discussed with Lotus with [employer] and she will send a referral for rehab placement for the patient. cc: MD МАРИЯ Rubin
--- NOTE | 2019-03-05 20:02 | PULMONOLOGY PROGRESS NOTE ---
DATE: 03/05/2019 SUBJECTIVE: The patient is awake, alert, and conversant. He is currently sitting in the chair. He reports he is having difficulty with lower extremity edema. OBJECTIVE: Vital Signs: The patient has been afebrile for the last 24 hours. Blood pressure 115/84, heart rate 96, respiratory rate 20, oxygen saturation 100% on BiPAP. HEENT: Pupils are equal and reactive. Oropharynx appears clear. Neck: Supple. Chest: Distant breath sounds bilaterally without significant crackles or wheezing. Cardiac: S1, S2. Abdomen: Obese and soft. Extremities: 2+ peripheral edema. LABORATORIES: Chest x-ray reveals cardiomegaly and pulmonary edema. White blood count 5.37, hemoglobin 9.7, platelet count 193,000. IMPRESSION: 34-year-old with: 1. Acute hypoxemic respiratory failure. 2. Acute hypercapnic respiratory failure. 3. Nonischemic cardiomyopathy with systolic heart failure. 4. Morbid obesity, with a body mass index greater than 5. 5. Cardiorenal syndrome with chronic renal insufficiency. PLAN: 1. Continue to cycle BiPAP at bedtime and p.r.n. The patient already has a Trilogy device at home and this will be continued. 2. Anticipate discharge home with plans on following up [facility] as outlined by Dr. Krause. cc: Ta Hawthorne MD
[2019-03-05] MEDS: TUSSIONEX LIQUID PO PRN (21:22)
[2019-03-06] MEDS: NORCO-5 PO PRN ×3 (01:28→21:45)
[2019-03-06] MEDS: XOPENEX NEB INH SCH ×6 (03:17→23:15)
[2019-03-06] MEDS: REGLAN PO SCH ×3 (06:11→17:04)
[2019-03-06] MEDS: HUMULIN R SUBQ SCH ×4 (06:28→21:46)
[2019-03-06 06:46] LABS: CALCIUM 9.5 mg/dL (8.8-10.2); CREATININE 1.9 mg/dL (0.7-1.2); POTASSIUM 3.3 mmol/L (3.5-5.1)
[2019-03-06] MEDS: COREG PO SCH ×2 (07:59→21:45)
[2019-03-06] MEDS: BIDIL PO SCH ×3 (07:59→17:04)
[2019-03-06] MEDS: HEPARIN SUBQ SCH ×2 (07:59→21:45)
[2019-03-06] MEDS: MIRALAX PO SCH ×2 (07:59→21:47)
[2019-03-06] MEDS: PROTONIX PO SCH ×2 (07:59→21:45)
[2019-03-06] MEDS: FOLIC ACID PO SCH (07:59)
[2019-03-06] MEDS: DALIRESP PO SCH (08:00)
[2019-03-06] MEDS: DEMADEX PO SCH ×2 (08:00→21:44)
[2019-03-06] MEDS ORDERED: KLOR-CON PO ONE (08:27)
[2019-03-06] MEDS: SYMBICORT 160/4.5 MICROGM INHALER INH SCH ×2 (08:29→19:20)
[2019-03-06] MEDS ORDERED: ZAROXOLYN PO ONE (11:34)
--- NOTE | 2019-03-06 15:55 | Diag Imaging Result Doc PS360 ---
HIP 1 VIEW RIGHT - 03/06/2019 INDICATION: R hip pain TECHNIQUE: COMPARISON: None FINDINGS: Portable technique was used. Between that and the patient size, the exam is nondiagnostic. IMPRESSION: Nondiagnostic. Electronically signed by Richard Serrato 03/06/2019 3:52 PM
[2019-03-06] MEDS ORDERED: CALMOSEPTINE OINTMENT TOP ONE (16:15)
--- NOTE | 2019-03-06 16:43 | ORTHOPAEDICS CONSULTATION ---
DATE: 03/06/2019 SOURCE OF CONSULTATION: Dr. Maryjane Krause. REASON FOR CONSULTATION: Right hip pain. PAST MEDICAL HISTORY: 1. Nonischemic cardiomyopathy with ejection fraction of 20%. 2. Pulmonary hypertension. 3. GERD. 4. Sleep apnea. 5. Morbid obesity with a BMI of 69. PAST SURGICAL HISTORY: None. MEDICATIONS: 1. Aspirin. 2. Singulair. 3. Roflumilast. 4. Prilosec. 5. Carvedilol. 6. Albuterol. 7. Dicyclomine. 8. Breo Ellipta inhaler. 9. Metoclopramide. 10. Torsemide. 11. Vitamin D. 12. Entresto. ALLERGIES: No known drug allergies. SOCIAL HISTORY: The patient denies any tobacco, alcohol, drug use. He lives in [place]. FAMILY HISTORY: Noncontributory. REVIEW OF SYSTEMS: A 10 point review of systems was completed. The patient has significant shortness of breath at rest. Denies any GI or complaints. Denies any chest pain. CHIEF COMPLAINT: Right hip pain. HISTORY OF PRESENT ILLNESS: Mr. Lopez is a 34-year-old morbidly obese gentleman who has been in the hospital for prolonged stay for about the last 5 weeks secondary to congestive heart failure and chronic hypoxemic respiratory failure. Orthopedics was consulted for a complaint of right hip pain, which the patient states has been going on throughout the course of his hospitalization. He denies any falls, trauma, or other acute inciting events. He states prior to this hospitalization, he would have some intermittent pain in both hips with ambulation. However, it has gotten significantly worse in his right hip. He denies any fevers, chills, nausea or vomiting. He states pain is made worse when he rolls over onto his right side or when he attempts to raise his right leg. Pain is also made worse with weightbearing and ambulation. He has not had any treatment for this in the past. He states he used to take some anti- inflammatories as needed for his joint pain, but has not done that recently. PHYSICAL EXAMINATION: General: Mr. Lopez is a 34-year-old male who appears well nourished, well developed, no acute distress. Patient is significantly morbidly obese with a BMI of 75. Vital Signs: Temperature 97.3 degrees, heart rate 101, respiratory rate 23, blood pressure is 114/83, weight is 480 pounds. HEENT: The patient is on BiPAP. Otherwise normocephalic atraumatic. Respiratory: The patient has some dyspnea with movement in the bed. Cardiovascular: Regular rate and rhythm. Extremities: Examination of right lower extremity shows skin to be intact. Patient has pitting edema in bilateral lower extremities up to the knee. He has some mild tenderness to palpation of the lateral and posterior aspect of the hip. He has no pain with log roll of the hip. He has pain with attempted Stinchfield test around the hip joint. No pain with passive hip flexion, internal or external rotation. He is nontender to palpation around his knee. No sign of joint effusion in the knee. Motor is intact. Quadriceps, hamstrings, EHL, tibialis anterior, gastrocsoleus complex. Sensation intact to light touch L3-S1. Dorsalis pedis pulse palpable and equal bilaterally. Thigh and calf are soft and compressible. IMAGING: None LABS: White count is 5.4, hemoglobin 10, hematocrit 33, platelets 193,000. ASSESSMENT: A 34-year-old morbidly obese male with right hip pain, likely either muscular versus trochanteric bursitis. PLAN: A long discussion was held with the patient regarding diagnosis and treatment options. He is unable to get any x-rays as he is not stable enough to travel down to the department and x-ray states he is too obese and heavy for them to place the portable film casette under him to do a portable film in the room. However, given the fact he has not had any types of falls, I think the chance of a hip fracture is low. There is a good chance he has some arthritis of the hip secondary to his extreme obesity. His infection labs are normal, he is afebrile, and has no pain with passive range of motion of the hip making septic arthritis highly unlikely. We talked with the nurses who discussed with x-ray department and they are going to try to use a [place] lift and have the patient hold himself up, so they can slide a portable set up under him and try to get at least an AP of the pelvis and hip to give us some information and rule out a fracture. Assuming x-ray is negative for fracture I think we will proceed with treating this conservatively. I think a lot of the pain is secondary to deconditioning from his 5 week hospitalization with minimal ambulation and therapy during that time. I have encouraged him to continue working with physical therapy on ambulation. He has no restrictions at this point. I will make further recommendations once X-rays are completed. Thank you for the consultation. Addendum: Portable X-ray of the hip was obtained and is nondiagnostic due to quality and patients body habitus however there does not appear to be any obvious fracture or dislocation. Hip joint space appears to be preserved. PLAN: 1. PT to continue working on mobilization, gait training. 2. Ice to R hip PRN pain 3. Recommend NSAIDs as needed for pain if he is able to take these given his overall medical condition. 4. I discussed the importance of weight loss not only for his overall health but to help off load his joints. This will help significantly with his pain and ambulatory status. 5. He can follow up with me on an outpatient basis as needed for pain. We will be able to obtain appropriate x-rays at that time. Ld Jarquin MD [facility]
--- NOTE | 2019-03-06 17:58 | PROGRESS NOTE ---
DATE: 03/06/2019 SUBJECTIVE: The patient states that he feels better today. He does continue to complain of right hip pain. OBJECTIVE: Vital Signs: Temperature 97.3, blood pressure 114/83, heart rate 101, respirations 23, O2 saturation 96% on 5 L nasal cannula. Intake 1.2 L, output 3 L. General: This is a morbidly obese male sitting up in bed in no acute distress. Heart: S1, S2 normal. Tachycardic. Lungs: Equal air entry bilaterally. No wheezing. No rales. Abdomen: Positive bowel sounds. Soft, obese. Extremities: There is 1+ edema. Neurologic: The patient is alert and oriented x4. LABS: Sodium 135, potassium 3.3, chloride 89. CO2 is 34, BUN 76, creatinine 1.9, glucose 103. ASSESSMENT AND PLAN: 1. Chronic hypoxemic and hypercapnic respiratory failure. Stable. Continue to cycle nasal cannula and BIPAP. 2. Acute on chronic systolic congestive heart failure exacerbation, [place] Heart Association class 4. Continue on torsemide. We will also give the patient a dose of metolazone today. 3. Acute kidney injury on chronic kidney disease secondary to cardiorenal syndrome. Stable. 4. Dilated nonischemic cardiomyopathy with an ejection fraction of 15% to 20%. Aware. 5. Morbid obesity. The patient has been counseled about weight loss and proper diet. 6. Irritable bowel syndrome. Stable. 7. Obstructive sleep apnea. Continue with BiPAP at night. 8. Chronic obstructive pulmonary disease. Stable. 9. Pulmonary hypertension. Aware. 10. Right hip pain with right leg weakness. Continue with prn pain medication and PT. 11. Hypokalemia. Will replace the potassium. 12. Disposition. Registered Nurse [facility] is working on rehab placement for the patient. We will continue with physical therapy while hospitalized. cc: Maryjane Krause MD [facility]
[2019-03-06] MEDS: TUSSIONEX LIQUID PO PRN (21:52)
[2019-03-07] MEDS: XOPENEX NEB INH SCH ×6 (03:05→22:40)
[2019-03-07] MEDS: NORCO-5 PO PRN ×2 (04:53→18:23)
[2019-03-07] MEDS: REGLAN PO SCH ×3 (06:27→15:48)
[2019-03-07] MEDS: HUMULIN R SUBQ SCH ×4 (06:34→21:18)
[2019-03-07 06:37] LABS: HEMATOCRIT 32.9 % (42.0-52.0); HEMOGLOBIN 9.6 g/dL (14.0-18.0); MCH 25.1 PG (27-31); MCHC 29.2 g/dL (33-37); MCV 86.1 FL (81-99); RBC 3.82 XMIL (4.7-6.1); RDW 19.5 % (11.5-14.5); WBC 3.98 X1000 (4.8-10.8)
[2019-03-07 07:22] LABS: POTASSIUM 3.6 mmol/L (3.5-5.1)
[2019-03-07] MEDS: SYMBICORT 160/4.5 MICROGM INHALER INH SCH ×2 (07:32→19:25)
[2019-03-07] MEDS: DEMADEX PO SCH ×2 (10:25→21:18)
[2019-03-07] MEDS: COREG PO SCH ×2 (10:25→21:18)
[2019-03-07] MEDS: PROTONIX PO SCH ×2 (10:25→21:18)
[2019-03-07] MEDS: FOLIC ACID PO SCH (10:26)
[2019-03-07] MEDS: DALIRESP PO SCH (10:26)
[2019-03-07] MEDS: HEPARIN SUBQ SCH ×2 (10:26→21:18)
[2019-03-07] MEDS: BIDIL PO SCH ×3 (10:26→16:55)
[2019-03-07] MEDS: MIRALAX PO SCH ×2 (10:34→21:19)
[2019-03-07] MEDS: MORPHINE IV PRN (12:02)
--- NOTE | 2019-03-07 12:18 | ORTHOPAEDICS PROGRESS NOTE ---
DATE: 03/07/2019 SUBJECTIVE: No acute events overnight. The patient is still reporting pain in his right hip with mobilization. OBJECTIVE: Vital Signs: Afebrile. Vital signs stable. Extremities: Examination of the right lower extremity shows skin intact. The patient has some mild tenderness to palpation over the lateral aspect of his hip. During exam, he is currently sitting up in the chair and about to stand up with a rolling walker. Thigh and calf are soft and compressible. Neurovascularly intact. Pitting edema up to his knee bilaterally. IMAGING: Portable AP view of the right hip obtained yesterday was nondiagnostic in quality due to his body habitus and portable nature of the film. However, no obvious fractures or dislocations. Hip joint space does appear to be well maintained. ASSESSMENT: A 34-year-old male with right hip pain, likely secondary to bursitis versus muscular strain given deconditioning over the last 5 weeks. PLAN: 1. The patient will continue to be weightbearing as tolerated to the right lower extremity. Therapy to mobilize. I encouraged him to work on leg lifts and simple [id number] exercises while in bed. 2. Anti-inflammatories as needed for pain. 3. Ice to the lateral aspect of the hip p.r.n. pain. 4. Disposition per primary team. I think most of his pain is secondary to deconditioning from being in the hospital for the last 5 weeks. I encouraged him to work hard with therapy. If he is still having issues once he gets discharged, I can see him back in the clinic with repeat x-rays and further examination. Thank you for the consult. Please call with any questions.
--- NOTE | 2019-03-07 16:25 | PROGRESS NOTE ---
DATE: 03/07/2019 SUBJECTIVE: The patient is resting comfortably. He states he feels really good today. He complains of right hip pain. OBJECTIVE: Vital Signs: Temperature 97.8 degrees. Blood pressure 113/88, heart rate 84, respirations 22. O2 saturations 98% on 5 L nasal cannula. General: This is a morbidly obese male lying in bed in no acute distress. Heart: S1, S2 normal. Regular rate and rhythm. Lungs: Equal air entry bilaterally. No wheezing. No rales. Abdomen: Positive bowel sounds. Soft, nontender, nondistended. Extremities: 1+ edema in the legs. Neurologic: The patient is alert and oriented x4. LABS: White blood cell count 3.9, hemoglobin 9.6, hematocrit 32, platelets 198,000. Sodium 139, potassium 3.6, chloride 91, CO2 36, BUN 77, creatinine 2, glucose 125. ASSESSMENT AND PLAN: 1. Chronic hypoxemic and hypercapnic respiratory failure. Continue to cycle nasal cannula and BiPAP. 2. Acute on chronic systolic congestive heart failure exacerbation, NYHA class 4. Continue on furosemide. 3. Acute kidney injury on chronic kidney disease secondary to cardiorenal syndrome. Stable. 4. Morbid obesity. The patient has been counseled about weight loss and proper diet. 5. Dilated nonischemic cardiomyopathy with an ejection fraction of 15 to 20%. Aware. 6. Chronic obstructive pulmonary disease. Stable. 7. Obstructive sleep apnea. Continue with BiPAP at night. 8. Pulmonary hypertension. Aware. 9. Right hip pain with right lower extremity weakness. Continue with physical therapy. 10. Disposition. [facility] is working on inpatient rehab placement. cc: Maryjane Krause MD
[2019-03-07] MEDS: TUSSIONEX LIQUID PO PRN (21:18)
--- NOTE | 2019-03-07 21:28 | PULMONOLOGY PROGRESS NOTE ---
DATE: 03/07/2019 SUBJECTIVE: The patient is awake and alert. He has mild breathlessness while off his BiPAP and eating. OBJECTIVE: Vital Signs: The patient has been afebrile for the last 24 hours. Blood pressure 113/88, heart rate 84, respiratory rate 22, oxygen saturation 98% on 5 L per nasal cannula. HEENT: Pupils are equal and reactive. Oropharynx appears clear. Neck: Supple. Chest: Reveals crackles in both lung bases. Cardiac: S1-S2. Abdomen: Obese and soft. Extremities: Reveal 1+ peripheral edema. LABORATORIES: Sodium 139, potassium 3.6, chloride 91, bicarbonate 36, BUN 77, creatinine 2.0. White blood count 3.98, hemoglobin 9.6, platelet count 198,000. No new x-ray data. IMPRESSION: 34-year-old with 1. Hypoxemic respiratory failure. 2. Hypercapnic respiratory failure. 3. Systolic heart failure from nonischemic cardiomyopathy. 4. Morbid obesity with a body mass index greater than 75. 5. Cardiorenal syndrome. PLAN: 1. Continue BiPAP/Trilogy at bedtime and p.r.n. 2. Supplemental oxygen with eating. 3. Long-term prognosis is guarded. He is currently being evaluated for rehabilitation cc: Ta Hawthorne MD [facility]TD[facility]
[2019-03-08] MEDS: XOPENEX NEB INH SCH ×6 (03:10→23:18)
[2019-03-08] MEDS: NORCO-5 PO PRN ×2 (03:48→19:41)
[2019-03-08 06:07] LABS: HEMATOCRIT 33.9 % (42.0-52.0); HEMOGLOBIN 9.9 g/dL (14.0-18.0); MCH 25.1 PG (27-31); MCHC 29.2 g/dL (33-37); RBC 3.94 XMIL (4.7-6.1); RDW 19.4 % (11.5-14.5); WBC 4.19 X1000 (4.8-10.8)
[2019-03-08] MEDS: REGLAN PO SCH ×3 (06:13→15:39)
[2019-03-08] MEDS: HUMULIN R SUBQ SCH ×5 (06:18→21:12)
[2019-03-08 06:41] LABS: POTASSIUM 3.4 mmol/L (3.5-5.1)
[2019-03-08] MEDS ORDERED: MAG-OX PO ONE (06:42)
[2019-03-08] MEDS ORDERED: KLOR-CON PO ONE (06:42)
[2019-03-08] MEDS: SYMBICORT 160/4.5 MICROGM INHALER INH SCH ×2 (07:44→19:33)
[2019-03-08] MEDS: HEPARIN SUBQ SCH ×2 (09:48→21:19)
[2019-03-08] MEDS: DEMADEX PO SCH ×2 (09:48→21:19)
[2019-03-08] MEDS: MIRALAX PO SCH ×2 (09:48→21:24)
[2019-03-08] MEDS: DALIRESP PO SCH (09:49)
[2019-03-08] MEDS: FOLIC ACID PO SCH (09:49)
[2019-03-08] MEDS: COREG PO SCH ×2 (09:49→21:20)
[2019-03-08] MEDS: BIDIL PO SCH ×3 (09:49→17:03)
[2019-03-08] MEDS: PROTONIX PO SCH ×2 (09:49→21:19)
[2019-03-08] MEDS: MORPHINE IV PRN (11:38)
[2019-03-08] MEDS ORDERED: NON-FORMULARY BULK MED PO PRN (12:45)
[2019-03-08] MEDS: ULTRAM PO PRN (15:39)
--- NOTE | 2019-03-08 17:39 | PROGRESS NOTE ---
DATE: 03/08/2019 SUBJECTIVE: The patient is resting comfortably in bed. He states that he feels good today. He does complain of continued pain in his right hip, especially when trying to stand or ambulate. OBJECTIVE: Vital Signs: Temperature 98.2 degrees, blood pressure 103/68, heart rate 94, respirations 19, O2 saturation 94% on 5 L nasal cannula, intake 1.6 L, output 3.3 L. General: This is a morbidly obese male lying in bed in no acute distress. Heart: S1, S2. Regular rate and rhythm. Lungs: Equal air entry bilaterally. No wheezing. No rales. Abdomen: Positive bowel sounds. Soft, nontender, nondistended. Extremities: 1+ edema in the lower extremities. Neurologic: The patient is alert and oriented x4. LABORATORY DATA: White blood cell count 4.1, hemoglobin 9.9, hematocrit 33, platelets 224,000. Sodium 139, potassium 3.4, chloride 88, CO2 37, BUN 78, creatinine 2, glucose 103, magnesium 1.8, calcium 10. ASSESSMENT AND PLAN: 1. Chronic hypoxemic and hypercapnic respiratory failure. Continue to cycle nasal cannula and BiPAP therapy. 2. Acute on chronic systolic congestive heart failure exacerbation, NYHA class 4. Continue on Demadex. The patient is also on 1.5 fluid restriction. 3. Acute kidney injury on chronic kidney disease secondary to cardiorenal syndrome. Stable. 4. Morbid obesity. The patient has been counseled about weight loss and proper diet. 5. Dilated nonischemic cardiomyopathy with an ejection fraction of 15% to 20%. Aware. 6. Chronic obstructive pulmonary disease. Stable. 7. Obstructive sleep apnea. Continue with BiPAP at night. 8. Pulmonary hypertension. Aware. 9. Right hip pain with right lower extremity weakness. Continue with physical therapy and pain medication as necessary. 10. Disposition. Rehabilitation Therapy Aide is working on inpatient rehab placement for the patient. cc: Maryjane Karuse MD [facility]TD[facility]
[2019-03-09] MEDS: ULTRAM PO PRN ×2 (02:13→14:20)
[2019-03-09] MEDS: XOPENEX NEB INH SCH ×4 (03:05→16:07)
[2019-03-09 06:12] LABS: HEMATOCRIT 30.7 % (42.0-52.0); HEMOGLOBIN 8.9 g/dL (14.0-18.0); MCH 25.1 PG (27-31); MCV 86.7 FL (81-99); MPV 10.1 FL (7.4-10.4); RBC 3.54 XMIL (4.7-6.1); RDW 19.3 % (11.5-14.5); WBC 3.91 X1000 (4.8-10.8)
[2019-03-09] MEDS: HUMULIN R SUBQ SCH ×3 (06:33→16:40)
[2019-03-09] MEDS: REGLAN PO SCH ×3 (06:36→17:11)
[2019-03-09] MEDS: SYMBICORT 160/4.5 MICROGM INHALER INH SCH (08:33)
[2019-03-09] MEDS: HEPARIN SUBQ SCH (09:10)
[2019-03-09] MEDS: DEMADEX PO SCH (09:11)
[2019-03-09] MEDS: BIDIL PO SCH ×3 (09:11→17:11)
[2019-03-09] MEDS: DALIRESP PO SCH (09:11)
[2019-03-09] MEDS: FOLIC ACID PO SCH (09:12)
[2019-03-09] MEDS: PROTONIX PO SCH (09:12)
[2019-03-09] MEDS: COREG PO SCH (09:12)
[2019-03-09] MEDS: MIRALAX PO SCH (09:13)
[2019-03-09 10:35] LABS: CALCIUM 9.8 mg/dL (8.8-10.2); CREATININE 2.2 mg/dL (0.7-1.2); POTASSIUM 3.7 mmol/L (3.5-5.1)
--- NOTE | 2019-03-09 10:44 | PROGRESS NOTE ---
DATE: 03/09/2019 INTERVAL HISTORY: No acute events overnight. SUBJECTIVE: Mr. Lopez denies new complaints. We had discussion about his heart failure, stable kidney function, adequate urine output. Awaiting rehab availability. I answered all of his questions. VITAL SIGNS: Temperature of 97.4 degrees, pulse 88, respiratory rate 16, blood pressure 120/76, saturating 100% to 98% intermittently on BiPAP and nasal cannula. Input and output, he had -1.9 L urine yesterday. PHYSICAL EXAMINATION: General: Morbidly obese, not in acute distress. HEENT: Oral cavity is moist. Lungs: Air entry bilaterally equal. No wheeze, rhonchi, or crackles. Cardiovascular: S1, S2 normal. No murmur, rub, or gallop. Abdomen: Soft, nontender. Extremities: He has bilateral lower extremity edema. He has a left PICC line. Because of morbid obesity, examination is limited. LABORATORY DATA: Suggestive of low WBC, low hemoglobin, normal platelet count. His BMP is not up. No microbiological or imaging data. ASSESSMENT AND PLAN: 1. Acute on chronic hypoxic hypercapnic respiratory failure due to morbid obesity, obstructive sleep apnea, and acute congestive heart failure exacerbation. Continue to cycle BiPAP and oxygen through nasal cannula as tolerated. 2. Acute on chronic systolic congestive heart failure exacerbation with ejection fraction of 15 to 20 percent due to morbid obesity-related nonischemic cardiomyopathy. Continue carvedilol, isosorbide, hydralazine and oral torsemide. 3. Chronic kidney disease stage 3 and intermittent acute kidney injury due to cardiorenal syndrome, now stable. He has intermittently required inotropic support. Continue monitor kidney function and current dose of diuretics. 4. Bilateral hip pain, likely because of physical deconditioning and being in the hospital with bedridden condition. I encouraged him to do physical activity as tolerated. Orthopedic team on board and recommends conservative management. 5. Deep venous thrombosis prophylaxis. Heparin subcutaneously. 6. Abdominal pain. Continue metoclopramide with meals as needed as well as MiraLAX to avoid constipation. 7. Disposition. Awaiting rehab availability. Plan of care discussed with Mr. Lopez and all of his questions have been answered. cc: Rodo Ramirez MD
[2019-03-09] MEDS: NORCO-5 PO PRN (11:21)
--- NOTE | 2019-03-09 14:26 | DISCHARGE SUMMARY ---
ADMISSION DATE: 01/28/2019 DISCHARGE DATE: 03/01/2019 ADDENDUM REPORT: This is an addendum to previously dictated discharge summary on March 01. Mr. Lopez has been in the hospital for acute on chronic systolic congestive heart failure exacerbation. His congestive heart failure [place] Heart Association Class 4 is related to nonischemic cardiomyopathy related to morbid obesity. Since the previous discharge summary dictated on March 01, he did have worsening BUN and creatinine requiring intravenous Milrinone. However, his kidney function recovered and currently appears to be stable. He appears stable to be discharged to rehab. CURRENT MEDICATIONS: 1. Dicyclomine 10 mg t.i.d. as needed for abdominal cramps. 2. BiDil 1 tablet orally t.i.d. 3. Carvedilol 12.5 mg b.i.d. 4. Roflumilast 500 mcg daily. 5. Torsemide 50 mg b.i.d. 6. Heparin 5000 units subcutaneously every 12 hours. 7. MiraLAX 17 g b.i.d. 8. [place] 5 one tablet every 6 hours as needed for hip pain. 9. Pantoprazole 40 mg every 12 hours. Reglan 10 mg t.i.d. with meals. 10. Symbicort 160/4.5 mcg inhaler 2 puffs inhaled b.i.d. 11. Tussionex liquid 5 mL every 12 hours as needed for cough. 12. Acetaminophen 650 mg every 6 hours as needed for mild pain. 13. Xopenex nebulization 1.25 mg every 4 hours for shortness of breath. CURRENT DIAGNOSES: 1. Acute on chronic hypoxic hypercapnic respiratory failure. 2. Acute on chronic systolic congestive heart failure with ejection fraction of 15 to 20 percent. 3. Chronic systolic congestive heart failure due to morbid obesity related nonischemic cardiomyopathy. 4. Bilateral hip pain. 5. Nausea, vomiting, abdominal pain, thought to be related to constipation and intestinal wall edema related to congestive heart failure. 6. Pseudomonas pneumonia status post antibiotics. 7. Frequent cardiorenal syndrome requiring inotropic support leading to acute kidney injury on chronic kidney disease stage 3. OTHER DIAGNOSES: 1. History of nonischemic cardiomyopathy. 2. History of recurrent hospital admissions due to congestive heart failure exacerbation. 3. History of morbid obesity. 4. History of obstructive sleep apnea on BiPAP at sleep time and nasal cannula 3 to 4 L/minute during awake. 5. History of chronic kidney disease stage 3. HOSPITAL COURSE SUMMARY: Mr. Lopez is 34 years old man with history of nonischemic cardiomyopathy and chronic systolic congestive heart failure, who was initially admitted on 02/27/2019 with chief complaint of worsening bilateral lower extremity edema and shortness of breath. He was diagnosed with acute on chronic systolic congestive heart failure which was thought to be related to progression of his cardiomyopathy. Since then, he has been treated in and out of ICU for intravenous diuresis, intravenous inotropic support. He has been on intravenous dopamine, intravenous dobutamine and intravenous Milrinone intermittently for his congestive heart failure and cardiorenal syndrome. Eventually, he was able to be taken off of his intravenous Milrinone drip and currently he is making adequate urine on current dose of torsemide, attempts were made to request transfer to [facility] as well as [facility]. However considering his kidney dysfunction and morbid obesity, they had recommended that he was not the ideal candidate for heart transplantation or even left ventricular assist device, so medical management was recommended. At the time of discharge, he was hemodynamically stable. The patient would need outpatient heart failure clinic appointment at [facility]. FOLLOW-UP INSTRUCTION: 1. Closely monitor patient's urine output. 2. Closely monitor BUN and creatinine to be performed 3 days after discharge to rehab. 3. Establish care with heart failure Clinic at [facility] as the patient may need continuous intravenous Milrinone drip, outpatient, and for that he needs to see heart failure Clinic at [facility]. TIME SPENT: More than 30 minutes of time was spent in discharging this patient. cc: Rodo Ramirez MD
[2019-03-09 15:34] VITALS: BP 112/72
== END 2019-03-09 17:12 ==
LOC: ED 07:36 → EDIPHOLD 07:37 → OBSVTOIN 07:37 → INTOOBSV 07:37 → SUATTDRO 07:37 → 3N 13:53 → ICU 02-01 23:47 → 2N 02-12 14:40 → 3N 02-15 19:37 → ICU 02-20 14:56 → 2N 02-23 07:45
PROVIDERS: ATTEND Internal Medicine